=== PATIENT | female | born 1940 | race Caucasian/White ===

== ENCOUNTER 2016-11-08 16:05 | Inpatient (IN) | payer MEDICARE, BC ==
[2016-11-08] MEDS ORDERED: Sodium Chloride 0.9% 10 ML Syringe FLUSH PRN (16:36)
--- NOTE | 2016-11-08 17:16 | EDM.PDOC ---
ED HISTORY OF PRESENT ILLNESS - General Chief Complaint: Cardiovascular Problem Stated Complaint: ABNORMAL LABS Time Seen by Provider: 11/08/16 16:26 Source of Information: Reports: Patient History Limitations: Reports: No limitations - History of Present Illness INITIAL COMMENTS - FREE TEXT/NARRATIVE: The patient presents with a fever from Dr Rubio's office. She saw Dr Rubio today because she has had no energy, has been off balance and she has fallen many times in the past few days. She fell 3 times yesterday. She has moderate edema to her legs. She also has developed a generalized rash in the past few days. She has no pain. She has no cough, congestion, runny nose, sore throat, chest pain or shortness of breath. She has no nausea or vomiting and no abdominal pain. She was tachycardic at his office and he heard a heart murmur that he has never heard before. She has crohn's disease and in September she was hospitalized in [place] for a flair. She sees Dr Weiss at [facility]. At that time he put her on some solu-medrol and upped her remicade. Her temperature was [address] Rubio recommended a CT of her head and a CT of her abdomen and pelvis. Timing/Duration: Reports: Day(s): Severity: moderate Improves with: Reports: None Worsens with: Reports: None Associated Symptoms (General): Reports: fever/chills. Denies: chest pain, cough , headaches, loss of appetite, nausea/vomiting, shortness of breath - Related Data Allergies/ADRs: Allergies Allergy/AdvReac Type Severity Reaction Status Date / Time No Known Allergies Allergy Verified 11/08/16 16:19 Home Meds: Home Meds Levothyroxine Sodium 75 mcg PO ACBRK 04/14/14 [History] Metoprolol Tartrate [Lopressor] 1 tab PO BID 04/14/14 [History] Pantoprazole Sodium 1 tab PO DAILY 04/14/14 [History] Potassium Chloride 2 tab PO QAM 04/14/14 [History] Pravastatin [Pravachol] 1 tab PO DAILY 04/14/14 [History] Triamterene/Hydrochlorothiazid [Triamterene-HCTZ 37.5-25 MG] 0.5 tab PO QAM 12/23 [History] metFORMIN [Glucophage] 1 tab PO BEDTIME 04/14/14 [History] Loperamide [Imodium AD] 1 tab PO BID PRN 06/18/15 [History] Nitroglycerin [Nitrostat] 0.4 mg SL ASDIRECTED PRN 06/18/15 [History] InFLIXimab [Remicade] 100 mg IV ASDIRECTED 06/30/15 [History] Colestid. 1 gram PO DAILY 06/14/16 [History] Aspirin 81 mg PO DAILY 09/19/16 [History] Past Medical History HEENT History: Reports: Impaired vision Cardiovascular History: Reports: CAD, Hypertension Other Cardiovascular History: x 3 Gastrointestinal History: Reports: GERD, Inflammatory bowel disease, Other (see below) Other Gastrointestinal History: crohn's Genitourinary History: Reports: Urinary incontinence Musculoskeletal History: Reports: Osteoarthritis Psychiatric History: Reports: Depression Endocrine/Metabolic History: Reports: Hypothyroidism Other Endocrine/Metabolic History: borderline - Past Surgical History HEENT Surgical History: Reports: Cataract surgery, Tonsillectomy Cardiovascular Surgical History: Reports: Coronary artery stent GI Surgical History: Reports: Cholecystectomy, Colonoscopy Social & Family History - Tobacco Use Smoking Status *Q: Former Smoker Years of Tobacco use: 30 Packs/Tins Daily: 2 Month Tobacco Last Used: 1994 Second Hand Smoke Exposure: No - Caffeine Use Caffeine Use: Reports: Coffee, Energy drinks, Soda, Tea - Alcohol Use Days Per Week of Alcohol Use: 1 Number of Drinks Per Day: 1 Total Drinks Per Week: 1 - Recreational Drug Use Recreational Drug Use: No Drug Use in Last 12 Months: No - Living Situation & Occupation Living situation: Reports: , alone Occupation: retired ED ROS GENERAL - Review of Systems Review Of Systems: See Below Constitutional: Reports: fever, chills, malaise, weakness HEENT: Reports: No symptoms Respiratory: Reports: no symptoms Cardiovascular: Reports: No symptoms Endocrine: Reports: no symptoms GI/Abdominal: Reports: No symptoms : Reports: no symptoms Musculoskeletal: Reports: no symptoms Skin: Reports: no symptoms ED EXAM, GENERAL - Physical Exam Exam: See Below Exam Limited By: No limitations General Appearance: alert, no apparent distress Ears: normal external exam Nose: normal inspection Head: atraumatic, normocephalic Neck: normal inspection Respiratory/Chest: no respiratory distress, lungs clear, normal breath sounds Cardiovascular: regular rate, rhythm, no murmur, other (Moderate edema to her lower legs) GI/Abdominal: soft, non tender, no organomegaly, no mass Back Exam: normal inspection Extremities: other (Moderate to severe edema to both legs) Neurological: alert, oriented, no motor/sensory deficits Skin Exam: Warm, Dry, Rash Course - Vital Signs Last Recorded V/S: Last Vital Signs Temp 99.5 F 11/08/16 16:19 Pulse 109 H 11/08/16 16:19 Resp 14 11/08/16 16:19 BP 144/68 H 11/08/16 16:19 Pulse Ox - Orders/Labs/Meds Orders: Active Orders 24 hr Category Date Time Status Peripheral IV Care [RC] . DIRECTED Care 11/08/16 16:36 Active Sodium Chloride 0.9% [Saline Flush] Med 11/08/16 16:36 Active 10 ml FLUSH ASDIRECTED PRN Sodium Chloride 0.9% [Saline Flush] Med 11/08/16 17:55 Active 10 ml FLUSH ONETIME PRN Vancomycin [Vancocin] 1 gm Med 11/08/16 19:04 Active Sodium Chloride 0.9% [Normal Saline] 250 ml IV ONETIME Peripheral IV Insertion Adult [OM.PC] Routine Oth 11/08/16 16:36 Ordered Medication Orders Vancomycin HCl 1 gm/ Sodium (Chloride) 250 mls @ 250 mls/hr IV ONETIME ONE Stop: 11/08/16 20:03 Sodium Chloride (Saline Flush) 10 ml FLUSH ASDIRECTED PRN PRN Reason: Keep Vein Open Last Admin: 11/08/16 17:30 Dose: 10 ml Sodium Chloride (Saline Flush) 10 ml FLUSH ONETIME PRN PRN Reason: IV FLUSH Last Admin: 11/08/16 18:34 Dose: 10 ml Admin: 11/08/16 18:05 Dose: 10 ml Meds: Medications Generic Name Dose Route Start Last Admin Trade Name Freq PRN Reason Stop Dose Admin Vancomycin HCl 1 gm/ Sodium 250 mls @ 250 mls/hr 11/08/16 19:04 Chloride IV 11/08/16 20:03 ONETIME ONE Sodium Chloride 10 ml 11/08/16 16:36 11/08/16 17:30 Saline Flush FLUSH 10 ml ASDIRECTED PRN Administration Keep Vein Open Sodium Chloride 10 ml 02/28/17 17:55 11/08/16 18:34 Saline Flush FLUSH 10 ml ONETIME PRN Administration IV FLUSH Discontinued Medications Generic Name Dose Route Start Last Admin Trade Name Juan PRN Reason Stop Dose Admin Acetaminophen 975 mg 11/08/16 19:08 Tylenol PO 11/08/16 19:09 NOW ONE Diatrizoate Meglum/Diatrizoate Sod 90 ml 11/08/16 17:55 11/08/16 18:34 Gastrografin 37% PO 11/08/16 17:56 90 ml ONETIME ONE Administration Iopamidol 125 ml 11/08/16 17:55 11/08/16 18:32 Isovue-300 (61%) IVPUSH 11/08/16 17:56 125 ml ONETIME ONE Administration - Re-Assessments/Exams Free Text/Narrative Re-Assessment/Exam: 11/08/16 17:23 I ordered an IV NS at 125mL/hr, CT of her head and CT of her abdomen and pelvis. Her CBC shows a normal WBC. Her Hgb is a little low at 11. Her Platelets are normal. Her CRP was elevated at 152. Her glucose was elevated at 153. Her K was a little low at 3.2. Her albumin was low at 2.6. Her UA shows no UTI. The patient had to urinate when she came in and my nursing staff got her up and she had moderate to severe erythema to the perineum and perirectal area. This could be the source of the fever. Dr Rubio did also order some cultures. 11/08/16 19:10 Her influenza is negative. The CT of her head shows nothing acute. The CT of her abdomen and pelvis shows changes from the crohn's with no new changes. I ordered vancomycin [address] Rubio did cultures. I feel she needs to be admitted. I called Dr Johnson and he agreed to the admission. He was able to look in her record and found she has some heart failure. This could also be going on. Departure - Departure Time of Disposition: 19:20 Disposition: Admitted As Inpatient 66 Condition: fair Clinical Impression: Cellulitis of perineum, Rash, Hypoalbuminemia, Pedal edema Fever Qualifiers: Fever type: due to other condition Qualified Code(s): R50.81 - Fever presenting with conditions classified elsewhere CHF (congestive heart failure) Qualifiers: Congestive heart failure type: unspecified congestive heart failure type Congestive heart failure chronicity: unspecified congestive heart failure chronicity Qualified Code(s): I50.9 - Heart failure, unspecified Forms: ED Department Discharge - My Orders Last 24 Hours: My Active Orders 11/08/16 16:36 Peripheral IV Care [RC] . DIRECTED Sodium Chloride 0.9% [Saline Flush] 10 ml FLUSH ASDIRECTED PRN Peripheral IV Insertion Adult [OM.PC] Routine 11/08/16 17:55 Sodium Chloride 0.9% [Saline Flush] 10 ml FLUSH ONETIME PRN 11/08/16 19:04 Vancomycin [Vancocin] 1 gm Sodium Chloride 0.9% [Normal Saline] 250 ml IV ONETIME - Assessment/Plan Last 24 Hours: My Active Orders 11/08/16 16:36 Peripheral IV Care [RC] . DIRECTED Sodium Chloride 0.9% [Saline Flush] 10 ml FLUSH ASDIRECTED PRN Peripheral IV Insertion Adult [OM.PC] Routine 11/08/16 17:55 Sodium Chloride 0.9% [Saline Flush] 10 ml FLUSH ONETIME PRN 11/08/16 19:04 Vancomycin [Vancocin] 1 gm Sodium Chloride 0.9% [Normal Saline] 250 ml IV ONETIME
--- NOTE | 2016-11-08 17:19 | CT ---
Head CT Technique: Multiple axial sections through the brain were obtained. Intravenous contrast was not utilized. Comparison: Previous head CT study of 09/27/14 and previous MRI brain of 06/15/16. Findings: Ventricles along with basal cisterns and sulci over the convexities are moderately prominent. Mild diminished density is seen within portions of the periventricular and subcortical white matter. This is felt compatible with small vessel ischemic demyelination change. 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 Slight basal ganglia calcification is noted on the right side. Old lacunar infarct also noted within the left side of the cerebellum also seen on previous study. No other abnormal parenchymal densities are seen. No evidence of intracranial hemorrhage. No midline shift or mass effect is seen. Bone window settings were reviewed which shows the visualized sinuses to appear clear. Mastoid sinuses and middle ear cavities are clear. No acute calvarial abnormality is seen. Impression: 1. Senescent change as described above. Nothing acute is identified on noncontrast head CT study. Diagnostic code #2
[2016-11-08] MEDS ORDERED: Iopamidol 612 MG/ML 150 ML Bottle IVPUSH ONE (17:55)
[2016-11-08] MEDS ORDERED: Diatrizoate Meglumine/Diatrizoate Sodium 37% 120 ML Bottle PO ONE (17:55)
[2016-11-08] MEDS: Sodium Chloride 0.9% 10 ML Syringe FLUSH PRN ×2 (18:05→18:34)
--- NOTE | 2016-11-08 19:04 | CT ---
CT abdomen and pelvis Technique: Multiple axial sections were obtained from above the dome of the diaphragm inferiorly through the pubic symphysis. Intravenous and oral contrast was utilized. Delayed images were also obtained through the bladder. Comparison: Previous CT abdomen and pelvis exam of 09/19/16 is available. Findings: Visualized lung bases shows nothing acute. Liver shows no focal abnormality. Multiple calcified splenic granuloma noted within the spleen which are incidental. Adrenal glands show no nodule. Pancreas is within normal limits. Cysts are seen within the right kidney which appears stable. Left kidney is unremarkable. No hydronephrosis is seen. Aorta shows atherosclerotic change. Mild aneurysmal dilatation seen within the mid aorta which measures about 3.3 cm in greatest AP dimension which is stable. Atherosclerotic calcification is seen within the iliac vessels. Diffuse wall thickening seen within the large portion of the distal ileum. This was noted on previous exam and appears fairly stable. Small amount of fluid is seen within the pelvis which was seen on prior exam. Small fat-containing bilateral inguinal hernias are noted. No additional pelvic abnormality is appreciated. Impression: 1. Prominent bowel wall thickening within the distal ileum which appears fairly stable from prior study. Findings are compatible with change from Crohn's disease. 2. Small amount of fluid within the pelvis which remains stable from prior CT exam. 3. Slight aneurysmal dilatation of the mid aorta which remains stable. 4. Previous study shows slightly prominent lymph nodes which have decreased in size from previous exam. 5. No new abnormality is seen from prior CT study. Diagnostic code #3
[2016-11-08] MEDS ORDERED: Acetaminophen 325 MG Tab PO ONE (19:08)
--- NOTE | 2016-11-08 20:00 | PCM.HP ---
H&P History of Present Illness - General Date of Service: 11/08/16 Admit Problem/Dx: Admission Diagnosis/Problem Admission Diagnosis/Problem Cellulitis Source of Information: EMS notes reviewed, Old records, RN notes reviewed History Limitations: Reports: No limitations - History of Present Illness Initial Comments - Free Text/Narative: This is a 76 yo elderly white female with past medical hx/o Impaired Vision, CAD , HTN, GERD, Urinary Incontinence, OA, Hypothyrodism and Depression who initially presented to his PCP with c/o fever and was found to have a temp of 101. She reports weakness, malaise, fatigue, unsteady gait and has fallen many times in the past few days. Per patient she has fallen at least 3 times yesterday. She also has skin rash and peripheral edema. She denies pain, URI symptoms, no chest pain or shortness of breath. She also denies nausea, vomiting or abdominal pain. On presentation to her PCP's office, she was found tachycardic and a new onset of heart murmur. Patient carries a hx/o Crohn's Disease and follows Dr. Weiss. She was hospitalized in September in [place] for acute flare up of her IBD. At that time, she was given high dose steroids and her biologic was dose was upped. Her initial work up at the clinic shows a Head CT scan with no acute abnormal findings. Her Abdomen/Pelvis CT scan shows diffuse bowel wall thickening within the large portion of the distal ileum. Patient was referred to me fro Acute Crohn's Disease, Perineal Cellulitis cannot r/o fistula, Hypoalbuminemia, Fever, Generalized Weakness and pedal Edema. She is full code. - Related Data Allergies/Adverse Reactions: Allergies Allergy/AdvReac Type Severity Reaction Status Date / Time No Known Allergies Allergy Verified 11/08/16 16:19 Home Medications: Home Meds Levothyroxine Sodium 75 mcg PO ACBRK 04/14/14 [History] Metoprolol Tartrate [Lopressor] 1 tab PO BID 04/14/14 [History] Pantoprazole Sodium 1 tab PO DAILY 04/14/14 [History] Potassium Chloride 2 tab PO QAM 04/14/14 [History] Pravastatin [Pravachol] 1 tab PO DAILY 04/14/14 [History] Triamterene/Hydrochlorothiazid [Triamterene-HCTZ 37.5-25 MG] 0.5 tab PO QAM 12/23 [History] metFORMIN [Glucophage] 1 tab PO BEDTIME 04/14/14 [History] Loperamide [Imodium AD] 1 tab PO BID PRN 06/18/15 [History] Nitroglycerin [Nitrostat] 0.4 mg SL ASDIRECTED PRN 06/18/15 [History] InFLIXimab [Remicade] 100 mg IV ASDIRECTED 06/30/15 [History] Colestid. 1 gram PO DAILY 06/14/16 [History] Aspirin 81 mg PO DAILY 09/19/16 [History] Past Medical History HEENT History: Reports: Impaired vision Cardiovascular History: Reports: CAD, Hypertension Other Cardiovascular History: x 3 Gastrointestinal History: Reports: GERD, Inflammatory bowel disease, Other (see below) Other Gastrointestinal History: crohn's Genitourinary History: Reports: Urinary incontinence Musculoskeletal History: Reports: Osteoarthritis Psychiatric History: Reports: Depression Endocrine/Metabolic History: Reports: Hypothyroidism Other Endocrine/Metabolic History: borderline - Past Surgical History HEENT Surgical History: Reports: Cataract surgery, Tonsillectomy Cardiovascular Surgical History: Reports: Coronary artery stent GI Surgical History: Reports: Cholecystectomy, Colonoscopy Social & Family History - Tobacco Use Smoking Status *Q: Former Smoker Years of Tobacco use: 30 Packs/Tins Daily: 2 Month Tobacco Last Used: 1994 Second Hand Smoke Exposure: No - Caffeine Use Caffeine Use: Reports: Coffee, Energy drinks, Soda, Tea - Alcohol Use Days Per Week of Alcohol Use: 1 Number of Drinks Per Day: 1 Total Drinks Per Week: 1 - Recreational Drug Use Recreational Drug Use: No Drug Use in Last 12 Months: No - Living Situation & Occupation Living situation: Reports: , alone Occupation: retired H&P Review of Systems - Review of Systems: Review Of Systems: See Below General: Reports: fever, chills, malaise, weakness HEENT: Reports: no symptoms Pulmonary: Denies: shortness of breath Cardiovascular: Denies: chest pain, edema Gastrointestinal: Denies: Abdominal pain, Nausea, Vomiting Genitourinary: Reports: no symptoms Musculoskeletal: Reports: no symptoms Skin: Reports: rash Psychiatric: Denies: depression, anxiety, hallucinations Neurological: Denies: confusion Hematologic/Lymphatic: Reports: no symptoms Immunologic: Reports: no symptoms Exam - Exam Exam: See Below - Vital Signs Vital Signs: Last Vital Signs Temp 37.7 C 11/08/16 19:26 Pulse 109 H 11/08/16 16:19 Resp 14 11/08/16 16:19 BP 144/68 H 11/08/16 16:19 Pulse Ox Weight: 90.265 kg - Exam General: alert, oriented, cooperative, other (Obese). No: mild distress HEENT: Conjunctiva clear, EACs clear, EOMI, Hearing intact, Mucosa moist & pink , Nares patent, Normal nasal septum, Posterior pharynx clear, PERRLA Neck: supple, trachea midline, 2+ carotid pulse wo bruit Lungs: Clear to auscultation, Normal respiratory effort Cardiovascular: regular rate, regular rhythm Abdomen: normal bowel sounds, soft, organomegaly. No: peritoneal signs, distention, guarding, rigidity, rebound, tenderness (Female) Exam: Other (Lisa-rectal and lisa-eal erythema) Rectal (Female) Exam: Deferred Back Exam: normal inspection, decreased range of motion Extremities: normal inspection, edema. No: normal pulses, clubbing, cyanosis, calf tenderness Peripheral Pulses: 2+: dorsalis pedis (L), dorsalis pedis (R) Skin: warm, dry, intact Neuro Extensive - Mental Status: oriented x3, normal cognition, memory intact Neuro Extensive - Motor, Sensory, Reflexes: CN II-XII intact, normal gait Psychiatric: alert, normal affect, normal mood - Patient Data Result Diagrams: 11/08/16 20:35 11/08/16 20:35 Thuan Results last 24 hrs: Microbiology 11/08/16 17:00 Influenza Type A Antigen Screen - Final Nasal, Unspecified NEGATIVE INFLUENZA A VIRUS AG Influenza Type B Antigen Screen - Final NEGATIVE INFLUENZA B VIRUS AG *Q Meaningful Use (ADM) - VTE *Q VTE Criteria *Q: - Stroke *Q Stroke Criteria *Q: - AMI *Q AMI Criteria *Q: Problem List Initiated/Reviewed/Updated: Yes Orders Last 24hrs: Active Orders 24 hr Category Date Time Status Patient Status [ADT] Routine ADT 11/08/16 19:19 Active Peripheral IV Care [RC] . DIRECTED Care 11/08/16 16:36 Active Sodium Chloride 0.9% [Saline Flush] Med 11/08/16 16:36 Active 10 ml FLUSH ASDIRECTED PRN Sodium Chloride 0.9% [Saline Flush] Med 11/08/16 17:55 Active 10 ml FLUSH ONETIME PRN Vancomycin [Vancocin] 1 gm Med 11/08/16 19:04 Active Sodium Chloride 0.9% [Normal Saline] 250 ml IV ONETIME Peripheral IV Insertion Adult [OM.PC] Routine Oth 11/08/16 16:36 Ordered Medication Orders Vancomycin HCl 1 gm/ Sodium (Chloride) 250 mls @ 250 mls/hr IV ONETIME ONE Stop: 11/08/16 20:03 Last Admin: 11/08/16 19:29 Dose: 250 mls/hr Sodium Chloride (Saline Flush) 10 ml FLUSH ASDIRECTED PRN PRN Reason: Keep Vein Open Last Admin: 11/08/16 17:30 Dose: 10 ml Sodium Chloride (Saline Flush) 10 ml FLUSH ONETIME PRN PRN Reason: IV FLUSH Last Admin: 11/08/16 18:34 Dose: 10 ml Admin: 11/08/16 18:05 Dose: 10 ml Assessment/Plan Comment:: Assessment/Plan: Acute; High Risk Sepsis: Fever 101, Tachycardic 109, CRP 152, and Generalized Weakness - Lisa-rectal and Perineal Cellulitis/Crohn's Colitis - LA - Blood Culture x 2 - Supportive Care - IV ATB: Levaquin and Vancomycin (pharmacy to renaly dose) Cronh's Colitis - CT scan: Prominent bowel wall thickening within the distal ileum - IV Steroids - NPO except ice chips, sips of water and oral meds for 48hrs - IV Flagyl 500 mg Q8 - Dietary consult for Crohn's diet - O&P and Stool Culture to include C. Diff test Lisa-rectal and Perineal Cellulitis --> fits Acrodermatitis Enteropathica (pink and scaly rash around mouth or anal area) - No fistula - Usually improves once flare up improved - Benefit with zinc supplement - IV ATB as noted above - Consider GS consult if no response to treatment Peripheral Edema - She is not centrally volume overload - Peripheral edema severe - Risk factors: Hx/o HF with Reduced EF 25-30% 09/18/2014 and Hypoalbuminemia - UA r/o Proteinuria - Thyroid Panel in AM - Consider Lasix drip Mild Hypoalbuminemia - Albumin 2.1 - Dietary consult: low protein state Generalized Weakness - 2/2 above and not able to keep anything down 2/2 diarrhea - PT/OT consult Status Post Fall - 2/2 Generalized Weakness Abdomen/Pelvis CT scan other findings: Small amount of fluid within the pelvis and slightly aneurysmal dilatation of the mid aorta measuring 3.3 cm Chronic: Impaired Vision CAD HTN GERD IBD Urinary Incontinence OA/DJD Hypothyroidism Depression Urinary Incontinence Plan: Admit to Med-Surg with Tele Routine AM Labs Resume Home Meds UA, BNP and A1C Influenza screening PT/OT consult SW/DELORES for d/c planning Code status:1 Additional orders as above
[2016-11-08] MEDS ORDERED: Acetaminophen 325 MG Tab PO PRN (20:08)
[2016-11-08] MEDS ORDERED: LORazepam 2 MG/ML MDV IV PRN (20:08)
[2016-11-08] MEDS ORDERED: HYDROmorphone 1 MG/ML Syringe IVPUSH PRN (20:08)
[2016-11-08] MEDS ORDERED: Temazepam 15 MG Cap PO PRN (20:08)
[2016-11-08] MEDS ORDERED: Acetaminophen/HYDROcodone 325-5 MG Tab PO PRN (20:08)
[2016-11-08] MEDS ORDERED: Promethazine 12.5 MG in Sodium Chloride 0.9% 50 ML IV PRN (20:08)
[2016-11-08] MEDS ORDERED: Ondansetron 4 MG/2 ML SDV IV PRN (20:08)
[2016-11-08] MEDS ORDERED: Acetaminophen 650 MG Supp RECTAL PRN (20:08)
[2016-11-08] MEDS ORDERED: Cyanocobalamin (Vitamin B12) 1,000 MCG/ML SDV IM ONE (20:16)
[2016-11-08] MEDS ORDERED: 50% Dextrose in Water 50 ML Syringe IVPUSH PRN (20:18)
[2016-11-08] MEDS ORDERED: HYDROmorphone 0.5 MG/0.5 ML Syringe IVPUSH PRN (20:31)
[2016-11-08] MEDS ORDERED: Saccharomyces Boulardii (Probiotic) 250 MG Cap PO SCH (21:00)
[2016-11-08] MEDS ORDERED: Magnesium Sulfate/Water 50 ML IV ONE (21:30)
[2016-11-08] MEDS: Multivitamins,Therapeutic Tab PO SCH (21:42)
[2016-11-08] MEDS: Folic Acid 1 MG Tab PO SCH (21:42)
[2016-11-08] MEDS: Pantoprazole 40 MG Vial IV SCH (21:42)
[2016-11-08] MEDS: methylPREDNISolone Sodium Succinate 40 MG/1 ML SDV IVPUSH SCH (21:42)
[2016-11-08] MEDS: metroNIDAZOLE/Normal Saline 500 MG in Premix Bag 1 BAG IV SCH (21:42)
[2016-11-08] MEDS ORDERED: Furosemide 100 MG in Sodium Chloride 0.9% 90 ML IV SCH (22:00)
[2016-11-08] MEDS ORDERED: Nitroglycerin 0.4 MG Tab.SL SL PRN (22:07)
[2016-11-08] MEDS: Levofloxacin/Dextrose 5%-Water 500 MG in Premix Bag 1 BAG IV SCH (23:01)
[2016-11-08] MEDS: Potassium Chloride 20 MEQ Tab.ER PO SCH (23:28)
[2016-11-08] MEDS: Insulin Aspart 100 Units/ML 3 ML Pen SUBCUT SCH (23:28)
[2016-11-08] MEDS: Levothyroxine 75 MCG Tab PO SCH (23:29)
[2016-11-09] MEDS: methylPREDNISolone Sodium Succinate 40 MG/1 ML SDV IVPUSH SCH ×4 (02:09→22:00)
[2016-11-09] MEDS: Cyanocobalamin (Vitamin B12) 1,000 MCG/ML SDV IM SCH ×2 (02:09→08:10)
[2016-11-09] MEDS: Potassium Chloride 20 MEQ Tab.ER PO SCH ×5 (02:10→22:00)
[2016-11-09] MEDS: Loperamide 2 MG Cap PO PRN (02:10)
[2016-11-09] MEDS: Dextrose 5%-0.45% NaCl 1,000 ML IV SCH ×2 (02:10→11:54)
[2016-11-09] MEDS: metroNIDAZOLE/Normal Saline 500 MG in Premix Bag 1 BAG IV SCH ×3 (04:26→22:02)
[2016-11-09] MEDS: Levothyroxine 75 MCG Tab PO SCH ×2 (04:26→05:57)
[2016-11-09] MEDS ORDERED: TRIAMTERENE PO SCH (08:00)
[2016-11-09] MEDS ORDERED: HCTZ PO SCH (08:00)
[2016-11-09] MEDS ORDERED: Potassium Chloride 10 MEQ Tab.ER PO SCH (08:00)
[2016-11-09] MEDS: Insulin Aspart 100 Units/ML 3 ML Pen SUBCUT SCH ×4 (08:06→22:04)
[2016-11-09] MEDS: Aspirin 81 MG Tab.Chew PO SCH (08:07)
[2016-11-09] MEDS: Potassium Chloride 10 MEQ Tab.ER PO SCH (08:07)
[2016-11-09] MEDS: Simvastatin 10 MG Tab PO SCH (08:08)
[2016-11-09] MEDS: Pantoprazole 40 MG Vial IV SCH ×2 (08:09→22:00)
[2016-11-09] MEDS: Metoprolol Tartrate 100 MG Tab PO SCH ×2 (08:11→21:59)
[2016-11-09] MEDS: TRIAMTERENE PO SCH (08:36)
[2016-11-09] MEDS: HYDROCHLOROTHIAZIDE PO SCH (08:36)
[2016-11-09] MEDS: COLESTID PO SCH (08:36)
[2016-11-09] MEDS ORDERED: Hydrochlorothiazide/Triamterene 50-75 MG Tab PO SCH (09:00)
[2016-11-09] MEDS ORDERED: Magnesium Sulfate/Water 2 GM in Premix Bag 1 BAG IV ONE ×2 (10:30→13:00)
[2016-11-09] MEDS: Saccharomyces Boulardii (Probiotic) 250 MG Cap PO SCH ×2 (11:34→21:58)
[2016-11-09] MEDS: Magnesium Oxide 400 MG Tab PO SCH ×2 (11:40→21:58)
[2016-11-09] MEDS: Enoxaparin 40 MG/0.4 ML Syringe SUBCUT SCH (11:43)
[2016-11-09] MEDS: Fluconazole 100 MG Tab PO SCH (14:04)
[2016-11-09] MEDS: Spironolactone 25 MG Tab PO SCH (14:05)
[2016-11-09] MEDS: Nystatin Crm 30 GM Tube TOP SCH ×2 (14:06→22:00)
--- NOTE | 2016-11-09 17:00 | PCM.PN ---
- General Info Date of Service: 11/09/16 Functional Status: Reports: tolerating diet (advanced to full liquids), urinating (mixon cath) - Review of Systems General: Reports: weakness HEENT: Reports: no symptoms Pulmonary: Reports: shortness of breath Cardiovascular: Reports: no symptoms Gastrointestinal: Reports: Diarrhea (decreased) Genitourinary: Reports: no symptoms Musculoskeletal: Reports: no symptoms Skin: Reports: rash Neurological: Reports: no symptoms Psychiatric: Reports: no symptoms - Patient Data Vitals - most recent: Last Vital Signs Temp 36.6 C 11/09/16 16:08 Pulse 74 11/09/16 16:08 Resp 19 11/09/16 16:08 BP 119/87 11/09/16 16:08 Pulse Ox 96 11/09/16 16:08 Weight - most recent: 88.496 kg I&O - last 24 hours: Intake & Output 11/09/16 11/09/16 11/09/16 06:59 14:59 22:59 Intake Total 1395 210 Output Total 1900 Balance -505 210 Lab Results last 24 hrs: Laboratory Results - last 24 hr 11/08/16 11/08/16 11/08/16 Range/Units 20:35 20:35 20:35 WBC 7.44 (3.98-10.04) K/mm3 RBC 4.16 (3.98-5.22) M/mm3 Hgb 10.1 L (11.2-15.7) gm/L Hct 31.7 L (34.1-44.9) % MCV 76.2 L (79.4-94.8) fl MCH 24.3 L (25.6-32.2) pg MCHC 31.9 L (32.2-35.5) g/dl RDW Std Deviation 42.9 (36.4-46.3) fL Plt Count 252 (182-369) K/mm3 MPV 9.5 (9.4-12.3) fl Neut % (Auto) 68.6 (34.0-71.1) % Lymph % (Auto) 19.2 L (19.3-51.7) % [place] % (Auto) 10.8 (4.7-12.5) % Eos % (Auto) 0.8 (0.7-5.8) Baso % (Auto) 0.3 (0.1-1.2) % Neut # 5.11 (1.56-6.13) K/mm3 Lymph # 1.43 (1.18-3.74) K/mm3 [place] # 0.80 H (0.24-0.36) K/mm3 Eos # 0.06 (0.04-0.36) K/mm3 Baso # 0.02 (0.01-0.08) K/mm3 ESR 27 H (0-20) mm/hr Sodium 132 L (136-145) mEq/L Potassium 2.7 L (3.5-5.1) mEq/L Chloride 96 L (98-107) mEq/L Carbon Dioxide 27 (21-32) mEq/L Anion Gap 11.7 (5-15) BUN 8 (7-18) mg/dL Creatinine 0.9 (0.55-1.02) mg/dL Est Cr Clr Drug Dosing 49.78 mL/min Estimated GFR (MDRD) > 60 (>60) mL/min BUN/Creatinine Ratio 8.9 L (14-18) Glucose 137 H (83-115) mg/dL POC Glucose (83-110) mg/dL Hemoglobin A1c (4.50-6.20) % Lactic Acid (0.4-2.0) mmol/L Calcium 8.3 L (8.5-10.1) mg/dL Magnesium 1.2 L (1.8-2.4) mg/dl Total Bilirubin 0.5 (0.2-1.0) mg/dL AST 42 H (15-37) U/L ALT 21 (14-59) U/L Alkaline Phosphatase 59 (46-116) U/L C-Reactive Protein 12.5 H* (<1.0) mg/dL B-Natriuretic Peptide (0-100) pg/mL Total Protein 5.7 L (6.4-8.2) g/dl Albumin 2.3 L (3.4-5.0) g/dl Globulin 3.4 gm/dL Albumin/Globulin Ratio 0.7 L (1-2) Free T4 (0.76-1.46) ng/dL TSH 3rd Generation (0.358-3.74) uIU/mL Urine Color (Yellow) Urine Appearance (Clear) Urine pH (5.0-8.0) Ur Specific [place] (1.005-1.030) Urine Protein (Negative) Urine Glucose (UA) (Negative) Urine Ketones (Negative) Urine Occult Blood (Negative) Urine Nitrite (Negative) Urine Bilirubin (Negative) Urine Urobilinogen (0.2-1.0) Ur Leukocyte Esterase (Negative) Urine RBC (0-5) /hpf Urine WBC (0-5) /hpf Urine WBC Clumps (NOT SEEN) /hpf Ur Squamous Epith Cells (0-5) /hpf Urine Bacteria (FEW) /hpf Urine Mucus (FEW) /hpf C.difficile 027-NAP1-B1 C. difficile Tox (PCR) 11/08/16 11/08/16 11/08/16 Range/Units 20:35 20:35 20:35 WBC (3.98-10.04) K/mm3 RBC (3.98-5.22) M/mm3 Hgb (11.2-15.7) gm/L Hct (34.1-44.9) % MCV (79.4-94.8) fl MCH (25.6-32.2) pg MCHC (32.2-35.5) g/dl RDW Std Deviation (36.4-46.3) fL Plt Count (182-369) K/mm3 MPV (9.4-12.3) fl Neut % (Auto) (34.0-71.1) % Lymph % (Auto) (19.3-51.7) % [place] % (Auto) (4.7-12.5) % Eos % (Auto) (0.7-5.8) Baso % (Auto) (0.1-1.2) % Neut # (1.56-6.13) K/mm3 Lymph # (1.18-3.74) K/mm3 [place] # (0.24-0.36) K/mm3 Eos # (0.04-0.36) K/mm3 Baso # (0.01-0.08) K/mm3 ESR (0-20) mm/hr Sodium (136-145) mEq/L Potassium (3.5-5.1) mEq/L Chloride (98-107) mEq/L Carbon Dioxide (21-32) mEq/L Anion Gap (5-15) BUN (7-18) mg/dL Creatinine (0.55-1.02) mg/dL Est Cr Clr Drug Dosing mL/min Estimated GFR (MDRD) (>60) mL/min BUN/Creatinine Ratio (14-18) Glucose (83-115) mg/dL POC Glucose (83-110) mg/dL Hemoglobin A1c 5.90 (4.50-6.20) % Lactic Acid 1.6 (0.4-2.0) mmol/L Calcium (8.5-10.1) mg/dL Magnesium (1.8-2.4) mg/dl Total Bilirubin (0.2-1.0) mg/dL AST (15-37) U/L ALT (14-59) U/L Alkaline Phosphatase (46-116) U/L C-Reactive Protein (<1.0) mg/dL B-Natriuretic Peptide 58 (0-100) pg/mL Total Protein (6.4-8.2) g/dl Albumin (3.4-5.0) g/dl Globulin gm/dL Albumin/Globulin Ratio (1-2) Free T4 (0.76-1.46) ng/dL TSH 3rd Generation (0.358-3.74) uIU/mL Urine Color (Yellow) Urine Appearance (Clear) Urine pH (5.0-8.0) Ur Specific [place] (1.005-1.030) Urine Protein (Negative) Urine Glucose (UA) (Negative) Urine Ketones (Negative) Urine Occult Blood (Negative) Urine Nitrite (Negative) Urine Bilirubin (Negative) Urine Urobilinogen (0.2-1.0) Ur Leukocyte Esterase (Negative) Urine RBC (0-5) /hpf Urine WBC (0-5) /hpf Urine WBC Clumps (NOT SEEN) /hpf Ur Squamous Epith Cells (0-5) /hpf Urine Bacteria (FEW) /hpf Urine Mucus (FEW) /hpf C.difficile 027-NAP1-B1 C. difficile Tox (PCR) 11/08/16 11/08/16 11/08/16 Range/Units 23:08 23:30 23:30 WBC (3.98-10.04) K/mm3 RBC (3.98-5.22) M/mm3 Hgb (11.2-15.7) gm/L Hct (34.1-44.9) % MCV (79.4-94.8) fl MCH (25.6-32.2) pg MCHC (32.2-35.5) g/dl RDW Std Deviation (36.4-46.3) fL Plt Count (182-369) K/mm3 MPV (9.4-12.3) fl Neut % (Auto) (34.0-71.1) % Lymph % (Auto) (19.3-51.7) % [place] % (Auto) (4.7-12.5) % Eos % (Auto) (0.7-5.8) Baso % (Auto) (0.1-1.2) % Neut # (1.56-6.13) K/mm3 Lymph # (1.18-3.74) K/mm3 [place] # (0.24-0.36) K/mm3 Eos # (0.04-0.36) K/mm3 Baso # (0.01-0.08) K/mm3 ESR (0-20) mm/hr Sodium (136-145) mEq/L Potassium (3.5-5.1) mEq/L Chloride (98-107) mEq/L Carbon Dioxide (21-32) mEq/L Anion Gap (5-15) BUN (7-18) mg/dL Creatinine (0.55-1.02) mg/dL Est Cr Clr Drug Dosing mL/min Estimated GFR (MDRD) (>60) mL/min BUN/Creatinine Ratio (14-18) Glucose (83-115) mg/dL POC Glucose 130 H (83-110) mg/dL Hemoglobin A1c (4.50-6.20) % Lactic Acid (0.4-2.0) mmol/L Calcium (8.5-10.1) mg/dL Magnesium (1.8-2.4) mg/dl Total Bilirubin (0.2-1.0) mg/dL AST (15-37) U/L ALT (14-59) U/L Alkaline Phosphatase (46-116) U/L C-Reactive Protein (<1.0) mg/dL B-Natriuretic Peptide (0-100) pg/mL Total Protein (6.4-8.2) g/dl Albumin (3.4-5.0) g/dl Globulin gm/dL Albumin/Globulin Ratio (1-2) Free T4 (0.76-1.46) ng/dL TSH 3rd Generation (0.358-3.74) uIU/mL Urine Color Light yellow (Yellow) Urine Appearance Clear (Clear) Urine pH 6.5 (5.0-8.0) Ur Specific [place] 1.010 (1.005-1.030) Urine Protein Negative (Negative) Urine Glucose (UA) Negative (Negative) Urine Ketones Negative (Negative) Urine Occult Blood Trace-lysed H (Negative) Urine Nitrite Positive H (Negative) Urine Bilirubin Negative (Negative) Urine Urobilinogen 0.2 (0.2-1.0) Ur Leukocyte Esterase 2+ H (Negative) Urine RBC 5-10 H (0-5) /hpf Urine WBC 20-30 H (0-5) /hpf Urine WBC Clumps Few (NOT SEEN) /hpf Ur Squamous Epith Cells 0-5 (0-5) /hpf Urine Bacteria Few (FEW) /hpf Urine Mucus Few (FEW) /hpf C.difficile 027-NAP1-B1 Presumptive negative C. difficile Tox (PCR) Negative 11/09/16 11/09/16 11/09/16 Range/Units 06:03 06:05 06:05 WBC 3.81 L (3.98-10.04) K/mm3 RBC 4.08 (3.98-5.22) M/mm3 Hgb 10.0 L (11.2-15.7) gm/L Hct 31.5 L (34.1-44.9) % MCV 77.2 L (79.4-94.8) fl MCH 24.5 L (25.6-32.2) pg MCHC 31.7 L (32.2-35.5) g/dl RDW Std Deviation 42.9 (36.4-46.3) fL Plt Count 234 (182-369) K/mm3 MPV 9.7 (9.4-12.3) fl Neut % (Auto) 80.8 H (34.0-71.1) % Lymph % (Auto) 13.9 L (19.3-51.7) % [place] % (Auto) 5.0 (4.7-12.5) % Eos % (Auto) 0 L (0.7-5.8) Baso % (Auto) 0.0 L (0.1-1.2) % Neut # 3.08 (1.56-6.13) K/mm3 Lymph # 0.53 L (1.18-3.74) K/mm3 [place] # 0.19 L (0.24-0.36) K/mm3 Eos # 0.00 L (0.04-0.36) K/mm3 Baso # 0.00 L (0.01-0.08) K/mm3 ESR 34 H (0-20) mm/hr Sodium (136-145) mEq/L Potassium (3.5-5.1) mEq/L Chloride (98-107) mEq/L Carbon Dioxide (21-32) mEq/L Anion Gap (5-15) BUN (7-18) mg/dL Creatinine (0.55-1.02) mg/dL Est Cr Clr Drug Dosing mL/min Estimated GFR (MDRD) (>60) mL/min BUN/Creatinine Ratio (14-18) Glucose (83-115) mg/dL POC Glucose 169 H (83-110) mg/dL Hemoglobin A1c (4.50-6.20) % Lactic Acid (0.4-2.0) mmol/L Calcium (8.5-10.1) mg/dL Magnesium (1.8-2.4) mg/dl Total Bilirubin (0.2-1.0) mg/dL AST (15-37) U/L ALT (14-59) U/L Alkaline Phosphatase (46-116) U/L C-Reactive Protein (<1.0) mg/dL B-Natriuretic Peptide (0-100) pg/mL Total Protein (6.4-8.2) g/dl Albumin (3.4-5.0) g/dl Globulin gm/dL Albumin/Globulin Ratio (1-2) Free T4 (0.76-1.46) ng/dL TSH 3rd Generation (0.358-3.74) uIU/mL Urine Color (Yellow) Urine Appearance (Clear) Urine pH (5.0-8.0) Ur Specific [place] (1.005-1.030) Urine Protein (Negative) Urine Glucose (UA) (Negative) Urine Ketones (Negative) Urine Occult Blood (Negative) Urine Nitrite (Negative) Urine Bilirubin (Negative) Urine Urobilinogen (0.2-1.0) Ur Leukocyte Esterase (Negative) Urine RBC (0-5) /hpf Urine WBC (0-5) /hpf Urine WBC Clumps (NOT SEEN) /hpf Ur Squamous Epith Cells (0-5) /hpf Urine Bacteria (FEW) /hpf Urine Mucus (FEW) /hpf C.difficile 027-NAP1-B1 C. difficile Tox (PCR) 11/09/16 11/09/16 11/09/16 Range/Units 06:05 06:05 11:46 WBC (3.98-10.04) K/mm3 RBC (3.98-5.22) M/mm3 Hgb (11.2-15.7) gm/L Hct (34.1-44.9) % MCV (79.4-94.8) fl MCH (25.6-32.2) pg MCHC (32.2-35.5) g/dl RDW Std Deviation (36.4-46.3) fL Plt Count (182-369) K/mm3 MPV (9.4-12.3) fl Neut % (Auto) (34.0-71.1) % Lymph % (Auto) (19.3-51.7) % [place] % (Auto) (4.7-12.5) % Eos % (Auto) (0.7-5.8) Baso % (Auto) (0.1-1.2) % Neut # (1.56-6.13) K/mm3 Lymph # (1.18-3.74) K/mm3 [place] # (0.24-0.36) K/mm3 Eos # (0.04-0.36) K/mm3 Baso # (0.01-0.08) K/mm3 ESR (0-20) mm/hr Sodium 140 (136-145) mEq/L Potassium 2.9 L (3.5-5.1) mEq/L Chloride 101 (98-107) mEq/L Carbon Dioxide 29 (21-32) mEq/L Anion Gap 12.9 (5-15) BUN 7 (7-18) mg/dL Creatinine 0.8 (0.55-1.02) mg/dL Est Cr Clr Drug Dosing 56.00 mL/min Estimated GFR (MDRD) > 60 (>60) mL/min BUN/Creatinine Ratio 8.8 L (14-18) Glucose 192 H (83-115) mg/dL POC Glucose 146 H (83-110) mg/dL Hemoglobin A1c (4.50-6.20) % Lactic Acid (0.4-2.0) mmol/L Calcium 8.0 L (8.5-10.1) mg/dL Magnesium 1.6 L (1.8-2.4) mg/dl Total Bilirubin 0.4 (0.2-1.0) mg/dL AST 39 H (15-37) U/L ALT 22 (14-59) U/L Alkaline Phosphatase 61 (46-116) U/L C-Reactive Protein 11.5 H* (<1.0) mg/dL B-Natriuretic Peptide 173 H (0-100) pg/mL Total Protein 5.8 L (6.4-8.2) g/dl Albumin 2.1 L (3.4-5.0) g/dl Globulin 3.7 gm/dL Albumin/Globulin Ratio 0.6 L (1-2) Free T4 1.59 H (0.76-1.46) ng/dL TSH 3rd Generation 0.972 (0.358-3.74) uIU/mL Urine Color (Yellow) Urine Appearance (Clear) Urine pH (5.0-8.0) Ur Specific [place] (1.005-1.030) Urine Protein (Negative) Urine Glucose (UA) (Negative) Urine Ketones (Negative) Urine Occult Blood (Negative) Urine Nitrite (Negative) Urine Bilirubin (Negative) Urine Urobilinogen (0.2-1.0) Ur Leukocyte Esterase (Negative) Urine RBC (0-5) /hpf Urine WBC (0-5) /hpf Urine WBC Clumps (NOT SEEN) /hpf Ur Squamous Epith Cells (0-5) /hpf Urine Bacteria (FEW) /hpf Urine Mucus (FEW) /hpf C.difficile 027-NAP1-B1 C. difficile Tox (PCR) Med Orders - Current: Current Medications Acetaminophen (Tylenol) 650 mg RECTAL Q4H PRN PRN Reason: Pain (mild 1-3) Acetaminophen (Tylenol) 650 mg PO Q4H PRN PRN Reason: Pain (Mild 1-3)/fever Acetaminophen/Hydrocodone Bitart ([place] 325-5 Mg) 1 tab PO Q4H PRN PRN Reason: Pain (moderate 4-6) Aspirin (Aspirin) 81 mg PO DAILY [facility] Last Admin: 11/09/16 08:07 Dose: 81 mg Cyanocobalamin (Vitamin B12) 1,000 mcg IM DAILY [facility] Stop: 11/12/16 09:01 Last Admin: 11/09/16 08:10 Dose: 1,000 mcg Dextrose/Water (Dextrose 50% In Water) 50 ml IVPUSH ASDIRECTED PRN PRN Reason: Hypoglycemia Enoxaparin Sodium (Lovenox) 40 mg SUBCUT DAILY [facility] Last Admin: 11/09/16 11:43 Dose: 40 mg Fluconazole (Diflucan) 100 mg PO DAILY [facility] Stop: 11/13/16 09:01 Last Admin: 11/09/16 14:04 Dose: 100 mg Folic Acid (Folic Acid) 1 mg PO BEDTIME [facility] Last Admin: 11/08/16 21:42 Dose: 1 mg Furosemide (Lasix) 20 mg IVPUSH DAILY [facility] Hydromorphone HCl (Dilaudid) 0.25 mg IVPUSH Q2H PRN PRN Reason: Pain (severe 7-10) Promethazine HCl 12.5 mg/ (Sodium Chloride) 50.5 mls @ 100 mls/hr IV Q6H PRN PRN Reason: Nausea/Vomiting Metronidazole 500 mg/ Premix 100 mls @ 100 mls/hr IV Q8H [facility] Last Admin: 11/09/16 12:23 Dose: 100 mls/hr Levofloxacin/Dextrose 500 mg/ (Premix) 100 mls @ 100 mls/hr IV Q24H [facility] Last Admin: 11/08/16 23:01 Dose: 100 mls/hr Vancomycin HCl 1 gm/ Sodium (Chloride) 250 mls @ 167 mls/hr IV Q18H [facility] Last Admin: 11/09/16 15:55 Dose: 167 mls/hr Insulin Aspart (Novolog) 0 unit SUBCUT QIDACANDBED [facility] PRN Reason: Protocol Last Admin: 11/09/16 11:47 Dose: Not Given Levothyroxine Sodium (Levothyroxine) 75 mcg PO ACBRK [facility] Last Admin: 11/09/16 05:57 Dose: Not Given Loperamide HCl (Imodium) 2 mg PO BID PRN PRN Reason: Diarrhea Last Admin: 11/09/16 02:10 Dose: 2 mg Lorazepam (Ativan) 0.5 mg IV Q6H PRN PRN Reason: Anxiety Magnesium Oxide (Magnesium Oxide) 400 mg PO BID [facility] Last Admin: 11/09/16 11:40 Dose: 400 mg Methylprednisolone Sodium Succinate (Solu-Medrol) 40 mg IVPUSH Q6H [facility] Last Admin: 11/09/16 14:05 Dose: 40 mg Metoprolol Tartrate (Lopressor) 100 mg PO BID [facility] Last Admin: 11/09/16 08:11 Dose: 100 mg Multi-Ingred Cream/Lotion/Oil/Oint (Zinc Oxide) 0 gm TOP TID [facility] Last Admin: 11/09/16 14:07 Dose: 1 applic Multivitamins (Thera) 1 each PO BEDTIME [facility] Last Admin: 11/08/16 21:42 Dose: 1 each Nitroglycerin (Nitrostat) 0.4 mg SL ASDIRECTED PRN PRN Reason: Chest Pain Nystatin (Nystatin Crm) 0 gm TOP TID [facility] Last Admin: 11/09/16 14:06 Dose: 1 applic Ondansetron HCl (Zofran) 4 mg IV Q6H PRN PRN Reason: Nausea/Vomiting Pantoprazole Sodium (Protonix Iv) 40 mg IV Q12HR [facility] Last Admin: 11/09/16 08:09 Dose: 40 mg Colestid. 1 Gram 0 each PO DAILY [facility] Last Admin: 11/09/16 08:36 Dose: Not Given Hydrochlorothiazide/Triamterene 25-37.5 Mg Tab. 0 each PO DAILY [facility] Last Admin: 11/09/16 08:36 Dose: Not Given Potassium Chloride (Klor-Con M20) 40 meq PO BEDTIME [facility] Potassium Chloride (Klor-Con 10) 20 meq PO DAILY [facility] Last Admin: 11/09/16 08:07 Dose: 20 meq Saccharomyces Boulardii (Florastor) 250 mg PO BID [facility] Last Admin: 11/09/16 11:34 Dose: 250 mg Simvastatin (Zocor) 10 mg PO DAILY [facility] Last Admin: 11/09/16 08:08 Dose: 10 mg Sodium Chloride (Saline Flush) 10 ml FLUSH ASDIRECTED PRN PRN Reason: Keep Vein Open Last Admin: 11/08/16 17:30 Dose: 10 ml Sodium Chloride (Saline Flush) 10 ml FLUSH ONETIME PRN PRN Reason: IV FLUSH Last Admin: 11/08/16 18:34 Dose: 10 ml Spironolactone (Aldactone) 25 mg PO DAILY [facility] Last Admin: 11/09/16 14:05 Dose: 25 mg Temazepam (Restoril) 15 mg PO BEDTIME PRN PRN Reason: Sleep Vancomycin HCl (Pharmacy To Dose - Vancomycin) 1 dose .XX ASDIRECTED [facility] Discontinued Medications Acetaminophen (Tylenol) 975 mg PO NOW ONE Stop: 11/08/16 19:09 Last Admin: 11/08/16 19:26 Dose: 975 mg Cyanocobalamin (Vitamin B12) 1,000 mcg IM ONETIME ONE Stop: 11/08/16 20:17 Last Admin: 11/09/16 02:06 Dose: Not Given Diatrizoate Meglum/Diatrizoate Sod (Gastrografin 37%) 90 ml PO ONETIME ONE Stop: 11/08/16 17:56 Last Admin: 11/08/16 18:34 Dose: 90 ml Hydromorphone HCl (Dilaudid) 0.25 mg IVPUSH Q2H PRN PRN Reason: Pain (severe 7-10) Vancomycin HCl 1 gm/ Sodium (Chloride) 250 mls @ 250 mls/hr IV ONETIME ONE Stop: 11/08/16 20:03 Last Admin: 11/08/16 19:29 Dose: 250 mls/hr Dextrose/Sodium Chloride (Dextrose 5%-1/2 Ns) 1,000 mls @ 125 mls/hr IV ASDIRECTED [facility] Last Admin: 11/09/16 11:54 Dose: 125 mls/hr Magnesium Sulfate (Magnesium Sulfate 2 Gm In Water 50 Ml) 50 mls @ 50 mls/hr IV ONETIME ONE Stop: 11/08/16 22:29 Last Admin: 11/08/16 23:49 Dose: 50 mls/hr Vancomycin HCl 1 gm/ Sodium (Chloride) 250 mls @ 250 mls/hr IV ONETIME ONE Stop: 11/08/16 22:59 Last Admin: 11/08/16 23:45 Dose: 250 mls/hr Furosemide 100 mg/ Sodium (Chloride) 100 mls @ 3 mls/hr IV TITRATE [facility] PRN Reason: Protocol Last Admin: 11/09/16 02:09 Dose: 3 mls/hr Magnesium Sulfate 2 gm/ Premix 50 mls @ 25 mls/hr IV ONETIME ONE Stop: 11/09/16 14:59 Last Admin: 11/09/16 14:06 Dose: 25 mls/hr Infliximab (Remicade) 100 mg IV ASDIRECTED [facility] Infliximab (Remicade) 100 mg IV ONETIME ONE Stop: 11/09/16 09:01 Iopamidol (Isovue-300 (61%)) 125 ml IVPUSH ONETIME ONE Stop: 11/08/16 17:56 Last Admin: 11/08/16 18:32 Dose: 125 ml Magnesium Sulfate (Pharmacy To Dose - Magnesium Replacement) 1 dose .XX ASDIRECTED [facility] Non-Formulary Medication (Hctz/Triamterene) 0.5 tab PO QAM [facility] Potassium Chloride (Pharmacy To Dose - Potassium Replacement) 1 dose .XX ASDIRECTED [facility] Potassium Chloride (Klor-Con M20) 20 meq PO Q3H [facility] Stop: 11/09/16 03:31 Last Admin: 11/09/16 04:26 Dose: 20 meq Potassium Chloride (Klor-Con 10) meq PO QAM [facility] Potassium Chloride (Klor-Con M20) 20 meq PO Q3H [facility] Stop: 11/09/16 15:01 Last Admin: 11/09/16 14:04 Dose: 20 meq Saccharomyces Boulardii (Florastor) 500 mg PO TID [facility] Last Admin: 11/08/16 21:42 Dose: Not Given Triamterene/HCTZ (Maxzide 50-75 Mg) 1 each PO DAILY [facility] - Exam Quality Assessment: urine catheter, DVT prophylaxis General: alert, oriented, cooperative HEENT: Pupils equal, Pupils reactive, EOMI Neck: supple, trachea midline Lungs: Normal respiratory effort Cardiovascular: regular rate, regular rhythm Abdomen: bowel sounds present, soft, no tenderness, no distension, other ( perianal erythema) (Female) Exam: Deferred Back Exam: normal inspection Extremities: normal pulses, edema (bilateral LE) Skin: warm Neurological: normal speech Psy/Mental Status: alert, normal affect, normal mood - Problem List Review Problem List Initiated/Reviewed/Updated: Yes - My Orders Last 24 Hours: My Active Orders 11/09/16 14:00 Spironolactone [Aldactone] 25 mg PO DAILY 11/09/16 18:00 MAGNESIUM [CHEM] Timed POTASSIUM,K [CHEM] Timed 11/09/16 Dinner Full Liquid Diet [DIET] 11/10/16 09:00 Furosemide [Lasix] 20 mg IVPUSH DAILY - Plan Plan:: Assessment/Plan: Acute; High Risk Sepsis: Fever 101, Tachycardic 109, CRP 152, and Generalized Weakness - Chantelle-rectal and Perineal Cellulitis/Crohn's Colitis - LA - Blood Culture x 2 - Supportive Care - IV ATB: Levaquin and Vancomycin (renal dose) Cronh's Colitis - CT scan: Prominent bowel wall thickening within the distal ileum - IV Steroids - NPO except ice chips, sips of water and oral meds for 48hrs - IV Flagyl 500 mg Q8 - Dietary consult for Crohn's diet - O&P and Stool Culture to include C. Diff test Chantelle-rectal and Perineal Cellulitis --> Acrodermatitis Enteropathica (pink and scaly rash around mouth or anal area) - No fistula - Usually improves once flare up improved - Benefit with zinc supplement - IV ATB as noted above - Consider GS consult if no response to treatment Peripheral Edema - Peripheral edema severe - LVEF>55%; Hypoalbuminemia - UA r/o Proteinuria - Thyroid Panel in AM - Lasix IVP, stopped lasix gtt Mild Hypoalbuminemia - Albumin 2.1 - Dietary consult: low protein state; trial full liquids, advance as tolerated. Generalized Weakness - 2/2 above and not able to keep anything down 2/2 diarrhea - PT/OT consult Status Post Fall - 2/2 Generalized Weakness Chronic: Impaired Vision CAD HTN GERD IBD Urinary Incontinence OA/DJD Hypothyroidism Depression Urinary Incontinence Plan: Admit to Med-Surg with Tele Routine AM Labs Resume Home Meds UA, BNP and A1C Influenza screening PT/OT consult SW/CM for d/c planning Code status:1 Additional orders as above
[2016-11-09] MEDS ORDERED: Vancomycin 1 GM, Vancomycin 500 MG in Sodium Chloride 0.9% 500 ML IV SCH (20:30)
[2016-11-09] MEDS: Multivitamins,Therapeutic Tab PO SCH (21:58)
[2016-11-09] MEDS: Folic Acid 1 MG Tab PO SCH (21:59)
[2016-11-09] MEDS: Levofloxacin/Dextrose 5%-Water 500 MG in Premix Bag 1 BAG IV SCH (22:01)
[2016-11-10] MEDS: metroNIDAZOLE/Normal Saline 500 MG in Premix Bag 1 BAG IV SCH ×3 (04:26→21:50)
[2016-11-10] MEDS: methylPREDNISolone Sodium Succinate 40 MG/1 ML SDV IVPUSH SCH ×4 (04:26→21:48)
[2016-11-10] MEDS: Levothyroxine 75 MCG Tab PO SCH (06:03)
[2016-11-10] MEDS: Insulin Aspart 100 Units/ML 3 ML Pen SUBCUT SCH ×4 (06:21→21:51)
--- NOTE | 2016-11-10 08:28 | PCM.PN ---
<Kristy Ortega M - Last Filed: 11/10/16 14:29> - General Info Date of Service: 11/10/16 Admission Dx/Problem (Free Text): Admission Diagnosis/Problem Admission Diagnosis/Problem Cellulitis Patient seen this afternoon. Feeling better but still "so weak". Rash to perineum and buttock is improving, denies pain or itching to area. Loose stools persist but states "that's how I always am" and "I didn't get my Remicaid so it's going to be worse". All stool studies negative. C-diff negative. Blood cultures have been negative. Awaiting UC. Functional Status: Reports: pain controlled, tolerating diet (full liquid), ambulating, urinating (mixon cath) - Review of Systems General: Reports: no symptoms HEENT: Reports: no symptoms Pulmonary: Reports: no symptoms Cardiovascular: Reports: no symptoms Gastrointestinal: Reports: Diarrhea. Denies: Abdominal pain, Nausea, Vomiting Musculoskeletal: Reports: no symptoms Skin: Reports: rash, other Neurological: Reports: no symptoms Psychiatric: Reports: no symptoms - Patient Data Vitals - most recent: Last Vital Signs Temp 97.9 F 11/10/16 03:32 Pulse 69 11/10/16 03:32 Resp 18 11/10/16 03:32 BP 115/66 11/10/16 03:32 Pulse Ox 96 11/10/16 03:32 Weight - most recent: 90.265 kg I&O - last 24 hours: Intake & Output 11/09/16 11/10/16 11/10/16 22:59 06:59 14:59 Intake Total 2951 1000 Output Total 1460 850 Balance 1491 150 Lab Results last 24 hrs: Laboratory Results - last 24 hr 11/09/16 11/09/16 11/09/16 Range/Units 11:46 17:44 17:49 WBC (3.98-10.04) K/mm3 RBC (3.98-5.22) M/mm3 Hgb (11.2-15.7) gm/L Hct (34.1-44.9) % MCV (79.4-94.8) fl MCH (25.6-32.2) pg MCHC (32.2-35.5) g/dl RDW Std Deviation (36.4-46.3) fL Plt Count (182-369) K/mm3 MPV (9.4-12.3) fl Neut % (Auto) (34.0-71.1) % Lymph % (Auto) (19.3-51.7) % Atlantic % (Auto) (4.7-12.5) % Eos % (Auto) (0.7-5.8) Baso % (Auto) (0.1-1.2) % Neut # (1.56-6.13) K/mm3 Lymph # (1.18-3.74) K/mm3 Atlantic # (0.24-0.36) K/mm3 Eos # (0.04-0.36) K/mm3 Baso # (0.01-0.08) K/mm3 ESR (0-20) mm/hr Sodium (136-145) mEq/L Potassium 3.5 (3.5-5.1) mEq/L Chloride (98-107) mEq/L Carbon Dioxide (21-32) mEq/L Anion Gap (5-15) BUN (7-18) mg/dL Creatinine (0.55-1.02) mg/dL Est Cr Clr Drug Dosing mL/min Estimated GFR (MDRD) (>60) mL/min BUN/Creatinine Ratio (14-18) Glucose (83-115) mg/dL POC Glucose 146 H 176 H (83-110) mg/dL Calcium (8.5-10.1) mg/dL Magnesium 2.0 (1.8-2.4) mg/dl C-Reactive Protein (<1.0) mg/dL 11/09/16 11/10/16 11/10/16 Range/Units 21:58 05:53 05:53 WBC 9.18 (3.98-10.04) K/mm3 RBC 3.97 L (3.98-5.22) M/mm3 Hgb 9.8 L (11.2-15.7) gm/L Hct 31.2 L (34.1-44.9) % MCV 78.6 L (79.4-94.8) fl MCH 24.7 L (25.6-32.2) pg MCHC 31.4 L (32.2-35.5) g/dl RDW Std Deviation 44.0 (36.4-46.3) fL Plt Count 257 (182-369) K/mm3 MPV 10.0 (9.4-12.3) fl Neut % (Auto) 83.7 H (34.0-71.1) % Lymph % (Auto) 12.0 L (19.3-51.7) % Atlantic % (Auto) 3.6 L (4.7-12.5) % Eos % (Auto) 0.4 L (0.7-5.8) Baso % (Auto) 0.1 (0.1-1.2) % Neut # 7.68 H (1.56-6.13) K/mm3 Lymph # 1.10 L (1.18-3.74) K/mm3 Atlantic # 0.33 (0.24-0.36) K/mm3 Eos # 0.04 (0.04-0.36) K/mm3 Baso # 0.01 (0.01-0.08) K/mm3 ESR 22 H (0-20) mm/hr Sodium (136-145) mEq/L Potassium (3.5-5.1) mEq/L Chloride (98-107) mEq/L Carbon Dioxide (21-32) mEq/L Anion Gap (5-15) BUN (7-18) mg/dL Creatinine (0.55-1.02) mg/dL Est Cr Clr Drug Dosing mL/min Estimated GFR (MDRD) (>60) mL/min BUN/Creatinine Ratio (14-18) Glucose (83-115) mg/dL POC Glucose 119 H (83-110) mg/dL Calcium (8.5-10.1) mg/dL Magnesium (1.8-2.4) mg/dl C-Reactive Protein (<1.0) mg/dL 11/10/16 11/10/16 11/10/16 Range/Units 05:53 05:53 06:13 WBC (3.98-10.04) K/mm3 RBC (3.98-5.22) M/mm3 Hgb (11.2-15.7) gm/L Hct (34.1-44.9) % MCV (79.4-94.8) fl MCH (25.6-32.2) pg MCHC (32.2-35.5) g/dl RDW Std Deviation (36.4-46.3) fL Plt Count (182-369) K/mm3 MPV (9.4-12.3) fl Neut % (Auto) (34.0-71.1) % Lymph % (Auto) (19.3-51.7) % Atlantic % (Auto) (4.7-12.5) % Eos % (Auto) (0.7-5.8) Baso % (Auto) (0.1-1.2) % Neut # (1.56-6.13) K/mm3 Lymph # (1.18-3.74) K/mm3 Atlantic # (0.24-0.36) K/mm3 Eos # (0.04-0.36) K/mm3 Baso # (0.01-0.08) K/mm3 ESR (0-20) mm/hr Sodium 140 (136-145) mEq/L Potassium 4.2 (3.5-5.1) mEq/L Chloride 103 (98-107) mEq/L Carbon Dioxide 29 (21-32) mEq/L Anion Gap 12.2 (5-15) BUN 7 (7-18) mg/dL Creatinine 0.8 (0.55-1.02) mg/dL Est Cr Clr Drug Dosing 56.00 mL/min Estimated GFR (MDRD) > 60 (>60) mL/min BUN/Creatinine Ratio 8.8 L (14-18) Glucose 148 H (83-115) mg/dL POC Glucose 134 H (83-110) mg/dL Calcium 8.2 L (8.5-10.1) mg/dL Magnesium 1.9 (1.8-2.4) mg/dl C-Reactive Protein 5.7 H* (<1.0) mg/dL Thuan Results last 24 hrs: Microbiology 11/08/16 20:35 Aerobic Blood Culture - Preliminary Blood - Venous - Lab Draw NO GROWTH AFTER 1 DAY Anaerobic Blood Culture - Preliminary NO GROWTH AFTER 1 DAY 11/08/16 20:27 Aerobic Blood Culture - Preliminary Blood - Venous NO GROWTH AFTER 1 DAY Anaerobic Blood Culture - Preliminary NO GROWTH AFTER 1 DAY 11/08/16 23:30 - Final Stool / Feces NEGATIVE FOR SHIGA TOXIN 1 - Final NEGATIVE FOR SHIGA TOXIN 2 Med Orders - Current: Current Medications Acetaminophen (Tylenol) 650 mg RECTAL Q4H PRN PRN Reason: Pain (mild 1-3) Acetaminophen (Tylenol) 650 mg PO Q4H PRN PRN Reason: Pain (Mild 1-3)/fever Acetaminophen/Hydrocodone Bitart (Arion 325-5 Mg) 1 tab PO Q4H PRN PRN Reason: Pain (moderate 4-6) Aspirin (Aspirin) 81 mg PO DAILY [facility] Last Admin: 11/09/16 08:07 Dose: 81 mg Cyanocobalamin (Vitamin B12) 1,000 mcg IM DAILY [facility] Stop: 11/12/16 09:01 Last Admin: 11/09/16 08:10 Dose: 1,000 mcg Dextrose/Water (Dextrose 50% In Water) 50 ml IVPUSH ASDIRECTED PRN PRN Reason: Hypoglycemia Enoxaparin Sodium (Lovenox) 40 mg SUBCUT DAILY [facility] Last Admin: 11/09/16 11:43 Dose: 40 mg Famotidine (Pepcid) 20 mg PO BID [facility] Fluconazole (Diflucan) 100 mg PO DAILY [facility] Stop: 11/13/16 09:01 Last Admin: 11/09/16 14:04 Dose: 100 mg Folic Acid (Folic Acid) 1 mg PO BEDTIME [facility] Last Admin: 11/09/16 21:59 Dose: 1 mg Furosemide (Lasix) 20 mg IVPUSH DAILY [facility] Promethazine HCl 12.5 mg/ (Sodium Chloride) 50.5 mls @ 100 mls/hr IV Q6H PRN PRN Reason: Nausea/Vomiting Metronidazole 500 mg/ Premix 100 mls @ 100 mls/hr IV Q8H [facility] Last Admin: 11/10/16 04:26 Dose: 100 mls/hr Levofloxacin/Dextrose 500 mg/ (Premix) 100 mls @ 100 mls/hr IV Q24H [facility] Last Admin: 11/09/16 22:01 Dose: 100 mls/hr Vancomycin HCl 1 gm/ Sodium (Chloride) 250 mls @ 167 mls/hr IV Q18H [facility] Last Admin: 11/09/16 15:55 Dose: 167 mls/hr Insulin Aspart (Novolog) 0 unit SUBCUT QIDACANDBED [facility] PRN Reason: Protocol Last Admin: 11/10/16 06:21 Dose: Not Given Levothyroxine Sodium (Levothyroxine) 75 mcg PO ACBRK [facility] Last Admin: 11/10/16 06:03 Dose: 75 mcg Loperamide HCl (Imodium) 2 mg PO BID PRN PRN Reason: Diarrhea Last Admin: 11/09/16 02:10 Dose: 2 mg Lorazepam (Ativan) 0.5 mg IV Q6H PRN PRN Reason: Anxiety Magnesium Oxide (Magnesium Oxide) 400 mg PO BID [facility] Last Admin: 11/09/16 21:58 Dose: 400 mg Methylprednisolone Sodium Succinate (Solu-Medrol) 40 mg IVPUSH Q6H [facility] Last Admin: 11/10/16 04:26 Dose: 40 mg Metoprolol Tartrate (Lopressor) 100 mg PO BID [facility] Last Admin: 11/09/16 21:59 Dose: 100 mg Multi-Ingred Cream/Lotion/Oil/Oint (Zinc Oxide) 0 gm TOP TID [facility] Last Admin: 11/09/16 22:01 Dose: 1 applic Multivitamins (Thera) 1 each PO BEDTIME [facility] Last Admin: 11/09/16 21:58 Dose: 1 each Nitroglycerin (Nitrostat) 0.4 mg SL ASDIRECTED PRN PRN Reason: Chest Pain Nystatin (Nystatin Crm) 0 gm TOP TID [facility] Last Admin: 11/09/16 22:00 Dose: 1 applic Ondansetron HCl (Zofran) 4 mg IV Q6H PRN PRN Reason: Nausea/Vomiting Colestid. 1 Gram 0 each PO DAILY [facility] Last Admin: 11/09/16 08:36 Dose: Not Given Hydrochlorothiazide/Triamterene 25-37.5 Mg Tab. 0 each PO DAILY [facility] Last Admin: 11/09/16 08:36 Dose: Not Given Potassium Chloride (Klor-Con M20) 40 meq PO BEDTIME [facility] Last Admin: 11/09/16 22:00 Dose: 40 meq Potassium Chloride (Klor-Con 10) 20 meq PO DAILY [facility] Last Admin: 11/09/16 08:07 Dose: 20 meq Saccharomyces Boulardii (Florastor) 250 mg PO BID [facility] Last Admin: 11/09/16 21:58 Dose: 250 mg Simvastatin (Zocor) 10 mg PO DAILY [facility] Last Admin: 11/09/16 08:08 Dose: 10 mg Sodium Chloride (Saline Flush) 10 ml FLUSH ASDIRECTED PRN PRN Reason: Keep Vein Open Last Admin: 11/08/16 17:30 Dose: 10 ml Sodium Chloride (Saline Flush) 10 ml FLUSH ONETIME PRN PRN Reason: IV FLUSH Last Admin: 11/08/16 18:34 Dose: 10 ml Spironolactone (Aldactone) 25 mg PO DAILY [facility] Last Admin: 11/09/16 14:05 Dose: 25 mg Temazepam (Restoril) 15 mg PO BEDTIME PRN PRN Reason: Sleep Vancomycin HCl (Pharmacy To Dose - Vancomycin) 1 dose .XX ASDIRECTED [facility] Discontinued Medications Acetaminophen (Tylenol) 975 mg PO NOW ONE Stop: 11/08/16 19:09 Last Admin: 11/08/16 19:26 Dose: 975 mg Cyanocobalamin (Vitamin B12) 1,000 mcg IM ONETIME ONE Stop: 11/08/16 20:17 Last Admin: 11/09/16 02:06 Dose: Not Given Diatrizoate Meglum/Diatrizoate Sod (Gastrografin 37%) 90 ml PO ONETIME ONE Stop: 11/08/16 17:56 Last Admin: 11/08/16 18:34 Dose: 90 ml Hydromorphone HCl (Dilaudid) 0.25 mg IVPUSH Q2H PRN PRN Reason: Pain (severe 7-10) Hydromorphone HCl (Dilaudid) 0.25 mg IVPUSH Q2H PRN PRN Reason: Pain (severe 7-10) Vancomycin HCl 1 gm/ Sodium (Chloride) 250 mls @ 250 mls/hr IV ONETIME ONE Stop: 11/08/16 20:03 Last Admin: 11/08/16 19:29 Dose: 250 mls/hr Dextrose/Sodium Chloride (Dextrose 5%-1/2 Ns) 1,000 mls @ 125 mls/hr IV ASDIRECTED [facility] Last Admin: 11/09/16 11:54 Dose: 125 mls/hr Magnesium Sulfate (Magnesium Sulfate 2 Gm In Water 50 Ml) 50 mls @ 50 mls/hr IV ONETIME ONE Stop: 11/08/16 22:29 Last Admin: 11/08/16 23:49 Dose: 50 mls/hr Vancomycin HCl 1 gm/ Sodium (Chloride) 250 mls @ 250 mls/hr IV ONETIME ONE Stop: 11/08/16 22:59 Last Admin: 11/08/16 23:45 Dose: 250 mls/hr Furosemide 100 mg/ Sodium (Chloride) 100 mls @ 3 mls/hr IV TITRATE [facility] PRN Reason: Protocol Last Admin: 11/09/16 02:09 Dose: 3 mls/hr Magnesium Sulfate 2 gm/ Premix 50 mls @ 25 mls/hr IV ONETIME ONE Stop: 11/09/16 14:59 Last Admin: 11/09/16 14:06 Dose: 25 mls/hr Infliximab (Remicade) 100 mg IV ASDIRECTED [facility] Infliximab (Remicade) 100 mg IV ONETIME ONE Stop: 11/09/16 09:01 Iopamidol (Isovue-300 (61%)) 125 ml IVPUSH ONETIME ONE Stop: 11/08/16 17:56 Last Admin: 11/08/16 18:32 Dose: 125 ml Magnesium Sulfate (Pharmacy To Dose - Magnesium Replacement) 1 dose .XX ASDIRECTED [facility] Non-Formulary Medication (Hctz/Triamterene) 0.5 tab PO QAM [facility] Pantoprazole Sodium (Protonix Iv) 40 mg IV Q12HR [facility] Last Admin: 11/09/16 22:00 Dose: 40 mg Potassium Chloride (Pharmacy To Dose - Potassium Replacement) 1 dose .XX ASDIRECTED [facility] Potassium Chloride (Klor-Con M20) 20 meq PO Q3H [facility] Stop: 11/09/16 03:31 Last Admin: 11/09/16 04:26 Dose: 20 meq Potassium Chloride (Klor-Con 10) meq PO QAM [facility] Potassium Chloride (Klor-Con M20) 20 meq PO Q3H [facility] Stop: 11/09/16 15:01 Last Admin: 11/09/16 14:04 Dose: 20 meq Saccharomyces Boulardii (Florastor) 500 mg PO TID [facility] Last Admin: 11/08/16 21:42 Dose: Not Given Triamterene/HCTZ (Maxzide 50-75 Mg) 1 each PO DAILY [facility] - Exam Quality Assessment: DVT prophylaxis General: alert, oriented, cooperative, no acute distress HEENT: Pupils equal, Pupils reactive, EOMI, Mucous membr. moist/pink Neck: supple Lungs: Clear to auscultation, Normal respiratory effort Cardiovascular: regular rate, regular rhythm Abdomen: bowel sounds present, soft, no tenderness, no distension. No: rigidity , rebound, guarding, tenderness, distension (Female) Exam: Deferred Back Exam: normal inspection Extremities: edema (1+ edema to ankles/pedal bilat) Peripheral Pulses: 1+: dorsalis pedis (L), dorsalis pedis (R) Skin: other (perineum and through to buttock folds skin is with mild erythema today; sloughing skin to buttock borders of erythema; perineum is with satellite lesions consistent with yeast dermatitis) Neurological: no new focal deficit Psy/Mental Status: alert, normal affect, normal mood - Problem List & Annotations (1) Cellulitis of perineum SNOMED Code(s): 16055736 Code(s): L03.315 - CELLULITIS OF PERINEUM Status: Acute Priority: High (2) Diarrhea SNOMED Code(s): 79500753 Code(s): R19.7 - DIARRHEA, UNSPECIFIED Status: Acute Priority: High Qualifiers: Diarrhea type: unspecified type Qualified Code(s): R19.7 - Diarrhea, unspecified (3) Hypokalemia SNOMED Code(s): 98608941 Code(s): E87.6 - HYPOKALEMIA Status: Acute Priority: High (4) Rash SNOMED Code(s): 489981810, 667465495 Code(s): R21 - RASH AND OTHER NONSPECIFIC SKIN ERUPTION Status: Acute Priority: High (5) Pedal edema SNOMED Code(s): 792409452 Code(s): R60.0 - LOCALIZED EDEMA Status: Acute Priority: High (6) Crohn disease SNOMED Code(s): 74390513 Code(s): K50.90 - CROHN'S DISEASE, UNSPECIFIED, WITHOUT COMPLICATIONS Status: Chronic Priority: Medium Qualifiers: Gastrointestinal tract location: small intestine Digestive disease complication type: without complication Qualified Code(s): K50.00 - Crohn's disease of small intestine without complications (7) Hypoalbuminemia SNOMED Code(s): 463489788 Code(s): E88.09 - OTH DISORDERS OF PLASMA-PROTEIN METABOLISM, NEC Status: Acute Priority: High (8) Generalized weakness SNOMED Code(s): 91640068 Code(s): R53.1 - WEAKNESS Status: Acute (9) Urinary incontinence SNOMED Code(s): 828430634 Code(s): R32 - UNSPECIFIED URINARY INCONTINENCE Status: Chronic Priority : High Qualifiers: Urinary Incontinence type: continuous leakage Qualified Code(s): N39.45 - Continuous leakage (10) Fall SNOMED Code(s): 8212118, 786742279 Code(s): W19.XXXA - UNSPECIFIED FALL, INITIAL ENCOUNTER Status: Acute Priority: High Qualifiers: Encounter type: initial encounter Qualified Code(s): W19.XXXA - Unspecified fall, initial encounter (11) UTI (urinary tract infection) SNOMED Code(s): 42489086 Code(s): N39.0 - URINARY TRACT INFECTION, SITE NOT SPECIFIED Status: Acute Priority: High Qualifiers: Urinary tract infection type: acute cystitis Hematuria presence: without hematuria Qualified Code(s): N30.00 - Acute cystitis without hematuria - Problem List Review Problem List Initiated/Reviewed/Updated: Yes - My Orders Last 24 Hours: My Active Orders 11/09/16 09:00 Enoxaparin [Lovenox] 40 mg SUBCUT DAILY 11/09/16 13:00 Fluconazole [Diflucan] 100 mg PO DAILY 11/09/16 15:00 Nystatin [Nystatin Crm] 0 gm TOP TID 11/10/16 08:21 FE, TIBC, TRANSFERRIN, FE SAT [CHEM] Routine VITAMIN B12 [CHEM] Routine 11/10/16 08:22 FOLATE, RBC [REF] Routine OCCULT BLOOD DIAGNOSTIC [OP] Routine 11/10/16 09:00 Famotidine [Pepcid] 20 mg PO BID 11/14/16 07:00 CBC W/O DIFF,HEMOGRAM [HEME] MOTH@0700 11/17/16 07:00 CBC W/O DIFF,HEMOGRAM [HEME] MOTH@0700 11/21/16 07:00 CBC W/O DIFF,HEMOGRAM [HEME] MOTH@0700 11/24/16 07:00 CBC W/O DIFF,HEMOGRAM [HEME] MOTH@0700 11/28/16 07:00 CBC W/O DIFF,HEMOGRAM [HEME] MOTH@0700 - Plan Plan:: Assessment/Plan: Acute; High Risk Sepsis: Fever 101, Tachycardic 109, CRP 152, and Generalized Weakness -- fever tachycardia resolved - Chantelle-rectal and Perineal Cellulitis/Crohn's Colitis/urinary and fecal incontinence with soiled undergarments upon arrival to ED/[facility] - [place] - Blood Culture x 2- negative thus far - Supportive Care - IV ATB: Levaquin and Vancomycin (renal dose), add florastor BID; UA with culture pending, will consider cutting back abx dosing once UA cx rec'd. - IV Fluids Cronh's Colitis/diarrhea - CT scan: Prominent bowel wall thickening within the distal ileum - IV Steroids - BRAT/Ransom diet advanced this afternoon - IV Flagyl 500 mg Q8Hrs - Dietary consult for Crohn's diet - O&P and Stool Culture to include C. Diff test-- stool studies negative Chantelle-rectal and Perineal Cellulitis --> consider Acrodermatitis Enteropathica ( pink and scaly rash around mouth or anal area)----- based on exam today I feel this is yeast dermatitis; it is improving- continue current tx regimen - No fistula - Usually improves once flare up improved - Benefit with zinc supplement - IV ATB as noted above - Consider GS consult if no response to treatment -Likely component of fungal infection also: incontinent, obesity, immobile, was unable to bathe at home for ? weeks potentially due to slow decline in physical stamina/health- added fluconazole PO and nystatin cream yesterday -Also has rash to arms/legs; scaly erythematous patches- consider punch bx later today to one of these lesions. Peripheral Edema - Peripheral edema severe - LVEF>55%; Hypoalbuminemia - UA r/o Proteinuria - Thyroid Panel -- TSH WNL - Lasix IVP, stopped lasix gtt- switched to IVP 20mg daily, cont to monitor labs daily - Teds, likely dependent component as pt states she sits in chair with legs dependent most of the day Hypokalemia- 2.9 on admit - Replacement and follow am labs-- improving to resolving - Also follow mag levels Mild Hypoalbuminemia - Albumin 2.1 - Dietary consult: low protein state; trial full liquids, advance as tolerated. Generalized Weakness - 2/2 above and not able to keep anything down 2/2 diarrhea - PT/OT consult Status Post Fall - 2/2 Generalized Weakness, acute infection, dehydration, deconditioning Chronic: Impaired Vision CAD HTN GERD- GI prophylax, protonix web consultant initially, switched to pepcid BID IBD- steroids and abx as above Urinary Incontinence OA/DJD Hypothyroidism- normal TSH, cont home dose Depression Plan: Admit to Med-Surg with Tele Routine AM Labs Resume Home Meds UA, BNP and A1C Influenza screening--negative PT/OT consult SW/CM for d/c planning Code status:1 Additional orders as above Consider and recommend SNF placement for rehab stay <Suzi Buchanan - Last Filed: 11/15/16 20:10> - Patient Data Vitals - most recent: Last Vital Signs Temp 36.9 C 11/14/16 07:57 Pulse 72 11/14/16 08:01 Resp 18 11/14/16 07:57 BP 127/51 L 11/14/16 08:01 Pulse Ox 96 11/14/16 07:57 Lab Results last 24 hrs: Laboratory Results - last 24 hr 11/10/16 Range/Units 09:03 Packed Cell Volume 31.2 RBC Folic Acid 1845 H (499-1504) ng/mL Hematocrit 31.2 % Thuan Results last 24 hrs: Microbiology 11/08/16 20:35 Aerobic Blood Culture - Preliminary Blood - Venous - Lab Draw NO GROWTH AFTER 6 DAYS Anaerobic Blood Culture - Preliminary NO GROWTH AFTER 6 DAYS 11/08/16 20:27 Aerobic Blood Culture - Preliminary Blood - Venous NO GROWTH AFTER 6 DAYS Anaerobic Blood Culture - Preliminary NO GROWTH AFTER 6 DAYS Med Orders - Current: Current Medications Discontinued Medications Acetaminophen (Tylenol) 975 mg PO NOW ONE Stop: 11/08/16 19:09 Last Admin: 11/08/16 19:26 Dose: 975 mg Acetaminophen (Tylenol) 650 mg RECTAL Q4H PRN PRN Reason: Pain (mild 1-3) Acetaminophen (Tylenol) 650 mg PO Q4H PRN PRN Reason: Pain (Mild 1-3)/fever Acetaminophen/Hydrocodone Bitart (Arion 325-5 Mg) 1 tab PO Q4H PRN PRN Reason: Pain (moderate 4-6) Aspirin (Aspirin) 81 mg PO DAILY [facility] Last Admin: 11/14/16 08:01 Dose: 81 mg Cyanocobalamin (Vitamin B12) 1,000 mcg IM ONETIME ONE Stop: 11/08/16 20:17 Last Admin: 11/09/16 02:06 Dose: Not Given Cyanocobalamin (Vitamin B12) 1,000 mcg IM DAILY [facility] Stop: 11/12/16 09:01 Last Admin: 11/12/16 08:06 Dose: 1,000 mcg Dextrose/Water (Dextrose 50% In Water) 50 ml IVPUSH ASDIRECTED PRN PRN Reason: Hypoglycemia Diatrizoate Meglum/Diatrizoate Sod (Gastrografin 37%) 90 ml PO ONETIME ONE Stop: 11/08/16 17:56 Last Admin: 11/08/16 18:34 Dose: 90 ml Enoxaparin Sodium (Lovenox) 40 mg SUBCUT DAILY [facility] Last Admin: 11/14/16 08:00 Dose: 40 mg Famotidine (Pepcid) 20 mg PO BID [facility] Last Admin: 11/14/16 08:01 Dose: 20 mg Ferrous Sulfate (Ferrous Sulfate) 325 mg PO WITHBREAKFAST [facility] Last Admin: 11/14/16 07:49 Dose: Not Given Fluconazole (Diflucan) 100 mg PO DAILY [facility] Stop: 11/13/16 09:01 Last Admin: 11/13/16 10:02 Dose: 100 mg Folic Acid (Folic Acid) 1 mg PO BEDTIME [facility] Last Admin: 11/13/16 20:55 Dose: 1 mg Furosemide (Lasix) 20 mg IVPUSH DAILY [facility] Last Admin: 11/11/16 11:05 Dose: Not Given Furosemide (Lasix) 40 mg PO DAILY [facility] Last Admin: 11/14/16 08:01 Dose: 40 mg Hydromorphone HCl (Dilaudid) 0.25 mg IVPUSH Q2H PRN PRN Reason: Pain (severe 7-10) Hydromorphone HCl (Dilaudid) 0.25 mg IVPUSH Q2H PRN PRN Reason: Pain (severe 7-10) Vancomycin HCl 1 gm/ Sodium (Chloride) 250 mls @ 250 mls/hr IV ONETIME ONE Stop: 11/08/16 20:03 Last Admin: 11/08/16 19:29 Dose: 250 mls/hr Dextrose/Sodium Chloride (Dextrose 5%-1/2 Ns) 1,000 mls @ 125 mls/hr IV ASDIRECTED [facility] Last Admin: 11/09/16 11:54 Dose: 125 mls/hr Promethazine HCl 12.5 mg/ (Sodium Chloride) 50.5 mls @ 100 mls/hr IV Q6H PRN PRN Reason: Nausea/Vomiting Metronidazole 500 mg/ Premix 100 mls @ 100 mls/hr IV Q8H [facility] Last Admin: 11/13/16 04:08 Dose: 100 mls/hr Levofloxacin/Dextrose 500 mg/ (Premix) 100 mls @ 100 mls/hr IV Q24H [facility] Last Admin: 11/10/16 21:50 Dose: 100 mls/hr Magnesium Sulfate (Magnesium Sulfate 2 Gm In Water 50 Ml) 50 mls @ 50 mls/hr IV ONETIME ONE Stop: 11/08/16 22:29 Last Admin: 11/08/16 23:49 Dose: 50 mls/hr Vancomycin HCl 1 gm/ Sodium (Chloride) 250 mls @ 250 mls/hr IV ONETIME ONE Stop: 11/08/16 22:59 Last Admin: 11/08/16 23:45 Dose: 250 mls/hr Furosemide 100 mg/ Sodium (Chloride) 100 mls @ 3 mls/hr IV TITRATE [facility] PRN Reason: Protocol Last Admin: 11/09/16 02:09 Dose: 3 mls/hr Vancomycin HCl 1 gm/ Sodium (Chloride) 250 mls @ 167 mls/hr IV Q18H [facility] Last Admin: 11/11/16 04:37 Dose: 167 mls/hr Magnesium Sulfate 2 gm/ Premix 50 mls @ 25 mls/hr IV ONETIME ONE Stop: 11/09/16 14:59 Last Admin: 11/09/16 14:06 Dose: 25 mls/hr Levofloxacin/Dextrose 500 mg/ (Premix) 100 mls @ 100 mls/hr IV Q24H [facility] Last Admin: 11/13/16 20:48 Dose: 100 mls/hr Ceftriaxone Sodium 1 gm/ (Sodium Chloride) 100 mls @ 200 mls/hr IV Q24H [facility] Last Admin: 11/13/16 10:05 Dose: 200 mls/hr Infliximab (Remicade) 100 mg IV ASDIRECTED [facility] Infliximab (Remicade) 100 mg IV ONETIME ONE Stop: 11/09/16 09:01 Insulin Aspart (Novolog) 0 unit SUBCUT QIDACANDBED [facility] PRN Reason: Protocol Last Admin: 11/14/16 07:47 Dose: Not Given Iopamidol (Isovue-300 (61%)) 125 ml IVPUSH ONETIME ONE Stop: 11/08/16 17:56 Last Admin: 11/08/16 18:32 Dose: 125 ml Levothyroxine Sodium (Levothyroxine) 75 mcg PO ACBRK [facility] Last Admin: 11/14/16 05:34 Dose: 75 mcg Lidocaine/Epinephrine (Xylocaine 1% With Epinephrine 1:100,000) 20 ml INJECT ONETIME ONE Stop: 11/10/16 14:42 Last Admin: 11/10/16 15:52 Dose: Not Given Loperamide HCl (Imodium) 2 mg PO BID PRN PRN Reason: Diarrhea Last Admin: 11/11/16 11:22 Dose: 2 mg Lorazepam (Ativan) 0.5 mg IV Q6H PRN PRN Reason: Anxiety Magnesium Oxide (Magnesium Oxide) 400 mg PO BID [facility] Last Admin: 11/14/16 08:00 Dose: 400 mg Magnesium Sulfate (Pharmacy To Dose - Magnesium Replacement) 1 dose .XX ASDIRECTED [facility] Methylprednisolone Sodium Succinate (Solu-Medrol) 40 mg IVPUSH Q6H [facility] Last Admin: 11/11/16 11:05 Dose: Not Given Metoprolol Tartrate (Lopressor) 100 mg PO BID [facility] Last Admin: 11/13/16 11:13 Dose: Not Given Metoprolol Tartrate (Lopressor) 50 mg PO Q12HR [facility] Last Admin: 11/14/16 08:01 Dose: 50 mg Multi-Ingred Cream/Lotion/Oil/Oint (Zinc Oxide) 0 gm TOP TID [facility] Last Admin: 11/14/16 08:01 Dose: 1 applic Multivitamins (Thera) 1 each PO BEDTIME [facility] Last Admin: 11/13/16 20:55 Dose: 1 each Nitroglycerin (Nitrostat) 0.4 mg SL ASDIRECTED PRN PRN Reason: Chest Pain Non-Formulary Medication (Hctz/Triamterene) 0.5 tab PO QAM [facility] Nystatin (Nystatin Crm) 0 gm TOP TID [facility] Last Admin: 11/14/16 08:02 Dose: 1 applic Ondansetron HCl (Zofran) 4 mg IV Q6H PRN PRN Reason: Nausea/Vomiting Pantoprazole Sodium (Protonix Iv) 40 mg IV Q12HR [facility] [facility] Last Admin: 11/09/16 22:00 Dose: 40 mg Colestid. 1 Gram 0 each PO DAILY [facility] Last Admin: 11/14/16 08:02 Dose: Not Given Hydrochlorothiazide/Triamterene 25-37.5 Mg Tab. 0 each PO DAILY [facility] Last Admin: 11/14/16 08:02 Dose: Not Given Potassium Chloride (Pharmacy To Dose - Potassium Replacement) 1 dose .XX ASDIRECTED [facility] Potassium Chloride (Klor-Con M20) 20 meq PO Q3H [facility] Stop: 11/09/16 03:31 Last Admin: 11/09/16 04:26 Dose: 20 meq Potassium Chloride (Klor-Con M20) 40 meq PO BEDTIME [facility] Last Admin: 11/13/16 20:55 Dose: 40 meq Potassium Chloride (Klor-Con 10) meq PO QAM [facility] Potassium Chloride (Klor-Con 10) 20 meq PO DAILY [facility] Last Admin: 11/14/16 08:00 Dose: 20 meq Potassium Chloride (Klor-Con M20) 20 meq PO Q3H [facility] Stop: 11/09/16 15:01 Last Admin: 11/09/16 14:04 Dose: 20 meq Prednisone (Prednisone) 40 mg PO BID [facility] Last Admin: 11/14/16 08:00 Dose: 40 mg Saccharomyces Boulardii (Florastor) 500 mg PO TID [facility] Last Admin: 11/08/16 21:42 Dose: Not Given Saccharomyces Boulardii (Florastor) 250 mg PO BID [facility] Last Admin: 11/14/16 08:01 Dose: 250 mg Simvastatin (Zocor) 10 mg PO DAILY [facility] Last Admin: 11/14/16 08:00 Dose: 10 mg Sodium Chloride (Saline Flush) 10 ml FLUSH ASDIRECTED PRN PRN Reason: Keep Vein Open Last Admin: 11/08/16 17:30 Dose: 10 ml Sodium Chloride (Saline Flush) 10 ml FLUSH ONETIME PRN PRN Reason: IV FLUSH Last Admin: 11/08/16 18:34 Dose: 10 ml Spironolactone (Aldactone) 25 mg PO DAILY [facility] Last Admin: 11/14/16 08:01 Dose: 25 mg Temazepam (Restoril) 15 mg PO BEDTIME PRN PRN Reason: Sleep Triamterene/HCTZ (Maxzide 50-75 Mg) 1 each PO DAILY [facility] Vancomycin HCl (Pharmacy To Dose - Vancomycin) 1 dose .XX ASDIRECTED [facility] - Plan Plan:: Beginning to show improvement, will continue current course of therapy; highly recommend assisted living or SNF.
[2016-11-10] MEDS: Fluconazole 100 MG Tab PO SCH (09:30)
[2016-11-10] MEDS: Aspirin 81 MG Tab.Chew PO SCH (09:30)
[2016-11-10] MEDS: Famotidine 20 MG Tab PO SCH ×2 (09:30→21:49)
[2016-11-10] MEDS: Simvastatin 10 MG Tab PO SCH (09:30)
[2016-11-10] MEDS: Spironolactone 25 MG Tab PO SCH (09:31)
[2016-11-10] MEDS: Potassium Chloride 10 MEQ Tab.ER PO SCH (09:31)
[2016-11-10] MEDS: Magnesium Oxide 400 MG Tab PO SCH ×2 (09:31→21:49)
[2016-11-10] MEDS: Metoprolol Tartrate 100 MG Tab PO SCH ×2 (09:32→21:49)
[2016-11-10] MEDS: Furosemide 20 MG/2 ML VIAL IVPUSH SCH (09:33)
[2016-11-10] MEDS: Saccharomyces Boulardii (Probiotic) 250 MG Cap PO SCH ×2 (09:33→21:48)
[2016-11-10] MEDS: Cyanocobalamin (Vitamin B12) 1,000 MCG/ML SDV IM SCH (09:34)
[2016-11-10] MEDS: Enoxaparin 40 MG/0.4 ML Syringe SUBCUT SCH (09:36)
[2016-11-10] MEDS: Nystatin Crm 30 GM Tube TOP SCH ×3 (09:38→22:08)
[2016-11-10] MEDS: HYDROCHLOROTHIAZIDE PO SCH (10:21)
[2016-11-10] MEDS: TRIAMTERENE PO SCH (10:21)
[2016-11-10] MEDS: COLESTID PO SCH (10:21)
[2016-11-10] MEDS ORDERED: Lidocaine 1% with EPINEPHrine 1:100,000 20 ML MDV INJECT ONE (14:41)
--- NOTE | 2016-11-10 14:41 | PCM.PRNOTE ---
- Free Text/Narrative Note: Procedure: Punch biopsy rt forearm Indication: Rash Performing veterinary laboratory technician: Kristy Ortega PA-C Metal Machinist: Giuliana Connor RN- charge nurse Reviewed risk, benefits, alternatives of procedure with patient. She gives verbal and written consent for punch bx to rt forearm. Time out was taken Patient was prepped and draped in sterile fashion 3-4mm scaly red, raised lesion was cleansed with chloraprep solution, anesthetised with 1% xylocaine approximately 4cc. 4mm punch biopsy was taken, borders appear to be completely excised. One suture of 4.0 ethilon was used to close wound edges; closed without difficulty Antibiotic ointment and bandaid applied Patient tolerated well Specimen will be sent to pathology Recommend suture removal in 7-10 days
[2016-11-10] MEDS: Multivitamins,Therapeutic Tab PO SCH (21:49)
[2016-11-10] MEDS: Folic Acid 1 MG Tab PO SCH (21:49)
[2016-11-10] MEDS: Potassium Chloride 20 MEQ Tab.ER PO SCH (21:50)
[2016-11-10] MEDS: Levofloxacin/Dextrose 5%-Water 500 MG in Premix Bag 1 BAG IV SCH (21:50)
[2016-11-11] MEDS: methylPREDNISolone Sodium Succinate 40 MG/1 ML SDV IVPUSH SCH ×2 (04:37→11:05)
[2016-11-11] MEDS: metroNIDAZOLE/Normal Saline 500 MG in Premix Bag 1 BAG IV SCH ×3 (04:37→20:49)
[2016-11-11] MEDS: Levothyroxine 75 MCG Tab PO SCH (06:10)
[2016-11-11] MEDS: Insulin Aspart 100 Units/ML 3 ML Pen SUBCUT SCH ×4 (06:26→21:22)
[2016-11-11] MEDS: Furosemide 20 MG/2 ML VIAL IVPUSH SCH (11:05)
[2016-11-11] MEDS: Saccharomyces Boulardii (Probiotic) 250 MG Cap PO SCH ×2 (11:21→20:48)
[2016-11-11] MEDS: Metoprolol Tartrate 100 MG Tab PO SCH ×2 (11:21→20:49)
[2016-11-11] MEDS: Furosemide 40 MG Tab PO SCH (11:21)
[2016-11-11] MEDS: Simvastatin 10 MG Tab PO SCH (11:22)
[2016-11-11] MEDS: Potassium Chloride 10 MEQ Tab.ER PO SCH (11:22)
[2016-11-11] MEDS: Loperamide 2 MG Cap PO PRN (11:22)
[2016-11-11] MEDS: Fluconazole 100 MG Tab PO SCH (11:22)
[2016-11-11] MEDS: Famotidine 20 MG Tab PO SCH ×2 (11:22→20:49)
[2016-11-11] MEDS: Enoxaparin 40 MG/0.4 ML Syringe SUBCUT SCH (11:23)
[2016-11-11] MEDS: predniSONE 20 MG Tab PO SCH ×2 (11:23→20:49)
[2016-11-11] MEDS: Aspirin 81 MG Tab.Chew PO SCH (11:23)
[2016-11-11] MEDS: Magnesium Oxide 400 MG Tab PO SCH ×2 (11:23→20:49)
[2016-11-11] MEDS: Spironolactone 25 MG Tab PO SCH (11:23)
[2016-11-11] MEDS: COLESTID PO SCH (11:24)
[2016-11-11] MEDS: HYDROCHLOROTHIAZIDE PO SCH (11:24)
[2016-11-11] MEDS: TRIAMTERENE PO SCH (11:24)
[2016-11-11] MEDS: Nystatin Crm 30 GM Tube TOP SCH ×3 (11:24→20:51)
[2016-11-11] MEDS: Cyanocobalamin (Vitamin B12) 1,000 MCG/ML SDV IM SCH (11:24)
--- NOTE | 2016-11-11 13:05 | PCM.PN ---
<Kristy Ortega M - Last Filed: 11/11/16 12:58> - General Info Date of Service: 11/11/16 Admission Dx/Problem (Free Text): Admission Diagnosis/Problem Admission Diagnosis/Problem Cellulitis Patient seen this morning - doing "much better". Loose stools persist but states "that's how I always am" and "I didn't get my Remicaid so it's going to be worse". All stool studies negative. C-diff negative. Blood cultures have been negative thus far. She denies hematochezia, melena or ever seeing blood in her stool the past few weeks/days. Hemoccult was + yesterday. She is feeling stronger today. Ambulating 300+ feet with PT; recommending outpatient PT thus far. Functional Status: Reports: pain controlled, tolerating diet, ambulating, urinating (mixon cath dc'd at time of my exam this am). Denies: new symptoms - Review of Systems General: Reports: weakness (much improved) HEENT: Reports: no symptoms Pulmonary: Reports: no symptoms Cardiovascular: Reports: no symptoms Gastrointestinal: Reports: Diarrhea. Denies: Abdominal pain, Constipation, Nausea, Vomiting Genitourinary: Reports: no symptoms, other (mixon dc'd) Skin: Reports: rash (to perineal and buttock area- denies pain/itching or irritation to skin folds or periarea where rash is located) Neurological: Reports: no symptoms Psychiatric: Reports: no symptoms - Patient Data Vitals - most recent: Last Vital Signs Temp 97.7 F 11/11/16 08:04 Pulse 74 11/11/16 11:21 Resp 16 11/11/16 08:04 BP 98/65 11/11/16 11:21 Pulse Ox 92 L 11/11/16 08:04 Weight - most recent: 91.444 kg I&O - last 24 hours: Intake & Output 11/10/16 11/11/16 11/11/16 22:59 06:59 14:59 Intake Total 2004 1050 460 Output Total 1300 750 Balance 705 300 460 Lab Results last 24 hrs: Laboratory Results - last 24 hr 11/10/16 11/10/16 11/11/16 Range/Units 17:25 21:23 06:03 WBC 12.64 H (3.98-10.04) K/mm3 RBC 4.32 (3.98-5.22) M/mm3 Hgb 10.4 L (11.2-15.7) gm/L Hct 34.2 (34.1-44.9) % MCV 79.2 L (79.4-94.8) fl MCH 24.1 L (25.6-32.2) pg MCHC 30.4 L (32.2-35.5) g/dl RDW Std Deviation 46.1 (36.4-46.3) fL Plt Count 346 (182-369) K/mm3 MPV 10.2 (9.4-12.3) fl Neut % (Auto) 86.5 H (34.0-71.1) % Lymph % (Auto) 9.7 L (19.3-51.7) % Gibson % (Auto) 3.2 L (4.7-12.5) % Eos % (Auto) 0.2 L (0.7-5.8) Baso % (Auto) 0.1 (0.1-1.2) % Neut # 10.95 H (1.56-6.13) K/mm3 Lymph # 1.22 (1.18-3.74) K/mm3 Gibson # 0.40 H (0.24-0.36) K/mm3 Eos # 0.02 L (0.04-0.36) K/mm3 Baso # 0.01 (0.01-0.08) K/mm3 Manual Slide Review Abnormal smear ESR (0-20) mm/hr Sodium (136-145) mEq/L Potassium (3.5-5.1) mEq/L Chloride (98-107) mEq/L Carbon Dioxide (21-32) mEq/L Anion Gap (5-15) BUN (7-18) mg/dL Creatinine (0.55-1.02) mg/dL Est Cr Clr Drug Dosing mL/min Estimated GFR (MDRD) (>60) mL/min BUN/Creatinine Ratio (14-18) Glucose (83-115) mg/dL POC Glucose 136 H 195 H (83-110) mg/dL Calcium (8.5-10.1) mg/dL Magnesium (1.8-2.4) mg/dl C-Reactive Protein (<1.0) mg/dL 03/03/17 03/03/17 03/03/17 Range/Units 06:03 06:03 06:03 WBC (3.98-10.04) K/mm3 RBC (3.98-5.22) M/mm3 Hgb (11.2-15.7) gm/L Hct (34.1-44.9) % MCV (79.4-94.8) fl MCH (25.6-32.2) pg MCHC (32.2-35.5) g/dl RDW Std Deviation (36.4-46.3) fL Plt Count (182-369) K/mm3 MPV (9.4-12.3) fl Neut % (Auto) (34.0-71.1) % Lymph % (Auto) (19.3-51.7) % Gibson % (Auto) (4.7-12.5) % Eos % (Auto) (0.7-5.8) Baso % (Auto) (0.1-1.2) % Neut # (1.56-6.13) K/mm3 Lymph # (1.18-3.74) K/mm3 Gibson # (0.24-0.36) K/mm3 Eos # (0.04-0.36) K/mm3 Baso # (0.01-0.08) K/mm3 Manual Slide Review ESR 21 H (0-20) mm/hr Sodium 140 (136-145) mEq/L Potassium 4.6 (3.5-5.1) mEq/L Chloride 105 (98-107) mEq/L Carbon Dioxide 28 (21-32) mEq/L Anion Gap 11.6 (5-15) BUN 13 (7-18) mg/dL Creatinine 1.0 (0.55-1.02) mg/dL Est Cr Clr Drug Dosing 44.80 mL/min Estimated GFR (MDRD) 54 (>60) mL/min BUN/Creatinine Ratio 13.0 L (14-18) Glucose 138 H (83-115) mg/dL POC Glucose (83-110) mg/dL Calcium 8.7 (8.5-10.1) mg/dL Magnesium 1.9 (1.8-2.4) mg/dl C-Reactive Protein 2.9 H* (<1.0) mg/dL 03/03/17 03/03/17 Range/Units 06:13 11:32 WBC (3.98-10.04) K/mm3 RBC (3.98-5.22) M/mm3 Hgb (11.2-15.7) gm/L Hct (34.1-44.9) % MCV (79.4-94.8) fl MCH (25.6-32.2) pg MCHC (32.2-35.5) g/dl RDW Std Deviation (36.4-46.3) fL Plt Count (182-369) K/mm3 MPV (9.4-12.3) fl Neut % (Auto) (34.0-71.1) % Lymph % (Auto) (19.3-51.7) % Gibson % (Auto) (4.7-12.5) % Eos % (Auto) (0.7-5.8) Baso % (Auto) (0.1-1.2) % Neut # (1.56-6.13) K/mm3 Lymph # (1.18-3.74) K/mm3 Gibson # (0.24-0.36) K/mm3 Eos # (0.04-0.36) K/mm3 Baso # (0.01-0.08) K/mm3 Manual Slide Review ESR (0-20) mm/hr Sodium (136-145) mEq/L Potassium (3.5-5.1) mEq/L Chloride (98-107) mEq/L Carbon Dioxide (21-32) mEq/L Anion Gap (5-15) BUN (7-18) mg/dL Creatinine (0.55-1.02) mg/dL Est Cr Clr Drug Dosing mL/min Estimated GFR (MDRD) (>60) mL/min BUN/Creatinine Ratio (14-18) Glucose (83-115) mg/dL POC Glucose 135 H 144 H (83-110) mg/dL Calcium (8.5-10.1) mg/dL Magnesium (1.8-2.4) mg/dl C-Reactive Protein (<1.0) mg/dL Thuan Results last 24 hrs: Microbiology 11/09/16 17:06 Urine Culture - Preliminary Urine, Catheterized Streptococcus Gram Negative Rods Gram Negative Rods#2 Enterococcus 11/08/16 23:30 Stool Culture - Preliminary Stool / Feces NORMAL ENTERIC CARISA 2 DAYS - Final NEGATIVE FOR SHIGA TOXIN 1 - Final NEGATIVE FOR SHIGA TOXIN 2 11/10/16 22:17 Stool Occult Blood (THUAN) - Final Stool / Feces 11/08/16 20:35 Aerobic Blood Culture - Preliminary Blood - Venous - Lab Draw NO GROWTH AFTER 2 DAYS Anaerobic Blood Culture - Preliminary NO GROWTH AFTER 2 DAYS 11/08/16 20:27 Aerobic Blood Culture - Preliminary Blood - Venous NO GROWTH AFTER 2 DAYS Anaerobic Blood Culture - Preliminary NO GROWTH AFTER 2 DAYS 11/08/16 23:30 Cryptosporidium/Giardia - Final Stool / Feces Med Orders - Current: Current Medications Acetaminophen (Tylenol) 650 mg RECTAL Q4H PRN PRN Reason: Pain (mild 1-3) Acetaminophen (Tylenol) 650 mg PO Q4H PRN PRN Reason: Pain (Mild 1-3)/fever Acetaminophen/Hydrocodone Bitart ([place] 325-5 Mg) 1 tab PO Q4H PRN PRN Reason: Pain (moderate 4-6) Aspirin (Aspirin) 81 mg PO DAILY [facility] Last Admin: 11/11/16 11:23 Dose: 81 mg Cyanocobalamin (Vitamin B12) 1,000 mcg IM DAILY [facility] Stop: 11/12/16 09:01 Last Admin: 11/11/16 11:24 Dose: 1,000 mcg Dextrose/Water (Dextrose 50% In Water) 50 ml IVPUSH ASDIRECTED PRN PRN Reason: Hypoglycemia Enoxaparin Sodium (Lovenox) 40 mg SUBCUT DAILY [facility] Last Admin: 11/11/16 11:23 Dose: 40 mg Famotidine (Pepcid) 20 mg PO BID [facility] Last Admin: 11/11/16 11:22 Dose: 20 mg Ferrous Sulfate (Ferrous Sulfate) 325 mg PO WITHBREAKFAST [facility] Fluconazole (Diflucan) 100 mg PO DAILY [facility] Stop: 11/13/16 09:01 Last Admin: 11/11/16 11:22 Dose: 100 mg Folic Acid (Folic Acid) 1 mg PO BEDTIME [facility] Last Admin: 11/10/16 21:49 Dose: 1 mg Furosemide (Lasix) 40 mg PO DAILY [facility] Last Admin: 11/11/16 11:21 Dose: 40 mg Promethazine HCl 12.5 mg/ (Sodium Chloride) 50.5 mls @ 100 mls/hr IV Q6H PRN PRN Reason: Nausea/Vomiting Metronidazole 500 mg/ Premix 100 mls @ 100 mls/hr IV Q8H [facility] Last Admin: 11/11/16 04:37 Dose: 100 mls/hr Insulin Aspart (Novolog) 0 unit SUBCUT QIDACANDBED [facility] PRN Reason: Protocol Last Admin: 11/11/16 12:42 Dose: Not Given Levothyroxine Sodium (Levothyroxine) 75 mcg PO ACBRK [facility] Last Admin: 11/11/16 06:10 Dose: 75 mcg Loperamide HCl (Imodium) 2 mg PO BID PRN PRN Reason: Diarrhea Last Admin: 11/11/16 11:22 Dose: 2 mg Lorazepam (Ativan) 0.5 mg IV Q6H PRN PRN Reason: Anxiety Magnesium Oxide (Magnesium Oxide) 400 mg PO BID [facility] Last Admin: 11/11/16 11:23 Dose: 400 mg Metoprolol Tartrate (Lopressor) 100 mg PO BID [facility] Last Admin: 11/11/16 11:21 Dose: 100 mg Multi-Ingred Cream/Lotion/Oil/Oint (Zinc Oxide) 0 gm TOP TID [facility] Last Admin: 11/11/16 11:25 Dose: 1 applic Multivitamins (Thera) 1 each PO BEDTIME [facility] Last Admin: 11/10/16 21:49 Dose: 1 each Nitroglycerin (Nitrostat) 0.4 mg SL ASDIRECTED PRN PRN Reason: Chest Pain Nystatin (Nystatin Crm) 0 gm TOP TID [facility] Last Admin: 11/11/16 11:24 Dose: 1 applic Ondansetron HCl (Zofran) 4 mg IV Q6H PRN PRN Reason: Nausea/Vomiting Colestid. 1 Gram 0 each PO DAILY [facility] Last Admin: 11/11/16 11:24 Dose: Not Given Hydrochlorothiazide/Triamterene 25-37.5 Mg Tab. 0 each PO DAILY [facility] Last Admin: 11/11/16 11:24 Dose: Not Given Potassium Chloride (Klor-Con M20) 40 meq PO BEDTIME [facility] Last Admin: 11/10/16 21:50 Dose: 40 meq Potassium Chloride (Klor-Con 10) 20 meq PO DAILY [facility] Last Admin: 11/11/16 11:22 Dose: 20 meq Prednisone (Prednisone) 40 mg PO BID [facility] Last Admin: 11/11/16 11:23 Dose: 40 mg Saccharomyces Boulardii (Florastor) 250 mg PO BID [facility] Last Admin: 11/11/16 11:21 Dose: 250 mg Simvastatin (Zocor) 10 mg PO DAILY [facility] Last Admin: 11/11/16 11:22 Dose: 10 mg Sodium Chloride (Saline Flush) 10 ml FLUSH ASDIRECTED PRN PRN Reason: Keep Vein Open Last Admin: 11/08/16 17:30 Dose: 10 ml Sodium Chloride (Saline Flush) 10 ml FLUSH ONETIME PRN PRN Reason: IV FLUSH Last Admin: 11/08/16 18:34 Dose: 10 ml Spironolactone (Aldactone) 25 mg PO DAILY [facility] Last Admin: 11/11/16 11:23 Dose: 25 mg Temazepam (Restoril) 15 mg PO BEDTIME PRN PRN Reason: Sleep Discontinued Medications Acetaminophen (Tylenol) 975 mg PO NOW ONE Stop: 11/08/16 19:09 Last Admin: 11/08/16 19:26 Dose: 975 mg Cyanocobalamin (Vitamin B12) 1,000 mcg IM ONETIME ONE Stop: 11/08/16 20:17 Last Admin: 11/09/16 02:06 Dose: Not Given Diatrizoate Meglum/Diatrizoate Sod (Gastrografin 37%) 90 ml PO ONETIME ONE Stop: 11/08/16 17:56 Last Admin: 11/08/16 18:34 Dose: 90 ml Furosemide (Lasix) 20 mg IVPUSH DAILY [facility] Last Admin: 11/11/16 11:05 Dose: Not Given Hydromorphone HCl (Dilaudid) 0.25 mg IVPUSH Q2H PRN PRN Reason: Pain (severe 7-10) Hydromorphone HCl (Dilaudid) 0.25 mg IVPUSH Q2H PRN PRN Reason: Pain (severe 7-10) Vancomycin HCl 1 gm/ Sodium (Chloride) 250 mls @ 250 mls/hr IV ONETIME ONE Stop: 11/08/16 20:03 Last Admin: 11/08/16 19:29 Dose: 250 mls/hr Dextrose/Sodium Chloride (Dextrose 5%-1/2 Ns) 1,000 mls @ 125 mls/hr IV ASDIRECTED [facility] Last Admin: 11/09/16 11:54 Dose: 125 mls/hr Levofloxacin/Dextrose 500 mg/ (Premix) 100 mls @ 100 mls/hr IV Q24H [facility] Last Admin: 11/10/16 21:50 Dose: 100 mls/hr Magnesium Sulfate (Magnesium Sulfate 2 Gm In Water 50 Ml) 50 mls @ 50 mls/hr IV ONETIME ONE Stop: 11/08/16 22:29 Last Admin: 11/08/16 23:49 Dose: 50 mls/hr Vancomycin HCl 1 gm/ Sodium (Chloride) 250 mls @ 250 mls/hr IV ONETIME ONE Stop: 11/08/16 22:59 Last Admin: 11/08/16 23:45 Dose: 250 mls/hr Furosemide 100 mg/ Sodium (Chloride) 100 mls @ 3 mls/hr IV TITRATE [facility] PRN Reason: Protocol Last Admin: 11/09/16 02:09 Dose: 3 mls/hr Vancomycin HCl 1 gm/ Sodium (Chloride) 250 mls @ 167 mls/hr IV Q18H [facility] Last Admin: 11/11/16 04:37 Dose: 167 mls/hr Magnesium Sulfate 2 gm/ Premix 50 mls @ 25 mls/hr IV ONETIME ONE Stop: 11/09/16 14:59 Last Admin: 11/09/16 14:06 Dose: 25 mls/hr Infliximab (Remicade) 100 mg IV ASDIRECTED [facility] Infliximab (Remicade) 100 mg IV ONETIME ONE Stop: 11/09/16 09:01 Iopamidol (Isovue-300 (61%)) 125 ml IVPUSH ONETIME ONE Stop: 11/08/16 17:56 Last Admin: 11/08/16 18:32 Dose: 125 ml Lidocaine/Epinephrine (Xylocaine 1% With Epinephrine 1:100,000) 20 ml INJECT ONETIME ONE Stop: 11/10/16 14:42 Last Admin: 11/10/16 15:52 Dose: Not Given Magnesium Sulfate (Pharmacy To Dose - Magnesium Replacement) 1 dose .XX ASDIRECTED [facility] Methylprednisolone Sodium Succinate (Solu-Medrol) 40 mg IVPUSH Q6H [facility] Last Admin: 11/11/16 11:05 Dose: Not Given Non-Formulary Medication (Hctz/Triamterene) 0.5 tab PO QAM [facility] Pantoprazole Sodium (Protonix Iv) 40 mg IV Q12HR [facility] Last Admin: 11/09/16 22:00 Dose: 40 mg Potassium Chloride (Pharmacy To Dose - Potassium Replacement) 1 dose .XX ASDIRECTED [facility] Potassium Chloride (Klor-Con M20) 20 meq PO Q3H [facility] Stop: 11/09/16 03:31 Last Admin: 11/09/16 04:26 Dose: 20 meq Potassium Chloride (Klor-Con 10) meq PO QAM [facility] Potassium Chloride (Klor-Con M20) 20 meq PO Q3H [facility] Stop: 11/09/16 15:01 Last Admin: 11/09/16 14:04 Dose: 20 meq Saccharomyces Boulardii (Florastor) 500 mg PO TID [facility] Last Admin: 11/08/16 21:42 Dose: Not Given Triamterene/HCTZ (Maxzide 50-75 Mg) 1 each PO DAILY [facility] Vancomycin HCl (Pharmacy To Dose - Vancomycin) 1 dose .XX ASDIRECTED [facility] - Exam Quality Assessment: DVT prophylaxis General: alert, oriented, cooperative, no acute distress (pleasant and talkative today) HEENT: Pupils equal, Pupils reactive, EOMI, Mucous membr. moist/pink Neck: supple Lungs: Clear to auscultation, Normal respiratory effort Cardiovascular: regular rate, regular rhythm Abdomen: bowel sounds present, soft, no tenderness, no distension (Female) Exam: Deferred Extremities: edema (trace to ankles/pedal- improved slightly from yesterday) Peripheral Pulses: 1+: dorsalis pedis (L), dorsalis pedis (R) Skin: other (rash to periarea and buttock is at least 50% improved from yesterday's exam, minimal erythema this morning- more purplish in color, skin sloughing around borders or prior erythema to buttock area. No open wounds noted. ) Neurological: no new focal deficit Psy/Mental Status: alert, normal affect, normal mood - Problem List & Annotations (1) Cellulitis of perineum SNOMED Code(s): 13123464 Code(s): L03.315 - CELLULITIS OF PERINEUM Status: Acute Priority: High (2) Diarrhea SNOMED Code(s): 20183786 Code(s): R19.7 - DIARRHEA, UNSPECIFIED Status: Acute Priority: High Qualifiers: Diarrhea type: unspecified type Qualified Code(s): R19.7 - Diarrhea, unspecified (3) Hypokalemia SNOMED Code(s): 79561462 Code(s): E87.6 - HYPOKALEMIA Status: Acute Priority: High (4) Rash SNOMED Code(s): 132465919, 108945218 Code(s): R21 - RASH AND OTHER NONSPECIFIC SKIN ERUPTION Status: Acute Priority: High (5) Pedal edema SNOMED Code(s): 537199005 Code(s): R60.0 - LOCALIZED EDEMA Status: Acute Priority: High (6) Crohn disease SNOMED Code(s): 65772043 Code(s): K50.90 - CROHN'S DISEASE, UNSPECIFIED, WITHOUT COMPLICATIONS Status: Chronic Priority: Medium Qualifiers: Gastrointestinal tract location: small intestine Digestive disease complication type: without complication Qualified Code(s): K50.00 - Crohn's disease of small intestine without complications (7) Hypoalbuminemia SNOMED Code(s): 756463231 Code(s): E88.09 - OTH DISORDERS OF PLASMA-PROTEIN METABOLISM, NEC Status: Acute Priority: High (8) Generalized weakness SNOMED Code(s): 30368906 Code(s): R53.1 - WEAKNESS Status: Acute (9) Urinary incontinence SNOMED Code(s): 419557814 Code(s): R32 - UNSPECIFIED URINARY INCONTINENCE Status: Chronic Priority : High Qualifiers: Urinary Incontinence type: continuous leakage Qualified Code(s): N39.45 - Continuous leakage (10) Fall SNOMED Code(s): 6450625, 695957794 Code(s): W19.XXXA - UNSPECIFIED FALL, INITIAL ENCOUNTER Status: Acute Priority: High Qualifiers: Encounter type: initial encounter Qualified Code(s): W19.XXXA - Unspecified fall, initial encounter (11) UTI (urinary tract infection) SNOMED Code(s): 67754974 Code(s): N39.0 - URINARY TRACT INFECTION, SITE NOT SPECIFIED Status: Acute Priority: High Qualifiers: Urinary tract infection type: acute cystitis Hematuria presence: without hematuria Qualified Code(s): N30.00 - Acute cystitis without hematuria (12) Iron deficiency anemia SNOMED Code(s): 27024455 Code(s): D50.9 - IRON DEFICIENCY ANEMIA, UNSPECIFIED Status: Acute Priority: High Qualifiers: Iron deficiency anemia type: unspecified iron deficiency Qualified Code(s) : D50.9 - Iron deficiency anemia, unspecified - Problem List Review Problem List Initiated/Reviewed/Updated: Yes - My Orders Last 24 Hours: My Active Orders 11/10/16 Dinner ADA Diabetic [[place] [employer] Diet] [DIET] 11/11/16 11:00 Furosemide [Lasix] 40 mg PO DAILY 11/11/16 11:15 predniSONE 40 mg PO BID 11/12/16 07:00 Ferrous Sulfate 325 mg PO WITHBREAKFAST 11/14/16 07:00 CBC W/O DIFF,HEMOGRAM [HEME] MOTH@0700 11/17/16 07:00 CBC W/O DIFF,HEMOGRAM [HEME] MOTH@0700 11/21/16 07:00 CBC W/O DIFF,HEMOGRAM [HEME] MOTH@0700 11/24/16 07:00 CBC W/O DIFF,HEMOGRAM [HEME] MOTH@0700 11/28/16 07:00 CBC W/O DIFF,HEMOGRAM [HEME] MOTH@0700 - Plan Plan:: Assessment/Plan: Crohn's Colitis/diarrhea - CT scan: Prominent bowel wall thickening within the distal ileum - IV Steroids--decreasing dosage and switched to PO dosing today - BRAT/[place] diet --tolerating well - IV Flagyl 500 mg Q8Hrs - Dietary consult for Crohn's diet - O&P and Stool Culture to include C. Diff test-- stool studies negative -Hemoccult +; likely due to chronic and active Crohn's disease; will schedule follow up with her Vest Finisher, Dr. Weiss as outpatient--- appt scheduled for 11/24/16 in [place]. Chantelle-rectal and Perineal Rash-- I feel this is niesha infection- severe, improved by at least 50% now -Risk factors: chronic constant incontinence, obesity, immobile, was unable to bathe at home for ? weeks potentially due to slow decline in physical stamina /health -fluconazole PO and nystatin cream TID -Also has rash to arms/legs; scaly erythematous patches- Punch bx done yesterday to rt forearm; pathology pending Peripheral Edema-- much improved - LVEF>55%; Hypoalbuminemia - UA r/o Proteinuria - Thyroid Panel -- TSH WNL - Lasix 40mg PO daily, cont to monitor labs daily - Teds, likely dependent component as pt states she sits in chair with legs dependent most of the day Hypokalemia- - Replacement and follow am labs-- improving to resolving - Also follow mag levels Mild Hypoalbuminemia - Albumin 2.1 - Dietary consult: low protein state; trial full liquids, advance as tolerated. 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 LOS likely >96 hours due to ongoing complexity of course, AUTI with multiple organisms- awaiting sensitivity, healing of skin/perineal rash/cellulitis, strengthening. <Suzi Buchanan - Last Filed: 11/15/16 20:12> - Patient Data Vitals - most recent: Last Vital Signs Temp 36.9 C 11/14/16 07:57 Pulse 72 11/14/16 08:01 Resp 18 11/14/16 07:57 BP 127/51 L 11/14/16 08:01 Pulse Ox 96 11/14/16 07:57 Lab Results last 24 hrs: Laboratory Results - last 24 hr 11/10/16 Range/Units 09:03 Packed Cell Volume 31.2 RBC Folic Acid 1845 H (499-1504) ng/mL Hematocrit 31.2 % Thuan Results last 24 hrs: Microbiology 11/08/16 20:35 Aerobic Blood Culture - Preliminary Blood - Venous - Lab Draw NO GROWTH AFTER 6 DAYS Anaerobic Blood Culture - Preliminary NO GROWTH AFTER 6 DAYS 11/08/16 20:27 Aerobic Blood Culture - Preliminary Blood - Venous NO GROWTH AFTER 6 DAYS Anaerobic Blood Culture - Preliminary NO GROWTH AFTER 6 DAYS Med Orders - Current: Current Medications Discontinued Medications Acetaminophen (Tylenol) 975 mg PO NOW ONE Stop: 11/08/16 19:09 Last Admin: 11/08/16 19:26 Dose: 975 mg Acetaminophen (Tylenol) 650 mg RECTAL Q4H PRN PRN Reason: Pain (mild 1-3) Acetaminophen (Tylenol) 650 mg PO Q4H PRN PRN Reason: Pain (Mild 1-3)/fever Acetaminophen/Hydrocodone Bitart ([place] 325-5 Mg) 1 tab PO Q4H PRN PRN Reason: Pain (moderate 4-6) Aspirin (Aspirin) 81 mg PO DAILY [facility] Last Admin: 11/14/16 08:01 Dose: 81 mg Cyanocobalamin (Vitamin B12) 1,000 mcg IM ONETIME ONE Stop: 11/08/16 20:17 Last Admin: 11/09/16 02:06 Dose: Not Given Cyanocobalamin (Vitamin B12) 1,000 mcg IM DAILY [facility] Stop: 11/12/16 09:01 Last Admin: 11/12/16 08:06 Dose: 1,000 mcg Dextrose/Water (Dextrose 50% In Water) 50 ml IVPUSH ASDIRECTED PRN PRN Reason: Hypoglycemia Diatrizoate Meglum/Diatrizoate Sod (Gastrografin 37%) 90 ml PO ONETIME ONE Stop: 11/08/16 17:56 Last Admin: 11/08/16 18:34 Dose: 90 ml Enoxaparin Sodium (Lovenox) 40 mg SUBCUT DAILY [facility] Last Admin: 11/14/16 08:00 Dose: 40 mg Famotidine (Pepcid) 20 mg PO BID [facility] Last Admin: 11/14/16 08:01 Dose: 20 mg Ferrous Sulfate (Ferrous Sulfate) 325 mg PO WITHBREAKFAST [facility] Last Admin: 11/14/16 07:49 Dose: Not Given Fluconazole (Diflucan) 100 mg PO DAILY [facility] Stop: 11/13/16 09:01 Last Admin: 11/13/16 10:02 Dose: 100 mg Folic Acid (Folic Acid) 1 mg PO BEDTIME [facility] Last Admin: 11/13/16 20:55 Dose: 1 mg Furosemide (Lasix) 20 mg IVPUSH DAILY [facility] Last Admin: 11/11/16 11:05 Dose: Not Given Furosemide (Lasix) 40 mg PO DAILY [facility] Last Admin: 11/14/16 08:01 Dose: 40 mg Hydromorphone HCl (Dilaudid) 0.25 mg IVPUSH Q2H PRN PRN Reason: Pain (severe 7-10) Hydromorphone HCl (Dilaudid) 0.25 mg IVPUSH Q2H PRN PRN Reason: Pain (severe 7-10) Vancomycin HCl 1 gm/ Sodium (Chloride) 250 mls @ 250 mls/hr IV ONETIME ONE Stop: 11/08/16 20:03 Last Admin: 11/08/16 19:29 Dose: 250 mls/hr Dextrose/Sodium Chloride (Dextrose 5%-1/2 Ns) 1,000 mls @ 125 mls/hr IV ASDIRECTED [facility] Last Admin: 11/09/16 11:54 Dose: 125 mls/hr Promethazine HCl 12.5 mg/ (Sodium Chloride) 50.5 mls @ 100 mls/hr IV Q6H PRN PRN Reason: Nausea/Vomiting Metronidazole 500 mg/ Premix 100 mls @ 100 mls/hr IV Q8H [facility] Last Admin: 11/13/16 04:08 Dose: 100 mls/hr Levofloxacin/Dextrose 500 mg/ (Premix) 100 mls @ 100 mls/hr IV Q24H [facility] Last Admin: 11/10/16 21:50 Dose: 100 mls/hr Magnesium Sulfate (Magnesium Sulfate 2 Gm In Water 50 Ml) 50 mls @ 50 mls/hr IV ONETIME ONE Stop: 11/08/16 22:29 Last Admin: 11/08/16 23:49 Dose: 50 mls/hr Vancomycin HCl 1 gm/ Sodium (Chloride) 250 mls @ 250 mls/hr IV ONETIME ONE Stop: 11/08/16 22:59 Last Admin: 11/08/16 23:45 Dose: 250 mls/hr Furosemide 100 mg/ Sodium (Chloride) 100 mls @ 3 mls/hr IV TITRATE [facility] PRN Reason: Protocol Last Admin: 11/09/16 02:09 Dose: 3 mls/hr Vancomycin HCl 1 gm/ Sodium (Chloride) 250 mls @ 167 mls/hr IV Q18H [facility] Last Admin: 11/11/16 04:37 Dose: 167 mls/hr Magnesium Sulfate 2 gm/ Premix 50 mls @ 25 mls/hr IV ONETIME ONE Stop: 11/09/16 14:59 Last Admin: 11/09/16 14:06 Dose: 25 mls/hr Levofloxacin/Dextrose 500 mg/ (Premix) 100 mls @ 100 mls/hr IV Q24H [facility] Last Admin: 11/13/16 20:48 Dose: 100 mls/hr Ceftriaxone Sodium 1 gm/ (Sodium Chloride) 100 mls @ 200 mls/hr IV Q24H [facility] Last Admin: 11/13/16 10:05 Dose: 200 mls/hr Infliximab (Remicade) 100 mg IV ASDIRECTED [facility] Infliximab (Remicade) 100 mg IV ONETIME ONE Stop: 11/09/16 09:01 Insulin Aspart (Novolog) 0 unit SUBCUT QIDACANDBED [facility] PRN Reason: Protocol Last Admin: 11/14/16 07:47 Dose: Not Given Iopamidol (Isovue-300 (61%)) 125 ml IVPUSH ONETIME ONE Stop: 11/08/16 17:56 Last Admin: 11/08/16 18:32 Dose: 125 ml Levothyroxine Sodium (Levothyroxine) 75 mcg PO ACBRK [facility] Last Admin: 11/14/16 05:34 Dose: 75 mcg Lidocaine/Epinephrine (Xylocaine 1% With Epinephrine 1:100,000) 20 ml INJECT ONETIME ONE Stop: 11/10/16 14:42 Last Admin: 11/10/16 15:52 Dose: Not Given Loperamide HCl (Imodium) 2 mg PO BID PRN PRN Reason: Diarrhea Last Admin: 11/11/16 11:22 Dose: 2 mg Lorazepam (Ativan) 0.5 mg IV Q6H PRN PRN Reason: Anxiety Magnesium Oxide (Magnesium Oxide) 400 mg PO BID [facility] Last Admin: 11/14/16 08:00 Dose: 400 mg Magnesium Sulfate (Pharmacy To Dose - Magnesium Replacement) 1 dose .XX ASDIRECTED [facility] Methylprednisolone Sodium Succinate (Solu-Medrol) 40 mg IVPUSH Q6H [facility] Last Admin: 11/11/16 11:05 Dose: Not Given Metoprolol Tartrate (Lopressor) 100 mg PO BID [facility] Last Admin: 11/13/16 11:13 Dose: Not Given Metoprolol Tartrate (Lopressor) 50 mg PO Q12HR [facility] Last Admin: 11/14/16 08:01 Dose: 50 mg Multi-Ingred Cream/Lotion/Oil/Oint (Zinc Oxide) 0 gm TOP TID [facility] Last Admin: 11/14/16 08:01 Dose: 1 applic Multivitamins (Thera) 1 each PO BEDTIME [facility] Last Admin: 11/13/16 20:55 Dose: 1 each Nitroglycerin (Nitrostat) 0.4 mg SL ASDIRECTED PRN PRN Reason: Chest Pain Non-Formulary Medication (Hctz/Triamterene) 0.5 tab PO QAM [facility] Nystatin (Nystatin Crm) 0 gm TOP TID [facility] Last Admin: 11/14/16 08:02 Dose: 1 applic Ondansetron HCl (Zofran) 4 mg IV Q6H PRN PRN Reason: Nausea/Vomiting Pantoprazole Sodium (Protonix Iv) 40 mg IV Q12HR [facility] Last Admin: 11/09/16 22:00 Dose: 40 mg Colestid. 1 Gram 0 each PO DAILY [facility] Last Admin: 11/14/16 08:02 Dose: Not Given Hydrochlorothiazide/Triamterene 25-37.5 Mg Tab. 0 each PO DAILY [facility] Last Admin: 11/14/16 08:02 Dose: Not Given Potassium Chloride (Pharmacy To Dose - Potassium Replacement) 1 dose .XX ASDIRECTED [facility] Potassium Chloride (Klor-Con M20) 20 meq PO Q3H [facility] Stop: 11/09/16 03:31 Last Admin: 11/09/16 04:26 Dose: 20 meq Potassium Chloride (Klor-Con M20) 40 meq PO BEDTIME [facility] Last Admin: 11/13/16 20:55 Dose: 40 meq Potassium Chloride (Klor-Con 10) meq PO QAM [facility] Potassium Chloride (Klor-Con 10) 20 meq PO DAILY [facility] Last Admin: 11/14/16 08:00 Dose: 20 meq Potassium Chloride (Klor-Con M20) 20 meq PO Q3H [facility] Stop: 11/09/16 15:01 Last Admin: 11/09/16 14:04 Dose: 20 meq Prednisone (Prednisone) 40 mg PO BID [facility] Last Admin: 11/14/16 08:00 Dose: 40 mg Saccharomyces Boulardii (Florastor) 500 mg PO TID [facility] Last Admin: 11/08/16 21:42 Dose: Not Given Saccharomyces Boulardii (Florastor) 250 mg PO BID [facility] Last Admin: 11/14/16 08:01 Dose: 250 mg Simvastatin (Zocor) 10 mg PO DAILY [facility] Last Admin: 11/14/16 08:00 Dose: 10 mg Sodium Chloride (Saline Flush) 10 ml FLUSH ASDIRECTED PRN PRN Reason: Keep Vein Open Last Admin: 11/08/16 17:30 Dose: 10 ml Sodium Chloride (Saline Flush) 10 ml FLUSH ONETIME PRN PRN Reason: IV FLUSH Last Admin: 11/08/16 18:34 Dose: 10 ml Spironolactone (Aldactone) 25 mg PO DAILY [facility] Last Admin: 11/14/16 08:01 Dose: 25 mg Temazepam (Restoril) 15 mg PO BEDTIME PRN PRN Reason: Sleep Triamterene/HCTZ (Maxzide 50-75 Mg) 1 each PO DAILY [facility] Vancomycin HCl (Pharmacy To Dose - Vancomycin) 1 dose .XX ASDIRECTED [facility] - Plan Plan:: See above for progress, will benefit from assisted living at [facility] for brief stay.
[2016-11-11] MEDS: Folic Acid 1 MG Tab PO SCH (20:48)
[2016-11-11] MEDS: Potassium Chloride 20 MEQ Tab.ER PO SCH (20:49)
[2016-11-11] MEDS: Multivitamins,Therapeutic Tab PO SCH (20:49)
[2016-11-11] MEDS: Levofloxacin/Dextrose 5%-Water 500 MG in Premix Bag 1 BAG IV SCH (20:50)
[2016-11-12] MEDS: Levothyroxine 75 MCG Tab PO SCH (06:01)
[2016-11-12] MEDS: Ferrous Sulfate 325 MG Tab PO SCH (06:01)
[2016-11-12] MEDS: metroNIDAZOLE/Normal Saline 500 MG in Premix Bag 1 BAG IV SCH ×3 (06:01→20:34)
[2016-11-12] MEDS: Insulin Aspart 100 Units/ML 3 ML Pen SUBCUT SCH ×4 (06:51→21:18)
[2016-11-12] MEDS: Fluconazole 100 MG Tab PO SCH (08:04)
[2016-11-12] MEDS: Saccharomyces Boulardii (Probiotic) 250 MG Cap PO SCH ×2 (08:04→20:40)
[2016-11-12] MEDS: Spironolactone 25 MG Tab PO SCH (08:05)
[2016-11-12] MEDS: Furosemide 40 MG Tab PO SCH (08:05)
[2016-11-12] MEDS: Potassium Chloride 10 MEQ Tab.ER PO SCH (08:05)
[2016-11-12] MEDS: Metoprolol Tartrate 100 MG Tab PO SCH ×2 (08:05→20:42)
[2016-11-12] MEDS: predniSONE 20 MG Tab PO SCH ×2 (08:05→20:47)
[2016-11-12] MEDS: Magnesium Oxide 400 MG Tab PO SCH ×2 (08:06→20:45)
[2016-11-12] MEDS: Famotidine 20 MG Tab PO SCH ×2 (08:06→20:47)
[2016-11-12] MEDS: Aspirin 81 MG Tab.Chew PO SCH (08:06)
[2016-11-12] MEDS: Cyanocobalamin (Vitamin B12) 1,000 MCG/ML SDV IM SCH (08:06)
[2016-11-12] MEDS: Enoxaparin 40 MG/0.4 ML Syringe SUBCUT SCH (08:07)
[2016-11-12] MEDS: Nystatin Crm 30 GM Tube TOP SCH ×3 (08:08→20:46)
[2016-11-12] MEDS: TRIAMTERENE PO SCH (08:09)
[2016-11-12] MEDS: HYDROCHLOROTHIAZIDE PO SCH (08:09)
[2016-11-12] MEDS: COLESTID PO SCH (08:10)
[2016-11-12] MEDS: Simvastatin 10 MG Tab PO SCH (08:14)
--- NOTE | 2016-11-12 17:22 | PCM.PN ---
- General Info Date of Service: 11/12/16 (LOS>96 hours required for treatment and placement at [facility]) Functional Status: Reports: tolerating diet, ambulating (minimal), urinating ( uses the commode, instructed on how to wipe front to back) - Review of Systems General: Reports: weakness HEENT: Reports: no symptoms Pulmonary: Reports: no symptoms Cardiovascular: Reports: no symptoms Gastrointestinal: Reports: No symptoms Genitourinary: Reports: no symptoms Musculoskeletal: Reports: no symptoms Skin: Reports: no symptoms Neurological: Reports: no symptoms Psychiatric: Reports: no symptoms - Patient Data Vitals - most recent: Last Vital Signs Temp 36.7 C 11/12/16 15:51 Pulse 58 L 11/12/16 15:51 Resp 18 11/12/16 15:51 BP 132/58 L 11/12/16 15:51 Pulse Ox 99 11/12/16 15:51 Weight - most recent: 202.3 kg I&O - last 24 hours: Intake & Output 11/12/16 11/12/16 11/12/16 06:59 14:59 22:59 Intake Total 800 330 325 Output Total 200 625 Balance 600 330 -300 Lab Results last 24 hrs: Laboratory Results - last 24 hr 11/08/16 11/11/16 11/11/16 Range/Units 20:35 17:30 21:04 WBC (3.98-10.04) K/mm3 RBC (3.98-5.22) M/mm3 Hgb (11.2-15.7) gm/L Hct (34.1-44.9) % MCV (79.4-94.8) fl MCH (25.6-32.2) pg MCHC (32.2-35.5) g/dl RDW Std Deviation (36.4-46.3) fL Plt Count (182-369) K/mm3 MPV (9.4-12.3) fl Neut % (Auto) (34.0-71.1) % Lymph % (Auto) (19.3-51.7) % [place] % (Auto) (4.7-12.5) % Eos % (Auto) (0.7-5.8) Baso % (Auto) (0.1-1.2) % Neut # (1.56-6.13) K/mm3 Lymph # (1.18-3.74) K/mm3 [place] # (0.24-0.36) K/mm3 Eos # (0.04-0.36) K/mm3 Baso # (0.01-0.08) K/mm3 Manual Slide Review ESR (0-20) mm/hr Sodium (136-145) mEq/L Potassium (3.5-5.1) mEq/L Chloride (98-107) mEq/L Carbon Dioxide (21-32) mEq/L Anion Gap (5-15) BUN (7-18) mg/dL Creatinine (0.55-1.02) mg/dL Est Cr Clr Drug Dosing mL/min Estimated GFR (MDRD) (>60) mL/min BUN/Creatinine Ratio (14-18) Glucose (83-115) mg/dL POC Glucose 180 H 216 H (83-110) mg/dL Calcium (8.5-10.1) mg/dL Magnesium (1.8-2.4) mg/dl C-Reactive Protein (<1.0) mg/dL 25-OH Vitamin D Total 17 L (>29) ng/mL 11/12/16 11/12/16 11/12/16 Range/Units 05:40 05:40 05:40 WBC 10.81 H (3.98-10.04) K/mm3 RBC 4.24 (3.98-5.22) M/mm3 Hgb 10.1 L (11.2-15.7) gm/L Hct 33.8 L (34.1-44.9) % MCV 79.7 (79.4-94.8) fl MCH 23.8 L (25.6-32.2) pg MCHC 29.9 L (32.2-35.5) g/dl RDW Std Deviation 47.1 H (36.4-46.3) fL Plt Count 327 (182-369) K/mm3 MPV 10.1 (9.4-12.3) fl Neut % (Auto) 83.1 H (34.0-71.1) % Lymph % (Auto) 12.0 L (19.3-51.7) % [place] % (Auto) 4.4 L (4.7-12.5) % Eos % (Auto) 0 L (0.7-5.8) Baso % (Auto) 0.1 (0.1-1.2) % Neut # 8.98 H (1.56-6.13) K/mm3 Lymph # 1.30 (1.18-3.74) K/mm3 [place] # 0.48 H (0.24-0.36) K/mm3 Eos # 0.00 L (0.04-0.36) K/mm3 Baso # 0.01 (0.01-0.08) K/mm3 Manual Slide Review Abnormal smear ESR 18 (0-20) mm/hr Sodium (136-145) mEq/L Potassium (3.5-5.1) mEq/L Chloride (98-107) mEq/L Carbon Dioxide (21-32) mEq/L Anion Gap (5-15) BUN (7-18) mg/dL Creatinine (0.55-1.02) mg/dL Est Cr Clr Drug Dosing mL/min Estimated GFR (MDRD) (>60) mL/min BUN/Creatinine Ratio (14-18) Glucose (83-115) mg/dL POC Glucose (83-110) mg/dL Calcium (8.5-10.1) mg/dL Magnesium 1.9 (1.8-2.4) mg/dl C-Reactive Protein 1.6 H* (<1.0) mg/dL 25-OH Vitamin D Total (>29) ng/mL 11/12/16 11/12/16 11/12/16 Range/Units 05:40 05:50 11:28 WBC (3.98-10.04) K/mm3 RBC (3.98-5.22) M/mm3 Hgb (11.2-15.7) gm/L Hct (34.1-44.9) % MCV (79.4-94.8) fl MCH (25.6-32.2) pg MCHC (32.2-35.5) g/dl RDW Std Deviation (36.4-46.3) fL Plt Count (182-369) K/mm3 MPV (9.4-12.3) fl Neut % (Auto) (34.0-71.1) % Lymph % (Auto) (19.3-51.7) % [place] % (Auto) (4.7-12.5) % Eos % (Auto) (0.7-5.8) Baso % (Auto) (0.1-1.2) % Neut # (1.56-6.13) K/mm3 Lymph # (1.18-3.74) K/mm3 [place] # (0.24-0.36) K/mm3 Eos # (0.04-0.36) K/mm3 Baso # (0.01-0.08) K/mm3 Manual Slide Review ESR (0-20) mm/hr Sodium 139 (136-145) mEq/L Potassium 5.0 (3.5-5.1) mEq/L Chloride 103 (98-107) mEq/L Carbon Dioxide 30 (21-32) mEq/L Anion Gap 11.0 (5-15) BUN 21 H (7-18) mg/dL Creatinine 1.0 (0.55-1.02) mg/dL Est Cr Clr Drug Dosing 44.80 mL/min Estimated GFR (MDRD) 54 (>60) mL/min BUN/Creatinine Ratio 21.0 H (14-18) Glucose 142 H (83-115) mg/dL POC Glucose 130 H 177 H (83-110) mg/dL Calcium 8.9 (8.5-10.1) mg/dL Magnesium (1.8-2.4) mg/dl C-Reactive Protein (<1.0) mg/dL 25-OH Vitamin D Total (>29) ng/mL Thuan Results last 24 hrs: Microbiology 11/09/16 17:06 Urine Culture - Preliminary Urine, Catheterized Gemella Species Escherichia Coli Klebsiella Pneumoniae Enterococcus Faecalis 11/08/16 23:30 Stool Culture - Final Stool / Feces NORMAL ENTERIC CARISA. NO SALMONELLA, SHIGELLA, CAMPYLOBACTER, E.COLI O157 OR YERSINIA ISOLATED. - Final NEGATIVE FOR SHIGA TOXIN 1 - Final NEGATIVE FOR SHIGA TOXIN 2 11/08/16 20:35 Aerobic Blood Culture - Preliminary Blood - Venous - Lab Draw NO GROWTH AFTER 3 DAYS Anaerobic Blood Culture - Preliminary NO GROWTH AFTER 3 DAYS 11/08/16 20:27 Aerobic Blood Culture - Preliminary Blood - Venous NO GROWTH AFTER 3 DAYS Anaerobic Blood Culture - Preliminary NO GROWTH AFTER 3 DAYS Med Orders - Current: Current Medications Acetaminophen (Tylenol) 650 mg RECTAL Q4H PRN PRN Reason: Pain (mild 1-3) Acetaminophen (Tylenol) 650 mg PO Q4H PRN PRN Reason: Pain (Mild 1-3)/fever Acetaminophen/Hydrocodone Bitart ([place] 325-5 Mg) 1 tab PO Q4H PRN PRN Reason: Pain (moderate 4-6) Aspirin (Aspirin) 81 mg PO DAILY [facility] Last Admin: 11/12/16 08:06 Dose: 81 mg Dextrose/Water (Dextrose 50% In Water) 50 ml IVPUSH ASDIRECTED PRN PRN Reason: Hypoglycemia Enoxaparin Sodium (Lovenox) 40 mg SUBCUT DAILY [facility] Last Admin: 11/12/16 08:07 Dose: 40 mg Famotidine (Pepcid) 20 mg PO BID [facility] Last Admin: 11/12/16 08:06 Dose: 20 mg Ferrous Sulfate (Ferrous Sulfate) 325 mg PO WITHBREAKFAST [facility] Last Admin: 11/12/16 06:01 Dose: 325 mg Fluconazole (Diflucan) 100 mg PO DAILY [facility] Stop: 11/13/16 09:01 Last Admin: 11/12/16 08:04 Dose: 100 mg Folic Acid (Folic Acid) 1 mg PO BEDTIME [facility] Last Admin: 11/11/16 20:48 Dose: 1 mg Furosemide (Lasix) 40 mg PO DAILY [facility] Last Admin: 11/12/16 08:05 Dose: 40 mg Promethazine HCl 12.5 mg/ (Sodium Chloride) 50.5 mls @ 100 mls/hr IV Q6H PRN PRN Reason: Nausea/Vomiting Metronidazole 500 mg/ Premix 100 mls @ 100 mls/hr IV Q8H [facility] Last Admin: 11/12/16 12:58 Dose: 100 mls/hr Levofloxacin/Dextrose 500 mg/ (Premix) 100 mls @ 100 mls/hr IV Q24H [facility] Last Admin: 11/11/16 20:50 Dose: 100 mls/hr Insulin Aspart (Novolog) 0 unit SUBCUT QIDACANDBED [facility] PRN Reason: Protocol Last Admin: 11/12/16 12:57 Dose: 2 units Levothyroxine Sodium (Levothyroxine) 75 mcg PO ACBRK [facility] Last Admin: 11/12/16 06:01 Dose: 75 mcg Loperamide HCl (Imodium) 2 mg PO BID PRN PRN Reason: Diarrhea Last Admin: 11/11/16 11:22 Dose: 2 mg Lorazepam (Ativan) 0.5 mg IV Q6H PRN PRN Reason: Anxiety Magnesium Oxide (Magnesium Oxide) 400 mg PO BID [facility] Last Admin: 11/12/16 08:06 Dose: 400 mg Metoprolol Tartrate (Lopressor) 100 mg PO BID [facility] Last Admin: 11/12/16 08:05 Dose: 100 mg Multi-Ingred Cream/Lotion/Oil/Oint (Zinc Oxide) 0 gm TOP TID [facility] Last Admin: 11/12/16 08:08 Dose: 1 applic Multivitamins (Thera) 1 each PO BEDTIME [facility] Last Admin: 11/11/16 20:49 Dose: 1 each Nitroglycerin (Nitrostat) 0.4 mg SL ASDIRECTED PRN PRN Reason: Chest Pain Nystatin (Nystatin Crm) 0 gm TOP TID [facility] Last Admin: 11/12/16 08:08 Dose: 1 applic Ondansetron HCl (Zofran) 4 mg IV Q6H PRN PRN Reason: Nausea/Vomiting Colestid. 1 Gram 0 each PO DAILY [facility] Last Admin: 11/12/16 08:10 Dose: Not Given Hydrochlorothiazide/Triamterene 25-37.5 Mg Tab. 0 each PO DAILY [facility] Last Admin: 11/12/16 08:09 Dose: Not Given Potassium Chloride (Klor-Con M20) 40 meq PO BEDTIME [facility] Last Admin: 11/11/16 20:49 Dose: 40 meq Potassium Chloride (Klor-Con 10) 20 meq PO DAILY [facility] Last Admin: 11/12/16 08:05 Dose: 20 meq Prednisone (Prednisone) 40 mg PO BID [facility] Last Admin: 11/12/16 08:05 Dose: 40 mg Saccharomyces Boulardii (Florastor) 250 mg PO BID [facility] Last Admin: 11/12/16 08:04 Dose: 250 mg Simvastatin (Zocor) 10 mg PO DAILY [facility] Last Admin: 11/12/16 08:14 Dose: 10 mg Sodium Chloride (Saline Flush) 10 ml FLUSH ASDIRECTED PRN PRN Reason: Keep Vein Open Last Admin: 11/08/16 17:30 Dose: 10 ml Sodium Chloride (Saline Flush) 10 ml FLUSH ONETIME PRN PRN Reason: IV FLUSH Last Admin: 11/08/16 18:34 Dose: 10 ml Spironolactone (Aldactone) 25 mg PO DAILY [facility] Last Admin: 11/12/16 08:05 Dose: 25 mg Temazepam (Restoril) 15 mg PO BEDTIME PRN PRN Reason: Sleep Discontinued Medications Acetaminophen (Tylenol) 975 mg PO NOW ONE Stop: 11/08/16 19:09 Last Admin: 11/08/16 19:26 Dose: 975 mg Cyanocobalamin (Vitamin B12) 1,000 mcg IM ONETIME ONE Stop: 11/08/16 20:17 Last Admin: 11/09/16 02:06 Dose: Not Given Cyanocobalamin (Vitamin B12) 1,000 mcg IM DAILY [facility] Stop: 11/12/16 09:01 Last Admin: 11/12/16 08:06 Dose: 1,000 mcg Diatrizoate Meglum/Diatrizoate Sod (Gastrografin 37%) 90 ml PO ONETIME ONE Stop: 11/08/16 17:56 Last Admin: 11/08/16 18:34 Dose: 90 ml Furosemide (Lasix) 20 mg IVPUSH DAILY [facility] Last Admin: 11/11/16 11:05 Dose: Not Given Hydromorphone HCl (Dilaudid) 0.25 mg IVPUSH Q2H PRN PRN Reason: Pain (severe 7-10) Hydromorphone HCl (Dilaudid) 0.25 mg IVPUSH Q2H PRN PRN Reason: Pain (severe 7-10) Vancomycin HCl 1 gm/ Sodium (Chloride) 250 mls @ 250 mls/hr IV ONETIME ONE Stop: 11/08/16 20:03 Last Admin: 11/08/16 19:29 Dose: 250 mls/hr Dextrose/Sodium Chloride (Dextrose 5%-1/2 Ns) 1,000 mls @ 125 mls/hr IV ASDIRECTED [facility] Last Admin: 11/09/16 11:54 Dose: 125 mls/hr Levofloxacin/Dextrose 500 mg/ (Premix) 100 mls @ 100 mls/hr IV Q24H [facility] Last Admin: 11/10/16 21:50 Dose: 100 mls/hr Magnesium Sulfate (Magnesium Sulfate 2 Gm In Water 50 Ml) 50 mls @ 50 mls/hr IV ONETIME ONE Stop: 11/08/16 22:29 Last Admin: 11/08/16 23:49 Dose: 50 mls/hr Vancomycin HCl 1 gm/ Sodium (Chloride) 250 mls @ 250 mls/hr IV ONETIME ONE Stop: 11/08/16 22:59 Last Admin: 11/08/16 23:45 Dose: 250 mls/hr Furosemide 100 mg/ Sodium (Chloride) 100 mls @ 3 mls/hr IV TITRATE LEONARDO PRN Reason: Protocol Last Admin: 11/09/16 02:09 Dose: 3 mls/hr Vancomycin HCl 1 gm/ Sodium (Chloride) 250 mls @ 167 mls/hr IV Q18H [facility] Last Admin: 11/11/16 04:37 Dose: 167 mls/hr Magnesium Sulfate 2 gm/ Premix 50 mls @ 25 mls/hr IV ONETIME ONE Stop: 11/09/16 14:59 Last Admin: 11/09/16 14:06 Dose: 25 mls/hr Infliximab (Remicade) 100 mg IV ASDIRECTED [facility] Infliximab (Remicade) 100 mg IV ONETIME ONE Stop: 11/09/16 09:01 Iopamidol (Isovue-300 (61%)) 125 ml IVPUSH ONETIME ONE Stop: 11/08/16 17:56 Last Admin: 11/08/16 18:32 Dose: 125 ml Lidocaine/Epinephrine (Xylocaine 1% With Epinephrine 1:100,000) 20 ml INJECT ONETIME ONE Stop: 11/10/16 14:42 Last Admin: 11/10/16 15:52 Dose: Not Given Magnesium Sulfate (Pharmacy To Dose - Magnesium Replacement) 1 dose .XX ASDIRECTED [facility] Methylprednisolone Sodium Succinate (Solu-Medrol) 40 mg IVPUSH Q6H [facility] Last Admin: 11/11/16 11:05 Dose: Not Given Non-Formulary Medication (Hctz/Triamterene) 0.5 tab PO QAM [facility] Pantoprazole Sodium (Protonix Iv) 40 mg IV Q12HR [facility] Last Admin: 11/09/16 22:00 Dose: 40 mg Potassium Chloride (Pharmacy To Dose - Potassium Replacement) 1 dose .XX ASDIRECTED [facility] Potassium Chloride (Klor-Con M20) 20 meq PO Q3H [facility] Stop: 11/09/16 03:31 Last Admin: 11/09/16 04:26 Dose: 20 meq Potassium Chloride (Klor-Con 10) meq PO QAM [facility] Potassium Chloride (Klor-Con M20) 20 meq PO Q3H [facility] Stop: 11/09/16 15:01 Last Admin: 11/09/16 14:04 Dose: 20 meq Saccharomyces Boulardii (Florastor) 500 mg PO TID [facility] Last Admin: 11/08/16 21:42 Dose: Not Given Triamterene/HCTZ (Maxzide 50-75 Mg) 1 each PO DAILY [facility] Vancomycin HCl (Pharmacy To Dose - Vancomycin) 1 dose .XX ASDIRECTED [facility] - Exam Quality Assessment: DVT prophylaxis General: alert, oriented, cooperative, no acute distress HEENT: Pupils equal, Pupils reactive, EOMI Neck: trachea midline, no JVD Lungs: Normal respiratory effort Cardiovascular: regular rate, regular rhythm Abdomen: bowel sounds present, soft, no tenderness, no distension, other ( perianal/vaginal area rash improving) (Female) Exam: Deferred, Other (see comments above) Back Exam: normal inspection Extremities: normal pulses, edema Skin: warm Wound/Incisions: erythema improving (/perirectal and anal region) Neurological: normal speech Psy/Mental Status: alert, normal affect, normal mood - Problem List Review Problem List Initiated/Reviewed/Updated: Yes - Plan Plan:: Assessment/Plan: POD 3 s/p punch bx Crohn's Colitis/diarrhea - CT scan: Prominent bowel wall thickening within the distal ileum - IV Steroids--decreasing dosage and switched to PO dosing today - BRAT/[place] diet --tolerating well - IV Flagyl 500 mg Q8Hrs - Dietary consult for Crohn's diet - O&P and Stool Culture to include C. Diff test-- stool studies negative -Hemoccult +; likely due to chronic and active Crohn's disease; will schedule follow up with her Yeast Maker, Dr. Weiss as outpatient--- appt scheduled for 11/24/16 in [place]. Chantelle-rectal and Perineal Rash-- I feel this is niesha infection- severe, improved by at least 50% now -Risk factors: chronic constant incontinence, obesity, immobile, was unable to bathe at home for ? weeks potentially due to slow decline in physical stamina /health -fluconazole PO and nystatin cream TID -Also has rash to arms/legs; scaly erythematous patches- Punch bx done yesterday to rt forearm; pathology pending Peripheral Edema-- much improved - LVEF>55%; Hypoalbuminemia - UA r/o Proteinuria - Thyroid Panel -- TSH WNL - Lasix 40mg PO daily, cont to monitor labs daily - Teds, likely dependent component as pt states she sits in chair with legs dependent most of the day Hypokalemia- - Replacement and follow am labs-- improving to resolving - Also follow mag levels Mild Hypoalbuminemia - Albumin 2.1 - Dietary consult: low protein state; trial full liquids, advance as tolerated. 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 LOS likely >96 hours due to ongoing complexity of course, AUTI with multiple organisms- awaiting sensitivity, healing of skin/perineal rash/cellulitis, strengthening. PATIENT HAS AGREED TO GO TO ASSISTED LIVING; APPEARS TO BE COMMITTED TO A 2 WEEK STAY, HOWEVER THAT IS SUBJECT TO CHANGE.
[2016-11-12] MEDS: Folic Acid 1 MG Tab PO SCH (20:40)
[2016-11-12] MEDS: Potassium Chloride 20 MEQ Tab.ER PO SCH (20:40)
[2016-11-12] MEDS: Multivitamins,Therapeutic Tab PO SCH (20:48)
[2016-11-12] MEDS: Levofloxacin/Dextrose 5%-Water 500 MG in Premix Bag 1 BAG IV SCH (21:37)
[2016-11-13] MEDS: metroNIDAZOLE/Normal Saline 500 MG in Premix Bag 1 BAG IV SCH (04:08)
[2016-11-13] MEDS: Levothyroxine 75 MCG Tab PO SCH (06:33)
[2016-11-13] MEDS: Ferrous Sulfate 325 MG Tab PO SCH (06:33)
[2016-11-13] MEDS: Insulin Aspart 100 Units/ML 3 ML Pen SUBCUT SCH ×4 (08:49→21:12)
[2016-11-13] MEDS ORDERED: cefTRIAXone 1 GM in Sodium Chloride 0.9% 100 ML IV SCH (10:00)
[2016-11-13] MEDS: Saccharomyces Boulardii (Probiotic) 250 MG Cap PO SCH ×2 (10:01→20:55)
[2016-11-13] MEDS: Aspirin 81 MG Tab.Chew PO SCH (10:02)
[2016-11-13] MEDS: Fluconazole 100 MG Tab PO SCH (10:02)
[2016-11-13] MEDS: Furosemide 40 MG Tab PO SCH (10:02)
[2016-11-13] MEDS: predniSONE 20 MG Tab PO SCH ×2 (10:03→20:55)
[2016-11-13] MEDS: Simvastatin 10 MG Tab PO SCH (10:03)
[2016-11-13] MEDS: Spironolactone 25 MG Tab PO SCH (10:03)
[2016-11-13] MEDS: Potassium Chloride 10 MEQ Tab.ER PO SCH (10:03)
[2016-11-13] MEDS: Famotidine 20 MG Tab PO SCH ×2 (10:03→20:55)
[2016-11-13] MEDS: Magnesium Oxide 400 MG Tab PO SCH ×2 (10:03→20:55)
[2016-11-13] MEDS: Nystatin Crm 30 GM Tube TOP SCH ×3 (10:04→20:54)
[2016-11-13] MEDS: Enoxaparin 40 MG/0.4 ML Syringe SUBCUT SCH (10:04)
[2016-11-13] MEDS: HYDROCHLOROTHIAZIDE PO SCH (10:05)
[2016-11-13] MEDS: COLESTID PO SCH (10:05)
[2016-11-13] MEDS: TRIAMTERENE PO SCH (10:05)
[2016-11-13] MEDS: Metoprolol Tartrate 100 MG Tab PO SCH (11:13)
--- NOTE | 2016-11-13 15:17 | PCM.PN ---
- General Info Functional Status: Reports: tolerating diet, ambulating, urinating - Review of Systems General: Reports: weakness HEENT: Reports: no symptoms Pulmonary: Reports: no symptoms Cardiovascular: Reports: no symptoms Gastrointestinal: Reports: No symptoms Genitourinary: Reports: no symptoms Musculoskeletal: Reports: no symptoms Skin: Reports: no symptoms Neurological: Reports: no symptoms Psychiatric: Reports: no symptoms - Patient Data Vitals - most recent: Last Vital Signs Temp 36.4 C 11/13/16 11:52 Pulse 59 L 11/13/16 11:52 Resp 17 11/13/16 11:52 BP 145/68 H 11/13/16 11:52 Pulse Ox 100 11/13/16 11:52 Weight - most recent: 202.3 kg I&O - last 24 hours: Intake & Output 11/13/16 11/13/16 11/13/16 06:59 14:59 22:59 Intake Total 600 0 Output Total 1025 Balance -425 0 Lab Results last 24 hrs: Laboratory Results - last 24 hr 11/12/16 11/12/16 11/12/16 Range/Units 11:28 17:42 20:32 WBC (3.98-10.04) K/mm3 RBC (3.98-5.22) M/mm3 Hgb (11.2-15.7) gm/L Hct (34.1-44.9) % MCV (79.4-94.8) fl MCH (25.6-32.2) pg MCHC (32.2-35.5) g/dl RDW Std Deviation (36.4-46.3) fL Plt Count (182-369) K/mm3 MPV (9.4-12.3) fl Neut % (Auto) (34.0-71.1) % Lymph % (Auto) (19.3-51.7) % [facility] % (Auto) (4.7-12.5) % Eos % (Auto) (0.7-5.8) Baso % (Auto) (0.1-1.2) % Neut # (1.56-6.13) K/mm3 Lymph # (1.18-3.74) K/mm3 [facility] # (0.24-0.36) K/mm3 Eos # (0.04-0.36) K/mm3 Baso # (0.01-0.08) K/mm3 ESR (0-20) mm/hr POC Glucose 177 H 241 H 170 H (83-110) mg/dL Magnesium (1.8-2.4) mg/dl C-Reactive Protein (<1.0) mg/dL 11/13/16 11/13/16 11/13/16 Range/Units 05:49 05:49 05:49 WBC 8.73 (3.98-10.04) K/mm3 RBC 4.20 (3.98-5.22) M/mm3 Hgb 10.3 L (11.2-15.7) gm/L Hct 33.2 L (34.1-44.9) % MCV 79.0 L (79.4-94.8) fl MCH 24.5 L (25.6-32.2) pg MCHC 31.0 L (32.2-35.5) g/dl RDW Std Deviation 45.8 (36.4-46.3) fL Plt Count 291 (182-369) K/mm3 MPV 10.4 (9.4-12.3) fl Neut % (Auto) 81.8 H (34.0-71.1) % Lymph % (Auto) 11.8 L (19.3-51.7) % [facility] % (Auto) 5.6 (4.7-12.5) % Eos % (Auto) 0.1 L (0.7-5.8) Baso % (Auto) 0.0 L (0.1-1.2) % Neut # 7.14 H (1.56-6.13) K/mm3 Lymph # 1.03 L (1.18-3.74) K/mm3 [facility] [place] [facility] # 0.49 H (0.24-0.36) K/mm3 Eos # 0.01 L (0.04-0.36) K/mm3 Baso # 0.00 L (0.01-0.08) K/mm3 ESR 14 (0-20) mm/hr POC Glucose (83-110) mg/dL Magnesium 1.9 (1.8-2.4) mg/dl C-Reactive Protein 0.9 (<1.0) mg/dL 11/13/16 11/13/16 Range/Units 06:50 11:15 WBC (3.98-10.04) K/mm3 RBC (3.98-5.22) M/mm3 Hgb (11.2-15.7) gm/L Hct (34.1-44.9) % MCV (79.4-94.8) fl MCH (25.6-32.2) pg MCHC (32.2-35.5) g/dl RDW Std Deviation (36.4-46.3) fL Plt Count (182-369) K/mm3 MPV (9.4-12.3) fl Neut % (Auto) (34.0-71.1) % Lymph % (Auto) (19.3-51.7) % [facility] [place] [facility] % (Auto) (4.7-12.5) % Eos % (Auto) (0.7-5.8) Baso % (Auto) (0.1-1.2) % Neut # (1.56-6.13) K/mm3 Lymph # (1.18-3.74) K/mm3 [facility] [place] [facility] # (0.24-0.36) K/mm3 Eos # (0.04-0.36) K/mm3 Baso # (0.01-0.08) K/mm3 ESR (0-20) mm/hr POC Glucose 143 H 187 H (83-110) mg/dL Magnesium (1.8-2.4) mg/dl C-Reactive Protein (<1.0) mg/dL Thuan Results last 24 hrs: Microbiology 11/09/16 17:06 Urine Culture - Final Urine, Catheterized Gemella Species Escherichia Coli Klebsiella Pneumoniae Enterococcus Faecalis Proteus Penneri 11/08/16 20:35 Aerobic Blood Culture - Preliminary Blood - Venous - Lab Draw NO GROWTH AFTER 4 DAYS Anaerobic Blood Culture - Preliminary NO GROWTH AFTER 4 DAYS 11/08/16 20:27 Aerobic Blood Culture - Preliminary Blood - Venous NO GROWTH AFTER 4 DAYS Anaerobic Blood Culture - Preliminary NO GROWTH AFTER 4 DAYS 11/08/16 23:30 Stool Culture - Final Stool / Feces NORMAL ENTERIC CARISA. NO SALMONELLA, SHIGELLA, CAMPYLOBACTER, E.COLI O157 OR YERSINIA ISOLATED. - Final NEGATIVE FOR SHIGA TOXIN 1 - Final NEGATIVE FOR SHIGA TOXIN 2 Med Orders - Current: Current Medications Acetaminophen (Tylenol) 650 mg RECTAL Q4H PRN PRN Reason: Pain (mild 1-3) Acetaminophen (Tylenol) 650 mg PO Q4H PRN PRN Reason: Pain (Mild 1-3)/fever Acetaminophen/Hydrocodone Bitart ([place] 325-5 Mg) 1 tab PO Q4H PRN PRN Reason: Pain (moderate 4-6) Aspirin (Aspirin) 81 mg PO DAILY [facility] Last Admin: 11/13/16 10:02 Dose: 81 mg Dextrose/Water (Dextrose 50% In Water) 50 ml IVPUSH ASDIRECTED PRN PRN Reason: Hypoglycemia Enoxaparin Sodium (Lovenox) 40 mg SUBCUT DAILY [facility] Last Admin: 11/13/16 10:04 Dose: 40 mg Famotidine (Pepcid) 20 mg PO BID [facility] Last Admin: 11/13/16 10:03 Dose: 20 mg Ferrous Sulfate (Ferrous Sulfate) 325 mg PO WITHBREAKFAST [facility] Last Admin: 11/13/16 06:33 Dose: 325 mg Folic Acid (Folic Acid) 1 mg PO BEDTIME [facility] Last Admin: 11/12/16 20:40 Dose: 1 mg Furosemide (Lasix) 40 mg PO DAILY [facility] Last Admin: 11/13/16 10:02 Dose: 40 mg Promethazine HCl 12.5 mg/ (Sodium Chloride) 50.5 mls @ 100 mls/hr IV Q6H PRN PRN Reason: Nausea/Vomiting Levofloxacin/Dextrose 500 mg/ (Premix) 100 mls @ 100 mls/hr IV Q24H [facility] Last Admin: 11/12/16 21:37 Dose: 100 mls/hr Ceftriaxone Sodium 1 gm/ (Sodium Chloride) 100 mls @ 200 mls/hr IV Q24H [facility] Last Admin: 11/13/16 10:05 Dose: 200 mls/hr Insulin Aspart (Novolog) 0 unit SUBCUT QIDACANDBED [facility] PRN Reason: Protocol Last Admin: 11/13/16 12:31 Dose: 2 units Levothyroxine Sodium (Levothyroxine) 75 mcg PO ACBRK [facility] Last Admin: 11/13/16 06:33 Dose: 75 mcg Loperamide HCl (Imodium) 2 mg PO BID PRN PRN Reason: Diarrhea Last Admin: 11/11/16 11:22 Dose: 2 mg Lorazepam (Ativan) 0.5 mg IV Q6H PRN PRN Reason: Anxiety Magnesium Oxide (Magnesium Oxide) 400 mg PO BID [facility] Last Admin: 11/13/16 10:03 Dose: 400 mg Metoprolol Tartrate (Lopressor) 50 mg PO Q12HR [facility] Multi-Ingred Cream/Lotion/Oil/Oint (Zinc Oxide) 0 gm TOP TID [facility] Last Admin: 11/13/16 10:04 Dose: 1 applic Multivitamins (Thera) 1 each PO BEDTIME [facility] Last Admin: 11/12/16 20:48 Dose: 1 each Nitroglycerin (Nitrostat) 0.4 mg SL ASDIRECTED PRN PRN Reason: Chest Pain Nystatin (Nystatin Crm) 0 gm TOP TID [facility] Last Admin: 11/13/16 10:04 Dose: 1 applic Ondansetron HCl (Zofran) 4 mg IV Q6H PRN PRN Reason: Nausea/Vomiting Colestid. 1 Gram 0 each PO DAILY [facility] Last Admin: 11/13/16 10:05 Dose: Not Given Hydrochlorothiazide/Triamterene 25-37.5 Mg Tab. 0 each PO DAILY [facility] Last Admin: 11/13/16 10:05 Dose: Not Given Potassium Chloride (Klor-Con M20) 40 meq PO BEDTIME [facility] Last Admin: 11/12/16 20:40 Dose: 40 meq Potassium Chloride (Klor-Con 10) 20 meq PO DAILY [facility] Last Admin: 11/13/16 10:03 Dose: 20 meq Prednisone (Prednisone) 40 mg PO BID [facility] Last Admin: 11/13/16 10:03 Dose: 40 mg Saccharomyces Boulardii (Florastor) 250 mg PO BID [facility] Last Admin: 11/13/16 10:01 Dose: 250 mg Simvastatin (Zocor) 10 mg PO DAILY [facility] Last Admin: 11/13/16 10:03 Dose: 10 mg Sodium Chloride (Saline Flush) 10 ml FLUSH ASDIRECTED PRN PRN Reason: Keep Vein Open Last Admin: 11/08/16 17:30 Dose: 10 ml Sodium Chloride (Saline Flush) 10 ml FLUSH ONETIME PRN PRN Reason: IV FLUSH Last Admin: 11/08/16 18:34 Dose: 10 ml Spironolactone (Aldactone) 25 mg PO DAILY [facility] Last Admin: 11/13/16 10:03 Dose: 25 mg Temazepam (Restoril) 15 mg PO BEDTIME PRN PRN Reason: Sleep Discontinued Medications Acetaminophen (Tylenol) 975 mg PO NOW ONE Stop: 11/08/16 19:09 Last Admin: 11/08/16 19:26 Dose: 975 mg Cyanocobalamin (Vitamin B12) 1,000 mcg IM ONETIME ONE Stop: 11/08/16 20:17 Last Admin: 11/09/16 02:06 Dose: Not Given Cyanocobalamin (Vitamin B12) 1,000 mcg IM DAILY [facility] Stop: 11/12/16 09:01 Last Admin: 11/12/16 08:06 Dose: 1,000 mcg Diatrizoate Meglum/Diatrizoate Sod (Gastrografin 37%) 90 ml PO ONETIME ONE Stop: 11/08/16 17:56 Last Admin: 11/08/16 18:34 Dose: 90 ml Fluconazole (Diflucan) 100 mg PO DAILY [facility] Stop: 11/13/16 09:01 Last Admin: 11/13/16 10:02 Dose: 100 mg Furosemide (Lasix) 20 mg IVPUSH DAILY [facility] Last Admin: 11/11/16 11:05 Dose: Not Given Hydromorphone HCl (Dilaudid) 0.25 mg IVPUSH Q2H PRN PRN Reason: Pain (severe 7-10) Hydromorphone HCl (Dilaudid) 0.25 mg IVPUSH Q2H PRN PRN Reason: Pain (severe 7-10) Vancomycin HCl 1 gm/ Sodium (Chloride) 250 mls @ 250 mls/hr IV ONETIME ONE Stop: 11/08/16 20:03 Last Admin: 11/08/16 19:29 Dose: 250 mls/hr Dextrose/Sodium Chloride (Dextrose 5%-1/2 Ns) 1,000 mls @ 125 mls/hr IV ASDIRECTED [facility] Last Admin: 11/09/16 11:54 Dose: 125 mls/hr Metronidazole 500 mg/ Premix 100 mls @ 100 mls/hr IV Q8H [facility] Last Admin: 11/13/16 04:08 Dose: 100 mls/hr Levofloxacin/Dextrose 500 mg/ (Premix) 100 mls @ 100 mls/hr IV Q24H [facility] Last Admin: 11/10/16 21:50 Dose: 100 mls/hr Magnesium Sulfate (Magnesium Sulfate 2 Gm In Water 50 Ml) 50 mls @ 50 mls/hr IV ONETIME ONE Stop: 11/08/16 22:29 Last Admin: 11/08/16 23:49 Dose: 50 mls/hr Vancomycin HCl 1 gm/ Sodium (Chloride) 250 mls @ 250 mls/hr IV ONETIME ONE Stop: 11/08/16 22:59 Last Admin: 11/08/16 23:45 Dose: 250 mls/hr Furosemide 100 mg/ Sodium (Chloride) 100 mls @ 3 mls/hr IV TITRATE LEONARDO PRN Reason: Protocol Last Admin: 11/09/16 02:09 Dose: 3 mls/hr Vancomycin HCl 1 gm/ Sodium (Chloride) 250 mls @ 167 mls/hr IV Q18H [facility] Last Admin: 11/11/16 04:37 Dose: 167 mls/hr Magnesium Sulfate 2 gm/ Premix 50 mls @ 25 mls/hr IV ONETIME ONE Stop: 11/09/16 14:59 Last Admin: 11/09/16 14:06 Dose: 25 mls/hr Infliximab (Remicade) 100 mg IV ASDIRECTED [facility] Infliximab (Remicade) 100 mg IV ONETIME ONE Stop: 11/09/16 09:01 Iopamidol (Isovue-300 (61%)) 125 ml IVPUSH ONETIME ONE Stop: 11/08/16 17:56 Last Admin: 11/08/16 18:32 Dose: 125 ml Lidocaine/Epinephrine (Xylocaine 1% With Epinephrine 1:100,000) 20 ml INJECT ONETIME ONE Stop: 11/10/16 14:42 Last Admin: 11/10/16 15:52 Dose: Not Given Magnesium Sulfate (Pharmacy To Dose - Magnesium Replacement) 1 dose .XX ASDIRECTED [facility] Methylprednisolone Sodium Succinate (Solu-Medrol) 40 mg IVPUSH Q6H [facility] Last Admin: 11/11/16 11:05 Dose: Not Given Metoprolol Tartrate (Lopressor) 100 mg PO BID [facility] Last Admin: 11/13/16 11:13 Dose: Not Given Non-Formulary Medication (Hctz/Triamterene) 0.5 tab PO QAM [facility] Pantoprazole Sodium (Protonix Iv) 40 mg IV Q12HR [facility] Last Admin: 11/09/16 22:00 Dose: 40 mg Potassium Chloride (Pharmacy To Dose - Potassium Replacement) 1 dose .XX ASDIRECTED [facility] Potassium Chloride (Klor-Con M20) 20 meq PO Q3H [facility] Stop: 11/09/16 03:31 Last Admin: 11/09/16 04:26 Dose: 20 meq Potassium Chloride (Klor-Con 10) meq PO QAM [facility] Potassium Chloride (Klor-Con M20) 20 meq PO Q3H [facility] Stop: 11/09/16 15:01 Last Admin: 11/09/16 14:04 Dose: 20 meq Saccharomyces Boulardii (Florastor) 500 mg PO TID [facility] Last Admin: 11/08/16 21:42 Dose: Not Given Triamterene/HCTZ (Maxzide 50-75 Mg) 1 each PO DAILY [facility] Vancomycin HCl (Pharmacy To Dose - Vancomycin) 1 dose .XX ASDIRECTED [facility] - Exam Quality Assessment: DVT prophylaxis General: alert, oriented, cooperative, no acute distress HEENT: Pupils equal, Pupils reactive, EOMI Neck: supple, trachea midline Lungs: Normal respiratory effort Cardiovascular: regular rate, regular rhythm Abdomen: bowel sounds present, soft, no tenderness, no distension (Female) Exam: Deferred Back Exam: normal inspection Extremities: normal pulses Skin: warm Wound/Incisions: erythema improving Neurological: no new focal deficit, normal speech Psy/Mental Status: alert, normal affect, normal mood - Problem List Review Problem List Initiated/Reviewed/Updated: Yes - My Orders Last 24 Hours: My Active Orders 11/13/16 10:00 cefTRIAXone [Rocephin] 1 gm Sodium Chloride 0.9% [Normal Saline] 100 ml IV Q24H 11/13/16 21:00 Metoprolol Tartrate [Lopressor] 50 mg PO Q12HR - Plan Plan:: Assessment/Plan: POD 4 s/p punch bx Crohn's Colitis/diarrhea - CT scan: Prominent bowel wall thickening within the distal ileum - IV Steroids--decreasing dosage and switched to PO dosing today; will need slow taper. - BRAT/[place] diet --tolerating well - IV Flagyl 500 mg Q8Hrs; stop 11/13/16 - Dietary consult for Crohn's diet - O&P and Stool Culture to include C. 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 Weiss as outpatient--- appt scheduled for 11/24/16 in [place]. Chantelle-rectal and Perineal Rash-- I feel this is niesha infection- severe, improved by at least 50% now -Risk factors: chronic constant incontinence, obesity, immobile, was unable to bathe at home for ? weeks potentially due to slow decline in physical stamina /health -fluconazole PO and nystatin cream TID; continue at [place] for 1 week. -Also has rash to arms/legs; scaly erythematous patches- Punch bx done yesterday to rt forearm; pathology pending Peripheral Edema-- much improved - LVEF>55%; Hypoalbuminemia - UA r/o Proteinuria - Thyroid Panel -- TSH WNL - Lasix 40mg PO daily, cont to monitor labs daily - Teds, likely dependent component as pt states she sits in chair with legs dependent most of the day Hypokalemia- - Replacement and follow am labs-- improving to resolving - Also follow mag levels Mild Hypoalbuminemia - Albumin 2.1 - Dietary consult: low protein state; trial full liquids, advance as tolerated. DIET at [place] higher protein content, need calculation of protein needs for sedentary lifestyle Generalized Weakness - 2/2 above and not able to keep anything down 2/2 diarrhea - PT/OT consult Aggressive increase in physical activity per PT/OT and beyond, possible progression to Silver Sneakers. Status Post Fall - 2/2 Generalized Weakness, acute infection, dehydration, deconditioning - PT/OT as above AUTI: - Multi-organism; awaiting sensitivity- continue Levaquin at [place]. 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 PATIENT HAS AGREED TO GO TO ASSISTED LIVING; APPEARS TO BE COMMITTED TO A 2 WEEK STAY, HOWEVER THAT IS SUBJECT TO CHANGE.
[2016-11-13] MEDS: Levofloxacin/Dextrose 5%-Water 500 MG in Premix Bag 1 BAG IV SCH (20:48)
[2016-11-13] MEDS: Folic Acid 1 MG Tab PO SCH (20:55)
[2016-11-13] MEDS: Multivitamins,Therapeutic Tab PO SCH (20:55)
[2016-11-13] MEDS: Potassium Chloride 20 MEQ Tab.ER PO SCH (20:55)
[2016-11-13] MEDS: Metoprolol Tartrate 50 MG Tab PO SCH (21:03)
[2016-11-14] MEDS: Ferrous Sulfate 325 MG Tab PO SCH ×2 (05:34→07:49)
[2016-11-14] MEDS: Levothyroxine 75 MCG Tab PO SCH (05:34)
--- NOTE | 2016-11-14 07:10 | PCM.DCSUM1 ---
<Kristy Ortega - Last Filed: 11/14/16 07:26> Discharge Summary - Hospital Course Free Text/Narrative:: This is a 76 yo elderly white female with past medical hx/o Impaired Vision, CAD , HTN, GERD, Urinary Incontinence, OA, Hypothyrodism and Depression who initially presented to PCP with c/o fever and was found to have a temp of 101. She reports weakness, malaise, fatigue, unsteady gait and has fallen many times in the past few days. Per patient she has fallen at least 3 times yesterday. She also has skin rash and peripheral edema. She denies pain, URI symptoms, no chest pain or shortness of breath. She also denies nausea, vomiting or abdominal pain. On presentation to her PCP's office, she was found to be tachycardic and a new onset of heart murmur. Patient carries a hx/o Crohn's Disease and follows Dr. Weiss for many years. She was hospitalized in September in [place] for acute flare up of her IBD. At that time, she was given high dose steroids and her biologic, Remicaid, dose was upped. Her initial work up at the clinic shows a Head CT scan with no acute abnormal findings. Her Abdomen/Pelvis CT scan shows diffuse bowel wall thickening within the large portion of the distal ileum. Patient was referred to Hospitalist service for Acute Crohn's Disease, Perineal Cellulitis cannot r/o fistula, Hypoalbuminemia, Fever, Generalized Weakness and pedal Edema. She is full code. She was found to have diffuse perineal rash/cellulitis. Silva catheter was placed, UA was + for multi-organism UTI. She was treated with Levaquin and Rocephin. Will be discharged on Levaquin. She is chronically incontinent with essentially constant urinary leaking. Skin was treated with topical nystatin to the vaginal and anterior perineum and zinc oxide to buttock and posterior perineum. Silva catheter was discontinued, skin integrity was maintained and did not worsen again. Consult has been scheduled with Urologist in [place] on for eval. Stool studies were negative, c-diff negative. She continued on flagyl for diarrhea, Florastor, thought to be crohn's flare. Iron studies were done for anemia; iron was low, she was started on iron supplements. Hemoccult stool x 1 was positive. Discussed this with her, rather than consult general surgery she elects follow up with her GI specialist. Likely this is due to chronic diarrhea and crohn's flare for weeks. This appt is scheduled as below. She was also treated with IV steroids, solumedrol, transitioned to PO prednisone ; will be dc'd on prednisone taper. She will have follow up with Dr. Weiss, [facility] [facility] on 11/21/16 in [place]. She was found to be in mild CHF exacerbation. Echo was obtained with EF maintained at 65-70%. Diuretics were adjusted, manjit hose ordered which were helpful. Skin rash to arms and legs was present on admission and did not improve with above noted treatments. Punch biopsy to right forearm was obtained, results are pending at discharge- suspicious this is related to her autoimmune process. She worked with PT/OT on strengthening which improved. Dietitian was consulted regarding protein and crohn's diet. She is discharged to [facility] today. She will have Remicaid infusion today in outpatient setting. She is to have f/up with her PCP, Dr. Rubio in 5-7 days for recheck with labs prior to appt, CBC, BMP and magnesium levels. - Discharge Data Discharge Date: 11/14/16 (admit date 11/08/16) Discharge Disposition: DC/Tfer to [place] [id number] Condition: Good - Discharge Diagnosis/Problem(s) (1) Cellulitis of perineum SNOMED Code(s): 94196334 ICD Code: L03.315 - CELLULITIS OF PERINEUM Status: Resolved Priority: High (2) Diarrhea SNOMED Code(s): 64099503 ICD Code: R19.7 - DIARRHEA, UNSPECIFIED Status: Chronic Priority: High Qualifiers: Diarrhea type: unspecified type Qualified Code(s): R19.7 - Diarrhea, unspecified (3) Hypokalemia SNOMED Code(s): 27694688 ICD Code: E87.6 - HYPOKALEMIA Status: Resolved Priority: High (4) Rash SNOMED Code(s): 684248540, 745560425 ICD Code: R21 - RASH AND OTHER NONSPECIFIC SKIN ERUPTION Status: Resolved Priority: High (5) Pedal edema SNOMED Code(s): 491125527 ICD Code: R60.0 - LOCALIZED EDEMA Status: Chronic Priority: High (6) Crohn disease SNOMED Code(s): 66078513 ICD Code: K50.90 - CROHN'S DISEASE, UNSPECIFIED, WITHOUT COMPLICATIONS Status: Chronic Priority: Medium Qualifiers: Gastrointestinal tract location: small intestine Digestive disease complication type: without complication Qualified Code(s): K50.00 - Crohn's disease of small intestine without complications (7) Hypoalbuminemia SNOMED Code(s): 888815329 ICD Code: E88.09 - OTH DISORDERS OF PLASMA-PROTEIN METABOLISM, NEC Status: Chronic Priority: High (8) Generalized weakness SNOMED Code(s): 79890807 ICD Code: R53.1 - WEAKNESS Status: Acute Priority: High (9) Urinary incontinence SNOMED Code(s): 983696270 ICD Code: R32 - UNSPECIFIED URINARY INCONTINENCE Status: Chronic Priority : High Qualifiers: Urinary Incontinence type: continuous leakage Qualified Code(s): N39.45 - Continuous leakage (10) Fall SNOMED Code(s): 8033223, 112476858 ICD Code: W19.XXXA - UNSPECIFIED FALL, INITIAL ENCOUNTER Status: Acute Priority: High Qualifiers: Encounter type: initial encounter Qualified Code(s): W19.XXXA - Unspecified fall, initial encounter (11) UTI (urinary tract infection) SNOMED Code(s): 28023557 ICD Code: N39.0 - URINARY TRACT INFECTION, SITE NOT SPECIFIED Status: Acute Priority: High Qualifiers: Urinary tract infection type: acute cystitis Hematuria presence: without hematuria Qualified Code(s): N30.00 - Acute cystitis without hematuria (12) Iron deficiency anemia SNOMED Code(s): 82804040 ICD Code: D50.9 - IRON DEFICIENCY ANEMIA, UNSPECIFIED Status: Acute Priority: High Qualifiers: Iron deficiency anemia type: unspecified iron deficiency Qualified Code(s) : D50.9 - Iron deficiency anemia, unspecified - Patient Summary/Data Operative Procedure(s) Performed: Punch biopsy to right forearm rash- results pending at time of discharge Complications: None Consults: Consultations 11/08/16 20:12 Consult to Case Management [CONS] Routine Consult to Executive Director Of Marketing [CONS] Routine Consult to Yellow [employer] Space Salesperson [CONS] Routine OT Evaluation and Treatment [CONS] Routine PT Evaluation and Treatment [CONS] Routine 11/08/16 21:56 Consult to Dietary [Consult to Executive Director Of Marketing] [CONS] Routine 11/10/16 10:30 Consult to Physician [CONS] Routine Labs Pending at D/C: Punch biopsy results/pathology results Recommended Follow-up Testing/Procedures: Dr. Weiss- Gastroenterology Urology Consult F/up with PCP, Dr. Rubio within 5-7 days for recheck Planned Operative Procedure(s) after DC: None Hospital Course: As above - Patient Instructions Diet: Usual Diet as Tolerated, Drink 8-10+ Glasses/Day, GI Soft/Low Residue/Low Fiber Activity: As Tolerated (PT to continue as outpatient after discharge for strengthening/balance) Showering/Bathing: May Shower (daily) Notify Provider of: Fever, Increased Pain, Nausea and/or Vomiting (acute weakness, shortness of breath, chest pains, swelling to lower extremities, worsening of diarrhea) - Discharge Plan Prescriptions/Med Rec: Metoprolol Tartrate [Lopressor] 50 mg PO Q12HR #60 tablet Ferrous Sulfate 325 mg PO WITHBREAKFAST #30 tablet Folic Acid 1 mg PO BEDTIME #30 tablet Furosemide [Lasix] 40 mg PO DAILY #30 tablet Levofloxacin [Levaquin] 500 mg PO DAILY #7 tablet Magnesium Oxide 400 mg PO BID #60 tablet Nystatin [Nystatin Crm] 0 gm TOP TID #30 gm Potassium Chloride [Klor-Con 10] 20 meq PO DAILY #30 tab.er Potassium Chloride [Klor-Con M20] 40 meq PO BEDTIME #30 tab.er Prednisone [IJD: predniSONE] 10 mg PO DAILY #30 tablet Spironolactone [Aldactone] 25 mg PO DAILY #30 tablet Zinc Oxide 0 gm TOP TID #30 gm Home Medications: Home Meds Levothyroxine Sodium 75 mcg PO ACBRK 04/14/14 [History] Pantoprazole Sodium 1 tab PO DAILY 04/14/14 [History] Pravastatin [Pravachol] 1 tab PO DAILY 04/14/14 [History] metFORMIN [Glucophage] 1 tab PO BEDTIME 04/14/14 [History] Loperamide [Imodium AD] 1 tab PO BID PRN 06/18/15 [History] Nitroglycerin [Nitrostat] 0.4 mg SL ASDIRECTED PRN 10/08/15 [History] InFLIXimab [Remicade] 100 mg IV ASDIRECTED 06/30/15 [History] Colestid. 1 gram PO DAILY 06/14/16 [History] Aspirin 81 mg PO DAILY 09/19/16 [History] Acetaminophen [Tylenol] 650 mg PO Q4H PRN #0 tablet 11/14/16 [Rx] Ferrous Sulfate 325 mg PO WITHBREAKFAST #30 tablet 11/14/16 [Rx] Folic Acid 1 mg PO BEDTIME #30 tablet 11/14/16 [Rx] Furosemide [Lasix] 40 mg PO DAILY #30 tablet 11/14/16 [Rx] Levofloxacin [Levaquin] 500 mg PO DAILY #7 tablet 11/14/16 [Rx] Magnesium Oxide 400 mg PO BID #60 tablet 11/14/16 [Rx] Metoprolol Tartrate [Lopressor] 50 mg PO Q12HR #60 tablet 11/14/16 [Rx] Multivitamins,Therapeutic [Thera] 1 each PO BEDTIME tablet 11/14/16 [Rx] Nystatin [Nystatin Crm] 0 gm TOP TID #30 gm 11/14/16 [Rx] Potassium Chloride [Klor-Con 10] 20 meq PO DAILY #30 tab.er 11/14/16 [Rx] Potassium Chloride [Klor-Con M20] 40 meq PO BEDTIME #30 tab.er 11/14/16 [Rx] Prednisone [IJD: predniSONE] 10 mg PO DAILY #30 tablet 11/14/16 [Rx] Spironolactone [Aldactone] 25 mg PO DAILY #30 tablet 11/14/16 [Rx] Zinc Oxide 0 gm TOP TID #30 gm 11/14/16 [Rx] Patient Handouts: Urinary Tract Infection, Adult, [id number], Urinary Incontinence, Cellulitis, Adult, [id number], Aspirin and Your Heart, Heart Failure, [id number], Crohn Disease Forms: ED Department Discharge Referrals: Calvin Haynes MD [Ordering Only Provider] - 11/24/16 11:20 am (to [address] go in to register, come 30 minutes prior to appointment and bring insurance cards, time is meg time) Pj Caro MD [Consulting Physician] - 11/24/16 10:10 am (appointment is meg time and is at at [facility] you will see brenda.) Andrea Rubio MD [Primary Care Provider] - (Please see Dr. Rubio on at 4:15 PM 11/17/16. Go in the AM for fasting lab draws.) - Discharge Summary/Plan Comment DC Time >30 min.: Yes (40 min) - General Info Date of Service: 11/14/16 Admission Dx/Problem (Free Text: Admission Diagnosis/Problem Admission Diagnosis/Problem Cellulitis Functional Status: Reports: pain controlled, tolerating diet, ambulating, urinating (incontinent). Denies: new symptoms - Review of Systems General: Reports: no symptoms HEENT: Reports: no symptoms Pulmonary: Reports: no symptoms Cardiovascular: Reports: no symptoms Gastrointestinal: Reports: Diarrhea. Denies: Abdominal pain, Decreased appetite , Hematochezia, Melena, Nausea, Vomiting Genitourinary: Reports: incontinence. Denies: dysuria, frequency, burning, pain , urgency, hematuria, retention, flank pain Musculoskeletal: Reports: no symptoms Skin: Reports: no symptoms Neurological: Reports: no symptoms Psychiatric: Reports: no symptoms - Patient Data Vitals - Most Recent: Last Vital Signs Temp 97.3 F 11/14/16 01:28 Pulse 57 L 11/14/16 01:28 Resp 18 11/14/16 01:28 BP 122/65 11/14/16 01:28 Pulse Ox 96 11/14/16 01:28 Weight - Most Recent: 87.407 kg I&O - Last 24 hours: Intake & Output 11/13/16 11/13/16 11/14/16 14:59 22:59 06:59 Intake Total 0 1350 500 Output Total 650 750 Balance 0 700 -250 Lab Results - Last 24 hrs: Laboratory Results - last 24 hr 11/13/16 11/13/16 11/13/16 Range/Units 05:49 05:49 05:49 WBC 8.73 (3.98-10.04) K/mm3 RBC 4.20 (3.98-5.22) M/mm3 Hgb 10.3 L (11.2-15.7) gm/L Hct 33.2 L (34.1-44.9) % MCV 79.0 L (79.4-94.8) fl MCH 24.5 L (25.6-32.2) pg MCHC 31.0 L (32.2-35.5) g/dl RDW Std Deviation 45.8 (36.4-46.3) fL Plt Count 291 (182-369) K/mm3 MPV 10.4 (9.4-12.3) fl Neut % (Auto) 81.8 H (34.0-71.1) % Lymph % (Auto) 11.8 L (19.3-51.7) % [place] % (Auto) 5.6 (4.7-12.5) % Eos % (Auto) 0.1 L (0.7-5.8) Baso % (Auto) 0.0 L (0.1-1.2) % Neut # 7.14 H (1.56-6.13) K/mm3 Lymph # 1.03 L (1.18-3.74) K/mm3 [place] # 0.49 H (0.24-0.36) K/mm3 Eos # 0.01 L (0.04-0.36) K/mm3 Baso # 0.00 L (0.01-0.08) K/mm3 ESR 14 (0-20) mm/hr POC Glucose (83-110) mg/dL Magnesium 1.9 (1.8-2.4) mg/dl C-Reactive Protein 0.9 (<1.0) mg/dL 11/13/16 11/13/16 11/13/16 Range/Units 06:50 11:15 17:20 WBC (3.98-10.04) K/mm3 RBC (3.98-5.22) M/mm3 Hgb (11.2-15.7) gm/L Hct (34.1-44.9) % MCV (79.4-94.8) fl MCH (25.6-32.2) pg MCHC (32.2-35.5) g/dl RDW Std Deviation (36.4-46.3) fL Plt Count (182-369) K/mm3 MPV (9.4-12.3) fl Neut % (Auto) (34.0-71.1) % Lymph % (Auto) (19.3-51.7) % [place] % (Auto) (4.7-12.5) % Eos % (Auto) (0.7-5.8) Baso % (Auto) (0.1-1.2) % Neut # (1.56-6.13) K/mm3 Lymph # (1.18-3.74) K/mm3 [place] # (0.24-0.36) K/mm3 Eos # (0.04-0.36) K/mm3 Baso # (0.01-0.08) K/mm3 ESR (0-20) mm/hr POC Glucose 143 H 187 H 221 H (83-110) mg/dL Magnesium (1.8-2.4) mg/dl C-Reactive Protein (<1.0) mg/dL 11/13/16 11/14/16 11/14/16 Range/Units 21:12 05:33 05:33 WBC 9.54 (3.98-10.04) K/mm3 RBC 4.87 (3.98-5.22) M/mm3 Hgb 11.8 (11.2-15.7) gm/L Hct 37.7 (34.1-44.9) % MCV 77.4 L (79.4-94.8) fl MCH 24.2 L (25.6-32.2) pg MCHC 31.3 L (32.2-35.5) g/dl RDW Std Deviation 45.3 (36.4-46.3) fL Plt Count 363 (182-369) K/mm3 MPV 10.2 (9.4-12.3) fl Neut % (Auto) 80.5 H (34.0-71.1) % Lymph % (Auto) 12.2 L (19.3-51.7) % [place] % (Auto) 6.2 (4.7-12.5) % Eos % (Auto) 0.4 L (0.7-5.8) Baso % (Auto) 0.0 L (0.1-1.2) % Neut # 7.68 H (1.56-6.13) K/mm3 Lymph # 1.16 L (1.18-3.74) K/mm3 [place] # 0.59 H (0.24-0.36) K/mm3 Eos # 0.04 (0.04-0.36) K/mm3 Baso # 0.00 L (0.01-0.08) K/mm3 ESR 13 (0-20) mm/hr POC Glucose 139 H (83-110) mg/dL Magnesium (1.8-2.4) mg/dl C-Reactive Protein (<1.0) mg/dL 11/14/16 Range/Units 06:45 WBC (3.98-10.04) K/mm3 RBC (3.98-5.22) M/mm3 Hgb (11.2-15.7) gm/L Hct (34.1-44.9) % MCV (79.4-94.8) fl MCH (25.6-32.2) pg MCHC (32.2-35.5) g/dl RDW Std Deviation (36.4-46.3) fL Plt Count (182-369) K/mm3 MPV (9.4-12.3) fl Neut % (Auto) (34.0-71.1) % Lymph % (Auto) (19.3-51.7) % [place] % (Auto) (4.7-12.5) % Eos % (Auto) (0.7-5.8) Baso % (Auto) (0.1-1.2) % Neut # (1.56-6.13) K/mm3 Lymph # (1.18-3.74) K/mm3 [place] # (0.24-0.36) K/mm3 Eos # (0.04-0.36) K/mm3 Baso # (0.01-0.08) K/mm3 ESR (0-20) mm/hr POC Glucose 142 H (83-110) mg/dL Magnesium (1.8-2.4) mg/dl C-Reactive Protein (<1.0) mg/dL MIRI Results - Last 24 hrs: Microbiology 11/08/16 20:35 Aerobic Blood Culture - Preliminary Blood - Venous - Lab Draw NO GROWTH AFTER 5 DAYS Anaerobic Blood Culture - Preliminary NO GROWTH AFTER 5 DAYS 11/08/16 20:27 Aerobic Blood Culture - Preliminary Blood - Venous NO GROWTH AFTER 5 DAYS Anaerobic Blood Culture - Preliminary NO GROWTH AFTER 5 DAYS 11/09/16 17:06 Urine Culture - Final Urine, Catheterized Gemella Species Escherichia Coli Klebsiella Pneumoniae Enterococcus Faecalis Proteus Penneri Med Orders - Current: Current Medications Acetaminophen (Tylenol) 650 mg RECTAL Q4H PRN PRN Reason: Pain (mild 1-3) Acetaminophen (Tylenol) 650 mg PO Q4H PRN PRN Reason: Pain (Mild 1-3)/fever Acetaminophen/Hydrocodone Bitart ([place] 325-5 Mg) 1 tab PO Q4H PRN PRN Reason: Pain (moderate 4-6) Aspirin (Aspirin) 81 mg PO DAILY [facility] Last Admin: 11/13/16 10:02 Dose: 81 mg Dextrose/Water (Dextrose 50% In Water) 50 ml IVPUSH ASDIRECTED PRN PRN Reason: Hypoglycemia Enoxaparin Sodium (Lovenox) 40 mg SUBCUT DAILY [facility] Last Admin: 11/13/16 10:04 Dose: 40 mg Famotidine (Pepcid) 20 mg PO BID [facility] Last Admin: 11/13/16 20:55 Dose: 20 mg Ferrous Sulfate (Ferrous Sulfate) 325 mg PO WITHBREAKFAST [facility] Last Admin: 11/14/16 05:34 Dose: 325 mg Folic Acid (Folic Acid) 1 mg PO BEDTIME [facility] Last Admin: 11/13/16 20:55 Dose: 1 mg Furosemide (Lasix) 40 mg PO DAILY [facility] Last Admin: 11/13/16 10:02 Dose: 40 mg Promethazine HCl 12.5 mg/ (Sodium Chloride) 50.5 mls @ 100 mls/hr IV Q6H PRN PRN Reason: Nausea/Vomiting Levofloxacin/Dextrose 500 mg/ (Premix) 100 mls @ 100 mls/hr IV Q24H [facility] Last Admin: 11/13/16 20:48 Dose: 100 mls/hr Ceftriaxone Sodium 1 gm/ (Sodium Chloride) 100 mls @ 200 mls/hr IV Q24H [facility] Last Admin: 11/13/16 10:05 Dose: 200 mls/hr Insulin Aspart (Novolog) 0 unit SUBCUT QIDACANDBED [facility] PRN Reason: Protocol Last Admin: 11/13/16 21:12 Dose: Not Given Levothyroxine Sodium (Levothyroxine) 75 mcg PO ACBRK [facility] Last Admin: 11/14/16 05:34 Dose: 75 mcg Loperamide HCl (Imodium) 2 mg PO BID PRN PRN Reason: Diarrhea Last Admin: 11/11/16 11:22 Dose: 2 mg Lorazepam (Ativan) 0.5 mg IV Q6H PRN PRN Reason: Anxiety Magnesium Oxide (Magnesium Oxide) 400 mg PO BID [facility] Last Admin: 11/13/16 20:55 Dose: 400 mg Metoprolol Tartrate (Lopressor) 50 mg PO Q12HR [facility] Last Admin: 11/13/16 21:03 Dose: 50 mg Multi-Ingred Cream/Lotion/Oil/Oint (Zinc Oxide) 0 gm TOP TID [facility] Last Admin: 11/13/16 20:54 Dose: 1 applic Multivitamins (Thera) 1 each PO BEDTIME [facility] Last Admin: 11/13/16 20:55 Dose: 1 each Nitroglycerin (Nitrostat) 0.4 mg SL ASDIRECTED PRN PRN Reason: Chest Pain Nystatin (Nystatin Crm) 0 gm TOP TID [facility] Last Admin: 11/13/16 20:54 Dose: 1 applic Ondansetron HCl (Zofran) 4 mg IV Q6H PRN PRN Reason: Nausea/Vomiting Colestid. 1 Gram 0 each PO DAILY [facility] Last Admin: 11/13/16 10:05 Dose: Not Given Hydrochlorothiazide/Triamterene 25-37.5 Mg Tab. 0 each PO DAILY [facility] Last Admin: 11/13/16 10:05 Dose: Not Given Potassium Chloride (Klor-Con M20) 40 meq PO BEDTIME [facility] Last Admin: 11/13/16 20:55 Dose: 40 meq Potassium Chloride (Klor-Con 10) 20 meq PO DAILY [facility] Last Admin: 11/13/16 10:03 Dose: 20 meq Prednisone (Prednisone) 40 mg PO BID [facility] Last Admin: 11/13/16 20:55 Dose: 40 mg Saccharomyces Boulardii (Florastor) 250 mg PO BID [facility] Last Admin: 11/13/16 20:55 Dose: 250 mg Simvastatin (Zocor) 10 mg PO DAILY [facility] Last Admin: 11/13/16 10:03 Dose: 10 mg Sodium Chloride (Saline Flush) 10 ml FLUSH ASDIRECTED PRN PRN Reason: Keep Vein Open Last Admin: 11/08/16 17:30 Dose: 10 ml Sodium Chloride (Saline Flush) 10 ml FLUSH ONETIME PRN PRN Reason: IV FLUSH Last Admin: 11/08/16 18:34 Dose: 10 ml Spironolactone (Aldactone) 25 mg PO DAILY [facility] Last Admin: 11/13/16 10:03 Dose: 25 mg Temazepam (Restoril) 15 mg PO BEDTIME PRN PRN Reason: Sleep Discontinued Medications Acetaminophen (Tylenol) 975 mg PO NOW ONE Stop: 11/08/16 19:09 Last Admin: 11/08/16 19:26 Dose: 975 mg Cyanocobalamin (Vitamin B12) 1,000 mcg IM ONETIME ONE Stop: 11/08/16 20:17 Last Admin: 11/09/16 02:06 Dose: Not Given Cyanocobalamin (Vitamin B12) 1,000 mcg IM DAILY [facility] Stop: 11/12/16 09:01 Last Admin: 11/12/16 08:06 Dose: 1,000 mcg Diatrizoate Meglum/Diatrizoate Sod (Gastrografin 37%) 90 ml PO ONETIME ONE Stop: 11/08/16 17:56 Last Admin: 11/08/16 18:34 Dose: 90 ml Fluconazole (Diflucan) 100 mg PO DAILY [facility] Stop: 11/13/16 09:01 Last Admin: 11/13/16 10:02 Dose: 100 mg Furosemide (Lasix) 20 mg IVPUSH DAILY [facility] Last Admin: 11/11/16 11:05 Dose: Not Given Hydromorphone HCl (Dilaudid) 0.25 mg IVPUSH Q2H PRN PRN Reason: Pain (severe 7-10) Hydromorphone HCl (Dilaudid) 0.25 mg IVPUSH Q2H PRN PRN Reason: Pain (severe 7-10) Vancomycin HCl 1 gm/ Sodium (Chloride) 250 mls @ 250 mls/hr IV ONETIME ONE Stop: 11/08/16 20:03 Last Admin: 11/08/16 19:29 Dose: 250 mls/hr Dextrose/Sodium Chloride (Dextrose 5%-1/2 Ns) 1,000 mls @ 125 mls/hr IV ASDIRECTED [facility] Last Admin: 11/09/16 11:54 Dose: 125 mls/hr Metronidazole 500 mg/ Premix 100 mls @ 100 mls/hr IV Q8H [facility] Last Admin: 11/13/16 04:08 Dose: 100 mls/hr Levofloxacin/Dextrose 500 mg/ (Premix) 100 mls @ 100 mls/hr IV Q24H [facility] Last Admin: 11/10/16 21:50 Dose: 100 mls/hr Magnesium Sulfate (Magnesium Sulfate 2 Gm In Water 50 Ml) 50 mls @ 50 mls/hr IV ONETIME ONE Stop: 11/08/16 22:29 Last Admin: 11/08/16 23:49 Dose: 50 mls/hr Vancomycin HCl 1 gm/ Sodium (Chloride) 250 mls @ 250 mls/hr IV ONETIME ONE Stop: 11/08/16 22:59 Last Admin: 11/08/16 23:45 Dose: 250 mls/hr Furosemide 100 mg/ Sodium (Chloride) 100 mls @ 3 mls/hr IV TITRATE LEONARDO PRN Reason: Protocol Last Admin: 11/09/16 02:09 Dose: 3 mls/hr Vancomycin HCl 1 gm/ Sodium (Chloride) 250 mls @ 167 mls/hr IV Q18H [facility] Last Admin: 11/11/16 04:37 Dose: 167 mls/hr Magnesium Sulfate 2 gm/ Premix 50 mls @ 25 mls/hr IV ONETIME ONE Stop: 11/09/16 14:59 Last Admin: 11/09/16 14:06 Dose: 25 mls/hr Infliximab (Remicade) 100 mg IV ASDIRECTED [facility] Infliximab (Remicade) 100 mg IV ONETIME ONE Stop: 11/09/16 09:01 Iopamidol (Isovue-300 (61%)) 125 ml IVPUSH ONETIME ONE Stop: 11/08/16 17:56 Last Admin: 11/08/16 18:32 Dose: 125 ml Lidocaine/Epinephrine (Xylocaine 1% With Epinephrine 1:100,000) 20 ml INJECT ONETIME ONE Stop: 11/10/16 14:42 Last Admin: 11/10/16 15:52 Dose: Not Given Magnesium Sulfate (Pharmacy To Dose - Magnesium Replacement) 1 dose .XX ASDIRECTED [facility] Methylprednisolone Sodium Succinate (Solu-Medrol) 40 mg IVPUSH Q6H [facility] Last Admin: 11/11/16 11:05 Dose: Not Given Metoprolol Tartrate (Lopressor) 100 mg PO BID [facility] Last Admin: 11/13/16 11:13 Dose: Not Given Non-Formulary Medication (Hctz/Triamterene) 0.5 tab PO QAM [facility] Pantoprazole Sodium (Protonix Iv) 40 mg IV Q12HR [facility] Last Admin: 11/09/16 22:00 Dose: 40 mg Potassium Chloride (Pharmacy To Dose - Potassium Replacement) 1 dose .XX ASDIRECTED [facility] Potassium Chloride (Klor-Con M20) 20 meq PO Q3H [facility] Stop: 11/09/16 03:31 Last Admin: 11/09/16 04:26 Dose: 20 meq Potassium Chloride (Klor-Con 10) meq PO QAM [facility] Potassium Chloride (Klor-Con M20) 20 meq PO Q3H [facility] Stop: 11/09/16 15:01 Last Admin: 11/09/16 14:04 Dose: 20 meq Saccharomyces Boulardii (Florastor) 500 mg PO TID [facility] Last Admin: 11/08/16 21:42 Dose: Not Given Triamterene/HCTZ (Maxzide 50-75 Mg) 1 each PO DAILY [facility] Vancomycin HCl (Pharmacy To Dose - Vancomycin) 1 dose .XX ASDIRECTED [facility] - Exam Quality Assessment: Reports: DVT prophylaxis General: Reports: alert, oriented, cooperative, no acute distress HEENT: Reports: Pupils equal, Pupils reactive, EOMI, Mucous membr. moist/pink Neck: Reports: supple Lungs: Reports: Clear to auscultation, Normal respiratory effort Cardiovascular: Reports: regular rate, regular rhythm Abdomen: Reports: bowel sounds present, soft, no tenderness, no distension (Female) Exam: Deferred Rectal (Female) Exam: Deferred Back Exam: Reports: normal inspection Extremities: Reports: edema (trace to ankles) Skin: Reports: warm, dry, intact Neurological: Reports: no new focal deficit Psy/Mental Status: Reports: alert, normal affect, normal mood *Q Meaningful Use (DIS) - VTE *Q VTE Criteria *Q: - Stroke *Q Stroke Criteria *Q: - AMI *Q AMI Criteria *Q: <Suzi Buchanan - Last Filed: 11/15/16 20:13> Discharge Summary - Hospital Course Free Text/Narrative:: See above for plan of care and summary of hospital course. - Patient Summary/Data Consults: Consultations 11/08/16 20:12 Consult to Case Management [CONS] Routine Consult to Executive Director Of Marketing [CONS] Routine Consult to Yellow Pages Space Salesperson [CONS] Routine OT Evaluation and Treatment [CONS] Routine PT Evaluation and Treatment [CONS] Routine 11/08/16 21:56 Consult to Dietary [Consult to Executive Director Of Marketing] [CONS] Routine 11/10/16 10:30 Consult to Physician [CONS] Routine - Patient Data Vitals - Most Recent: Last Vital Signs Temp 36.9 C 11/14/16 07:57 Pulse 72 11/14/16 08:01 Resp 18 11/14/16 07:57 BP 127/51 L 11/14/16 08:01 Pulse Ox 96 11/14/16 07:57 Lab Results - Last 24 hrs: Laboratory Results - last 24 hr 11/10/16 Range/Units 09:03 Packed Cell Volume 31.2 RBC Folic Acid 1845 H (499-1504) ng/mL Hematocrit 31.2 % MIRI Results - Last 24 hrs: Microbiology 11/08/16 20:35 Aerobic Blood Culture - Preliminary Blood - Venous - Lab Draw NO GROWTH AFTER 6 DAYS Anaerobic Blood Culture - Preliminary NO GROWTH AFTER 6 DAYS 11/08/16 20:27 Aerobic Blood Culture - Preliminary Blood - Venous NO GROWTH AFTER 6 DAYS Anaerobic Blood Culture - Preliminary NO GROWTH AFTER 6 DAYS Med Orders - Current: Current Medications Discontinued Medications Acetaminophen (Tylenol) 975 mg PO NOW ONE Stop: 11/08/16 19:09 Last Admin: 11/08/16 19:26 Dose: 975 mg Acetaminophen (Tylenol) 650 mg RECTAL Q4H PRN PRN Reason: Pain (mild 1-3) Acetaminophen (Tylenol) 650 mg PO Q4H PRN PRN Reason: Pain (Mild 1-3)/fever Acetaminophen/Hydrocodone Bitart ([place] 325-5 Mg) 1 tab PO Q4H PRN PRN Reason: Pain (moderate 4-6) Aspirin (Aspirin) 81 mg PO DAILY [facility] Last Admin: 11/14/16 08:01 Dose: 81 mg Cyanocobalamin (Vitamin B12) 1,000 mcg IM ONETIME ONE Stop: 11/08/16 20:17 Last Admin: 11/09/16 02:06 Dose: Not Given Cyanocobalamin (Vitamin B12) 1,000 mcg IM DAILY [facility] Stop: 11/12/16 09:01 Last Admin: 11/12/16 08:06 Dose: 1,000 mcg Dextrose/Water (Dextrose 50% In Water) 50 ml IVPUSH ASDIRECTED PRN PRN Reason: Hypoglycemia Diatrizoate Meglum/Diatrizoate Sod (Gastrografin 37%) 90 ml PO ONETIME ONE Stop: 11/08/16 17:56 Last Admin: 11/08/16 18:34 Dose: 90 ml Enoxaparin Sodium (Lovenox) 40 mg SUBCUT DAILY [facility] Last Admin: 11/14/16 08:00 Dose: 40 mg Famotidine (Pepcid) 20 mg PO BID [facility] Last Admin: 11/14/16 08:01 Dose: 20 mg Ferrous Sulfate (Ferrous Sulfate) 325 mg PO WITHBREAKFAST [facility] Last Admin: 11/14/16 07:49 Dose: Not Given Fluconazole (Diflucan) 100 mg PO DAILY [facility] Stop: 11/13/16 09:01 Last Admin: 11/13/16 10:02 Dose: 100 mg Folic Acid (Folic Acid) 1 mg PO BEDTIME [facility] Last Admin: 11/13/16 20:55 Dose: 1 mg Furosemide (Lasix) 20 mg IVPUSH DAILY [facility] Last Admin: 11/11/16 11:05 Dose: Not Given Furosemide (Lasix) 40 mg PO DAILY [facility] Last Admin: 11/14/16 08:01 Dose: 40 mg Hydromorphone HCl (Dilaudid) 0.25 mg IVPUSH Q2H PRN PRN Reason: Pain (severe 7-10) Hydromorphone HCl (Dilaudid) 0.25 mg IVPUSH Q2H PRN PRN Reason: Pain (severe 7-10) Vancomycin HCl 1 gm/ Sodium (Chloride) 250 mls @ 250 mls/hr IV ONETIME ONE Stop: 11/08/16 20:03 Last Admin: 11/08/16 19:29 Dose: 250 mls/hr Dextrose/Sodium Chloride (Dextrose 5%-1/2 Ns) 1,000 mls @ 125 mls/hr IV ASDIRECTED [facility] Last Admin: 11/09/16 11:54 Dose: 125 mls/hr Promethazine HCl 12.5 mg/ (Sodium Chloride) 50.5 mls @ 100 mls/hr IV Q6H PRN PRN Reason: Nausea/Vomiting Metronidazole 500 mg/ Premix 100 mls @ 100 mls/hr IV Q8H [facility] Last Admin: 11/13/16 04:08 Dose: 100 mls/hr Levofloxacin/Dextrose 500 mg/ (Premix) 100 mls @ 100 mls/hr IV Q24H [facility] Last Admin: 11/10/16 21:50 Dose: 100 mls/hr Magnesium Sulfate (Magnesium Sulfate 2 Gm In Water 50 Ml) 50 mls @ 50 mls/hr IV ONETIME ONE Stop: 11/08/16 22:29 Last Admin: 11/08/16 23:49 Dose: 50 mls/hr Vancomycin HCl 1 gm/ Sodium (Chloride) 250 mls @ 250 mls/hr IV ONETIME ONE Stop: 11/08/16 22:59 Last Admin: 11/08/16 23:45 Dose: 250 mls/hr Furosemide 100 mg/ Sodium (Chloride) 100 mls @ 3 mls/hr IV TITRATE LEONARDO PRN Reason: Protocol Last Admin: 11/09/16 02:09 Dose: 3 mls/hr Vancomycin HCl 1 gm/ Sodium (Chloride) 250 mls @ 167 mls/hr IV Q18H [facility] Last Admin: 11/11/16 04:37 Dose: 167 mls/hr Magnesium Sulfate 2 gm/ Premix 50 mls @ 25 mls/hr IV ONETIME ONE Stop: 11/09/16 14:59 Last Admin: 11/09/16 14:06 Dose: 25 mls/hr Levofloxacin/Dextrose 500 mg/ (Premix) 100 mls @ 100 mls/hr IV Q24H [facility] Last Admin: 11/13/16 20:48 Dose: 100 mls/hr Ceftriaxone Sodium 1 gm/ (Sodium Chloride) 100 mls @ 200 mls/hr IV Q24H [facility] Last Admin: 11/13/16 10:05 Dose: 200 mls/hr Infliximab (Remicade) 100 mg IV ASDIRECTED [facility] Infliximab (Remicade) 100 mg IV ONETIME ONE Stop: 11/09/16 09:01 Insulin Aspart (Novolog) 0 unit SUBCUT QIDACANDBED [facility] PRN Reason: Protocol Last Admin: 11/14/16 07:47 Dose: Not Given Iopamidol (Isovue-300 (61%)) 125 ml IVPUSH ONETIME ONE Stop: 11/08/16 17:56 Last Admin: 11/08/16 18:32 Dose: 125 ml Levothyroxine Sodium (Levothyroxine) 75 mcg PO ACBRK [facility] Last Admin: 11/14/16 05:34 Dose: 75 mcg Lidocaine/Epinephrine (Xylocaine 1% With Epinephrine 1:100,000) 20 ml INJECT ONETIME ONE Stop: 11/10/16 14:42 Last Admin: 11/10/16 15:52 Dose: Not Given Loperamide HCl (Imodium) 2 mg PO BID PRN PRN Reason: Diarrhea Last Admin: 11/11/16 11:22 Dose: 2 mg Lorazepam (Ativan) 0.5 mg IV Q6H PRN PRN Reason: Anxiety Magnesium Oxide (Magnesium Oxide) 400 mg PO BID [facility] Last Admin: 11/14/16 08:00 Dose: 400 mg Magnesium Sulfate (Pharmacy To Dose - Magnesium Replacement) 1 dose .XX ASDIRECTED [facility] Methylprednisolone Sodium Succinate (Solu-Medrol) 40 mg IVPUSH Q6H [facility] Last Admin: 11/11/16 11:05 Dose: Not Given Metoprolol Tartrate (Lopressor) 100 mg PO BID [facility] Last Admin: 11/13/16 11:13 Dose: Not Given Metoprolol Tartrate (Lopressor) 50 mg PO Q12HR [facility] Last Admin: 11/14/16 08:01 Dose: 50 mg Multi-Ingred Cream/Lotion/Oil/Oint (Zinc Oxide) 0 gm TOP TID [facility] Last Admin: 11/14/16 08:01 Dose: 1 applic Multivitamins (Thera) 1 each PO BEDTIME [facility] Last Admin: 11/13/16 20:55 Dose: 1 each Nitroglycerin (Nitrostat) 0.4 mg SL ASDIRECTED PRN PRN Reason: Chest Pain Non-Formulary Medication (Hctz/Triamterene) 0.5 tab PO QAM [facility] Nystatin (Nystatin Crm) 0 gm TOP TID [facility] Last Admin: 11/14/16 08:02 Dose: 1 applic Ondansetron HCl (Zofran) 4 mg IV Q6H PRN PRN Reason: Nausea/Vomiting Pantoprazole Sodium (Protonix Iv) 40 mg IV Q12HR [facility] Last Admin: 11/09/16 22:00 Dose: 40 mg Colestid. 1 Gram 0 each PO DAILY [facility] Last Admin: 11/14/16 08:02 Dose: Not Given Hydrochlorothiazide/Triamterene 25-37.5 Mg Tab. 0 each PO DAILY [facility] Last Admin: 11/14/16 08:02 Dose: Not Given Potassium Chloride (Pharmacy To Dose - Potassium Replacement) 1 dose .XX ASDIRECTED [facility] Potassium Chloride (Klor-Con M20) 20 meq PO Q3H [facility] Stop: 11/09/16 03:31 Last Admin: 11/09/16 04:26 Dose: 20 meq Potassium Chloride (Klor-Con M20) 40 meq PO BEDTIME [facility] Last Admin: 11/13/16 20:55 Dose: 40 meq Potassium Chloride (Klor-Con 10) meq PO QAM [facility] Potassium Chloride (Klor-Con 10) 20 meq PO DAILY [facility] Last Admin: 11/14/16 08:00 Dose: 20 meq Potassium Chloride (Klor-Con M20) 20 meq PO Q3H [facility] Stop: 11/09/16 15:01 Last Admin: 11/09/16 14:04 Dose: 20 meq Prednisone (Prednisone) 40 mg PO BID [facility] Last Admin: 11/14/16 08:00 Dose: 40 mg Saccharomyces Boulardii (Florastor) 500 mg PO TID [facility] Last Admin: 11/08/16 21:42 Dose: Not Given Saccharomyces Boulardii (Florastor) 250 mg PO BID [facility] Last Admin: 11/14/16 08:01 Dose: 250 mg Simvastatin (Zocor) 10 mg PO DAILY [facility] Last Admin: 11/14/16 08:00 Dose: 10 mg Sodium Chloride (Saline Flush) 10 ml FLUSH ASDIRECTED PRN PRN Reason: Keep Vein Open Last Admin: 11/08/16 17:30 Dose: 10 ml Sodium Chloride (Saline Flush) 10 ml FLUSH ONETIME PRN PRN Reason: IV FLUSH Last Admin: 11/08/16 18:34 Dose: 10 ml Spironolactone (Aldactone) 25 mg PO DAILY [facility] Last Admin: 11/14/16 08:01 Dose: 25 mg Temazepam (Restoril) 15 mg PO BEDTIME PRN PRN Reason: Sleep Triamterene/HCTZ (Maxzide 50-75 Mg) 1 each PO DAILY [facility] Vancomycin HCl (Pharmacy To Dose - Vancomycin) 1 dose .XX ASDIRECTED [facility] *Q Meaningful Use (DIS) - VTE *Q VTE Criteria *Q: - Stroke *Q Stroke Criteria *Q: - AMI *Q AMI Criteria *Q:
[2016-11-14] MEDS: Insulin Aspart 100 Units/ML 3 ML Pen SUBCUT SCH (07:47)
[2016-11-14] MEDS: Magnesium Oxide 400 MG Tab PO SCH (08:00)
[2016-11-14] MEDS: Enoxaparin 40 MG/0.4 ML Syringe SUBCUT SCH (08:00)
[2016-11-14] MEDS: predniSONE 20 MG Tab PO SCH (08:00)
[2016-11-14] MEDS: Simvastatin 10 MG Tab PO SCH (08:00)
[2016-11-14] MEDS: Potassium Chloride 10 MEQ Tab.ER PO SCH (08:00)
[2016-11-14] MEDS: Saccharomyces Boulardii (Probiotic) 250 MG Cap PO SCH (08:01)
[2016-11-14] MEDS: Spironolactone 25 MG Tab PO SCH (08:01)
[2016-11-14] MEDS: Famotidine 20 MG Tab PO SCH (08:01)
[2016-11-14] MEDS: Furosemide 40 MG Tab PO SCH (08:01)
[2016-11-14] MEDS: Aspirin 81 MG Tab.Chew PO SCH (08:01)
[2016-11-14] MEDS: Metoprolol Tartrate 50 MG Tab PO SCH (08:01)
[2016-11-14] MEDS: Nystatin Crm 30 GM Tube TOP SCH (08:02)
[2016-11-14] MEDS: HYDROCHLOROTHIAZIDE PO SCH (08:02)
[2016-11-14] MEDS: TRIAMTERENE PO SCH (08:02)
[2016-11-14] MEDS: COLESTID PO SCH (08:02)
[2016-11-14 08:03] VITALS: BP 127/51
== END 2016-11-14 09:18 | disposition other institution (70) | DRG 603 ==
LOC: JD.ED 16:05 → JD.MS 19:19
PROVIDERS: ADMIT Internal Medicine; ATTEND Internal Medicine
PROC: 0HBDXZX Excision of Right Lower Arm Skin, External Approach, Diagnostic (ICD-10-PCS; principal; 2016-11-11)
DX: R50.81 Fever presenting with conditions classified elsewhere (principal); L03.315 Cellulitis of perineum; K50.90 Crohn's disease, unspecified, without complications; N30.00 Acute cystitis without hematuria; R60.9 Edema, unspecified; R19.7 Diarrhea, unspecified; E88.09 Other disorders of plasma-protein metabolism, not elsewhere classified; R21 Rash and other nonspecific skin eruption; R53.1 Weakness; W19.XXXA Unspecified fall, initial encounter; E87.6 Hypokalemia; I25.10 Atherosclerotic heart disease of native coronary artery without angina pectoris; I11.0 Hypertensive heart disease with heart failure; I50.9 Heart failure, unspecified; Z87.891 Personal history of nicotine dependence; Z95.5 Presence of coronary angioplasty implant and graft; K21.9 Gastro-esophageal reflux disease without esophagitis; E03.9 Hypothyroidism, unspecified; M19.90 Unspecified osteoarthritis, unspecified site; F32.9 Major depressive disorder, single episode, unspecified; R32 Unspecified urinary incontinence; Z79.82 Long term (current) use of aspirin; Z79.899 Other long term (current) drug therapy; D50.9 Iron deficiency anemia, unspecified
CPT/HCPCS: 70450; 74177; 87804 ×2; 99285; J7050 ×3; Q9963; Q9967; 36415; 80048; 80053; 81001; 82272; 82306; 82607; 82747; 82962; 83036; 83540; 83605; 83735; 83880; 84132; 84439; 84443; 84466; 85025; 85652; 86140; 87040; 87046; 87086; 87088; 87184; 87186; 87328; 87329; 87427; 87493; 88305; 88305-26; 93306; 96365; 97112-GP; 97116-GP; 97161-GP; 97165-GO; 99222; 99239; A9270-GY; C9113; J0696; J1650; J1815-GY; J1940; J1956; J2920; J3370; J3420; J3475; J7030; J7042

== ENCOUNTER 2016-11-27 13:29 | Inpatient (IN) | payer MEDICARE, BC ==
--- NOTE | 2016-11-27 14:30 | EDM.PDOC ---
ED HPI GI/ABDOMINAL - General Chief Complaint: Gastrointestinal Problem Stated Complaint: CONSTIPATED,ABDOMINAL PAIN Time Seen by Provider: 11/27/16 14:09 Source of Information: Reports: Patient, half-way records History Limitations: Reports: No limitations - History of Present Illness INITIAL COMMENTS - FREE TEXT/NARRATIVE: Patient presents from [facility] for evaluation and treatment of constipation. Patient reports that she has not had a bowel movement in one week. She reports abdominal bloating, distention, constipation and lower abdominal pain. She reports a decreased appetite. She denies any nausea. She reports that she vomited one time today. Patient denies any dizziness or lightheadedness. Patient reports that she's tried prune juice and MiraLax without any symptom relief. Patient has a past medical history of Crohn's disease. She denies any current bloody stools. Location: generalized - Related Data Allergies/ADRs: Allergies Allergy/AdvReac Type Severity Reaction Status Date / Time No Known Allergies Allergy Verified 11/08/16 16:19 Home Meds: Home Meds Levothyroxine Sodium 75 mcg PO ACBRK 04/14/14 [History] Pantoprazole Sodium 1 tab PO DAILY 04/14/14 [History] Pravastatin [Pravachol] 1 tab PO DAILY 04/14/14 [History] metFORMIN [Glucophage] 1 tab PO BEDTIME 04/14/14 [History] Loperamide [Imodium AD] 1 tab PO BID PRN 06/18/15 [History] Nitroglycerin [Nitrostat] 0.4 mg SL ASDIRECTED PRN 06/18/15 [History] InFLIXimab [Remicade] 100 mg IV ASDIRECTED 06/30/15 [History] Colestid. 1 gram PO DAILY 06/14/16 [History] Aspirin 81 mg PO DAILY 09/19/16 [History] Acetaminophen [Tylenol] 650 mg PO Q4H PRN #0 tablet 11/14/16 [Rx] Ferrous Sulfate 325 mg PO WITHBREAKFAST #30 tablet 11/14/16 [Rx] Folic Acid 1 mg PO BEDTIME #30 tablet 11/14/16 [Rx] Furosemide [Lasix] 40 mg PO DAILY #30 tablet 11/14/16 [Rx] Levofloxacin [Levaquin] 500 mg PO DAILY #7 tablet 11/14/16 [Rx] Magnesium Oxide 400 mg PO BID #60 tablet 11/14/16 [Rx] Metoprolol Tartrate [Lopressor] 50 mg PO Q12HR #60 tablet 11/14/16 [Rx] Multivitamins,Therapeutic [Thera] 1 each PO BEDTIME tablet 11/14/16 [Rx] Nystatin [Nystatin Crm] 0 gm TOP TID #30 gm 11/14/16 [Rx] Potassium Chloride [Klor-Con 10] 20 meq PO DAILY #30 tab.er 11/14/16 [Rx] Potassium Chloride [Klor-Con M20] 40 meq PO BEDTIME #30 tab.er 11/14/16 [Rx] Prednisone [IJD: predniSONE] 10 mg PO DAILY #30 tablet 11/14/16 [Rx] Spironolactone [Aldactone] 25 mg PO DAILY #30 tablet 11/14/16 [Rx] Zinc Oxide 0 gm TOP TID #30 gm 11/14/16 [Rx] Past Medical History HEENT History: Reports: Impaired vision Cardiovascular History: Reports: CAD, Hypertension, Stents Other Cardiovascular History: x 3 Gastrointestinal History: Reports: GERD, Inflammatory bowel disease, Other (see below) Other Gastrointestinal History: crohn's Genitourinary History: Reports: Urinary incontinence Musculoskeletal History: Reports: Osteoarthritis Psychiatric History: Reports: Depression Endocrine/Metabolic History: Reports: Diabetes, type II, Hypothyroidism Other Endocrine/Metabolic History: borderline Dermatologic History: Reports: Other (see below) Other Dermatologic History: currently has cellulitis an rash - Infectious Disease History Infectious Disease History: Reports: Chicken pox, Measles, Mumps, Shingles - Past Surgical History HEENT Surgical History: Reports: Cataract surgery, Tonsillectomy Cardiovascular Surgical History: Reports: Coronary artery stent GI Surgical History: Reports: Cholecystectomy, Colonoscopy Endocrine Surgical History: Reports: None Musculoskeletal Surgical History: Reports: None Social & Family History - Family History Cardiac: Reports: Heart failure, Hypertension OBGYN: Reports: Endocrine/Metabolic: Reports: Diabetes, type II Oncologic: Reports: Other (see below) Other Oncologic Family History: Does not remember what kind of cancer - Tobacco Use Smoking Status *Q: Former Smoker Years of Tobacco use: 30 Packs/Tins Daily: 2 Used Tobacco, but Quit: Yes Month Tobacco Last Used: 1994 Second Hand Smoke Exposure: No - Caffeine Use Caffeine Use: Reports: Coffee, Energy drinks, Soda, Tea - Alcohol Use Days Per Week of Alcohol Use: 1 Number of Drinks Per Day: 1 Total Drinks Per Week: 1 - Recreational Drug Use Recreational Drug Use: No Drug Use in Last 12 Months: No - Living Situation & Occupation Living situation: Reports: , alone Occupation: retired ED ROS GENERAL - Review of Systems Review Of Systems: See Below Constitutional: Reports: decreased appetite. Denies: fever Cardiovascular: Reports: Other (denies dizziness or lighheadedness) GI/Abdominal: Reports: Abdominal pain, Constipation, Nausea, Vomiting, Other ( abdominal bloating). Denies: Flatus, Hematochezia, Melena ED EXAM, GI/ABD - Physical Exam Exam: See Below Exam Limited By: No limitations General Appearance: alert, WD/WN, no apparent distress Throat/Mouth: Normal inspection, Normal voice, No airway compromise Neck: normal inspection Respiratory/Chest: no respiratory distress, lungs clear, normal breath sounds Cardiovascular: normal peripheral pulses, regular rate, rhythm, systolic murmur GI/Abdominal: non tender, hypoactive bowel sounds, distention Neurological: alert, oriented, normal cognition Psychiatric: normal affect, normal mood Skin Exam: Warm, Dry, Normal color Course - Vital Signs Last Recorded V/S: Last Vital Signs Temp 36.8 C 11/29/16 15:36 Pulse 65 11/29/16 15:36 Resp 20 11/29/16 15:36 BP 134/62 11/29/16 15:36 Pulse Ox 99 11/29/16 15:36 - Orders/Labs/Meds Orders: Medication Orders Acetaminophen (Tylenol) 650 mg PO Q4H PRN PRN Reason: Pain (Mild 1-3)/fever Acetaminophen/Hydrocodone Bitart ([place] 325-5 Mg) 1 tab PO Q4H PRN PRN Reason: Pain (moderate 4-6) Albuterol/Ipratropium (Duoneb 3.0-0.5 Mg/3 Ml) 3 ml NEB Q4H PRN PRN Reason: Shortness Of Breath/wheezing Bisacodyl (Dulcolax) 5 mg PO DAILY PRN PRN Reason: Constipation Bumetanide (Bumex) 0.5 mg IVPUSH DAILY [facility] Last Admin: 11/29/16 09:12 Dose: 0.5 mg Admin: 11/28/16 12:26 Dose: 0.5 mg Cyanocobalamin (Vitamin B12) 1,000 mcg SUBCUT DAILY [facility] Stop: 12/03/16 09:00 Last Admin: 11/29/16 09:17 Dose: 1,000 mcg Admin: 11/28/16 10:49 Dose: 1,000 mcg Dextrose/Water (Dextrose 50% In Water) 50 ml IVPUSH ASDIRECTED PRN PRN Reason: Hypoglycemia Enoxaparin Sodium (Lovenox) 40 mg SUBCUT DAILY [facility] Last Admin: 11/29/16 09:21 Dose: 40 mg Admin: 11/28/16 10:50 Dose: 40 mg Hydralazine HCl (Apresoline) 20 mg IVPUSH Q4H PRN PRN Reason: Hypertension Last Admin: 11/28/16 05:53 Dose: 20 mg Hydrocortisone Sodium Succinate (Solu-Cortef) 100 mg IVPUSH Q6H [facility] Last Admin: 11/29/16 17:44 Dose: 100 mg Admin: 11/29/16 10:55 Dose: 100 mg Admin: 11/29/16 06:13 Dose: 100 mg Admin: 11/28/16 23:15 Dose: 100 mg Admin: 11/28/16 16:15 Dose: 100 mg Admin: 11/28/16 10:54 Dose: 100 mg Admin: 11/28/16 05:42 Dose: 100 mg Admin: 11/27/16 23:39 Dose: 100 mg Hydromorphone HCl (Dilaudid) 0.25 mg IVPUSH Q2H PRN PRN Reason: Pain (severe 7-10) Dextrose/Sodium Chloride (Dextrose 5%-1/2 Ns) 1,000 mls @ 125 mls/hr IV ASDIRECTED [facility] Last Admin: 11/29/16 15:16 Dose: 125 mls/hr Infusion: 11/29/16 14:54 Dose: 125 mls/hr Admin: 11/29/16 06:54 Dose: 125 mls/hr Infusion: 11/29/16 06:54 Dose: 125 mls/hr Admin: 11/28/16 23:11 Dose: 125 mls/hr Infusion: 11/28/16 22:57 Dose: 125 mls/hr Admin: 11/28/16 14:57 Dose: 125 mls/hr Infusion: 11/28/16 14:57 Dose: 125 mls/hr Admin: 11/28/16 06:59 Dose: 125 mls/hr Infusion: 11/28/16 06:59 Dose: 125 mls/hr Admin: 11/27/16 23:44 Dose: 125 mls/hr Metronidazole 500 mg/ Premix 100 mls @ 100 mls/hr IV Q6H [facility] Last Admin: 11/29/16 18:35 Dose: 100 mls/hr Infusion: 11/29/16 11:56 Dose: 100 mls/hr Admin: 11/29/16 10:56 Dose: 100 mls/hr Infusion: 11/29/16 07:12 Dose: 100 mls/hr Admin: 11/29/16 06:12 Dose: 100 mls/hr Infusion: 11/29/16 00:13 Dose: 100 mls/hr Admin: 11/28/16 23:13 Dose: 100 mls/hr Infusion: 11/28/16 17:15 Dose: 100 mls/hr Admin: 11/28/16 16:15 Dose: 100 mls/hr Infusion: 11/28/16 11:47 Dose: 100 mls/hr Admin: 11/28/16 10:47 Dose: 100 mls/hr Infusion: 11/28/16 06:42 Dose: 100 mls/hr Admin: 11/28/16 05:42 Dose: 100 mls/hr Infusion: 11/28/16 00:51 Dose: 100 mls/hr Admin: 11/27/16 23:51 Dose: 100 mls/hr Erythromycin Lactobionate 250 (mg/ Sodium Chloride) 100 mls @ 100 mls/hr IV Q6H [facility] Last Admin: 11/29/16 18:45 Dose: 100 mls/hr Infusion: 11/29/16 15:08 Dose: 100 mls/hr Admin: 11/29/16 14:08 Dose: 100 mls/hr Infusion: 11/29/16 07:12 Dose: 100 mls/hr Admin: 11/29/16 06:12 Dose: 100 mls/hr Infusion: 11/29/16 03:24 Dose: 100 mls/hr Admin: 11/29/16 02:24 Dose: 100 mls/hr Infusion: 11/28/16 22:01 Dose: 100 mls/hr Admin: 11/28/16 21:01 Dose: 100 mls/hr Insulin Aspart (Novolog) 0 unit SUBCUT BID@0700,2100 [facility] PRN Reason: Protocol Last Admin: 11/29/16 06:24 Dose: 2 unit Admin: 11/28/16 21:12 Dose: 2 unit Admin: 11/28/16 10:50 Dose: 1 unit Lorazepam (Ativan) 1 mg IV Q6H PRN PRN Reason: Nausea/Vomiting Magnesium Sulfate (Pharmacy To Dose - Magnesium Replacement) 1 dose .XX ASDIRECTED [facility] Metoclopramide HCl (Reglan) 10 mg IVPUSH Q6H [facility] Last Admin: 11/29/16 17:44 Dose: 10 mg Admin: 11/29/16 10:53 Dose: 10 mg Admin: 11/29/16 06:12 Dose: 10 mg Admin: 11/28/16 23:15 Dose: 10 mg Admin: 11/28/16 16:31 Dose: 10 mg Admin: 11/28/16 10:56 Dose: 10 mg Admin: 11/28/16 05:42 Dose: 10 mg Admin: 11/28/16 01:19 Dose: 10 mg Metoprolol Tartrate (Lopressor) 5 mg IVPUSH Q4H PRN PRN Reason: Tachycardia Multi-Ingred Cream/Lotion/Oil/Oint (Zinc Oxide) 15 gm TOP TID [facility] Last Admin: 11/29/16 15:52 Dose: Not Given Admin: 11/29/16 09:23 Dose: Admin: 11/28/16 21:02 Dose: Not Given Admin: 11/28/16 16:14 Dose: Not Given Admin: 11/28/16 12:38 Dose: Not Given Nitroglycerin (Nitrostat) 0.4 mg SL ASDIRECTED PRN PRN Reason: Chest Pain Nystatin (Nystatin Crm) 15 gm TOP TID [facility] Last Admin: 11/29/16 15:52 Dose: Not Given Admin: 11/29/16 09:21 Dose: Not Given Admin: 11/28/16 21:02 Dose: Not Given Admin: 11/28/16 16:14 Dose: Not Given Admin: 11/28/16 12:38 Dose: Not Given Pantoprazole Sodium (Protonix Iv) 40 mg IV DAILY [facility] Last Admin: 11/29/16 09:22 Dose: 40 mg Admin: 11/28/16 10:49 Dose: 40 mg Phenol/Menthol (Chloraseptic) 15 ml MUCMEM Q2H PRN PRN Reason: Sore Throat Last Admin: 11/28/16 21:00 Dose: 2 spray Admin: 11/28/16 18:42 Dose: 2 spray Admin: 11/28/16 14:56 Dose: 2 spray Polyethylene Glycol (Miralax) 17 gm PO DAILY PRN PRN Reason: Constipation Potassium Chloride (Pharmacy To Dose - Potassium Replacement) 1 dose .XX ASDIRECTED [facility] Senna/Docusate Sodium (Senna Plus) 1 tab PO BID PRN PRN Reason: Constipation Temazepam (Restoril) 30 mg PO BEDTIME PRN PRN Reason: Sleep Labs: Laboratory Tests 11/27/16 11/27/16 Range/Units 14:37 14:37 WBC 8.70 (3.98-10.04) K/mm3 RBC 5.46 H (3.98-5.22) M/mm3 Hgb 13.3 (11.2-15.7) gm/L Hct 41.4 (34.1-44.9) % MCV 75.8 L (79.4-94.8) fl MCH 24.4 L (25.6-32.2) pg MCHC 32.1 L (32.2-35.5) g/dl RDW Std Deviation 48.1 H (36.4-46.3) fL Plt Count 142 L (182-369) K/mm3 MPV 9.9 (9.4-12.3) fl Neut % (Auto) 80.2 H (34.0-71.1) % Lymph % (Auto) 13.8 L (19.3-51.7) % [place] % (Auto) 5.2 (4.7-12.5) % Eos % (Auto) 0.5 L (0.7-5.8) Baso % (Auto) 0.1 (0.1-1.2) % Neut # 6.98 H (1.56-6.13) K/mm3 Lymph # 1.20 (1.18-3.74) K/mm3 [place] # 0.45 H (0.24-0.36) K/mm3 Eos # 0.04 (0.04-0.36) K/mm3 Baso # 0.01 (0.01-0.08) K/mm3 Sodium 134 L (136-145) mEq/L Potassium 3.7 (3.5-5.1) mEq/L Chloride 94 L (98-107) mEq/L Carbon Dioxide 33 H (21-32) mEq/L Anion Gap 10.7 (5-15) BUN 20 H (7-18) mg/dL Creatinine 0.8 (0.55-1.02) mg/dL Est Cr Clr Drug Dosing 56.00 mL/min Estimated GFR (MDRD) > 60 (>60) mL/min BUN/Creatinine Ratio 25.0 H (14-18) Glucose 82 L (83-115) mg/dL Calcium 8.8 (8.5-10.1) mg/dL Total Bilirubin 0.9 (0.2-1.0) mg/dL AST 25 (15-37) U/L ALT 25 (14-59) U/L Alkaline Phosphatase 55 (46-116) U/L C-Reactive Protein 0.3 (<1.0) mg/dL Total Protein 6.1 L (6.4-8.2) g/dl Albumin 3.2 L (3.4-5.0) g/dl Globulin 2.9 gm/dL Albumin/Globulin Ratio 1.1 (1-2) Meds: Medications Generic Name Dose Route Start Last Admin Trade Name Freq PRN Reason Stop Dose Admin Acetaminophen 650 mg 11/27/16 22:06 Tylenol PO Q4H PRN Pain (Mild 1-3)/fever Acetaminophen/Hydrocodone Bitart 1 tab 11/27/16 22:06 [place] 325-5 Mg PO Q4H PRN Pain (moderate 4-6) Albuterol/Ipratropium 3 ml 11/27/16 22:06 Duoneb 3.0-0.5 Mg/3 Ml NEB Q4H PRN Shortness Of Breath/wheezing Bisacodyl 5 mg 11/27/16 22:06 Dulcolax PO DAILY PRN Constipation Bumetanide 0.5 mg 11/28/16 09:00 11/29/16 09:12 Bumex IVPUSH 0.5 mg DAILY [facility] Administration Cyanocobalamin 1,000 mcg 11/28/16 09:00 11/29/16 09:17 Vitamin B12 SUBCUT 12/03/16 09:00 1,000 mcg DAILY [facility] Administration Dextrose/Water 50 ml 11/27/16 23:50 Dextrose 50% In Water IVPUSH ASDIRECTED PRN Hypoglycemia Enoxaparin Sodium 40 mg 11/28/16 09:00 11/29/16 09:21 Lovenox SUBCUT 40 mg DAILY [facility] Administration Hydralazine HCl 20 mg 11/27/16 22:28 11/28/16 05:53 Apresoline IVPUSH 20 mg Q4H PRN Administration Hypertension Hydrocortisone Sodium Succinate 100 mg 11/27/16 23:00 11/29/16 17:44 Solu-Cortef IVPUSH 100 mg Q6H [facility] Administration Hydromorphone HCl 0.25 mg 11/28/16 15:54 Dilaudid IVPUSH Q2H PRN Pain (severe 7-10) Dextrose/Sodium Chloride 1,000 mls @ 125 mls/hr 11/27/16 22:15 11/29/16 15:16 Dextrose 5%-1/2 Ns IV 125 mls/hr ASDIRECTED [facility] Administration Metronidazole 500 mg/ Premix 100 mls @ 100 mls/hr 11/27/16 23:00 11/29/16 18: 35 IV 100 mls/hr Q6H [facility] Administration Erythromycin Lactobionate 250 100 mls @ 100 mls/hr 11/28/16 19:00 11/29/16 18 :45 mg/ Sodium Chloride IV 100 mls/hr Q6H [facility] Administration Insulin Aspart 0 unit 11/28/16 08:00 11/29/16 06:24 Novolog SUBCUT 2 unit BID@0700,2100 [facility] Administration Protocol Lorazepam 1 mg 11/27/16 22:06 Ativan IV Q6H PRN Nausea/Vomiting Magnesium Sulfate 1 dose 11/27/16 22:30 Pharmacy To Dose - Magnesium Replacement .XX ASDIRECTED [facility] Metoclopramide HCl 10 mg 11/27/16 23:30 11/29/16 17:44 Reglan IVPUSH 10 mg Q6H [facility] Administration Metoprolol Tartrate 5 mg 11/27/16 22:28 Lopressor IVPUSH Q4H PRN Tachycardia Multi-Ingred Cream/Lotion/Oil/Oint 15 gm 11/28/16 09:00 11/29/16 15:52 Zinc Oxide TOP Not Given TID [facility] Nitroglycerin 0.4 mg 11/27/16 22:13 Nitrostat SL ASDIRECTED PRN Chest Pain Nystatin 15 gm 11/28/16 09:00 11/29/16 15:52 Nystatin Crm TOP Not Given TID [facility] Pantoprazole Sodium 40 mg 11/28/16 09:00 11/29/16 09:22 Protonix Iv IV 40 mg DAILY [facility] Administration Phenol/Menthol 15 ml 11/28/16 10:23 11/28/16 21:00 Chloraseptic MUCMEM 2 spray Q2H PRN Administration Sore Throat Polyethylene Glycol 17 gm 11/27/16 22:06 Miralax PO DAILY PRN Constipation Potassium Chloride 1 dose 11/27/16 22:30 Pharmacy To Dose - Potassium Replacement .XX ASDIRECTED [facility] Senna/Docusate Sodium 1 tab 11/27/16 22:06 Senna Plus PO BID PRN Constipation Temazepam 30 mg 11/28/16 15:54 Restoril PO BEDTIME PRN Sleep Discontinued Medications Generic Name Dose Route Start Last Admin Trade Name Freq PRN Reason Stop Dose Admin Cyanocobalamin 1,000 mcg 11/27/16 23:00 11/27/16 23:41 Vitamin B12 SUBCUT 11/27/16 23:01 1,000 mcg ONETIME ONE Administration Diatrizoate Meglum/Diatrizoate Sod 90 ml 11/27/16 16:14 11/27/16 17:14 Gastrografin 37% PO 11/27/16 16:15 90 ml ONETIME ONE Administration Enoxaparin Sodium 30 mg 11/28/16 09:00 Lovenox SUBCUT DAILY [facility] Folic Acid 2 mg 11/28/16 22:15 11/28/16 21:17 Folic Acid SUBCUT 11/28/16 22:16 2 mg DAILY ONE Administration Hydromorphone HCl 0.5 mg 11/27/16 20:47 11/27/16 21:23 Dilaudid IVPUSH 11/27/16 20:48 0.5 mg ONETIME ONE Administration Hydromorphone HCl 0.25 mg 11/27/16 22:06 Dilaudid IVPUSH Q2H PRN Pain (severe 7-10) Sodium Chloride 500 mls @ 500 mls/hr 11/27/16 15:20 11/27/16 15:58 Normal Saline IV 11/27/16 16:19 500 mls/hr ONETIME ONE Administration Sodium Chloride 1,000 mls @ 100 mls/hr 11/27/16 20:45 11/27/16 21:30 Normal Saline IV 100 mls/hr ASDIRECTED [facility] Administration Magnesium Sulfate 2 gm/ Premix 50 mls @ 25 mls/hr 11/27/16 22:18 11/28/16 00: 09 IV 11/28/16 00:17 25 mls/hr ONETIME ONE Administration Thiamine HCl 200 mg/ Sodium 102 mls @ 50 mls/hr 11/27/16 22:30 11/28/16 01:19 Chloride IV 11/28/16 00:32 50 mls/hr ONETIME ONE Administration Potassium Chloride 10 meq/ 100 mls @ 100 mls/hr 11/27/16 22:30 11/28/16 01:21 Premix IV 11/28/16 00:29 100 mls/hr Q1H [facility] Administration Multivitamins/Minerals 10 ml/ 510 mls @ 127 mls/hr 11/28/16 11:00 11/28/16 11 :14 Sodium Chloride IV 11/28/16 15:00 127 mls/hr ONETIME ONE Administration Potassium Chloride 10 meq/ 100 mls @ 100 mls/hr 11/29/16 09:00 11/29/16 18:06 Premix IV 11/29/16 16:59 Not Given Q1H [facility] Potassium Chloride Confirm 11/29/16 12:37 11/29/16 12:46 Kcl 10 Meq In Water 100 Ml Administered 11/29/16 12:38 Not Given Dose 100 mls @ as directed .ROUTE .STK-MED ONE Potassium Chloride 10 meq/ 100 mls @ 100 mls/hr 11/29/16 18:00 11/29/16 18:07 Premix IV 11/29/16 21:59 Not Given Q1H [facility] Insulin Aspart 0 unit 11/27/16 23:45 Novolog SUBCUT ASDIRECTED [facility] Protocol Iopamidol 100 ml 11/27/16 16:14 11/27/16 17:14 Isovue-300 (61%) IVPUSH 11/27/16 16:15 100 ml ONETIME ONE Administration Multivitamins/Minerals 10 ml 11/28/16 10:00 11/28/16 19:56 M.V.I. Adult IV Not Given DAILY@1000 [facility] Ondansetron HCl 4 mg 11/27/16 15:22 11/27/16 16:01 Zofran IVPUSH 11/27/16 15:23 4 mg ONETIME ONE Administration Pantoprazole Sodium 40 mg 11/27/16 22:15 11/27/16 23:20 Protonix Iv IVPUSH 11/27/16 22:16 40 mg ONETIME ONE Administration Potassium Chloride 60 meq 11/29/16 18:02 11/29/16 18:36 Klor-Con M20 PO 11/29/16 18:03 60 meq ONETIME ONE Administration Sodium Chloride 10 ml 11/27/16 16:14 11/27/16 17:14 Saline Flush FLUSH 11/27/16 16:15 10 ml ONETIME ONE Administration Temazepam 30 mg 11/27/16 22:06 Restoril PO BEDTIME PRN Sleep - Radiology Interpretation Free Text/Narrative:: Flat and upright of the abdomen show multiple air fluid lines CT of the abdomen and pelvis impression per Dr. Aquino: 1. Dilated small bowel compatible with small bowel obstruction caused by an area of narrowing involving the terminal ileum. Mild bowel wall thickening seen within the terminal ileum but bowel wall thickening has improved from previous CT exam. Dilated small bowel has worsened from prior exam. 2. Increased probably fluid within the pelvis presumably reactive. 3. 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 Other incidental findings. - Re-Assessments/Exams Free Text/Narrative Re-Assessment/Exam: 11/27/16 17:09 Labs returned. WBC is normal at 8.70, hgb is 13.3 and plts are 142 Sodium is 134, potassium is 3.7 and chloride is 94. Anion gap is 10.7 Xray shows multiple air fluid lines. Awaiting Ct of the abdomen and pelvis to further evaluate obstruction. 11/27/16 19:[address] Carrera, surgery bar machine operator production .Did not feel surgical intervention was necessary at this time. Recommended medical management of the bowel obstruction. 11/27/16 21:[address] Johnson, hospitalist bar machine operator production, agrees to admission. Will admit med/surg with tele. Asked that Dr. Carrera consult. Case discussed with Dr. Carrera. will see the patient in the morning. Recommended NG tube, pain medication, steroids and IV fluids for management. Departure - Departure Time of Disposition: 20:50 Disposition: Admitted As Inpatient 66 Condition: serious Clinical Impression: Small bowel obstruction
[2016-11-27] MEDS ORDERED: Sodium Chloride 0.9% 500 ML IV ONE (15:20)
[2016-11-27] MEDS ORDERED: Ondansetron 4 MG/2 ML SDV IVPUSH ONE (15:22)
[2016-11-27] MEDS ORDERED: Diatrizoate Meglumine/Diatrizoate Sodium 37% 120 ML Bottle PO ONE (16:14)
[2016-11-27] MEDS ORDERED: Iopamidol 612 MG/ML 100 ML Bottle IVPUSH ONE (16:14)
[2016-11-27] MEDS ORDERED: Sodium Chloride 0.9% 10 ML Syringe FLUSH ONE (16:14)
--- NOTE | 2016-11-27 18:04 | CT ---
CT abdomen and pelvis Technique: Multiple axial sections were obtained from above the dome of the diaphragm inferiorly through the pubic symphysis. Intravenous and oral contrast was utilized. Comparison: Previous abdominal x-ray performed earlier on the same day as well as CT abdomen and pelvis study performed in 11/08/16. Findings: Visualized lung bases shows nothing acute. Liver shows no focal parenchymal abnormality. Spleen shows calcified granulomas but otherwise appears unremarkable. Small hiatal hernia is seen with gastroesophageal reflux of contrast. Adrenal glands show no nodule. Pancreas is within normal limits. Kidneys show symmetric contrast enhancement. 2 cysts are noted within the right kidney which appears stable. Aorta shows some ectasia with mild aneurysmal dilatation of the mid aorta with AP dimension of 3.2 cm. This remain stable from previous exam. Atherosclerotic change continues into the iliac vessels. Dilated small bowel loops are identified down to the terminal ileum. Obstruction occurs at area of previous bowel wall thickening. The amount of bowel wall thickening has improved from previous exam but luminal narrowing has progressed. Fluid is seen within the pelvis which is more prominent than on previous exam which appears non-complicated and presumably is reactive. Fat-containing inguinal hernias are noted. No inflammatory change is seen. Delayed images shows contrast within the distal ureters and bladder. Impression: 1. Dilated small bowel compatible with small bowel obstruction caused by an area of narrowing involving the terminal ileum. Mild bowel wall thickening seen within the terminal ileum but bowel wall thickening has improved from previous CT exam. Dilated small bowel has worsened from prior exam. 2. Increased probably fluid within the pelvis presumably reactive. 3. Mild aneurysmal dilatation of the mid aorta at 3.2 cm. 4. Other incidental findings as noted above. Diagnostic code #3
[2016-11-27] MEDS ORDERED: Sodium Chloride 0.9% 1,000 ML IV SCH (20:45)
[2016-11-27] MEDS ORDERED: HYDROmorphone 0.5 MG/0.5 ML Syringe IVPUSH ONE (20:47)
--- NOTE | 2016-11-27 21:39 | PCM.HP ---
H&P History of Present Illness - General Date of Service: 11/27/16 Admit Problem/Dx: Admission Diagnosis/Problem Admission Diagnosis/Problem Small bowel obstruction Source of Information: Patient, Old records, Provider, RN notes reviewed History Limitations: Reports: No limitations - History of Present Illness Initial Comments - Free Text/Narative: This is a 76 yo elderly white female with past medical hx/o CAD S/p Stent x3, HTN, GERD, Urinary Incontinence, OA/DJD, Peripheral Edema, DM2, and Hypothyroidism who comes with c/o no bowel movement for over 1 week now. Patient carries a hx/o Crohn's Disease on Remicade. She follows Dr. Calero for it. Her last visit with him (but ended up seeing a mid-level) was this past and was told everything okay. Patient reports bloating, distention, nausea w/ emesis and lower abdominal pain. She denies flatus. Patient OTC remedies but w/o much relief. No unusual drinks or diet. No recent travel outside the country. Patient is known to me from previous admission related to acute flare up of her IBD. Her initial work up in ED shows a fairly unremarkable CBC. Her chemistry is significant for Na 134, Cl 97, CO2 33, BUN 20, BS 82, Albumin 3.2 and Total Protein 6.1. Her AXR shows air fluid levels suggestive of SBO. She is full code. Abdomen Pain Score (Numeric/FACES): 8 - Related Data Allergies/Adverse Reactions: Allergies Allergy/AdvReac Type Severity Reaction Status Date / Time No Known Allergies Allergy Verified 11/08/16 16:19 Home Medications: Home Meds Levothyroxine Sodium 75 mcg PO ACBRK 04/14/14 [History] Pantoprazole Sodium 1 tab PO DAILY 04/14/14 [History] Pravastatin [Pravachol] 1 tab PO DAILY 04/14/14 [History] metFORMIN [Glucophage] 1 tab PO BEDTIME 04/14/14 [History] Loperamide [Imodium AD] 1 tab PO BID PRN 06/18/15 [History] Nitroglycerin [Nitrostat] 0.4 mg SL ASDIRECTED PRN 06/18/15 [History] InFLIXimab [Remicade] 100 mg IV ASDIRECTED 06/30/15 [History] Colestid. 1 gram PO DAILY 06/14/16 [History] Aspirin 81 mg PO DAILY 09/19/16 [History] Acetaminophen [Tylenol] 650 mg PO Q4H PRN #0 tablet 11/14/16 [Rx] Ferrous Sulfate 325 mg PO WITHBREAKFAST #30 tablet 11/14/16 [Rx] Folic Acid 1 mg PO BEDTIME #30 tablet 11/14/16 [Rx] Furosemide [Lasix] 40 mg PO DAILY #30 tablet 11/14/16 [Rx] Levofloxacin [Levaquin] 500 mg PO DAILY #7 tablet 11/14/16 [Rx] Magnesium Oxide 400 mg PO BID #60 tablet 11/14/16 [Rx] Metoprolol Tartrate [Lopressor] 50 mg PO Q12HR #60 tablet 11/14/16 [Rx] Multivitamins,Therapeutic [Thera] 1 each PO BEDTIME tablet 11/14/16 [Rx] Nystatin [Nystatin Crm] 0 gm TOP TID #30 gm 11/14/16 [Rx] Potassium Chloride [Klor-Con 10] 20 meq PO DAILY #30 tab.er 11/14/16 [Rx] Potassium Chloride [Klor-Con M20] 40 meq PO BEDTIME #30 tab.er 11/14/16 [Rx] Prednisone [IJD: predniSONE] 10 mg PO DAILY #30 tablet 11/14/16 [Rx] Spironolactone [Aldactone] 25 mg PO DAILY #30 tablet 11/14/16 [Rx] Zinc Oxide 0 gm TOP TID #30 gm 11/14/16 [Rx] Past Medical History HEENT History: Reports: Impaired vision Cardiovascular History: Reports: CAD, Hypertension, Stents Other Cardiovascular History: x 3 Gastrointestinal History: Reports: GERD, Inflammatory bowel disease, Other (see below) Other Gastrointestinal History: crohn's Genitourinary History: Reports: Urinary incontinence Musculoskeletal History: Reports: Osteoarthritis Psychiatric History: Reports: Depression Endocrine/Metabolic History: Reports: Diabetes, type II, Hypothyroidism Other Endocrine/Metabolic History: borderline Dermatologic History: Reports: Other (see below) Other Dermatologic History: currently has cellulitis an rash - Infectious Disease History Infectious Disease History: Reports: Chicken pox, Measles, Mumps, Shingles - Past Surgical History HEENT Surgical History: Reports: Cataract surgery, Tonsillectomy Cardiovascular Surgical History: Reports: Coronary artery stent GI Surgical History: Reports: Cholecystectomy, Colonoscopy Endocrine Surgical History: Reports: None Musculoskeletal Surgical History: Reports: None Social & Family History - Family History Cardiac: Reports: Heart failure, Hypertension OBGYN: Reports: Endocrine/Metabolic: Reports: Diabetes, type II Oncologic: Reports: Other (see below) Other Oncologic Family History: Does not remember what kind of cancer - Tobacco Use Smoking Status *Q: Former Smoker Years of Tobacco use: 30 Packs/Tins Daily: 2 Used Tobacco, but Quit: Yes Month Tobacco Last Used: 1994 Second Hand Smoke Exposure: No - Caffeine Use Caffeine Use: Reports: Coffee, Energy drinks, Soda, Tea - Alcohol Use Days Per Week of Alcohol Use: 1 Number of Drinks Per Day: 1 Total Drinks Per Week: 1 - Recreational Drug Use Recreational Drug Use: No Drug Use in Last 12 Months: No - Living Situation & Occupation Living situation: Reports: , alone Occupation: retired H&P Review of Systems - Review of Systems: Review Of Systems: See Below General: Denies: fever, chills, malaise, weakness HEENT: Reports: no symptoms Pulmonary: Denies: Shortness of Breath Cardiovascular: Denies: chest pain, palpitations Gastrointestinal: Denies: Abdominal pain, Nausea, Vomiting Genitourinary: Reports: no symptoms Skin: Denies: cyanosis, mottled, pallor, bruising, pruritis, rash, erythema, wound, urticaria Psychiatric: Denies: depression, anxiety, hallucinations, suicidal ideation Neurological: Reports: Difficulty Walking, Gait Disturbance, Other (uses cane with ambulation). Denies: Confusion, Seizure Hematologic/Lymphatic: Reports: no symptoms Immunologic: Reports: no symptoms Exam - Exam Exam: See Below - Vital Signs Vital Signs: Last Vital Signs Temp 36.6 C 11/27/16 14:05 Pulse 83 11/27/16 14:05 Resp 20 11/27/16 14:05 BP 155/88 H 11/27/16 14:05 Pulse Ox 96 11/27/16 14:05 Weight: 83.915 kg - Exam General: alert, oriented, cooperative, mild distress HEENT: Conjunctiva clear, EACs clear, EOMI, Hearing intact, Nares patent, Normal nasal septum, PERRLA Neck: supple, trachea midline, 2+ carotid pulse wo bruit Lungs: Clear to auscultation, Normal respiratory effort Cardiovascular: regular rate, regular rhythm Abdomen: soft, tenderness (left lower quradrant), hypoactive bowel sounds. No: guarding, rigidity (Female) Exam: Deferred Rectal (Female) Exam: Normal Exam. No: Black stool, Hemorrhoids, Mass, Perirectal abscess, Rectal fissure Back Exam: normal inspection, decreased range of motion Extremities: normal inspection, normal pulses. No: clubbing, cyanosis, calf tenderness, edema Peripheral Pulses: 2+: dorsalis pedis (L), dorsalis pedis (R) Skin: warm, dry, intact. No: rash, ecchymosis Neuro Extensive - Mental Status: oriented x3, normal cognition, memory intact Neuro Extensive - Motor, Sensory, Reflexes: CN II-XII intact, normal gait Psychiatric: alert, normal affect, normal mood - Patient Data Result Diagrams: 11/27/16 14:37 11/27/16 14:37 *Q Meaningful Use (ADM) - VTE *Q VTE Criteria *Q: - Stroke *Q Stroke Criteria *Q: - AMI *Q AMI Criteria *Q: Problem List Initiated/Reviewed/Updated: Yes Orders Last 24hrs: Medication Orders Sodium Chloride (Normal Saline) 1,000 mls @ 100 mls/hr IV ASDIRECTED LEONARDO Last Admin: 11/27/16 21:30 Dose: 100 mls/hr Assessment/Plan Comment:: Assessment/Plan: Acute: Small Bowel Obstruction - Symptomatic: 1 week ago but got worse in the past 4 days - Last BM 1 week ago, Monday - She is not passing gas - Saw her GI specialist in [place] this past - was told everything ok - Dr. Carrera consulted by ED provider - On routine Remicade Infusion - NPO except ice chips and sips of water - Therapeutic NGT - Bowel rest - Follow up with Dr. Calero after d/c Crohn's Colitis - Flagyl 500 mg IV Q6 first dose now - Hydrocortisone 100 mg IVP Q6, first dose now - C. diff, O and PV and Stool Culture - Vit B12, MVI and Folic Acid Daily - NPO and Bowel rest for now Chronic: Impaired Vision CAD S/p Stent x 3 HTN GERD Urinary Incontinence OA/DJD Hypothyroidism Depression Hx/o Per-rectal and Chantelle-ashley Cellulitis Peripheral Edema Plan: Admit to Med-Surg Routine AM Labs D5W1/2NS for IVF Maintenance Hold Home Meds PT/OT consult SW/CM for d/c planning Code status:1 Additional orders as above
[2016-11-27] MEDS ORDERED: Temazepam 15 MG Cap PO PRN (22:06)
[2016-11-27] MEDS ORDERED: Bisacodyl 5 MG Tab PO PRN (22:06)
[2016-11-27] MEDS ORDERED: Acetaminophen 325 MG Tab PO PRN (22:06)
[2016-11-27] MEDS ORDERED: HYDROmorphone 1 MG/ML Syringe IVPUSH PRN (22:06)
[2016-11-27] MEDS ORDERED: Albuterol/Ipratropium 3.0-0.5 MG/3 ML Neb Soln NEB PRN (22:06)
[2016-11-27] MEDS ORDERED: Polyethylene Glycol 3350 Powder 17 GM Packet PO PRN (22:06)
[2016-11-27] MEDS ORDERED: Acetaminophen/HYDROcodone 325-5 MG Tab PO PRN (22:06)
[2016-11-27] MEDS ORDERED: LORazepam 2 MG/ML MDV IV PRN (22:06)
[2016-11-27] MEDS ORDERED: Nitroglycerin 0.4 MG Tab.SL SL PRN (22:13)
[2016-11-27] MEDS ORDERED: Pantoprazole 40 MG Vial IVPUSH ONE (22:15)
[2016-11-27] MEDS ORDERED: Magnesium Sulfate/Water 2 GM in Premix Bag 1 BAG IV ONE (22:18)
[2016-11-27] MEDS ORDERED: Metoprolol Tartrate 5 MG/5 ML SDV IVPUSH PRN (22:28)
[2016-11-27] MEDS ORDERED: Thiamine 200 MG in Sodium Chloride 0.9% 100 ML IV ONE (22:30)
[2016-11-27] MEDS ORDERED: Cyanocobalamin (Vitamin B12) 1,000 MCG/ML SDV SUBCUT ONE (23:00)
[2016-11-27] MEDS: Hydrocortisone Sodium Succinate 100 MG/2 ML SDV IVPUSH SCH (23:39)
[2016-11-27] MEDS: Dextrose 5%-0.45% NaCl 1,000 ML IV SCH (23:44)
[2016-11-27] MEDS ORDERED: Insulin Aspart 100 Units/ML 3 ML Pen SUBCUT SCH (23:45)
[2016-11-27] MEDS ORDERED: 50% Dextrose in Water 50 ML Syringe IVPUSH PRN (23:50)
[2016-11-27] MEDS: metroNIDAZOLE/Normal Saline 500 MG in Premix Bag 1 BAG IV SCH (23:51)
[2016-11-28] MEDS: Potassium Chloride 10 MEQ in Premix Bag 1 BAG IV SCH ×2 (00:09→01:21)
[2016-11-28] MEDS: Metoclopramide 10 MG/2 ML SDV IVPUSH SCH ×5 (01:19→23:15)
[2016-11-28] MEDS: metroNIDAZOLE/Normal Saline 500 MG in Premix Bag 1 BAG IV SCH ×4 (05:42→23:13)
[2016-11-28] MEDS: Hydrocortisone Sodium Succinate 100 MG/2 ML SDV IVPUSH SCH ×4 (05:42→23:15)
[2016-11-28] MEDS: hydrALAZINE 20 MG/ML SDV IVPUSH PRN (05:53)
[2016-11-28] MEDS: Dextrose 5%-0.45% NaCl 1,000 ML IV SCH ×3 (06:59→23:11)
--- NOTE | 2016-11-28 07:28 | PCM.CONS ---
H&P History of Present Illness - General Date of Service: 11/28/16 Admit Problem/Dx: Admission Diagnosis/Problem Admission Diagnosis/Problem Small bowel obstruction Source of Information: Patient - History of Present Illness Initial Comments - Free Text/Narative: 76-year-old, female, with a history of Crohn's terminal ileitis has been hospitalized 3 times for small bowel obstruction. The last admission, was about 2 weeks ago, when she was discharged after responding to optimal medical management. After discharge she was seen in her program dir's office, who told her that she was doing okay. She did well until about a week ago, when she began to experience progressive abdominal distention with colicky abdominal pain associated with anorexia, nausea, and several rounds of emesis. She's not had a full bowel movement since. She presented to the to the emergency room last night, for evaluation and care. This morning she has no abdominal pain, and after the nasogastric tube was placed she has no nausea. She has not had a bowel movement since admission. I was asked to see her in surgical consultation. Abdomen Pain Score (Numeric/FACES): 8 - Related Data Allergies/Adverse Reactions: Allergies Allergy/AdvReac Type Severity Reaction Status Date / Time No Known Allergies Allergy Verified 11/08/16 16:19 Home Medications: Home Meds Levothyroxine Sodium 75 mcg PO ACBRK 04/14/14 [History] Pantoprazole Sodium 1 tab PO DAILY 04/14/14 [History] Pravastatin [Pravachol] 1 tab PO DAILY 04/14/14 [History] metFORMIN [Glucophage] 1 tab PO BEDTIME 04/14/14 [History] Loperamide [Imodium AD] 1 tab PO BID PRN 06/18/15 [History] Nitroglycerin [Nitrostat] 0.4 mg SL ASDIRECTED PRN 06/18/15 [History] InFLIXimab [Remicade] 100 mg IV ASDIRECTED 06/30/15 [History] Colestid. 1 gram PO DAILY 06/14/16 [History] Aspirin 81 mg PO DAILY 09/19/16 [History] Acetaminophen [Tylenol] 650 mg PO Q4H PRN #0 tablet 11/14/16 [Rx] Ferrous Sulfate 325 mg PO WITHBREAKFAST #30 tablet 11/14/16 [Rx] Folic Acid 1 mg PO BEDTIME #30 tablet 11/14/16 [Rx] Furosemide [Lasix] 40 mg PO DAILY #30 tablet 11/14/16 [Rx] Levofloxacin [Levaquin] 500 mg PO DAILY #7 tablet 11/14/16 [Rx] Magnesium Oxide 400 mg PO BID #60 tablet 11/14/16 [Rx] Metoprolol Tartrate [Lopressor] 50 mg PO Q12HR #60 tablet 11/14/16 [Rx] Multivitamins,Therapeutic [Thera] 1 each PO BEDTIME tablet 11/14/16 [Rx] Nystatin [Nystatin Crm] 0 gm TOP TID #30 gm 11/14/16 [Rx] Potassium Chloride [Klor-Con 10] 20 meq PO DAILY #30 tab.er 11/14/16 [Rx] Potassium Chloride [Klor-Con M20] 40 meq PO BEDTIME #30 tab.er 11/14/16 [Rx] Prednisone [IJD: predniSONE] 10 mg PO DAILY #30 tablet 11/14/16 [Rx] Spironolactone [Aldactone] 25 mg PO DAILY #30 tablet 11/14/16 [Rx] Zinc Oxide 0 gm TOP TID #30 gm 11/14/16 [Rx] Past Medical History HEENT History: Reports: Impaired vision Other HEENT History: wears glasses Cardiovascular History: Reports: CAD, Hypertension, Stents Other Cardiovascular History: x 3 Gastrointestinal History: Reports: GERD, Inflammatory bowel disease, Other (see below) Other Gastrointestinal History: crohn's Genitourinary History: Reports: Urinary incontinence Musculoskeletal History: Reports: Osteoarthritis Psychiatric History: Reports: Depression Endocrine/Metabolic History: Reports: Diabetes, type II, Hypothyroidism Other Endocrine/Metabolic History: borderline Dermatologic History: Reports: Other (see below) Other Dermatologic History: currently has cellulitis an rash - Infectious Disease History Infectious Disease History: Reports: Chicken pox, Measles, Mumps, Shingles - Past Surgical History HEENT Surgical History: Reports: Cataract surgery, Tonsillectomy Cardiovascular Surgical History: Reports: Coronary artery stent GI Surgical History: Reports: Cholecystectomy, Colonoscopy Endocrine Surgical History: Reports: None Musculoskeletal Surgical History: Reports: None Social & Family History - Family History Family Medical History: Noncontributory Cardiac: Reports: Heart failure, Hypertension OBGYN: Reports: Endocrine/Metabolic: Reports: Diabetes, type II Oncologic: Reports: Other (see below) Other Oncologic Family History: Does not remember what kind of cancer - Tobacco Use Smoking Status *Q: Former Smoker Years of Tobacco use: 30 Packs/Tins Daily: 2 Used Tobacco, but Quit: Yes Month Tobacco Last Used: 1994 Second Hand Smoke Exposure: No - Caffeine Use Caffeine Use: Reports: Coffee, Energy drinks, Soda, Tea Other Caffeine Use: a cup every day - Alcohol Use Days Per Week of Alcohol Use: 1 Number of Drinks Per Day: 1 Total Drinks Per Week: 1 - Recreational Drug Use Recreational Drug Use: No Drug Use in Last 12 Months: No - Living Situation & Occupation Living situation: Reports: , alone Occupation: retired H&P Review of Systems - Review of Systems: Review Of Systems: ROS reveals no pertinent complaints other than HPI. Exam - Exam Exam: See Below - Vital Signs Vital Signs: Last Vital Signs Temp 36.1 C 11/28/16 05:35 Pulse 75 11/28/16 05:35 Resp 16 11/28/16 05:35 BP 153/73 H 11/28/16 05:35 Pulse Ox 90 L 11/28/16 05:35 Weight: 82.69 kg - Exam Quality Assessment: supplemental oxygen General: alert, oriented, cooperative HEENT: Hearing intact Neck: supple, trachea midline Lungs: Normal respiratory effort Cardiovascular: regular rate, regular rhythm, normal S1, normal S2 Abdomen: normal bowel sounds, soft, distention (Female) Exam: Deferred Rectal (Female) Exam: Deferred Extremities: normal inspection Skin: warm, dry Psychiatric: alert, normal affect - Patient Data Lab Results last 24 hrs: Laboratory Results - last 24 hr 11/28/16 Range/Units 06:40 POC Glucose 178 H (83-110) mg/dL Result Diagrams: 11/27/16 14:37 11/27/16 14:37 Consult PN Assessment/Plan Procedures: Procedures AGENT NOS ASSAY W/OPTIC (11/08/16) ASSAY OF CK (CPK) (06/14/16) ASSAY OF FOLIC ACID RBC (11/08/16) ASSAY OF FREE THYROXINE (11/08/16) ASSAY OF IRON (11/08/16) ASSAY OF LACTIC ACID (11/08/16) ASSAY OF LIPASE (09/19/16) ASSAY OF MAGNESIUM (11/08/16) ASSAY OF NATRIURETIC PEPTIDE (11/08/16) ASSAY OF SERUM POTASSIUM (11/08/16) ASSAY OF TRANSFERRIN (11/08/16) ASSAY OF TROPONIN QUANT (06/14/16) ASSAY THYROID STIM HORMONE (11/08/16) BLOOD CULTURE FOR BACTERIA (11/08/16) C DIFF AMPLIFIED PROBE (11/08/16) C-REACTIVE PROTEIN (11/08/16) CARDIOVASCULAR STRESS TEST (06/29/16) CHEST X-RAY 1 VIEW FRONTAL (06/14/16) COMPLETE CBC W/AUTO DIFF WBC (11/08/16) COMPREHEN METABOLIC PANEL (11/08/16) CREATINE MB FRACTION (06/14/16) CRYPTOSPORIDIUM AG IA (11/08/16) CT ABD & PELV W/CONTRAST (11/08/16) CT ANGIOGRAPHY CHEST (06/14/16) CT HEAD/BRAIN W/O DYE (11/08/16) CT NECK SPINE W/O DYE (09/27/14) CULTURE AEROBIC IDENTIFY (05/15/14) ELECTROCARDIOGRAM TRACING (06/14/16) EMERGENCY DEPT VISIT (11/08/16) EMERGENCY DEPT VISIT (08/19/16) EMERGENCY DEPT VISIT (06/14/16) EMERGENCY DEPT VISIT (01/03/16) EMERGENCY DEPT VISIT (09/27/14) EXTRACRANIAL BILAT STUDY (06/14/16) FIBRIN DEGRADATION QUANT (06/14/16) GAIT TRAINING THERAPY (11/08/16) GIARDIA AG IA (11/08/16) GLUCOSE BLOOD TEST (11/08/16) GLYCOSYLATED HEMOGLOBIN TEST (11/08/16) HT MUSCLE IMAGE SPECT MULT (06/29/16) HYDRATE IV INFUSION ADD-ON (09/19/16) HYDRATION IV INFUSION INIT (06/14/16) IMMUNIZATION ADMIN (12/19/15) INFLUENZA ASSAY W/OPTIC (11/08/16) INTMD RPR S/TR/EXT 7.6-12.5 (12/19/15) LIPID PANEL (09/08/16) METABOLIC PANEL TOTAL CA (11/08/16) MICROBE SUSCEPTIBLE DISK (11/08/16) MICROBE SUSCEPTIBLE MIRI (11/08/16) MRI BRAIN STEM W/O DYE (06/14/16) NEUROMUSCULAR REEDUCATION (11/08/16) OCCULT BLD FECES 1-3 TESTS (11/08/16) OT EVAL LOW COMPLEX 30 MIN (11/08/16) OT EVALUATION (06/14/16) PT EVAL LOW COMPLEX 20 MIN (11/08/16) PT EVALUATION (06/14/16) RBC SED RATE AUTOMATED (11/08/16) REPAIR BLADDER DEFECT (04/15/14) REPAIR OF VAGINA (04/15/14) ROUTINE VENIPUNCTURE (11/08/16) RPR S/N/AX/GEN/TRNK 2.5CM/< (12/19/15) STOOL CULTR AEROBIC BACT EA (11/08/16) TDAP VACCINE 7 YRS/> IM (12/19/15) THER/PROPH/DIAG INJ IV PUSH (08/19/16) THER/PROPH/DIAG IV INF ADDON (11/14/16) THER/PROPH/DIAG IV INF INIT (11/14/16) THERAPEUTIC ACTIVITIES (06/14/16) TISSUE EXAM BY PATHOLOGIST (11/08/16) TTE W/DOPPLER COMPLETE (11/08/16) TX/PRO/DX INJ NEW DRUG ADDON (07/14/16) URINALYSIS AUTO W/O SCOPE (04/22/14) URINALYSIS AUTO W/SCOPE (11/08/16) URINE BACTERIA CULTURE (11/08/16) URINE CULTURE/COLONY COUNT (11/08/16) VANOMYCIN DNA AMP PROBE (04/25/16) VITAMIN B-12 (11/08/16) VITAMIN D 25 HYDROXY (11/08/16) X-RAY EXAM OF ABDOMEN (08/19/16) X-RAY EXAM OF HAND (01/03/16) X-RAY EXAM OF SHOULDER (09/27/14) (1) Crohn's disease of small intestine with intestinal obstruction SNOMED Code(s): 13378856 Code(s): K50.012 - CROHN'S DISEASE OF SMALL INTESTINE W INTESTINAL OBSTRUCTION Priority: Medium Current Visit: Yes Problem List Initiated/Reviewed/Updated: Yes My Orders last 24 hours: Imp: Complicated Crohn's disease of the terminal ileum presenting with recurrent mid to high grade low small bowel obstructions. Fortunately, she has responded to aggressive medical management in the past. This morning she is without abdominal pain, has a normal temperature, and presented with a normal white blood cell count. She has a nonfocal abdominal examination. Her plain films, and CT scans do show dilated loops of small bowel secondary to stricturing of the terminal ileum. My hope is that she responds to hospitalist medical management in consultation with her program dir. This may take several days of management. Surgery for Crohn's disease is a last resort option. This could involve a stricturoplasty, or resection in this high risk medical patient. Rec: Medical management to include nasogastric tube suctioning with IV hydration , fluid and electrolyte balancing, as well as a immune-suppressants as dictated by her program dir. I will follow.
--- NOTE | 2016-11-28 07:59 | CR ---
Abdomen: Supine and upright views of the abdomen were obtained. Comparison: Previous CT abdomen and pelvis exam of 11/08/16. Mildly dilated loops of air-filled small bowel are seen with differential air-fluid levels. Findings suspicious for distal small bowel obstruction. Calcifications within the pelvis are compatible with phleboliths. Bony structures are unremarkable for the patient's age. Impression: 1. Dilated small bowel loops with air-fluid levels suspicious for distal small bowel obstruction. Diagnostic code #3
[2016-11-28] MEDS ORDERED: Enoxaparin 30 MG/0.3 ML Syringe SUBCUT SCH (09:00)
--- NOTE | 2016-11-28 09:27 | PCM.PN ---
- General Info Date of Service: 11/28/16 Admission Dx/Problem (Free Text): Admission Diagnosis/Problem Admission Diagnosis/Problem Small bowel obstruction Subjective Update: Follow Up Functional Status: Reports: pain controlled, ambulating, urinating. Denies: new symptoms - Review of Systems General: Denies: Fever, Chills HEENT: Reports: no symptoms Pulmonary: Denies: shortness of breath Cardiovascular: Denies: Chest Pain Gastrointestinal: Denies: Abdominal pain, Nausea, Vomiting Genitourinary: Reports: no symptoms Musculoskeletal: Reports: no symptoms Skin: Denies: pruritis, rash Neurological: Denies: Confusion, Difficulty Walking, Weakness, Gait Disturbance Psychiatric: Denies: depression, anxiety, hallucinations Systems Review Comment:: No overnight or acute issues. She wants NGT out. Her NGT output still considerably high. She slept well. She is not passing gas. She has no new complaints. - Patient Data Vitals - most recent: Last Vital Signs Temp 36.8 C 11/28/16 08:09 Pulse 107 H 11/28/16 08:09 Resp 19 11/28/16 08:09 BP 172/74 H 11/28/16 08:09 Pulse Ox 93 L 11/28/16 08:09 Weight - most recent: 82.69 kg I&O - last 24 hours: Intake & Output 11/27/16 11/28/16 11/28/16 22:59 06:59 14:59 Intake Total 1308 Balance 1308 Lab Results last 24 hrs: Laboratory Results - last 24 hr 11/28/16 11/28/16 11/28/16 Range/Units 06:17 06:17 06:17 WBC 5.09 (3.98-10.04) K/mm3 RBC 5.25 H (3.98-5.22) M/mm3 Hgb 12.9 (11.2-15.7) gm/L Hct 39.8 (34.1-44.9) % MCV 75.8 L (79.4-94.8) fl MCH 24.6 L (25.6-32.2) pg MCHC 32.4 (32.2-35.5) g/dl RDW Std Deviation 48.3 H (36.4-46.3) fL Plt Count 127 L (182-369) K/mm3 MPV 11.0 (9.4-12.3) fl Neut % (Auto) 73.1 H (34.0-71.1) % Lymph % (Auto) 21.2 (19.3-51.7) % [place] % (Auto) 4.9 (4.7-12.5) % Eos % (Auto) 0.4 L (0.7-5.8) Baso % (Auto) 0.2 (0.1-1.2) % Neut # 3.72 (1.56-6.13) K/mm3 Lymph # 1.08 L (1.18-3.74) K/mm3 Assumption # 0.25 (0.24-0.36) K/mm3 Eos # 0.02 L (0.04-0.36) K/mm3 Baso # 0.01 (0.01-0.08) K/mm3 Manual Slide Review Abnormal smear ESR 10 (0-20) mm/hr Sodium 132 L (136-145) mEq/L Potassium 3.5 (3.5-5.1) mEq/L Chloride 95 L (98-107) mEq/L Carbon Dioxide 30 (21-32) mEq/L Anion Gap 10.5 (5-15) BUN 16 (7-18) mg/dL Creatinine 0.7 (0.55-1.02) mg/dL Est Cr Clr Drug Dosing 64.01 mL/min Estimated GFR (MDRD) > 60 (>60) mL/min BUN/Creatinine Ratio 22.9 H (14-18) Glucose 162 H (83-115) mg/dL POC Glucose (83-110) mg/dL Calcium 8.1 L (8.5-10.1) mg/dL Magnesium 2.2 (1.8-2.4) mg/dl C-Reactive Protein 0.6 (<1.0) mg/dL 11/28/16 Range/Units 06:40 WBC (3.98-10.04) K/mm3 RBC (3.98-5.22) M/mm3 Hgb (11.2-15.7) gm/L Hct (34.1-44.9) % MCV (79.4-94.8) fl MCH (25.6-32.2) pg MCHC (32.2-35.5) g/dl RDW Std Deviation (36.4-46.3) fL Plt Count (182-369) K/mm3 MPV (9.4-12.3) fl Neut % (Auto) (34.0-71.1) % Lymph % (Auto) (19.3-51.7) % [place] % (Auto) (4.7-12.5) % Eos % (Auto) (0.7-5.8) Baso % (Auto) (0.1-1.2) % Neut # (1.56-6.13) K/mm3 Lymph # (1.18-3.74) K/mm3 [place] # (0.24-0.36) K/mm3 Eos # (0.04-0.36) K/mm3 Baso # (0.01-0.08) K/mm3 Manual Slide Review ESR (0-20) mm/hr Sodium (136-145) mEq/L Potassium (3.5-5.1) mEq/L Chloride (98-107) mEq/L Carbon Dioxide (21-32) mEq/L Anion Gap (5-15) BUN (7-18) mg/dL Creatinine (0.55-1.02) mg/dL Est Cr Clr Drug Dosing mL/min Estimated GFR (MDRD) (>60) mL/min BUN/Creatinine Ratio (14-18) Glucose (83-115) mg/dL POC Glucose 178 H (83-110) mg/dL Calcium (8.5-10.1) mg/dL Magnesium (1.8-2.4) mg/dl C-Reactive Protein (<1.0) mg/dL Med Orders - Current: Current Medications Acetaminophen (Tylenol) 650 mg PO Q4H PRN PRN Reason: Pain (Mild 1-3)/fever Acetaminophen/Hydrocodone Bitart ([place] 325-5 Mg) 1 tab PO Q4H PRN PRN Reason: Pain (moderate 4-6) Albuterol/Ipratropium (Duoneb 3.0-0.5 Mg/3 Ml) 3 ml NEB Q4H PRN PRN Reason: Shortness Of Breath/wheezing Bisacodyl (Dulcolax) 5 mg PO DAILY PRN PRN Reason: Constipation Bumetanide (Bumex) 0.5 mg IVPUSH DAILY [facility] Cyanocobalamin (Vitamin B12) 1,000 mcg SUBCUT DAILY [facility] Stop: 12/03/16 09:00 Dextrose/Water (Dextrose 50% In Water) 50 ml IVPUSH ASDIRECTED PRN PRN Reason: Hypoglycemia Enoxaparin Sodium (Lovenox) 40 mg SUBCUT DAILY [facility] Folic Acid (Folic Acid) 2 mg SUBCUT DAILY ONE Stop: 11/28/16 22:16 Hydralazine HCl (Apresoline) 20 mg IVPUSH Q4H PRN PRN Reason: Hypertension Last Admin: 11/28/16 05:53 Dose: 20 mg Hydrocortisone Sodium Succinate (Solu-Cortef) 100 mg IVPUSH Q6H [facility] Last Admin: 11/28/16 05:42 Dose: 100 mg Hydromorphone HCl (Dilaudid) 0.25 mg IVPUSH Q2H PRN PRN Reason: Pain (severe 7-10) Dextrose/Sodium Chloride (Dextrose 5%-1/2 Ns) 1,000 mls @ 125 mls/hr IV ASDIRECTED [facility] Last Admin: 11/28/16 06:59 Dose: 125 mls/hr Metronidazole 500 mg/ Premix 100 mls @ 100 mls/hr IV Q6H [facility] Last Admin: 11/28/16 05:42 Dose: 100 mls/hr Insulin Aspart (Novolog) 0 unit SUBCUT BID@0700,2100 [facility] PRN Reason: Protocol Lorazepam (Ativan) 1 mg IV Q6H PRN PRN Reason: Nausea/Vomiting Magnesium Sulfate (Pharmacy To Dose - Magnesium Replacement) 1 dose .XX ASDIRECTED [facility] Metoclopramide HCl (Reglan) 10 mg IVPUSH Q6H [facility] Last Admin: 11/28/16 05:42 Dose: 10 mg Metoprolol Tartrate (Lopressor) 5 mg IVPUSH Q4H PRN PRN Reason: Tachycardia Multi-Ingred Cream/Lotion/Oil/Oint (Zinc Oxide) 15 gm TOP TID [facility] Multivitamins/Minerals (M.V.I. Adult) 10 ml IV DAILY@1000 [facility] Nitroglycerin (Nitrostat) 0.4 mg SL ASDIRECTED PRN PRN Reason: Chest Pain Nystatin (Nystatin Crm) 15 gm TOP TID [facility] Pantoprazole Sodium (Protonix Iv) 40 mg IV DAILY [facility] Polyethylene Glycol (Miralax) 17 gm PO DAILY PRN PRN Reason: Constipation Potassium Chloride (Pharmacy To Dose - Potassium Replacement) 1 dose .XX ASDIRECTED [facility] Senna/Docusate Sodium (Senna Plus) 1 tab PO BID PRN PRN Reason: Constipation Temazepam (Restoril) 30 mg PO BEDTIME PRN PRN Reason: Sleep Discontinued Medications Cyanocobalamin (Vitamin B12) 1,000 mcg SUBCUT ONETIME ONE Stop: 11/27/16 23:01 Last Admin: 11/27/16 23:41 Dose: 1,000 mcg Diatrizoate Meglum/Diatrizoate Sod (Gastrografin 37%) 90 ml PO ONETIME ONE Stop: 11/27/16 16:15 Last Admin: 11/27/16 17:14 Dose: 90 ml Enoxaparin Sodium (Lovenox) 30 mg SUBCUT DAILY [facility] Hydromorphone HCl (Dilaudid) 0.5 mg IVPUSH ONETIME ONE Stop: 11/27/16 20:48 Last Admin: 11/27/16 21:23 Dose: 0.5 mg Sodium Chloride (Normal Saline) 500 mls @ 500 mls/hr IV ONETIME ONE Stop: 11/27/16 16:19 Last Admin: 11/27/16 15:58 Dose: 500 mls/hr Sodium Chloride (Normal Saline) 1,000 mls @ 100 mls/hr IV ASDIRECTED [facility] Last Admin: 11/27/16 21:30 Dose: 100 mls/hr Magnesium Sulfate 2 gm/ Premix 50 mls @ 25 mls/hr IV ONETIME ONE Stop: 11/28/16 00:17 Last Admin: 11/28/16 00:09 Dose: 25 mls/hr Thiamine HCl 200 mg/ Sodium (Chloride) 102 mls @ 50 mls/hr IV ONETIME ONE Stop: 11/28/16 00:32 Last Admin: 11/28/16 01:19 Dose: 50 mls/hr Potassium Chloride 10 meq/ (Premix) 100 mls @ 100 mls/hr IV Q1H [facility] Stop: 11/28/16 00:29 Last Admin: 11/28/16 01:21 Dose: 100 mls/hr Insulin Aspart (Novolog) 0 unit SUBCUT ASDIRECTED [facility] PRN Reason: Protocol Iopamidol (Isovue-300 (61%)) 100 ml IVPUSH ONETIME ONE Stop: 11/27/16 16:15 Last Admin: 11/27/16 17:14 Dose: 100 ml Ondansetron HCl (Zofran) 4 mg IVPUSH ONETIME ONE Stop: 11/27/16 15:23 Last Admin: 11/27/16 16:01 Dose: 4 mg Pantoprazole Sodium (Protonix Iv) 40 mg IVPUSH ONETIME ONE Stop: 11/27/16 22:16 Last Admin: 11/27/16 23:20 Dose: 40 mg Sodium Chloride (Saline Flush) 10 ml FLUSH ONETIME ONE Stop: 11/27/16 16:15 Last Admin: 11/27/16 17:14 Dose: 10 ml - Exam General: alert, oriented, cooperative, no acute distress HEENT: Pupils equal, Pupils reactive, EOMI, Mucous membr. moist/pink, Other ( NGT in) Neck: supple, trachea midline Lungs: Clear to auscultation, Normal respiratory effort Cardiovascular: Regular Rate, Regular Rhythm Abdomen: soft, tenderness, abnormal bowel sounds (high pitch bowel sound). No: no distension, rigidity, rebound, guarding (Female) Exam: Deferred Back Exam: normal inspection, decreased range of motion Extremities: no edema, normal pulses, no tenderness/swelling, no clubbing, no cyanosis, no calf tenderness Peripheral Pulses: 2+: dorsalis pedis (L), dorsalis pedis (R) Skin: warm, dry, intact Neurological: no new focal deficit Psy/Mental Status: alert, normal affect - Problem List Review Problem List Initiated/Reviewed/Updated: Yes - My Orders Last 24 Hours: My Active Orders 11/27/16 22:06 Height and Weight [RC] 04 Oxygen Therapy [RC] PRN Up With Assistance [RC] ASDIRECTED Up ad Jessica [RC] ASDIRECTED VTE/DVT Education [RC] PER UNIT ROUTINE Vital Signs [RC] Q4H Acetaminophen [Tylenol] 650 mg PO Q4H PRN Acetaminophen/HYDROcodone [[place] 325-5 MG] 1 tab PO Q4H PRN Albuterol/Ipratropium [DuoNeb 3.0-0.5 MG/3 ML] 3 ml NEB Q4H PRN Bisacodyl [Dulcolax] 5 mg PO DAILY PRN Docusate Sodium/Sennosides [Senna Plus] 1 tab PO BID PRN HYDROmorphone [Dilaudid] 0.25 mg IVPUSH Q2H PRN LORazepam [Ativan] 1 mg IV Q6H PRN Polyethylene Glycol 3350 [MiraLAX] 17 gm PO DAILY PRN Temazepam [Restoril] 30 mg PO BEDTIME PRN Resuscitation Status Routine 11/27/16 22:07 Intake and Output [RC] 04,16 11/27/16 22:10 RT Aerosol Therapy [RC] ASDIRECTED 11/27/16 22:12 Consult to Case Management [CONS] Routine Consult to [employer] Clerk [CONS] Routine Consult to Spiritual Care [CONS] Routine OT Evaluation and Treatment [CONS] Routine PT Evaluation and Treatment [CONS] Routine 11/27/16 22:13 Nitroglycerin [Nitrostat] 0.4 mg SL ASDIRECTED PRN 11/27/16 22:15 Dextrose 5%-0.45% NaCl [Dextrose 5%-1/2 NS] 1,000 ml IV ASDIRECTED 11/27/16 22:25 CULTURE STOOL + SHIGATOX [RM] Routine OVA & PARASITES BY IMMUNOASSAY [MREF] Stat 11/27/16 22:26 C DIFFICILE BY PCR W/NAP1 [MOLEC] Stat 11/27/16 22:28 Metoprolol Tartrate [Lopressor] 5 mg IVPUSH Q4H PRN hydrALAZINE [Apresoline] 20 mg IVPUSH Q4H PRN 11/27/16 22:30 Magnesium Rep Pharmacy to Dose [Pharmacy to Dose - Magnesium Replacement] 1 dose .XX ASDIRECTED Potassium Rep Pharmacy to Dose [Pharmacy to Dose - Potassium Replacement] 1 dose .XX ASDIRECTED 11/27/16 23:00 Hydrocortisone Sod Succinate [Solu-CORTEF] 100 mg IVPUSH Q6H metroNIDAZOLE/Normal Saline [Flagyl 500 MG in NS 100 ML] 500 mg Premix Bag 1 bag IV Q6H 11/27/16 23:30 Metoclopramide [Reglan] 10 mg IVPUSH Q6H 11/27/16 23:50 Blood Glucose Check, Bedside [RC] 07,21 Dextrose 50% in Water 50 ml IVPUSH ASDIRECTED PRN 11/27/16 Dinner Nothing per Oral Now Diet [DIET] 11/28/16 07:00 Abdomen 1V Upright [CR] Routine 11/28/16 08:00 Insulin Aspart [NovoLOG] 0 unit SUBCUT BID@0700,2100 11/28/16 08:45 CULTURE MRSA SURVEY [RM] Routine 11/28/16 09:00 Bumetanide [Bumex] 0.5 mg IVPUSH DAILY Cyanocobalamin (Vitamin B12) [Vitamin B12] 1,000 mcg SUBCUT DAILY Enoxaparin [Lovenox] 40 mg SUBCUT DAILY Nystatin [Nystatin Crm] 15 gm TOP TID Pantoprazole [Protonix IV] 40 mg IV DAILY Zinc Oxide 15 gm TOP TID 11/28/16 10:00 MVI, Adult with Vitamin K [M.V.I. Adult] 10 ml IV DAILY@1000 11/28/16 22:15 Folic Acid 2 mg SUBCUT DAILY ONE 11/29/16 05:11 BASIC METABOLIC PANEL,BMP [CHEM] AM C-REACTIVE PROTEIN [CHEM] AM CBC WITH AUTO DIFF [HEME] AM MAGNESIUM [CHEM] AM SEDIMENTATION RATE AUTO [HEME] AM 11/30/16 05:11 BASIC METABOLIC PANEL,BMP [CHEM] AM C-REACTIVE PROTEIN [CHEM] AM CBC WITH AUTO DIFF [HEME] AM MAGNESIUM [CHEM] AM SEDIMENTATION RATE AUTO [HEME] AM 12/01/16 05:11 BASIC METABOLIC PANEL,BMP [CHEM] AM C-REACTIVE PROTEIN [CHEM] AM CBC WITH AUTO DIFF [HEME] AM MAGNESIUM [CHEM] AM SEDIMENTATION RATE AUTO [HEME] AM - Plan Plan:: Assessment/Plan: Acute: Small Bowel Obstruction - Symptomatic: 1 week ago but got worse in the past 4 days - Last BM 1 week ago, Monday - She is not passing gas - Saw her GI specialist in [place] this past - was told everything ok - On routine Remicade Infusion - Seen by Dr. Carrera: recommend medical management - NPO except ice chips and sips of water - Therapeutic NGT - Bowel rest - Follow up with Dr. Calero after d/c Crohn's Colitis - Flagyl 500 mg IV Q6 first dose now - Hydrocortisone 100 mg IVP Q6, first dose now - C. diff, O and PV and Stool Culture - Vit B12, MVI and Folic Acid Daily - NPO and Bowel rest for now Chronic: Impaired Vision CAD S/p Stent x 3 HTN GERD Urinary Incontinence OA/DJD Hypothyroidism Depression Hx/o Per-rectal and Chantelle-ashley Cellulitis Peripheral Edema Plan: Continue current treatment Routine AM Labs Reglan 10 mg Q6 IVP for prokinetic Will add Erythromycin for additional prokinetic Continue PT/OT SW/CM for d/c planning Encourage to ambulated TID-QID Code status:1 Additional orders as above
[2016-11-28] MEDS ORDERED: MVI, Adult with Vitamin K 10 ML SDV IV SCH (10:00)
--- NOTE | 2016-11-28 10:29 | CR ---
Abdomen: Upright view of the abdomen was obtained. Comparison: Previous abdominal x-ray of 11/27/16. Dilated small bowel loops are seen with air-fluid levels. Findings are fairly stable from previous exam. Contrast seen within the bladder from previous CT exam. Degenerative change and scoliosis noted within the spine. Nasogastric tube is seen with tip lying in the stomach. Impression: 1. Findings compatible with continuing distal small bowel obstruction. No significant change from previous exam. 2. Tip of nasogastric tube lies within the stomach. Diagnostic code #3
[2016-11-28] MEDS: Pantoprazole 40 MG Vial IV SCH (10:49)
[2016-11-28] MEDS: Cyanocobalamin (Vitamin B12) 1,000 MCG/ML SDV SUBCUT SCH (10:49)
[2016-11-28] MEDS: Enoxaparin 40 MG/0.4 ML Syringe SUBCUT SCH (10:50)
[2016-11-28] MEDS: Insulin Aspart 100 Units/ML 3 ML Pen SUBCUT SCH ×2 (10:50→21:12)
[2016-11-28] MEDS ORDERED: MVI, Adult with Vitamin K 10 ML in Sodium Chloride 0.9% 500 ML IV ONE ×2 (11:00)
[2016-11-28] MEDS: Bumetanide 1 MG/4 ML MDV IVPUSH SCH (12:26)
[2016-11-28] MEDS: Nystatin Crm 30 GM Tube TOP SCH ×3 (12:38→21:02)
[2016-11-28] MEDS: Phenol 1.4% Oral Spray 20 ML Bottle MUCMEM PRN ×3 (14:56→21:00)
[2016-11-28] MEDS ORDERED: Temazepam 30 MG Cap PO PRN (15:54)
[2016-11-28] MEDS ORDERED: HYDROmorphone 0.5 MG/0.5 ML Syringe IVPUSH PRN (15:54)
[2016-11-28] MEDS ORDERED: Folic Acid 50 MG/10 ML MDV SUBCUT ONE (22:15)
[2016-11-29] MEDS: metroNIDAZOLE/Normal Saline 500 MG in Premix Bag 1 BAG IV SCH ×4 (06:12→22:02)
[2016-11-29] MEDS: Metoclopramide 10 MG/2 ML SDV IVPUSH SCH ×4 (06:12→23:26)
[2016-11-29] MEDS: Hydrocortisone Sodium Succinate 100 MG/2 ML SDV IVPUSH SCH ×5 (06:13→22:10)
[2016-11-29] MEDS: Insulin Aspart 100 Units/ML 3 ML Pen SUBCUT SCH ×2 (06:24→20:20)
[2016-11-29] MEDS: Dextrose 5%-0.45% NaCl 1,000 ML IV SCH ×2 (06:54→15:16)
--- NOTE | 2016-11-29 06:57 | PCM.CONSN ---
- General Info Date of Service: 11/29/16 Functional Status: Reports: pain controlled, ambulating, urinating - Review of Systems Gastrointestinal: Reports: No symptoms, Diarrhea (thick liquid, brown stool passed), Flatus - Patient Data Vitals - most recent: Last Vital Signs Temp 36.4 C 11/29/16 04:08 Pulse 62 11/29/16 04:08 Resp 12 11/29/16 04:08 BP 123/54 L 11/29/16 04:08 Pulse Ox 90 L 11/29/16 04:08 Weight - most recent: 83.552 kg I&O - last 24 hours: Intake & Output 11/28/16 11/28/16 11/29/16 14:59 22:59 06:59 Intake Total 1600 2044 Balance 1600 2044 Lab Results last 24 hrs: Laboratory Results - last 24 hr 11/28/16 11/28/16 11/28/16 Range/Units 06:17 06:17 06:17 WBC 5.09 (3.98-10.04) K/mm3 RBC 5.25 H (3.98-5.22) M/mm3 Hgb 12.9 (11.2-15.7) gm/L Hct 39.8 (34.1-44.9) % MCV 75.8 L (79.4-94.8) fl MCH 24.6 L (25.6-32.2) pg MCHC 32.4 (32.2-35.5) g/dl RDW Std Deviation 48.3 H (36.4-46.3) fL Plt Count 127 L (182-369) K/mm3 MPV 11.0 (9.4-12.3) fl Neut % (Auto) 73.1 H (34.0-71.1) % Lymph % (Auto) 21.2 (19.3-51.7) % [place] % (Auto) 4.9 (4.7-12.5) % Eos % (Auto) 0.4 L (0.7-5.8) Baso % (Auto) 0.2 (0.1-1.2) % Neut # 3.72 (1.56-6.13) K/mm3 Lymph # 1.08 L (1.18-3.74) K/mm3 [place] # 0.25 (0.24-0.36) K/mm3 Eos # 0.02 L (0.04-0.36) K/mm3 Baso # 0.01 (0.01-0.08) K/mm3 Manual Slide Review Abnormal smear ESR 10 (0-20) mm/hr Sodium 132 L (136-145) mEq/L Potassium 3.5 (3.5-5.1) mEq/L Chloride 95 L (98-107) mEq/L Carbon Dioxide 30 (21-32) mEq/L Anion Gap 10.5 (5-15) BUN 16 (7-18) mg/dL Creatinine 0.7 (0.55-1.02) mg/dL Est Cr Clr Drug Dosing 64.01 mL/min Estimated GFR (MDRD) > 60 (>60) mL/min BUN/Creatinine Ratio 22.9 H (14-18) Glucose 162 H (83-115) mg/dL POC Glucose (83-110) mg/dL Calcium 8.1 L (8.5-10.1) mg/dL Magnesium 2.2 (1.8-2.4) mg/dl C-Reactive Protein 0.6 (<1.0) mg/dL 11/28/16 11/29/16 Range/Units 21:11 06:18 WBC (3.98-10.04) K/mm3 RBC (3.98-5.22) M/mm3 Hgb (11.2-15.7) gm/L Hct (34.1-44.9) % MCV (79.4-94.8) fl MCH (25.6-32.2) pg MCHC (32.2-35.5) g/dl RDW Std Deviation (36.4-46.3) fL Plt Count (182-369) K/mm3 MPV (9.4-12.3) fl Neut % (Auto) (34.0-71.1) % Lymph % (Auto) (19.3-51.7) % [place] % (Auto) (4.7-12.5) % Eos % (Auto) (0.7-5.8) Baso % (Auto) (0.1-1.2) % Neut # (1.56-6.13) K/mm3 Lymph # (1.18-3.74) K/mm3 [place] # (0.24-0.36) K/mm3 Eos # (0.04-0.36) K/mm3 Baso # (0.01-0.08) K/mm3 Manual Slide Review ESR (0-20) mm/hr Sodium (136-145) mEq/L Potassium (3.5-5.1) mEq/L Chloride (98-107) mEq/L Carbon Dioxide (21-32) mEq/L Anion Gap (5-15) BUN (7-18) mg/dL Creatinine (0.55-1.02) mg/dL Est Cr Clr Drug Dosing mL/min Estimated GFR (MDRD) (>60) mL/min BUN/Creatinine Ratio (14-18) Glucose (83-115) mg/dL POC Glucose 213 H 203 H (83-110) mg/dL Calcium (8.5-10.1) mg/dL Magnesium (1.8-2.4) mg/dl C-Reactive Protein (<1.0) mg/dL Med Orders - Current: Current Medications Acetaminophen (Tylenol) 650 mg PO Q4H PRN PRN Reason: Pain (Mild 1-3)/fever Acetaminophen/Hydrocodone Bitart ([place] 325-5 Mg) 1 tab PO Q4H PRN PRN Reason: Pain (moderate 4-6) Albuterol/Ipratropium (Duoneb 3.0-0.5 Mg/3 Ml) 3 ml NEB Q4H PRN PRN Reason: Shortness Of Breath/wheezing Bisacodyl (Dulcolax) 5 mg PO DAILY PRN PRN Reason: Constipation Bumetanide (Bumex) 0.5 mg IVPUSH DAILY [facility] Last Admin: 11/28/16 12:26 Dose: 0.5 mg Cyanocobalamin (Vitamin B12) 1,000 mcg SUBCUT DAILY [facility] Stop: 12/03/16 09:00 Last Admin: 11/28/16 10:49 Dose: 1,000 mcg Dextrose/Water (Dextrose 50% In Water) 50 ml IVPUSH ASDIRECTED PRN PRN Reason: Hypoglycemia Enoxaparin Sodium (Lovenox) 40 mg SUBCUT DAILY [facility] Last Admin: 11/28/16 10:50 Dose: 40 mg Hydralazine HCl (Apresoline) 20 mg IVPUSH Q4H PRN PRN Reason: Hypertension Last Admin: 11/28/16 05:53 Dose: 20 mg Hydrocortisone Sodium Succinate (Solu-Cortef) 100 mg IVPUSH Q6H [facility] Last Admin: 11/29/16 06:13 Dose: 100 mg Hydromorphone HCl (Dilaudid) 0.25 mg IVPUSH Q2H PRN PRN Reason: Pain (severe 7-10) Dextrose/Sodium Chloride (Dextrose 5%-1/2 Ns) 1,000 mls @ 125 mls/hr IV ASDIRECTED [facility] Last Admin: 11/29/16 06:54 Dose: 125 mls/hr Metronidazole 500 mg/ Premix 100 mls @ 100 mls/hr IV Q6H [facility] Last Admin: 11/29/16 06:12 Dose: 100 mls/hr Erythromycin Lactobionate 250 (mg/ Sodium Chloride) 100 mls @ 100 mls/hr IV Q6H [facility] Last Admin: 11/29/16 06:12 Dose: 100 mls/hr Insulin Aspart (Novolog) 0 unit SUBCUT BID@0700,2100 [facility] PRN Reason: Protocol Last Admin: 11/29/16 06:24 Dose: 2 unit Lorazepam (Ativan) 1 mg IV Q6H PRN PRN Reason: Nausea/Vomiting Magnesium Sulfate (Pharmacy To Dose - Magnesium Replacement) 1 dose .XX ASDIRECTED [facility] Metoclopramide HCl (Reglan) 10 mg IVPUSH Q6H [facility] Last Admin: 11/29/16 06:12 Dose: 10 mg Metoprolol Tartrate (Lopressor) 5 mg IVPUSH Q4H PRN PRN Reason: Tachycardia Multi-Ingred Cream/Lotion/Oil/Oint (Zinc Oxide) 15 gm TOP TID [facility] Last Admin: 11/28/16 21:02 Dose: Not Given Nitroglycerin (Nitrostat) 0.4 mg SL ASDIRECTED PRN PRN Reason: Chest Pain Nystatin (Nystatin Crm) 15 gm TOP TID [facility] Last Admin: 11/28/16 21:02 Dose: Not Given Pantoprazole Sodium (Protonix Iv) 40 mg IV DAILY [facility] Last Admin: 11/28/16 10:49 Dose: 40 mg Phenol/Menthol (Chloraseptic) 15 ml MUCMEM Q2H PRN PRN Reason: Sore Throat Last Admin: 11/28/16 21:00 Dose: 2 spray Polyethylene Glycol (Miralax) 17 gm PO DAILY PRN PRN Reason: Constipation Potassium Chloride (Pharmacy To Dose - Potassium Replacement) 1 dose .XX ASDIRECTED [facility] Senna/Docusate Sodium (Senna Plus) 1 tab PO BID PRN PRN Reason: Constipation Temazepam (Restoril) 30 mg PO BEDTIME PRN PRN Reason: Sleep Discontinued Medications Cyanocobalamin (Vitamin B12) 1,000 mcg SUBCUT ONETIME ONE Stop: 11/27/16 23:01 Last Admin: 11/27/16 23:41 Dose: 1,000 mcg Diatrizoate Meglum/Diatrizoate Sod (Gastrografin 37%) 90 ml PO ONETIME ONE Stop: 11/27/16 16:15 Last Admin: 11/27/16 17:14 Dose: 90 ml Enoxaparin Sodium (Lovenox) 30 mg SUBCUT DAILY [facility] Folic Acid (Folic Acid) 2 mg SUBCUT DAILY ONE Stop: 11/28/16 22:16 Last Admin: 11/28/16 21:17 Dose: 2 mg Hydromorphone HCl (Dilaudid) 0.5 mg IVPUSH ONETIME ONE Stop: 11/27/16 20:48 Last Admin: 11/27/16 21:23 Dose: 0.5 mg Hydromorphone HCl (Dilaudid) 0.25 mg IVPUSH Q2H PRN PRN Reason: Pain (severe 7-10) Sodium Chloride (Normal Saline) 500 mls @ 500 mls/hr IV ONETIME ONE Stop: 11/27/16 16:19 Last Admin: 11/27/16 15:58 Dose: 500 mls/hr Sodium Chloride (Normal Saline) 1,000 mls @ 100 mls/hr IV ASDIRECTED [facility] Last Admin: 11/27/16 21:30 Dose: 100 mls/hr Magnesium Sulfate 2 gm/ Premix 50 mls @ 25 mls/hr IV ONETIME ONE Stop: 11/28/16 00:17 Last Admin: 11/28/16 00:09 Dose: 25 mls/hr Thiamine HCl 200 mg/ Sodium (Chloride) 102 mls @ 50 mls/hr IV ONETIME ONE Stop: 11/28/16 00:32 Last Admin: 11/28/16 01:19 Dose: 50 mls/hr Potassium Chloride 10 meq/ (Premix) 100 mls @ 100 mls/hr IV Q1H [facility] Stop: 11/28/16 00:29 Last Admin: 11/28/16 01:21 Dose: 100 mls/hr Multivitamins/Minerals 10 ml/ (Sodium Chloride) 510 mls @ 127 mls/hr IV ONETIME ONE Stop: 11/28/16 15:00 Last Admin: 11/28/16 11:14 Dose: 127 mls/hr Insulin Aspart (Novolog) 0 unit SUBCUT ASDIRECTED [facility] PRN Reason: Protocol Iopamidol (Isovue-300 (61%)) 100 ml IVPUSH ONETIME ONE Stop: 11/27/16 16:15 Last Admin: 11/27/16 17:14 Dose: 100 ml Multivitamins/Minerals (M.V.I. Adult) 10 ml IV DAILY@1000 [facility] Last Admin: 11/28/16 19:56 Dose: Not Given Ondansetron HCl (Zofran) 4 mg IVPUSH ONETIME ONE Stop: 11/27/16 15:23 Last Admin: 11/27/16 16:01 Dose: 4 mg Pantoprazole Sodium (Protonix Iv) 40 mg IVPUSH ONETIME ONE Stop: 11/27/16 22:16 Last Admin: 11/27/16 23:20 Dose: 40 mg Sodium Chloride (Saline Flush) 10 ml FLUSH ONETIME ONE Stop: 11/27/16 16:15 Last Admin: 11/27/16 17:14 Dose: 10 ml Temazepam (Restoril) 30 mg PO BEDTIME PRN PRN Reason: Sleep - Exam Abdomen: bowel sounds present, soft, no tenderness, no distension Consult PN Assessment/Plan Procedures: Procedures AGENT NOS ASSAY W/OPTIC (11/08/16) ASSAY OF CK (CPK) (06/14/16) ASSAY OF FOLIC ACID RBC (11/08/16) ASSAY OF FREE THYROXINE (11/08/16) ASSAY OF IRON (11/08/16) ASSAY OF LACTIC ACID (11/08/16) ASSAY OF LIPASE (09/19/16) ASSAY OF MAGNESIUM (11/08/16) ASSAY OF NATRIURETIC PEPTIDE (11/08/16) ASSAY OF SERUM POTASSIUM (11/08/16) ASSAY OF TRANSFERRIN (11/08/16) ASSAY OF TROPONIN QUANT (06/14/16) ASSAY THYROID STIM HORMONE (11/08/16) BLOOD CULTURE FOR BACTERIA (11/08/16) C DIFF AMPLIFIED PROBE (11/08/16) C-REACTIVE PROTEIN (11/08/16) CARDIOVASCULAR STRESS TEST (06/29/16) CHEST X-RAY 1 VIEW FRONTAL (06/14/16) COMPLETE CBC W/AUTO DIFF WBC (11/08/16) COMPREHEN METABOLIC PANEL (11/08/16) CREATINE MB FRACTION (06/14/16) CRYPTOSPORIDIUM AG IA (11/08/16) CT ABD & PELV W/CONTRAST (11/08/16) CT ANGIOGRAPHY CHEST (06/14/16) CT HEAD/BRAIN W/O DYE (11/08/16) CT NECK SPINE W/O DYE (09/27/14) CULTURE AEROBIC IDENTIFY (05/15/14) ELECTROCARDIOGRAM TRACING (06/14/16) EMERGENCY DEPT VISIT (11/08/16) EMERGENCY DEPT VISIT (08/19/16) EMERGENCY DEPT VISIT (06/14/16) EMERGENCY DEPT VISIT (01/03/16) EMERGENCY DEPT VISIT (09/27/14) EXTRACRANIAL BILAT STUDY (06/14/16) FIBRIN DEGRADATION QUANT (06/14/16) GAIT TRAINING THERAPY (11/08/16) GIARDIA AG IA (11/08/16) GLUCOSE BLOOD TEST (11/08/16) GLYCOSYLATED HEMOGLOBIN TEST (11/08/16) HT MUSCLE IMAGE SPECT MULT (06/29/16) HYDRATE IV INFUSION ADD-ON (09/19/16) HYDRATION IV INFUSION INIT (06/14/16) IMMUNIZATION ADMIN (12/19/15) INFLUENZA ASSAY W/OPTIC (11/08/16) INTMD RPR S/TR/EXT 7.6-12.5 (12/19/15) LIPID PANEL (09/08/16) METABOLIC PANEL TOTAL CA (11/08/16) MICROBE SUSCEPTIBLE DISK (11/08/16) MICROBE SUSCEPTIBLE MIIR (11/08/16) MRI BRAIN STEM W/O DYE (06/14/16) NEUROMUSCULAR REEDUCATION (11/08/16) OCCULT BLD FECES 1-3 TESTS (11/08/16) OT EVAL LOW COMPLEX 30 MIN (11/08/16) OT EVALUATION (06/14/16) PT EVAL LOW COMPLEX 20 MIN (11/08/16) PT EVALUATION (06/14/16) RBC SED RATE AUTOMATED (11/08/16) REPAIR BLADDER DEFECT (04/15/14) REPAIR OF VAGINA (04/15/14) ROUTINE VENIPUNCTURE (11/08/16) RPR S/N/AX/GEN/TRNK 2.5CM/< (12/19/15) STOOL CULTR AEROBIC BACT EA (11/08/16) TDAP VACCINE 7 YRS/> IM (12/19/15) THER/PROPH/DIAG INJ IV PUSH (08/19/16) THER/PROPH/DIAG IV INF ADDON (11/14/16) THER/PROPH/DIAG IV INF INIT (11/14/16) THERAPEUTIC ACTIVITIES (06/14/16) TISSUE EXAM BY PATHOLOGIST (11/08/16) TTE W/DOPPLER COMPLETE (11/08/16) TX/PRO/DX INJ NEW DRUG ADDON (07/14/16) URINALYSIS AUTO W/O SCOPE (04/22/14) URINALYSIS AUTO W/SCOPE (11/08/16) URINE BACTERIA CULTURE (11/08/16) URINE CULTURE/COLONY COUNT (11/08/16) VANOMYCIN DNA AMP PROBE (04/25/16) VITAMIN B-12 (11/08/16) VITAMIN D 25 HYDROXY (11/08/16) X-RAY EXAM OF ABDOMEN (08/19/16) X-RAY EXAM OF HAND (01/03/16) X-RAY EXAM OF SHOULDER (09/27/14) (1) Crohn's disease of small intestine with intestinal obstruction SNOMED Code(s): 87845296 Code(s): K50.012 - CROHN'S DISEASE OF SMALL INTESTINE W INTESTINAL OBSTRUCTION Priority: Medium Current Visit: Yes Problem List Initiated/Reviewed/Updated: Yes My Orders last 24 hours: Imp: Return of bowel function. Plan: Pull nasogastric tube, and start clear liquids.
--- NOTE | 2016-11-29 08:36 | PCM.PN ---
- General Info Date of Service: 11/29/16 Admission Dx/Problem (Free Text): Admission Diagnosis/Problem Admission Diagnosis/Problem Small bowel obstruction Subjective Update: Follow Up Functional Status: Reports: pain controlled, ambulating, urinating. Denies: tolerating diet, new symptoms - Review of Systems General: Denies: Fever, Weakness, Fatigue, Malaise, Chills HEENT: Reports: no symptoms Pulmonary: Denies: shortness of breath Cardiovascular: Denies: Chest Pain Gastrointestinal: Reports: Abdominal pain. Denies: Nausea, Vomiting Genitourinary: Reports: no symptoms Musculoskeletal: Reports: no symptoms Skin: Reports: no symptoms Neurological: Denies: Dizziness, Difficulty Walking, Gait Disturbance Psychiatric: Denies: depression, anxiety, hallucinations Systems Review Comment:: No overnight or acute issues. NGT has low output. She had 2 loose watery bowel movement. Her NGT is now out. - Patient Data Vitals - most recent: Last Vital Signs Temp 36.9 C 11/29/16 07:38 Pulse 64 11/29/16 07:38 Resp 18 11/29/16 07:38 BP 133/59 L 11/29/16 07:38 Pulse Ox 97 11/29/16 07:38 Weight - most recent: 83.552 kg I&O - last 24 hours: Intake & Output 11/28/16 11/29/16 11/29/16 22:59 06:59 14:59 Intake Total 1600 2044 Balance 1600 2044 Lab Results last 24 hrs: Laboratory Results - last 24 hr 11/28/16 11/29/16 11/29/16 Range/Units 21:11 06:18 06:45 WBC (3.98-10.04) K/mm3 RBC (3.98-5.22) M/mm3 Hgb (11.2-15.7) gm/L Hct (34.1-44.9) % MCV (79.4-94.8) fl MCH (25.6-32.2) pg MCHC (32.2-35.5) g/dl RDW Std Deviation (36.4-46.3) fL Plt Count (182-369) K/mm3 MPV (9.4-12.3) fl Neut % (Auto) (34.0-71.1) % Lymph % (Auto) (19.3-51.7) % [place] % (Auto) (4.7-12.5) % Eos % (Auto) (0.7-5.8) Baso % (Auto) (0.1-1.2) % Neut # (1.56-6.13) K/mm3 Lymph # (1.18-3.74) K/mm3 [place] # (0.24-0.36) K/mm3 Eos # (0.04-0.36) K/mm3 Baso # (0.01-0.08) K/mm3 Manual Slide Review ESR (0-20) mm/hr Sodium (136-145) mEq/L Potassium (3.5-5.1) mEq/L Chloride (98-107) mEq/L Carbon Dioxide (21-32) mEq/L Anion Gap (5-15) BUN (7-18) mg/dL Creatinine (0.55-1.02) mg/dL Est Cr Clr Drug Dosing mL/min Estimated GFR (MDRD) (>60) mL/min BUN/Creatinine Ratio (14-18) Glucose (83-115) mg/dL POC Glucose 213 H 203 H (83-110) mg/dL Calcium (8.5-10.1) mg/dL Magnesium (1.8-2.4) mg/dl C-Reactive Protein (<1.0) mg/dL C.difficile [id number] Presumptive negative C. difficile Tox (PCR) Negative 11/29/16 11/29/16 11/29/16 Range/Units 06:50 06:50 06:50 WBC 5.28 (3.98-10.04) K/mm3 RBC 4.56 (3.98-5.22) M/mm3 Hgb 11.3 (11.2-15.7) gm/L Hct 35.0 (34.1-44.9) % MCV 76.8 L (79.4-94.8) fl MCH 24.8 L (25.6-32.2) pg MCHC 32.3 (32.2-35.5) g/dl RDW Std Deviation 48.3 H (36.4-46.3) fL Plt Count 138 L (182-369) K/mm3 MPV 11.4 (9.4-12.3) fl Neut % (Auto) 78.5 H (34.0-71.1) % Lymph % (Auto) 16.5 L (19.3-51.7) % [place] % (Auto) 4.4 L (4.7-12.5) % Eos % (Auto) 0.2 L (0.7-5.8) Baso % (Auto) 0.2 (0.1-1.2) % Neut # 4.15 (1.56-6.13) K/mm3 Lymph # 0.87 L (1.18-3.74) K/mm3 [place] # 0.23 L (0.24-0.36) K/mm3 Eos # 0.01 L (0.04-0.36) K/mm3 Baso # 0.01 (0.01-0.08) K/mm3 Manual Slide Review Abnormal smear ESR 9 (0-20) mm/hr Sodium 136 (136-145) mEq/L Potassium 2.5 L (3.5-5.1) mEq/L Chloride 100 (98-107) mEq/L Carbon Dioxide 31 (21-32) mEq/L Anion Gap 7.5 (5-15) BUN 7 (7-18) mg/dL Creatinine 0.8 (0.55-1.02) mg/dL Est Cr Clr Drug Dosing 56.00 mL/min Estimated GFR (MDRD) > 60 (>60) mL/min BUN/Creatinine Ratio 8.8 L (14-18) Glucose 178 H (83-115) mg/dL POC Glucose (83-110) mg/dL Calcium 7.9 L (8.5-10.1) mg/dL Magnesium 1.9 (1.8-2.4) mg/dl C-Reactive Protein < 0.2 (<1.0) mg/dL C.difficile [id number] C. difficile Tox (PCR) Med Orders - Current: Current Medications Acetaminophen (Tylenol) 650 mg PO Q4H PRN PRN Reason: Pain (Mild 1-3)/fever Acetaminophen/Hydrocodone Bitart ([place] 325-5 Mg) 1 tab PO Q4H PRN PRN Reason: Pain (moderate 4-6) Albuterol/Ipratropium (Duoneb 3.0-0.5 Mg/3 Ml) 3 ml NEB Q4H PRN PRN Reason: Shortness Of Breath/wheezing Bisacodyl (Dulcolax) 5 mg PO DAILY PRN PRN Reason: Constipation Bumetanide (Bumex) 0.5 mg IVPUSH DAILY [facility] Last Admin: 11/28/16 12:26 Dose: 0.5 mg Cyanocobalamin (Vitamin B12) 1,000 mcg SUBCUT DAILY [facility] Stop: 12/03/16 09:00 Last Admin: 11/28/16 10:49 Dose: 1,000 mcg Dextrose/Water (Dextrose 50% In Water) 50 ml IVPUSH ASDIRECTED PRN PRN Reason: Hypoglycemia Enoxaparin Sodium (Lovenox) 40 mg SUBCUT DAILY [facility] Last Admin: 11/28/16 10:50 Dose: 40 mg Hydralazine HCl (Apresoline) 20 mg IVPUSH Q4H PRN PRN Reason: Hypertension Last Admin: 11/28/16 05:53 Dose: 20 mg Hydrocortisone Sodium Succinate (Solu-Cortef) 100 mg IVPUSH Q6H [facility] Last Admin: 11/29/16 06:13 Dose: 100 mg Hydromorphone HCl (Dilaudid) 0.25 mg IVPUSH Q2H PRN PRN Reason: Pain (severe 7-10) Dextrose/Sodium Chloride (Dextrose 5%-1/2 Ns) 1,000 mls @ 125 mls/hr IV ASDIRECTED [facility] Last Admin: 11/29/16 06:54 Dose: 125 mls/hr Metronidazole 500 mg/ Premix 100 mls @ 100 mls/hr IV Q6H [facility] Last Admin: 11/29/16 06:12 Dose: 100 mls/hr Erythromycin Lactobionate 250 (mg/ Sodium Chloride) 100 mls @ 100 mls/hr IV Q6H [facility] Last Admin: 11/29/16 06:12 Dose: 100 mls/hr Potassium Chloride 10 meq/ (Premix) 100 mls @ 100 mls/hr IV Q1H [facility] Stop: 11/29/16 16:59 Insulin Aspart (Novolog) 0 unit SUBCUT BID@0700,2100 [facility] PRN Reason: Protocol Last Admin: 11/29/16 06:24 Dose: 2 unit Lorazepam (Ativan) 1 mg IV Q6H PRN PRN Reason: Nausea/Vomiting Magnesium Sulfate (Pharmacy To Dose - Magnesium Replacement) 1 dose .XX ASDIRECTED [facility] Metoclopramide HCl (Reglan) 10 mg IVPUSH Q6H [facility] Last Admin: 11/29/16 06:12 Dose: 10 mg Metoprolol Tartrate (Lopressor) 5 mg IVPUSH Q4H PRN PRN Reason: Tachycardia Multi-Ingred Cream/Lotion/Oil/Oint (Zinc Oxide) 15 gm TOP TID [facility] Last Admin: 11/28/16 21:02 Dose: Not Given Nitroglycerin (Nitrostat) 0.4 mg SL ASDIRECTED PRN PRN Reason: Chest Pain Nystatin (Nystatin Crm) 15 gm TOP TID [facility] Last Admin: 11/28/16 21:02 Dose: Not Given Pantoprazole Sodium (Protonix Iv) 40 mg IV DAILY [facility] Last Admin: 11/28/16 10:49 Dose: 40 mg Phenol/Menthol (Chloraseptic) 15 ml MUCMEM Q2H PRN PRN Reason: Sore Throat Last Admin: 11/28/16 21:00 Dose: 2 spray Polyethylene Glycol (Miralax) 17 gm PO DAILY PRN PRN Reason: Constipation Potassium Chloride (Pharmacy To Dose - Potassium Replacement) 1 dose .XX ASDIRECTED [facility] Senna/Docusate Sodium (Senna Plus) 1 tab PO BID PRN PRN Reason: Constipation Temazepam (Restoril) 30 mg PO BEDTIME PRN PRN Reason: Sleep Discontinued Medications Cyanocobalamin (Vitamin B12) 1,000 mcg SUBCUT ONETIME ONE Stop: 11/27/16 23:01 Last Admin: 11/27/16 23:41 Dose: 1,000 mcg Diatrizoate Meglum/Diatrizoate Sod (Gastrografin 37%) 90 ml PO ONETIME ONE Stop: 11/27/16 16:15 Last Admin: 11/27/16 17:14 Dose: 90 ml Enoxaparin Sodium (Lovenox) 30 mg SUBCUT DAILY [facility] Folic Acid (Folic Acid) 2 mg SUBCUT DAILY ONE Stop: 11/28/16 22:16 Last Admin: 11/28/16 21:17 Dose: 2 mg Hydromorphone HCl (Dilaudid) 0.5 mg IVPUSH ONETIME ONE Stop: 11/27/16 20:48 Last Admin: 11/27/16 21:23 Dose: 0.5 mg Hydromorphone HCl (Dilaudid) 0.25 mg IVPUSH Q2H PRN PRN Reason: Pain (severe 7-10) Sodium Chloride (Normal Saline) 500 mls @ 500 mls/hr IV ONETIME ONE Stop: 11/27/16 16:19 Last Admin: 11/27/16 15:58 Dose: 500 mls/hr Sodium Chloride (Normal Saline) 1,000 mls @ 100 mls/hr IV ASDIRECTED [facility] Last Admin: 11/27/16 21:30 Dose: 100 mls/hr Magnesium Sulfate 2 gm/ Premix 50 mls @ 25 mls/hr IV ONETIME ONE Stop: 11/28/16 00:17 Last Admin: 11/28/16 00:09 Dose: 25 mls/hr Thiamine HCl 200 mg/ Sodium (Chloride) 102 mls @ 50 mls/hr IV ONETIME ONE Stop: 11/28/16 00:32 Last Admin: 11/28/16 01:19 Dose: 50 mls/hr Potassium Chloride 10 meq/ (Premix) 100 mls @ 100 mls/hr IV Q1H [facility] Stop: 11/28/16 00:29 Last Admin: 11/28/16 01:21 Dose: 100 mls/hr Multivitamins/Minerals 10 ml/ (Sodium Chloride) 510 mls @ 127 mls/hr IV ONETIME ONE Stop: 11/28/16 15:00 Last Admin: 11/28/16 11:14 Dose: 127 mls/hr Insulin Aspart (Novolog) 0 unit SUBCUT ASDIRECTED [facility] PRN Reason: Protocol Iopamidol (Isovue-300 (61%)) 100 ml IVPUSH ONETIME ONE Stop: 11/27/16 16:15 Last Admin: 11/27/16 17:14 Dose: 100 ml Multivitamins/Minerals (M.V.I. Adult) 10 ml IV DAILY@1000 [facility]ON[facility]O Last Admin: 11/28/16 19:56 Dose: Not Given Ondansetron HCl (Zofran) 4 mg IVPUSH ONETIME ONE Stop: 11/27/16 15:23 Last Admin: 11/27/16 16:01 Dose: 4 mg Pantoprazole Sodium (Protonix Iv) 40 mg IVPUSH ONETIME ONE Stop: 11/27/16 22:16 Last Admin: 11/27/16 23:20 Dose: 40 mg Sodium Chloride (Saline Flush) 10 ml FLUSH ONETIME ONE Stop: 11/27/16 16:15 Last Admin: 11/27/16 17:14 Dose: 10 ml Temazepam (Restoril) 30 mg PO BEDTIME PRN PRN Reason: Sleep - Exam General: alert, oriented, cooperative, no acute distress HEENT: Pupils equal, Pupils reactive, EOMI, Mucous membr. moist/pink Neck: supple, trachea midline, no JVD, no thyromegaly Lungs: Clear to auscultation, Normal respiratory effort Cardiovascular: Regular Rate, Regular Rhythm Abdomen: bowel sounds present, soft, tenderness (Female) Exam: Deferred Back Exam: normal inspection, decreased range of motion Extremities: no edema, normal pulses, no tenderness/swelling, no clubbing, no cyanosis, no calf tenderness Peripheral Pulses: 2+: dorsalis pedis (L), dorsalis pedis (R) Skin: warm, dry, intact Neurological: no new focal deficit Psy/Mental Status: alert, normal affect, normal mood - Problem List Review Problem List Initiated/Reviewed/Updated: Yes - My Orders Last 24 Hours: My Active Orders 11/28/16 08:00 Insulin Aspart [NovoLOG] 0 unit SUBCUT BID@0700,2100 11/28/16 08:45 CULTURE MRSA SURVEY [RM] Routine 11/28/16 09:00 Bumetanide [Bumex] 0.5 mg IVPUSH DAILY Cyanocobalamin (Vitamin B12) [Vitamin B12] 1,000 mcg SUBCUT DAILY Enoxaparin [Lovenox] 40 mg SUBCUT DAILY Nystatin [Nystatin Crm] 15 gm TOP TID Pantoprazole [Protonix IV] 40 mg IV DAILY Zinc Oxide 15 gm TOP TID 11/28/16 10:23 Phenol [Chloraseptic] 15 ml MUCMEM Q2H PRN 11/28/16 15:54 HYDROmorphone [Dilaudid] 0.25 mg IVPUSH Q2H PRN Temazepam [Restoril] 30 mg PO BEDTIME PRN 11/28/16 19:00 Erythromycin Lactobionate 250 mg Sodium Chloride 0.9% [Normal Saline] 100 ml IV Q6H 11/29/16 07:44 CULTURE STOOL + SHIGATOX [RM] Routine OVA & PARASITES BY IMMUNOASSAY [MREF] Stat 11/29/16 09:00 Potassium Chloride [KCl 10 MEQ in Water 100 ML] 10 meq Premix Bag 1 bag IV Q1H 11/29/16 16:30 POTASSIUM,K [CHEM] Timed 11/30/16 05:11 BASIC METABOLIC PANEL,BMP [CHEM] AM C-REACTIVE PROTEIN [CHEM] AM CBC WITH AUTO DIFF [HEME] AM MAGNESIUM [CHEM] AM SEDIMENTATION RATE AUTO [HEME] AM 12/01/16 05:11 BASIC METABOLIC PANEL,BMP [CHEM] AM C-REACTIVE PROTEIN [CHEM] AM CBC WITH AUTO DIFF [HEME] AM MAGNESIUM [CHEM] AM SEDIMENTATION RATE AUTO [HEME] AM - Plan Plan:: Assessment/Plan: Acute: Small Bowel Obstruction, improving - Symptomatic: 1 week ago but got worse in the past 4 days - Last BM 1 week ago, Monday - She is not passing gas - Saw her GI specialist in [place] this past - was told everything ok - On routine Remicade Infusion - Seen by Dr. Carrera: recommend medical management - Started clear liquids this am by Dr. Carrera - Therapeutic NGT - Follow up with Dr. Calero after d/c Crohn's Colitis - Flagyl 500 mg IV Q6 first dose now - Hydrocortisone 100 mg IVP Q6, first dose now - C. diff, O and PV and Stool Culture - Vit B12, MVI and Folic Acid Daily Chronic: Impaired Vision CAD S/p Stent x 3 HTN GERD Urinary Incontinence OA/DJD Hypothyroidism Depression Hx/o Per-rectal and Chantelle-ashley Cellulitis Peripheral Edema Plan: She is clinically stable Continue current treatment Routine AM Labs Continue PT/OT SW/CM for d/c planning Encourage to ambulated TID-QID Code status:1 Additional orders as above
[2016-11-29] MEDS: Bumetanide 1 MG/4 ML MDV IVPUSH SCH (09:12)
[2016-11-29] MEDS: Potassium Chloride 10 MEQ in Premix Bag 1 BAG IV SCH ×6 (09:14→18:06)
[2016-11-29] MEDS: Cyanocobalamin (Vitamin B12) 1,000 MCG/ML SDV SUBCUT SCH (09:17)
[2016-11-29] MEDS: Enoxaparin 40 MG/0.4 ML Syringe SUBCUT SCH (09:21)
[2016-11-29] MEDS: Nystatin Crm 30 GM Tube TOP SCH ×3 (09:21→20:21)
[2016-11-29] MEDS: Pantoprazole 40 MG Vial IV SCH (09:22)
[2016-11-29] MEDS ORDERED: Potassium Chloride 100 ML ONE (12:37)
[2016-11-29] MEDS ORDERED: Potassium Chloride 10 MEQ in Premix Bag 1 BAG IV SCH (18:00)
[2016-11-29] MEDS ORDERED: Potassium Chloride 20 MEQ Tab.ER PO ONE (18:02)
--- NOTE | 2016-11-29 23:52 | PCM.SN ---
- Free Text/Narrative Note: Patient fell on her way to the bathroom. Head/Spine CT scan both showed not acute abnormal findings.
[2016-11-30] MEDS: Dextrose 5%-0.45% NaCl 1,000 ML IV SCH ×2 (00:46→10:08)
[2016-11-30] MEDS: Hydrocortisone Sodium Succinate 100 MG/2 ML SDV IVPUSH SCH ×4 (04:49→22:28)
[2016-11-30] MEDS: metroNIDAZOLE/Normal Saline 500 MG in Premix Bag 1 BAG IV SCH ×4 (04:49→22:29)
[2016-11-30] MEDS: Metoclopramide 10 MG/2 ML SDV IVPUSH SCH ×4 (04:50→22:33)
--- NOTE | 2016-11-30 06:54 | PCM.CONSN ---
- General Info Date of Service: 11/30/16 Functional Status: Reports: pain controlled, tolerating diet, ambulating, urinating - Patient Data Vitals - most recent: Last Vital Signs Temp 36.5 C 11/30/16 03:53 Pulse 62 11/30/16 03:53 Resp 14 11/30/16 03:54 BP 154/65 H 11/30/16 03:53 Pulse Ox 99 11/30/16 03:53 Weight - most recent: 85.593 kg I&O - last 24 hours: Intake & Output 11/29/16 11/29/16 11/30/16 14:59 22:59 06:59 Intake Total 360 3070 750 Output Total 600 700 Balance 360 2470 50 Lab Results last 24 hrs: Laboratory Results - last 24 hr 11/29/16 11/29/16 11/29/16 Range/Units 06:45 06:50 06:50 WBC 5.28 (3.98-10.04) K/mm3 RBC 4.56 (3.98-5.22) M/mm3 Hgb 11.3 (11.2-15.7) gm/L Hct 35.0 (34.1-44.9) % MCV 76.8 L (79.4-94.8) fl MCH 24.8 L (25.6-32.2) pg MCHC 32.3 (32.2-35.5) g/dl RDW Std Deviation 48.3 H (36.4-46.3) fL Plt Count 138 L (182-369) K/mm3 MPV 11.4 (9.4-12.3) fl Neut % (Auto) 78.5 H (34.0-71.1) % Lymph % (Auto) 16.5 L (19.3-51.7) % [place] % (Auto) 4.4 L (4.7-12.5) % Eos % (Auto) 0.2 L (0.7-5.8) Baso % (Auto) 0.2 (0.1-1.2) % Neut # 4.15 (1.56-6.13) K/mm3 Lymph # 0.87 L (1.18-3.74) K/mm3 [place] # 0.23 L (0.24-0.36) K/mm3 Eos # 0.01 L (0.04-0.36) K/mm3 Baso # 0.01 (0.01-0.08) K/mm3 Manual Slide Review Abnormal smear ESR 9 (0-20) mm/hr Sodium (136-145) mEq/L Potassium (3.5-5.1) mEq/L Chloride (98-107) mEq/L Carbon Dioxide (21-32) mEq/L Anion Gap (5-15) BUN (7-18) mg/dL Creatinine (0.55-1.02) mg/dL Est Cr Clr Drug Dosing mL/min Estimated GFR (MDRD) (>60) mL/min BUN/Creatinine Ratio (14-18) Glucose (83-115) mg/dL POC Glucose (83-110) mg/dL Calcium (8.5-10.1) mg/dL Magnesium (1.8-2.4) mg/dl C-Reactive Protein (<1.0) mg/dL C.difficile [id number] Presumptive negative C. difficile Tox (PCR) Negative 11/29/16 11/29/16 11/29/16 Range/Units 06:50 16:28 20:17 WBC (3.98-10.04) K/mm3 RBC (3.98-5.22) M/mm3 Hgb (11.2-15.7) gm/L Hct (34.1-44.9) % MCV (79.4-94.8) fl MCH (25.6-32.2) pg MCHC (32.2-35.5) g/dl RDW Std Deviation (36.4-46.3) fL Plt Count (182-369) K/mm3 MPV (9.4-12.3) fl Neut % (Auto) (34.0-71.1) % Lymph % (Auto) (19.3-51.7) % [place] % (Auto) (4.7-12.5) % Eos % (Auto) (0.7-5.8) Baso % (Auto) (0.1-1.2) % Neut # (1.56-6.13) K/mm3 Lymph # (1.18-3.74) K/mm3 [place] # (0.24-0.36) K/mm3 Eos # (0.04-0.36) K/mm3 Baso # (0.01-0.08) K/mm3 Manual Slide Review ESR (0-20) mm/hr Sodium 136 (136-145) mEq/L Potassium 2.5 L 2.7 L (3.5-5.1) mEq/L Chloride 100 (98-107) mEq/L Carbon Dioxide 31 (21-32) mEq/L Anion Gap 7.5 (5-15) BUN 7 (7-18) mg/dL Creatinine 0.8 (0.55-1.02) mg/dL Est Cr Clr Drug Dosing 56.00 mL/min Estimated GFR (MDRD) > 60 (>60) mL/min BUN/Creatinine Ratio 8.8 L (14-18) Glucose 178 H (83-115) mg/dL POC Glucose 178 H (83-110) mg/dL Calcium 7.9 L (8.5-10.1) mg/dL Magnesium 1.9 (1.8-2.4) mg/dl C-Reactive Protein < 0.2 (<1.0) mg/dL C.difficile [id number] C. difficile Tox (PCR) Thuan Results last 24 hrs: Microbiology 11/28/16 08:45 MRSA Surveillance Culture - Final Nasal/Axilla/Groin NO MRSA ISOLATED Med Orders - Current: Current Medications Acetaminophen (Tylenol) 650 mg PO Q4H PRN PRN Reason: Pain (Mild 1-3)/fever Acetaminophen/Hydrocodone Bitart ([place] 325-5 Mg) 1 tab PO Q4H PRN PRN Reason: Pain (moderate 4-6) Albuterol/Ipratropium (Duoneb 3.0-0.5 Mg/3 Ml) 3 ml NEB Q4H PRN PRN Reason: Shortness Of Breath/wheezing Bisacodyl (Dulcolax) 5 mg PO DAILY PRN PRN Reason: Constipation Bumetanide (Bumex) 0.5 mg IVPUSH DAILY [facility] Last Admin: 11/29/16 09:12 Dose: 0.5 mg Cyanocobalamin (Vitamin B12) 1,000 mcg SUBCUT DAILY [facility] Stop: 12/03/16 09:00 Last Admin: 11/29/16 09:17 Dose: 1,000 mcg Dextrose/Water (Dextrose 50% In Water) 50 ml IVPUSH ASDIRECTED PRN PRN Reason: Hypoglycemia Enoxaparin Sodium (Lovenox) 40 mg SUBCUT DAILY [facility] Last Admin: 11/29/16 09:21 Dose: 40 mg Hydralazine HCl (Apresoline) 20 mg IVPUSH Q4H PRN PRN Reason: Hypertension Last Admin: 11/28/16 05:53 Dose: 20 mg Hydrocortisone Sodium Succinate (Solu-Cortef) 100 mg IVPUSH Q6H [facility] Last Admin: 11/30/16 04:49 Dose: 100 mg Hydromorphone HCl (Dilaudid) 0.25 mg IVPUSH Q2H PRN PRN Reason: Pain (severe 7-10) Dextrose/Sodium Chloride (Dextrose 5%-1/2 Ns) 1,000 mls @ 125 mls/hr IV ASDIRECTED [facility] Last Admin: 11/30/16 00:46 Dose: 125 mls/hr Metronidazole 500 mg/ Premix 100 mls @ 100 mls/hr IV Q6H [facility] Last Admin: 11/30/16 04:49 Dose: 100 mls/hr Erythromycin Lactobionate 250 (mg/ Sodium Chloride) 100 mls @ 100 mls/hr IV Q6H [facility] Last Admin: 11/30/16 06:18 Dose: Not Given Insulin Aspart (Novolog) 0 unit SUBCUT BID@0700,2100 [facility] PRN Reason: Protocol Last Admin: 11/29/16 20:20 Dose: 1 unit Lorazepam (Ativan) 1 mg IV Q6H PRN PRN Reason: Nausea/Vomiting Magnesium Sulfate (Pharmacy To Dose - Magnesium Replacement) 1 dose .XX ASDIRECTED [facility] Metoclopramide HCl (Reglan) 10 mg IVPUSH Q6H [facility] Last Admin: 11/30/16 04:50 Dose: 10 mg Metoprolol Tartrate (Lopressor) 5 mg IVPUSH Q4H PRN PRN Reason: Tachycardia Multi-Ingred Cream/Lotion/Oil/Oint (Zinc Oxide) 15 gm TOP TID [facility] Last Admin: 11/29/16 20:21 Dose: Not Given Nitroglycerin (Nitrostat) 0.4 mg SL ASDIRECTED PRN PRN Reason: Chest Pain Nystatin (Nystatin Crm) 15 gm TOP TID [facility] Last Admin: 11/29/16 20:21 Dose: Not Given Pantoprazole Sodium (Protonix Iv) 40 mg IV DAILY [facility] Last Admin: 11/29/16 09:22 Dose: 40 mg Phenol/Menthol (Chloraseptic) 15 ml MUCMEM Q2H PRN PRN Reason: Sore Throat Last Admin: 11/28/16 21:00 Dose: 2 spray Polyethylene Glycol (Miralax) 17 gm PO DAILY PRN PRN Reason: Constipation Potassium Chloride (Pharmacy To Dose - Potassium Replacement) 1 dose .XX ASDIRECTED [facility] Senna/Docusate Sodium (Senna Plus) 1 tab PO BID PRN PRN Reason: Constipation Temazepam (Restoril) 30 mg PO BEDTIME PRN PRN Reason: Sleep Last Admin: 11/29/16 21:55 Dose: 30 mg Discontinued Medications Cyanocobalamin (Vitamin B12) 1,000 mcg SUBCUT ONETIME ONE Stop: 11/27/16 23:01 Last Admin: 11/27/16 23:41 Dose: 1,000 mcg Diatrizoate Meglum/Diatrizoate Sod (Gastrografin 37%) 90 ml PO ONETIME ONE Stop: 11/27/16 16:15 Last Admin: 11/27/16 17:14 Dose: 90 ml Enoxaparin Sodium (Lovenox) 30 mg SUBCUT DAILY [facility] Folic Acid (Folic Acid) 2 mg SUBCUT DAILY ONE Stop: 11/28/16 22:16 Last Admin: 11/28/16 21:17 Dose: 2 mg Hydromorphone HCl (Dilaudid) 0.5 mg IVPUSH ONETIME ONE Stop: 11/27/16 20:48 Last Admin: 11/27/16 21:23 Dose: 0.5 mg Hydromorphone HCl (Dilaudid) 0.25 mg IVPUSH Q2H PRN PRN Reason: Pain (severe 7-10) Sodium Chloride (Normal Saline) 500 mls @ 500 mls/hr IV ONETIME ONE Stop: 11/27/16 16:19 Last Admin: 11/27/16 15:58 Dose: 500 mls/hr Sodium Chloride (Normal Saline) 1,000 mls @ 100 mls/hr IV ASDIRECTED [facility] Last Admin: 11/27/16 21:30 Dose: 100 mls/hr Magnesium Sulfate 2 gm/ Premix 50 mls @ 25 mls/hr IV ONETIME ONE Stop: 11/28/16 00:17 Last Admin: 11/28/16 00:09 Dose: 25 mls/hr Thiamine HCl 200 mg/ Sodium (Chloride) 102 mls @ 50 mls/hr IV ONETIME ONE Stop: 11/28/16 00:32 Last Admin: 11/28/16 01:19 Dose: 50 mls/hr Potassium Chloride 10 meq/ (Premix) 100 mls @ 100 mls/hr IV Q1H [facility] Stop: 11/28/16 00:29 Last Admin: 11/28/16 01:21 Dose: 100 mls/hr Multivitamins/Minerals 10 ml/ (Sodium Chloride) 510 mls @ 127 mls/hr IV ONETIME ONE Stop: 11/28/16 15:00 Last Admin: 11/28/16 11:14 Dose: 127 mls/hr Potassium Chloride 10 meq/ (Premix) 100 mls @ 100 mls/hr IV Q1H [facility] Stop: 11/29/16 16:59 Last Admin: 11/29/16 18:06 Dose: Not Given Potassium Chloride (Kcl 10 Meq In Water 100 Ml) Confirm Administered Dose 100 mls @ as directed .ROUTE .STK-MED ONE Stop: 11/29/16 12:38 Last Admin: 11/29/16 12:46 Dose: Not Given Potassium Chloride 10 meq/ (Premix) 100 mls @ 100 mls/hr IV Q1H [facility] Stop: 11/29/16 21:59 Last Admin: 11/29/16 18:07 Dose: Not Given Insulin Aspart (Novolog) 0 unit SUBCUT ASDIRECTED [facility] PRN Reason: Protocol Iopamidol (Isovue-300 (61%)) 100 ml IVPUSH ONETIME ONE Stop: 11/27/16 16:15 Last Admin: 11/27/16 17:14 Dose: 100 ml Multivitamins/Minerals (M.V.I. Adult) 10 ml IV DAILY@1000 [facility] Last Admin: 11/28/16 19:56 Dose: Not Given Ondansetron HCl (Zofran) 4 mg IVPUSH ONETIME ONE Stop: 11/27/16 15:23 Last Admin: 11/27/16 16:01 Dose: 4 mg Pantoprazole Sodium (Protonix Iv) 40 mg IVPUSH ONETIME ONE Stop: 11/27/16 22:16 Last Admin: 11/27/16 23:20 Dose: 40 mg Potassium Chloride (Klor-Con M20) 60 meq PO ONETIME ONE Stop: 11/29/16 18:03 Last Admin: 11/29/16 18:36 Dose: 60 meq Sodium Chloride (Saline Flush) 10 ml FLUSH ONETIME ONE Stop: 11/27/16 16:15 Last Admin: 11/27/16 17:14 Dose: 10 ml Temazepam (Restoril) 30 mg PO BEDTIME PRN PRN Reason: Sleep - Exam Abdomen: bowel sounds present, soft, no tenderness, no distension Consult PN Assessment/Plan Procedures: Procedures AGENT NOS ASSAY W/OPTIC (11/08/16) ASSAY OF CK (CPK) (06/14/16) ASSAY OF FOLIC ACID RBC (11/08/16) ASSAY OF FREE THYROXINE (11/08/16) ASSAY OF IRON (11/08/16) ASSAY OF LACTIC ACID (11/08/16) ASSAY OF LIPASE (09/19/16) ASSAY OF MAGNESIUM (11/08/16) ASSAY OF NATRIURETIC PEPTIDE (11/08/16) ASSAY OF SERUM POTASSIUM (11/08/16) ASSAY OF TRANSFERRIN (11/08/16) ASSAY OF TROPONIN QUANT (06/14/16) ASSAY THYROID STIM HORMONE (11/08/16) BLOOD CULTURE FOR BACTERIA (11/08/16) C DIFF AMPLIFIED PROBE (11/08/16) C-REACTIVE PROTEIN (11/08/16) CARDIOVASCULAR STRESS TEST (06/29/16) CHEST X-RAY 1 VIEW FRONTAL (06/14/16) COMPLETE CBC W/AUTO DIFF WBC (11/08/16) COMPREHEN METABOLIC PANEL (11/08/16) CREATINE MB FRACTION (06/14/16) CRYPTOSPORIDIUM AG IA (11/08/16) CT ABD & PELV W/CONTRAST (11/08/16) CT ANGIOGRAPHY CHEST (06/14/16) CT HEAD/BRAIN W/O DYE (11/08/16) CT NECK SPINE W/O DYE (09/27/14) CULTURE AEROBIC IDENTIFY (05/15/14) ELECTROCARDIOGRAM TRACING (06/14/16) EMERGENCY DEPT VISIT (11/08/16) EMERGENCY DEPT VISIT (08/19/16) EMERGENCY DEPT VISIT (06/14/16) EMERGENCY DEPT VISIT (01/03/16) EMERGENCY DEPT VISIT (09/27/14) EXTRACRANIAL BILAT STUDY (06/14/16) FIBRIN DEGRADATION QUANT (06/14/16) GAIT TRAINING THERAPY (11/08/16) GIARDIA AG IA (11/08/16) GLUCOSE BLOOD TEST (11/08/16) GLYCOSYLATED HEMOGLOBIN TEST (11/08/16) HT MUSCLE IMAGE SPECT MULT (06/29/16) HYDRATE IV INFUSION ADD-ON (09/19/16) HYDRATION IV INFUSION INIT (06/14/16) IMMUNIZATION ADMIN (12/19/15) INFLUENZA ASSAY W/OPTIC (11/08/16) INTMD RPR S/TR/EXT 7.6-12.5 (12/19/15) LIPID PANEL (09/08/16) METABOLIC PANEL TOTAL CA (11/08/16) MICROBE SUSCEPTIBLE DISK (11/08/16) MICROBE SUSCEPTIBLE THUAN (11/08/16) MRI BRAIN STEM W/O DYE (06/14/16) NEUROMUSCULAR REEDUCATION (11/08/16) OCCULT BLD FECES 1-3 TESTS (11/08/16) OT EVAL LOW COMPLEX 30 MIN (11/08/16) OT EVALUATION (06/14/16) PT EVAL LOW COMPLEX 20 MIN (11/08/16) PT EVALUATION (06/14/16) RBC SED RATE AUTOMATED (11/08/16) REPAIR BLADDER DEFECT (04/15/14) REPAIR OF VAGINA (04/15/14) ROUTINE VENIPUNCTURE (11/08/16) RPR S/N/AX/GEN/TRNK 2.5CM/< (12/19/15) STOOL CULTR AEROBIC BACT EA (11/08/16) TDAP VACCINE 7 YRS/> IM (12/19/15) THER/PROPH/DIAG INJ IV PUSH (08/19/16) THER/PROPH/DIAG IV INF ADDON (11/14/16) THER/PROPH/DIAG IV INF INIT (11/14/16) THERAPEUTIC ACTIVITIES (06/14/16) TISSUE EXAM BY PATHOLOGIST (11/08/16) TTE W/DOPPLER COMPLETE (11/08/16) TX/PRO/DX INJ NEW DRUG ADDON (07/14/16) URINALYSIS AUTO W/O SCOPE (04/22/14) URINALYSIS AUTO W/SCOPE (11/08/16) URINE BACTERIA CULTURE (11/08/16) URINE CULTURE/COLONY COUNT (11/08/16) VANOMYCIN DNA AMP PROBE (04/25/16) VITAMIN B-12 (11/08/16) VITAMIN D 25 HYDROXY (11/08/16) X-RAY EXAM OF ABDOMEN (08/19/16) X-RAY EXAM OF HAND (01/03/16) X-RAY EXAM OF SHOULDER (09/27/14) (1) Crohn's disease of small intestine with intestinal obstruction SNOMED Code(s): 73956363 Code(s): K50.012 - CROHN'S DISEASE OF SMALL INTESTINE W INTESTINAL OBSTRUCTION Priority: Medium Current Visit: Yes Problem List Initiated/Reviewed/Updated: Yes My Orders last 24 hours: My Active Orders 11/29/16 06:57 Communication Order [RC] ROUTINE 11/29/16 Breakfast Clear Liquid Diet [DIET] imp: improved plan: regular diet
--- NOTE | 2016-11-30 07:00 | CT ---
CT cervical spine Technique: Multiple axial sections through the cervical spine were obtained from above C1 inferiorly to the bottom of T2. Reconstructed sagittal and coronal images were reviewed. Comparison: Previous CT cervical spine exam of 09/27/14. Findings: Disc calcification is seen within multiple discs. Anterior osteophytes are seen throughout the cervical spine most prominent off of C5. Mild degenerative change noted within the dens and anterior arch of C1. Posterior skull base is intact. Vertebral bodies and posterior arches are intact with no fracture being seen. Degenerative apophyseal change is scattered throughout the cervical spine. Degenerative change noted throughout the uncovertebral joints. No abnormal subluxation is seen. Mild neural foraminal stenosis noted on the left side at C4-C5 and C5-C6. Impression: 1. Degenerative change as noted above. Nothing acute is identified on CT study of the cervical spine. Diagnostic code #2 Agree with preliminary report issued by [employer] (preliminary [employer] report dictated on 11/30/16, 12:38 AM Central Time)
--- NOTE | 2016-11-30 07:00 | CT ---
Head CT Technique: Multiple axial sections through the brain were obtained. Intravenous contrast was not utilized. Comparison: Previous head CT study of 11/08/16. Findings: Ventricles along with basal cisterns and sulci over the convexities are moderately prominent. Minimal diminished density noted within portions of the periventricular and subcortical white matter compatible with small vessel ischemic demyelination change. 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 No other abnormal parenchymal densities are seen. No evidence of intracranial hemorrhage. No midline shift or mass effect is seen. Atherosclerotic change noted within the vertebral vessels. Minimal mucosal thickening seen within the ethmoid and frontal sinus. Visualized mastoid sinuses and middle ear cavities are clear. No acute calvarial abnormality is seen. Impression: 1. Senescent change as noted above. 2. Slight mucosal thickening within the ethmoid and frontal sinuses which is felt to be incidental. 3. No acute intracranial abnormality is appreciated. Diagnostic code #2 Agree with preliminary report issued by [employer] (preliminary [facility] report dictated on 11/30/16, 12:34 AM Central Time)
[2016-11-30] MEDS: Insulin Aspart 100 Units/ML 3 ML Pen SUBCUT SCH ×2 (07:02→21:29)
[2016-11-30] MEDS: Pantoprazole 40 MG Vial IV SCH (10:11)
[2016-11-30] MEDS: Nystatin Crm 30 GM Tube TOP SCH ×3 (10:11→21:26)
[2016-11-30] MEDS: Cyanocobalamin (Vitamin B12) 1,000 MCG/ML SDV SUBCUT SCH (10:12)
[2016-11-30] MEDS: Enoxaparin 40 MG/0.4 ML Syringe SUBCUT SCH (10:15)
[2016-11-30] MEDS: Bumetanide 1 MG/4 ML MDV IVPUSH SCH (10:15)
[2016-11-30] MEDS ORDERED: Magnesium Sulfate/Water 2 GM in Premix Bag 1 BAG IV ONE (11:00)
[2016-11-30] MEDS: Potassium Chloride 10% 20 MEQ/15 ML Soln 15 ML UD Cup PO SCH ×2 (11:16→18:39)
--- NOTE | 2016-11-30 17:02 | PCM.PN ---
- General Info Date of Service: 11/30/16 Functional Status: Reports: pain controlled, tolerating diet, ambulating, urinating - Review of Systems General: Reports: No Symptoms HEENT: Reports: no symptoms Pulmonary: Reports: no symptoms Cardiovascular: Reports: No Symptoms Gastrointestinal: Reports: Abdominal pain (decreased) Genitourinary: Reports: no symptoms Musculoskeletal: Reports: no symptoms Skin: Reports: no symptoms Neurological: Reports: No Symptoms Psychiatric: Reports: no symptoms - Patient Data Vitals - most recent: Last Vital Signs Temp 36.4 C 11/30/16 15:53 Pulse 59 L 11/30/16 15:53 Resp 16 11/30/16 15:53 BP 127/55 L 11/30/16 15:53 Pulse Ox 100 11/30/16 15:53 Weight - most recent: 85.593 kg I&O - last 24 hours: Intake & Output 11/30/16 11/30/16 11/30/16 06:59 14:59 22:59 Intake Total 2156 450 2877 Output Total 700 150 Balance 3543 318 6594 Lab Results last 24 hrs: Laboratory Results - last 24 hr 11/29/16 11/30/16 11/30/16 Range/Units 20:17 07:01 07:59 WBC 5.76 (3.98-10.04) K/mm3 RBC 4.59 (3.98-5.22) M/mm3 Hgb 11.3 (11.2-15.7) gm/L Hct 35.6 (34.1-44.9) % MCV 77.6 L (79.4-94.8) fl MCH 24.6 L (25.6-32.2) pg MCHC 31.7 L (32.2-35.5) g/dl RDW Std Deviation 49.0 H (36.4-46.3) fL Plt Count 122 L (182-369) K/mm3 MPV 10.8 (9.4-12.3) fl Neut % (Auto) 83.7 H (34.0-71.1) % Lymph % (Auto) 12.5 L (19.3-51.7) % [place] % (Auto) 3.6 L (4.7-12.5) % Eos % (Auto) 0 L (0.7-5.8) Baso % (Auto) 0.0 L (0.1-1.2) % Neut # 4.82 (1.56-6.13) K/mm3 Lymph # 0.72 L (1.18-3.74) K/mm3 [place] # 0.21 L (0.24-0.36) K/mm3 Eos # 0.00 L (0.04-0.36) K/mm3 Baso # 0.00 L (0.01-0.08) K/mm3 ESR (0-20) mm/hr Sodium (136-145) mEq/L Potassium (3.5-5.1) mEq/L Chloride (98-107) mEq/L Carbon Dioxide (21-32) mEq/L Anion Gap (5-15) BUN (7-18) mg/dL Creatinine (0.55-1.02) mg/dL Est Cr Clr Drug Dosing mL/min Estimated GFR (MDRD) (>60) mL/min BUN/Creatinine Ratio (14-18) Glucose (83-115) mg/dL POC Glucose 178 H 190 H (83-110) mg/dL Calcium (8.5-10.1) mg/dL Magnesium (1.8-2.4) mg/dl C-Reactive Protein (<1.0) mg/dL 11/30/16 11/30/16 Range/Units 07:59 07:59 WBC (3.98-10.04) K/mm3 RBC (3.98-5.22) M/mm3 Hgb (11.2-15.7) gm/L Hct (34.1-44.9) % MCV (79.4-94.8) fl MCH (25.6-32.2) pg MCHC (32.2-35.5) g/dl RDW Std Deviation (36.4-46.3) fL Plt Count (182-369) K/mm3 MPV (9.4-12.3) fl Neut % (Auto) (34.0-71.1) % Lymph % (Auto) (19.3-51.7) % [place] % (Auto) (4.7-12.5) % Eos % (Auto) (0.7-5.8) Baso % (Auto) (0.1-1.2) % Neut # (1.56-6.13) K/mm3 Lymph # (1.18-3.74) K/mm3 [place] # (0.24-0.36) K/mm3 Eos # (0.04-0.36) K/mm3 Baso # (0.01-0.08) K/mm3 ESR 10 (0-20) mm/hr Sodium 141 (136-145) mEq/L Potassium 2.5 L (3.5-5.1) mEq/L Chloride 106 (98-107) mEq/L Carbon Dioxide 28 (21-32) mEq/L Anion Gap 9.5 (5-15) BUN 4 L (7-18) mg/dL Creatinine 0.7 (0.55-1.02) mg/dL Est Cr Clr Drug Dosing 64.01 mL/min Estimated GFR (MDRD) > 60 (>60) mL/min BUN/Creatinine Ratio 5.7 L (14-18) Glucose 170 H (83-115) mg/dL POC Glucose (83-110) mg/dL Calcium 8.1 L (8.5-10.1) mg/dL Magnesium 1.6 L (1.8-2.4) mg/dl C-Reactive Protein < 0.2 (<1.0) mg/dL [place] Results last 24 hrs: Microbiology 11/28/16 08:45 MRSA Surveillance Culture - Final Nasal/Axilla/Groin NO MRSA ISOLATED Med Orders - Current: Current Medications Acetaminophen (Tylenol) 650 mg PO Q4H PRN PRN Reason: Pain (Mild 1-3)/fever Acetaminophen/Hydrocodone Bitart ([place] 325-5 Mg) 1 tab PO Q4H PRN PRN Reason: Pain (moderate 4-6) Albuterol/Ipratropium (Duoneb 3.0-0.5 Mg/3 Ml) 3 ml NEB Q4H PRN PRN Reason: Shortness Of Breath/wheezing Bisacodyl (Dulcolax) 5 mg PO DAILY PRN PRN Reason: Constipation Bumetanide (Bumex) 0.5 mg IVPUSH DAILY [facility] Last Admin: 11/30/16 10:15 Dose: 0.5 mg Cyanocobalamin (Vitamin B12) 1,000 mcg SUBCUT DAILY [facility] Stop: 12/03/16 09:00 Last Admin: 11/30/16 10:12 Dose: 1,000 mcg Dextrose/Water (Dextrose 50% In Water) 50 ml IVPUSH ASDIRECTED PRN PRN Reason: Hypoglycemia Enoxaparin Sodium (Lovenox) 40 mg SUBCUT DAILY [facility] Last Admin: 11/30/16 10:15 Dose: 40 mg Hydralazine HCl (Apresoline) 20 mg IVPUSH Q4H PRN PRN Reason: Hypertension Last Admin: 11/28/16 05:53 Dose: 20 mg Hydrocortisone Sodium Succinate (Solu-Cortef) 100 mg IVPUSH Q6H [facility] Last Admin: 11/30/16 16:36 Dose: 100 mg Hydromorphone HCl (Dilaudid) 0.25 mg IVPUSH Q2H PRN PRN Reason: Pain (severe 7-10) Metronidazole 500 mg/ Premix 100 mls @ 100 mls/hr IV Q6H [facility] Last Admin: 11/30/16 16:35 Dose: 100 mls/hr Erythromycin Lactobionate 250 (mg/ Sodium Chloride) 100 mls @ 100 mls/hr IV Q6H [facility] Last Admin: 11/30/16 15:14 Dose: 100 mls/hr Insulin Aspart (Novolog) 0 unit SUBCUT BID@0700,2100 [facility] PRN Reason: Protocol Last Admin: 11/30/16 07:02 Dose: 1 unit Lorazepam (Ativan) 1 mg IV Q6H PRN PRN Reason: Nausea/Vomiting Metoclopramide HCl (Reglan) 10 mg IVPUSH Q6H [facility] Last Admin: 11/30/16 16:38 Dose: 10 mg Metoprolol Tartrate (Lopressor) 5 mg IVPUSH Q4H PRN PRN Reason: Tachycardia Multi-Ingred Cream/Lotion/Oil/Oint (Zinc Oxide) 15 gm TOP TID [facility] Last Admin: 11/30/16 14:06 Dose: Not Given Nitroglycerin (Nitrostat) 0.4 mg SL ASDIRECTED PRN PRN Reason: Chest Pain Nystatin (Nystatin Crm) 15 gm TOP TID [facility] Last Admin: 11/30/16 14:06 Dose: Not Given Pantoprazole Sodium (Protonix) 40 mg PO DAILY [facility] Phenol/Menthol (Chloraseptic) 15 ml MUCMEM Q2H PRN PRN Reason: Sore Throat Last Admin: 11/28/16 21:00 Dose: 2 spray Polyethylene Glycol (Miralax) 17 gm PO DAILY PRN PRN Reason: Constipation Potassium Chloride (Potassium Chloride Solution) 60 meq PO Q8H [facility] Stop: 11/30/16 19:01 Last Admin: 11/30/16 11:16 Dose: 60 meq Senna/Docusate Sodium (Senna Plus) 1 tab PO BID PRN PRN Reason: Constipation Temazepam (Restoril) 30 mg PO BEDTIME PRN PRN Reason: Sleep Last Admin: 11/29/16 21:55 Dose: 30 mg Discontinued Medications Cyanocobalamin (Vitamin B12) 1,000 mcg SUBCUT ONETIME ONE Stop: 11/27/16 23:01 Last Admin: 11/27/16 23:41 Dose: 1,000 mcg Diatrizoate Meglum/Diatrizoate Sod (Gastrografin 37%) 90 ml PO ONETIME ONE Stop: 11/27/16 16:15 Last Admin: 11/27/16 17:14 Dose: 90 ml Enoxaparin Sodium (Lovenox) 30 mg SUBCUT DAILY [facility] Folic Acid (Folic Acid) 2 mg SUBCUT DAILY ONE Stop: 11/28/16 22:16 Last Admin: 11/28/16 21:17 Dose: 2 mg Hydromorphone HCl (Dilaudid) 0.5 mg IVPUSH ONETIME ONE Stop: 11/27/16 20:48 Last Admin: 11/27/16 21:23 Dose: 0.5 mg Hydromorphone HCl (Dilaudid) 0.25 mg IVPUSH Q2H PRN PRN Reason: Pain (severe 7-10) Sodium Chloride (Normal Saline) 500 mls @ 500 mls/hr IV ONETIME ONE Stop: 11/27/16 16:19 Last Admin: 11/27/16 15:58 Dose: 500 mls/hr Sodium Chloride (Normal Saline) 1,000 mls @ 100 mls/hr IV ASDIRECTED [facility] Last Admin: 11/27/16 21:30 Dose: 100 mls/hr Dextrose/Sodium Chloride (Dextrose 5%-1/2 Ns) 1,000 mls @ 125 mls/hr IV ASDIRECTED [facility] Last Admin: 11/30/16 10:08 Dose: 125 mls/hr Magnesium Sulfate 2 gm/ Premix 50 mls @ 25 mls/hr IV ONETIME ONE Stop: 11/28/16 00:17 Last Admin: 11/28/16 00:09 Dose: 25 mls/hr Thiamine HCl 200 mg/ Sodium (Chloride) 102 mls @ 50 mls/hr IV ONETIME ONE Stop: 11/28/16 00:32 Last Admin: 11/28/16 01:19 Dose: 50 mls/hr Potassium Chloride 10 meq/ (Premix) 100 mls @ 100 mls/hr IV Q1H [facility] Stop: 11/28/16 00:29 Last Admin: 11/28/16 01:21 Dose: 100 mls/hr Multivitamins/Minerals 10 ml/ (Sodium Chloride) 510 mls @ 127 mls/hr IV ONETIME ONE Stop: 11/28/16 15:00 Last Admin: 11/28/16 11:14 Dose: 127 mls/hr Potassium Chloride 10 meq/ (Premix) 100 mls @ 100 mls/hr IV Q1H [facility] Stop: 11/29/16 16:59 Last Admin: 11/29/16 18:06 Dose: Not Given Potassium Chloride (Kcl 10 Meq In Water 100 Ml) Confirm Administered Dose 100 mls @ as directed .ROUTE .STK-MED ONE Stop: 11/29/16 12:38 Last Admin: 11/29/16 12:46 Dose: Not Given Potassium Chloride 10 meq/ (Premix) 100 mls @ 100 mls/hr IV Q1H [facility] Stop: 11/29/16 21:59 Last Admin: 11/29/16 18:07 Dose: Not Given Magnesium Sulfate 2 gm/ Premix 50 mls @ 25 mls/hr IV ONETIME ONE Stop: 11/30/16 12:59 Last Admin: 11/30/16 12:28 Dose: 25 mls/hr Insulin Aspart (Novolog) 0 unit SUBCUT ASDIRECTED [facility] PRN Reason: Protocol Iopamidol (Isovue-300 (61%)) 100 ml IVPUSH ONETIME ONE Stop: 11/27/16 16:15 Last Admin: 11/27/16 17:14 Dose: 100 ml Magnesium Sulfate (Pharmacy To Dose - Magnesium Replacement) 1 dose .XX ASDIRECTED [facility] Multivitamins/Minerals (M.V.I. Adult) 10 ml IV DAILY@1000 [facility] Last Admin: 11/28/16 19:56 Dose: Not Given Ondansetron HCl (Zofran) 4 mg IVPUSH ONETIME ONE Stop: 11/27/16 15:23 Last Admin: 11/27/16 16:01 Dose: 4 mg Pantoprazole Sodium (Protonix Iv) 40 mg IVPUSH ONETIME ONE Stop: 11/27/16 22:16 Last Admin: 11/27/16 23:20 Dose: 40 mg Pantoprazole Sodium (Protonix Iv) 40 mg IV DAILY [facility] Last Admin: 11/30/16 10:11 Dose: 40 mg Potassium Chloride (Pharmacy To Dose - Potassium Replacement) 1 dose .XX ASDIRECTED [facility] Potassium Chloride (Klor-Con M20) 60 meq PO ONETIME ONE Stop: 11/29/16 18:03 Last Admin: 11/29/16 18:36 Dose: 60 meq Sodium Chloride (Saline Flush) 10 ml FLUSH ONETIME ONE Stop: 11/27/16 16:15 Last Admin: 11/27/16 17:14 Dose: 10 ml Temazepam (Restoril) 30 mg PO BEDTIME PRN PRN Reason: Sleep - Exam Quality Assessment: DVT prophylaxis General: alert, oriented, cooperative, no acute distress HEENT: Pupils equal, Pupils reactive Neck: trachea midline, no JVD Lungs: Clear to auscultation, Normal respiratory effort Cardiovascular: Regular Rate Abdomen: bowel sounds present, soft, no tenderness, no distension (Female) Exam: Deferred Back Exam: normal inspection Extremities: normal pulses Skin: warm Neurological: no new focal deficit, normal gait, normal speech Psy/Mental Status: alert, normal affect, normal mood - Problem List Review Problem List Initiated/Reviewed/Updated: Yes - My Orders Last 24 Hours: My Active Orders 11/30/16 15:30 Consult to [employer] [CONS] Routine - Plan Plan:: Assessment/Plan: Acute: Small Bowel Obstruction, improving - Symptomatic: 1 week ago but got worse in the past 4 days - Last BM 1 week ago, Monday - Saw her GI specialist in [place] this past - was told everything ok - On routine Remicade Infusion - Seen by Dr. Carrera: recommend medical management - Started clear liquids this am by Dr. Carrera;p diet advanced as tolerated. - Therapeutic NGT, discontinued. - Follow up with Dr. Kathwalla after d/c Crohn's Colitis - Flagyl 500 mg IV Q6, day 4 - Hydrocortisone 100 mg IVP Q6, first dose now - C. diff, O and PV and Stool Culture - Vit B12, MVI and Folic Acid Daily Chronic: Impaired Vision CAD S/p Stent x 3 HTN GERD Urinary Incontinence OA/DJD Hypothyroidism Depression Hx/o Per-rectal and Chantelle-ashley Cellulitis Peripheral Edema Plan: She is clinically stable Continue current treatment Routine AM Labs Continue PT/OT SW/CM for d/c planning Encourage to ambulated TID-QID Code status:1 Additional orders as above LOS>96 hours with slow response to therapy
[2016-12-01] MEDS: Hydrocortisone Sodium Succinate 100 MG/2 ML SDV IVPUSH SCH ×2 (05:35→10:17)
[2016-12-01] MEDS: metroNIDAZOLE/Normal Saline 500 MG in Premix Bag 1 BAG IV SCH ×2 (05:35→10:12)
[2016-12-01] MEDS: Metoclopramide 10 MG/2 ML SDV IVPUSH SCH ×4 (05:35→22:49)
[2016-12-01] MEDS: Insulin Aspart 100 Units/ML 3 ML Pen SUBCUT SCH ×2 (06:43→20:50)
--- NOTE | 2016-12-01 07:37 | PCM.CONSN ---
- General Info Date of Service: 12/01/16 Functional Status: Reports: pain controlled, tolerating diet, ambulating, urinating - Review of Systems Gastrointestinal: Reports: Diarrhea - Patient Data Vitals - most recent: Last Vital Signs Temp 36.3 C 12/01/16 04:01 Pulse 66 12/01/16 04:01 Resp 20 12/01/16 04:01 BP 139/88 12/01/16 04:01 Pulse Ox 96 12/01/16 04:01 Weight - most recent: 86.273 kg I&O - last 24 hours: Intake & Output 11/30/16 12/01/16 12/01/16 22:59 06:59 14:59 Intake Total 3317 800 Output Total 150 500 Balance 3167 300 Lab Results last 24 hrs: Laboratory Results - last 24 hr 11/30/16 11/30/16 11/30/16 Range/Units 07:01 07:59 07:59 WBC 5.76 (3.98-10.04) K/mm3 RBC 4.59 (3.98-5.22) M/mm3 Hgb 11.3 (11.2-15.7) gm/L Hct 35.6 (34.1-44.9) % MCV 77.6 L (79.4-94.8) fl MCH 24.6 L (25.6-32.2) pg MCHC 31.7 L (32.2-35.5) g/dl RDW Std Deviation 49.0 H (36.4-46.3) fL Plt Count 122 L (182-369) K/mm3 MPV 10.8 (9.4-12.3) fl Neut % (Auto) 83.7 H (34.0-71.1) % Lymph % (Auto) 12.5 L (19.3-51.7) % [place] % (Auto) 3.6 L (4.7-12.5) % Eos % (Auto) 0 L (0.7-5.8) Baso % (Auto) 0.0 L (0.1-1.2) % Neut # 4.82 (1.56-6.13) K/mm3 Lymph # 0.72 L (1.18-3.74) K/mm3 [place] # 0.21 L (0.24-0.36) K/mm3 Eos # 0.00 L (0.04-0.36) K/mm3 Baso # 0.00 L (0.01-0.08) K/mm3 ESR 10 (0-20) mm/hr Sodium (136-145) mEq/L Potassium (3.5-5.1) mEq/L Chloride (98-107) mEq/L Carbon Dioxide (21-32) mEq/L Anion Gap (5-15) BUN (7-18) mg/dL Creatinine (0.55-1.02) mg/dL Est Cr Clr Drug Dosing mL/min Estimated GFR (MDRD) (>60) mL/min BUN/Creatinine Ratio (14-18) Glucose (83-115) mg/dL POC Glucose 190 H (83-110) mg/dL Calcium (8.5-10.1) mg/dL Magnesium (1.8-2.4) mg/dl C-Reactive Protein (<1.0) mg/dL 11/30/16 11/30/16 12/01/16 Range/Units 07:59 21:29 06:33 WBC (3.98-10.04) K/mm3 RBC (3.98-5.22) M/mm3 Hgb (11.2-15.7) gm/L Hct (34.1-44.9) % MCV (79.4-94.8) fl MCH (25.6-32.2) pg MCHC (32.2-35.5) g/dl RDW Std Deviation (36.4-46.3) fL Plt Count (182-369) K/mm3 MPV (9.4-12.3) fl Neut % (Auto) (34.0-71.1) % Lymph % (Auto) (19.3-51.7) % [place] % (Auto) (4.7-12.5) % Eos % (Auto) (0.7-5.8) Baso % (Auto) (0.1-1.2) % Neut # (1.56-6.13) K/mm3 Lymph # (1.18-3.74) K/mm3 [place] # (0.24-0.36) K/mm3 Eos # (0.04-0.36) K/mm3 Baso # (0.01-0.08) K/mm3 ESR (0-20) mm/hr Sodium 141 (136-145) mEq/L Potassium 2.5 L (3.5-5.1) mEq/L Chloride 106 (98-107) mEq/L Carbon Dioxide 28 (21-32) mEq/L Anion Gap 9.5 (5-15) BUN 4 L (7-18) mg/dL Creatinine 0.7 (0.55-1.02) mg/dL Est Cr Clr Drug Dosing 64.01 mL/min Estimated GFR (MDRD) > 60 (>60) mL/min BUN/Creatinine Ratio 5.7 L (14-18) Glucose 170 H (83-115) mg/dL POC Glucose 167 H 136 H (83-110) mg/dL Calcium 8.1 L (8.5-10.1) mg/dL Magnesium 1.6 L (1.8-2.4) mg/dl C-Reactive Protein < 0.2 (<1.0) mg/dL Med Orders - Current: Current Medications Acetaminophen (Tylenol) 650 mg PO Q4H PRN PRN Reason: Pain (Mild 1-3)/fever Acetaminophen/Hydrocodone Bitart ([place] 325-5 Mg) 1 tab PO Q4H PRN PRN Reason: Pain (moderate 4-6) Albuterol/Ipratropium (Duoneb 3.0-0.5 Mg/3 Ml) 3 ml NEB Q4H PRN PRN Reason: Shortness Of Breath/wheezing Bisacodyl (Dulcolax) 5 mg PO DAILY PRN PRN Reason: Constipation Bumetanide (Bumex) 0.5 mg IVPUSH DAILY [facility] Last Admin: 11/30/16 10:15 Dose: 0.5 mg Cyanocobalamin (Vitamin B12) 1,000 mcg SUBCUT DAILY [facility] Stop: 12/03/16 09:00 Last Admin: 11/30/16 10:12 Dose: 1,000 mcg Dextrose/Water (Dextrose 50% In Water) 50 ml IVPUSH ASDIRECTED PRN PRN Reason: Hypoglycemia Enoxaparin Sodium (Lovenox) 40 mg SUBCUT DAILY [facility] Last Admin: 11/30/16 10:15 Dose: 40 mg Hydralazine HCl (Apresoline) 20 mg IVPUSH Q4H PRN PRN Reason: Hypertension Last Admin: 11/28/16 05:53 Dose: 20 mg Hydrocortisone Sodium Succinate (Solu-Cortef) 100 mg IVPUSH Q6H [facility] Last Admin: 12/01/16 05:35 Dose: 100 mg Hydromorphone HCl (Dilaudid) 0.25 mg IVPUSH Q2H PRN PRN Reason: Pain (severe 7-10) Metronidazole 500 mg/ Premix 100 mls @ 100 mls/hr IV Q6H [facility] Last Admin: 12/01/16 05:35 Dose: 100 mls/hr Erythromycin Lactobionate 250 (mg/ Sodium Chloride) 100 mls @ 100 mls/hr IV Q6H [facility] Last Admin: 12/01/16 06:42 Dose: 100 mls/hr Insulin Aspart (Novolog) 0 unit SUBCUT BID@0700,2100 [facility] PRN Reason: Protocol Last Admin: 12/01/16 06:43 Dose: Not Given Lorazepam (Ativan) 1 mg IV Q6H PRN PRN Reason: Nausea/Vomiting Metoclopramide HCl (Reglan) 10 mg IVPUSH Q6H [facility] Last Admin: 12/01/16 05:35 Dose: 10 mg Metoprolol Tartrate (Lopressor) 5 mg IVPUSH Q4H PRN PRN Reason: Tachycardia Multi-Ingred Cream/Lotion/Oil/Oint (Zinc Oxide) 15 gm TOP TID [facility] Last Admin: 11/30/16 21:29 Dose: Not Given Nitroglycerin (Nitrostat) 0.4 mg SL ASDIRECTED PRN PRN Reason: Chest Pain Nystatin (Nystatin Crm) 15 gm TOP TID [facility] Last Admin: 11/30/16 21:26 Dose: Not Given Pantoprazole Sodium (Protonix) 40 mg PO DAILY [facility] Phenol/Menthol (Chloraseptic) 15 ml MUCMEM Q2H PRN PRN Reason: Sore Throat Last Admin: 11/28/16 21:00 Dose: 2 spray Polyethylene Glycol (Miralax) 17 gm PO DAILY PRN PRN Reason: Constipation Senna/Docusate Sodium (Senna Plus) 1 tab PO BID PRN PRN Reason: Constipation Temazepam (Restoril) 30 mg PO BEDTIME PRN PRN Reason: Sleep Last Admin: 11/29/16 21:55 Dose: 30 mg Discontinued Medications Cyanocobalamin (Vitamin B12) 1,000 mcg SUBCUT ONETIME ONE Stop: 11/27/16 23:01 Last Admin: 11/27/16 23:41 Dose: 1,000 mcg Diatrizoate Meglum/Diatrizoate Sod (Gastrografin 37%) 90 ml PO ONETIME ONE Stop: 11/27/16 16:15 Last Admin: 11/27/16 17:14 Dose: 90 ml Enoxaparin Sodium (Lovenox) 30 mg SUBCUT DAILY [facility] Folic Acid (Folic Acid) 2 mg SUBCUT DAILY ONE Stop: 11/28/16 22:16 Last Admin: 11/28/16 21:17 Dose: 2 mg Hydromorphone HCl (Dilaudid) 0.5 mg IVPUSH ONETIME ONE Stop: 11/27/16 20:48 Last Admin: 11/27/16 21:23 Dose: 0.5 mg Hydromorphone HCl (Dilaudid) 0.25 mg IVPUSH Q2H PRN PRN Reason: Pain (severe 7-10) Sodium Chloride (Normal Saline) 500 mls @ 500 mls/hr IV ONETIME ONE Stop: 11/27/16 16:19 Last Admin: 11/27/16 15:58 Dose: 500 mls/hr Sodium Chloride (Normal Saline) 1,000 mls @ 100 mls/hr IV ASDIRECTED [facility] Last Admin: 11/27/16 21:30 Dose: 100 mls/hr Dextrose/Sodium Chloride (Dextrose 5%-1/2 Ns) 1,000 mls @ [facility] Admin: 11/30/16 10:08 Dose: 125 mls/hr Magnesium Sulfate 2 gm/ Premix 50 mls @ 25 mls/hr IV ONETIME ONE Stop: 11/28/16 00:17 Last Admin: 11/28/16 00:09 Dose: 25 mls/hr Thiamine HCl 200 mg/ Sodium (Chloride) 102 mls @ 50 mls/hr IV ONETIME ONE Stop: 11/28/16 00:32 Last Admin: 11/28/16 01:19 Dose: 50 mls/hr Potassium Chloride 10 meq/ (Premix) 100 mls @ 100 mls/hr IV Q1H [facility] Stop: 11/28/16 00:29 Last Admin: 11/28/16 01:21 Dose: 100 mls/hr Multivitamins/Minerals 10 ml/ (Sodium Chloride) 510 mls @ 127 mls/hr IV ONETIME ONE Stop: 11/28/16 15:00 Last Admin: 11/28/16 11:14 Dose: 127 mls/hr Potassium Chloride 10 meq/ (Premix) 100 mls @ 100 mls/hr IV Q1H [facility] Stop: 11/29/16 16:59 Last Admin: 11/29/16 18:06 Dose: Not Given Potassium Chloride (Kcl 10 Meq In Water 100 Ml) Confirm Administered Dose 100 mls @ as directed .ROUTE .STK-MED ONE Stop: 11/29/16 12:38 Last Admin: 11/29/16 12:46 Dose: Not Given Potassium Chloride 10 meq/ (Premix) 100 mls @ 100 mls/hr IV Q1H [facility] Stop: 11/29/16 21:59 Last Admin: 11/29/16 18:07 Dose: Not Given Magnesium Sulfate 2 gm/ Premix 50 mls @ 25 mls/hr IV ONETIME ONE Stop: 11/30/16 12:59 Last Admin: 11/30/16 12:28 Dose: 25 mls/hr Insulin Aspart (Novolog) 0 unit SUBCUT ASDIRECTED [facility] PRN Reason: Protocol Iopamidol (Isovue-300 (61%)) 100 ml IVPUSH ONETIME ONE Stop: 11/27/16 16:15 Last Admin: 11/27/16 17:14 Dose: 100 ml Magnesium Sulfate (Pharmacy To Dose - Magnesium Replacement) 1 dose .XX ASDIRECTED [facility] Multivitamins/Minerals (M.V.I. Adult) 10 ml IV DAILY@1000 [facility] Last Admin: 11/28/16 19:56 Dose: Not Given Ondansetron HCl (Zofran) 4 mg IVPUSH ONETIME ONE Stop: 11/27/16 15:23 Last Admin: 11/27/16 16:01 Dose: 4 mg Pantoprazole Sodium (Protonix Iv) 40 mg IVPUSH ONETIME ONE Stop: 11/27/16 22:16 Last Admin: 11/27/16 23:20 Dose: 40 mg Pantoprazole Sodium (Protonix Iv) 40 mg IV DAILY [facility] Last Admin: 11/30/16 10:11 Dose: 40 mg Potassium Chloride (Pharmacy To Dose - Potassium Replacement) 1 dose .XX ASDIRECTED [facility] Potassium Chloride (Klor-Con M20) 60 meq PO ONETIME ONE Stop: 11/29/16 18:03 Last Admin: 11/29/16 18:36 Dose: 60 meq Potassium Chloride (Potassium Chloride Solution) 60 meq PO Q8H [facility] Stop: 11/30/16 19:01 Last Admin: 11/30/16 18:39 Dose: 60 meq Sodium Chloride (Saline Flush) 10 ml FLUSH ONETIME ONE Stop: 11/27/16 16:15 Last Admin: 11/27/16 17:14 Dose: 10 ml Temazepam (Restoril) 30 mg PO BEDTIME PRN PRN Reason: Sleep - Exam General: alert, cooperative, no acute distress Abdomen: soft, no tenderness, no distension Consult PN Assessment/Plan Procedures: Procedures AGENT NOS ASSAY W/OPTIC (11/08/16) ASSAY OF CK (CPK) (06/14/16) ASSAY OF FOLIC ACID RBC (11/08/16) ASSAY OF FREE THYROXINE (11/08/16) ASSAY OF IRON (11/08/16) ASSAY OF LACTIC ACID (11/08/16) ASSAY OF LIPASE (09/19/16) ASSAY OF MAGNESIUM (11/08/16) ASSAY OF NATRIURETIC PEPTIDE (11/08/16) ASSAY OF SERUM POTASSIUM (11/08/16) ASSAY OF TRANSFERRIN (11/08/16) ASSAY OF TROPONIN QUANT (06/14/16) ASSAY THYROID STIM HORMONE (11/08/16) BLOOD CULTURE FOR BACTERIA (11/08/16) C DIFF AMPLIFIED PROBE (11/08/16) C-REACTIVE PROTEIN (11/08/16) CARDIOVASCULAR STRESS TEST (06/29/16) CHEST X-RAY 1 VIEW FRONTAL (06/14/16) COMPLETE CBC W/AUTO DIFF WBC (11/08/16) COMPREHEN METABOLIC PANEL (11/08/16) CREATINE MB FRACTION (06/14/16) CRYPTOSPORIDIUM AG IA (11/08/16) CT ABD & PELV W/CONTRAST (11/08/16) CT ANGIOGRAPHY CHEST (06/14/16) CT HEAD/BRAIN W/O DYE (11/08/16) CT NECK SPINE W/O DYE (09/27/14) CULTURE AEROBIC IDENTIFY (05/15/14) ELECTROCARDIOGRAM TRACING (06/14/16) EMERGENCY DEPT VISIT (11/08/16) EMERGENCY DEPT VISIT (08/19/16) EMERGENCY DEPT VISIT (06/14/16) EMERGENCY DEPT VISIT (01/03/16) EMERGENCY DEPT VISIT (09/27/14) EXTRACRANIAL BILAT STUDY (06/14/16) FIBRIN DEGRADATION QUANT (06/14/16) GAIT TRAINING THERAPY (11/08/16) GIARDIA AG IA (11/08/16) GLUCOSE BLOOD TEST (11/08/16) GLYCOSYLATED HEMOGLOBIN TEST (11/08/16) HT MUSCLE IMAGE SPECT MULT (06/29/16) HYDRATE IV INFUSION ADD-ON (09/19/16) HYDRATION IV INFUSION INIT (06/14/16) IMMUNIZATION ADMIN (12/19/15) INFLUENZA ASSAY W/OPTIC (11/08/16) INTMD RPR S/TR/EXT 7.6-12.5 (12/19/15) LIPID PANEL (09/08/16) METABOLIC PANEL TOTAL CA (11/08/16) MICROBE SUSCEPTIBLE DISK (11/08/16) MICROBE SUSCEPTIBLE MIRI (11/08/16) MRI BRAIN STEM W/O DYE (06/14/16) NEUROMUSCULAR REEDUCATION (11/08/16) OCCULT BLD FECES 1-3 TESTS (11/08/16) OT EVAL LOW COMPLEX 30 MIN (11/08/16) OT EVALUATION (06/14/16) PT EVAL LOW COMPLEX 20 MIN (11/08/16) PT EVALUATION (06/14/16) RBC SED RATE AUTOMATED (11/08/16) REPAIR BLADDER DEFECT (04/15/14) REPAIR OF VAGINA (04/15/14) ROUTINE VENIPUNCTURE (11/08/16) RPR S/N/AX/GEN/TRNK 2.5CM/< (12/19/15) STOOL CULTR AEROBIC BACT EA (11/08/16) TDAP VACCINE 7 YRS/> IM (12/19/15) THER/PROPH/DIAG INJ IV PUSH (08/19/16) THER/PROPH/DIAG IV INF ADDON (11/14/16) THER/PROPH/DIAG IV INF INIT (11/14/16) THERAPEUTIC ACTIVITIES (06/14/16) TISSUE EXAM BY PATHOLOGIST (11/08/16) TTE W/DOPPLER COMPLETE (11/08/16) TX/PRO/DX INJ NEW DRUG ADDON (07/14/16) URINALYSIS AUTO W/O SCOPE (04/22/14) URINALYSIS AUTO W/SCOPE (11/08/16) URINE BACTERIA CULTURE (11/08/16) URINE CULTURE/COLONY COUNT (11/08/16) VANOMYCIN DNA AMP PROBE (04/25/16) VITAMIN B-12 (11/08/16) VITAMIN D 25 HYDROXY (11/08/16) X-RAY EXAM OF ABDOMEN (08/19/16) X-RAY EXAM OF HAND (01/03/16) X-RAY EXAM OF SHOULDER (09/27/14) (1) Crohn's disease of small intestine with intestinal obstruction SNOMED Code(s): 41125093 Code(s): K50.012 - CROHN'S DISEASE OF SMALL INTESTINE W INTESTINAL OBSTRUCTION Priority: Medium Current Visit: Yes Problem List Initiated/Reviewed/Updated: Yes My Orders last 24 hours: My Active Orders 11/30/16 Breakfast Regular Diet [DIET] imp/plan: Some loose stools still, but tolerating a regular diet well. Agree with plans for discharge. Her loose stools can be managed as an outpatient. 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
[2016-12-01] MEDS: Cyanocobalamin (Vitamin B12) 1,000 MCG/ML SDV SUBCUT SCH (10:20)
[2016-12-01] MEDS: Pantoprazole 40 MG Tab.CR PO SCH (10:20)
[2016-12-01] MEDS: Enoxaparin 40 MG/0.4 ML Syringe SUBCUT SCH (10:20)
[2016-12-01] MEDS: Nystatin Crm 30 GM Tube TOP SCH ×3 (10:20→20:54)
[2016-12-01] MEDS ORDERED: Magnesium Sulfate/Water 2 GM in Premix Bag 1 BAG IV ONE (10:39)
[2016-12-01] MEDS: Potassium Chloride 20 MEQ Tab.ER PO SCH ×2 (10:52→18:31)
[2016-12-01] MEDS: Bumetanide 1 MG/4 ML MDV IVPUSH SCH (12:18)
[2016-12-01] MEDS ORDERED: Magnesium Sulfate/Water 50 ML ONE (16:38)
--- NOTE | 2016-12-01 17:25 | PCM.PN ---
- General Info Date of Service: 12/01/16 Functional Status: Reports: tolerating diet, ambulating, urinating - Review of Systems General: Reports: No Symptoms HEENT: Reports: no symptoms Pulmonary: Reports: no symptoms Cardiovascular: Reports: No Symptoms Gastrointestinal: Reports: No symptoms Genitourinary: Reports: no symptoms Musculoskeletal: Reports: no symptoms Skin: Reports: no symptoms Neurological: Reports: No Symptoms Psychiatric: Reports: no symptoms - Patient Data Vitals - most recent: Last Vital Signs Temp 37.1 C 12/01/16 15:54 Pulse 61 12/01/16 15:54 Resp 18 12/01/16 15:54 BP 146/61 H 12/01/16 15:54 Pulse Ox 100 12/01/16 15:54 Weight - most recent: 86.273 kg I&O - last 24 hours: Intake & Output 12/01/16 12/01/16 12/01/16 06:59 14:59 22:59 Intake Total 825 938 8829 Output Total 500 375 Balance 300 450 730 Lab Results last 24 hrs: Laboratory Results - last 24 hr 11/30/16 12/01/16 12/01/16 Range/Units 21:29 06:33 06:36 WBC 6.73 (3.98-10.04) K/mm3 RBC 4.36 (3.98-5.22) M/mm3 Hgb 10.7 L (11.2-15.7) gm/L Hct 33.6 L (34.1-44.9) % MCV 77.1 L (79.4-94.8) fl MCH 24.5 L (25.6-32.2) pg MCHC 31.8 L (32.2-35.5) g/dl RDW Std Deviation 48.7 H (36.4-46.3) fL Plt Count 159 L (182-369) K/mm3 MPV 11.1 (9.4-12.3) fl Neut % (Auto) 82.6 H (34.0-71.1) % Lymph % (Auto) 12.8 L (19.3-51.7) % [facility] % (Auto) 4.3 L (4.7-12.5) % Eos % (Auto) 0 L (0.7-5.8) Baso % (Auto) 0.0 L (0.1-1.2) % Neut # (Auto) 5.56 (1.56-6.13) K/mm3 Lymph # (Auto) 0.86 L (1.18-3.74) K/mm3 [facility] # (Auto) 0.29 (0.24-0.36) K/mm3 Eos # (Auto) 0.00 L (0.04-0.36) K/mm3 Baso # (Auto) 0.00 L (0.01-0.08) K/mm3 Manual Slide Review Abnormal smear ESR (0-20) mm/hr Sodium (136-145) mEq/L Potassium (3.5-5.1) mEq/L Chloride (98-107) mEq/L Carbon Dioxide (21-32) mEq/L Anion Gap (5-15) BUN (7-18) mg/dL Creatinine (0.55-1.02) mg/dL Est Cr Clr Drug Dosing mL/min Estimated GFR (MDRD) (>60) mL/min BUN/Creatinine Ratio (14-18) Glucose (83-115) mg/dL POC Glucose 167 H 136 H (83-110) mg/dL Calcium (8.5-10.1) mg/dL Magnesium (1.8-2.4) mg/dl C-Reactive Protein (<1.0) mg/dL 12/01/16 12/01/16 Range/Units 06:39 06:39 WBC (3.98-10.04) K/mm3 RBC (3.98-5.22) M/mm3 Hgb (11.2-15.7) gm/L Hct (34.1-44.9) % MCV (79.4-94.8) fl MCH (25.6-32.2) pg MCHC (32.2-35.5) g/dl RDW Std Deviation (36.4-46.3) fL Plt Count (182-369) K/mm3 MPV (9.4-12.3) fl Neut % (Auto) (34.0-71.1) % Lymph % (Auto) (19.3-51.7) % [facility] % (Auto) (4.7-12.5) % Eos % (Auto) (0.7-5.8) Baso % (Auto) (0.1-1.2) % Neut # (Auto) (1.56-6.13) K/mm3 Lymph # (Auto) (1.18-3.74) K/mm3 [facility] # (Auto) (0.24-0.36) K/mm3 Eos # (Auto) (0.04-0.36) K/mm3 Baso # (Auto) (0.01-0.08) K/mm3 Manual Slide Review ESR 8 (0-20) mm/hr Sodium 141 (136-145) mEq/L Potassium 2.3 L* (3.5-5.1) mEq/L Chloride 103 (98-107) mEq/L Carbon Dioxide 29 (21-32) mEq/L Anion Gap 11.3 (5-15) BUN 7 (7-18) mg/dL Creatinine 0.7 (0.55-1.02) mg/dL Est Cr Clr Drug Dosing 64.01 mL/min Estimated GFR (MDRD) > 60 (>60) mL/min BUN/Creatinine Ratio 10.0 L (14-18) Glucose 141 H (83-115) mg/dL POC Glucose (83-110) mg/dL Calcium 7.9 L (8.5-10.1) mg/dL Magnesium 1.7 L (1.8-2.4) mg/dl C-Reactive Protein < 0.2 (<1.0) mg/dL Thuan Results last 24 hrs: Microbiology 11/29/16 06:45 Cryptosporidium/Giardia - Final Stool / Feces 11/29/16 06:45 Stool Culture - Preliminary Stool / Feces - Final - Final Med Orders - Current: Current Medications Acetaminophen (Tylenol) 650 mg PO Q4H PRN PRN Reason: Pain (Mild 1-3)/fever Acetaminophen/Hydrocodone Bitart ([place] 325-5 Mg) 1 tab PO Q4H PRN PRN Reason: Pain (moderate 4-6) Albuterol/Ipratropium (Duoneb 3.0-0.5 Mg/3 Ml) 3 ml NEB Q4H PRN PRN Reason: Shortness Of Breath/wheezing Bisacodyl (Dulcolax) 5 mg PO DAILY PRN PRN Reason: Constipation Cyanocobalamin (Vitamin B12) 1,000 mcg SUBCUT DAILY LEONARDO Stop: 12/03/16 09:00 Last Admin: 12/01/16 10:20 Dose: 1,000 mcg Dextrose/Water (Dextrose 50% In Water) 50 ml IVPUSH ASDIRECTED PRN PRN Reason: Hypoglycemia Enoxaparin Sodium (Lovenox) 40 mg SUBCUT DAILY [facility] Last Admin: 12/01/16 10:20 Dose: 40 mg Hydralazine HCl (Apresoline) 20 mg IVPUSH Q4H PRN PRN Reason: Hypertension Last Admin: 11/28/16 05:53 Dose: 20 mg Hydromorphone HCl (Dilaudid) 0.25 mg IVPUSH Q2H PRN PRN Reason: Pain (severe 7-10) Erythromycin Lactobionate 250 (mg/ Sodium Chloride) 100 mls @ 100 mls/hr IV Q6H [facility] Stop: 12/02/16 19:00 Last Admin: 12/01/16 13:26 Dose: 100 mls/hr Insulin Aspart (Novolog) 0 unit SUBCUT BID@0700,2100 [facility] PRN Reason: Protocol Last Admin: 12/01/16 06:43 Dose: Not Given Lorazepam (Ativan) 1 mg IV Q6H PRN PRN Reason: Nausea/Vomiting Metoclopramide HCl (Reglan) 10 mg IVPUSH Q6H [facility] Last Admin: 12/01/16 13:26 Dose: 10 mg Metoprolol Tartrate (Lopressor) 5 mg IVPUSH Q4H PRN PRN Reason: Tachycardia Metronidazole (Flagyl) 500 mg PO Q6H [facility] Multi-Ingred Cream/Lotion/Oil/Oint (Zinc Oxide) 15 gm TOP TID [facility] Last Admin: 12/01/16 14:08 Dose: Not Given Nitroglycerin (Nitrostat) 0.4 mg SL ASDIRECTED PRN PRN Reason: Chest Pain Nystatin (Nystatin Crm) 15 gm TOP TID [facility] Last Admin: 12/01/16 14:08 Dose: Not Given Pantoprazole Sodium (Protonix) 40 mg PO DAILY [facility] Last Admin: 12/01/16 10:20 Dose: 40 mg Phenol/Menthol (Chloraseptic) 15 ml MUCMEM Q2H PRN PRN Reason: Sore Throat Last Admin: 11/28/16 21:00 Dose: 2 spray Polyethylene Glycol (Miralax) 17 gm PO DAILY PRN PRN Reason: Constipation Potassium Chloride (Klor-Con M20) 60 meq PO Q8H [facility] Stop: 12/02/16 02:46 Last Admin: 12/01/16 10:52 Dose: 60 meq Prednisone (Prednisone) 40 mg PO DAILY [facility] Stop: 12/04/16 09:01 Prednisone (Prednisone) 30 mg PO DAILY [facility] Stop: 12/07/16 09:01 Prednisone (Prednisone) 20 mg PO DAILY [facility] Stop: 12/10/16 09:01 Prednisone (Prednisone) 10 mg PO DAILY [facility] Stop: 12/13/16 09:01 Senna/Docusate Sodium (Senna Plus) 1 tab PO BID PRN PRN Reason: Constipation Temazepam (Restoril) 30 mg PO BEDTIME PRN PRN Reason: Sleep Last Admin: 11/29/16 21:55 Dose: 30 mg Discontinued Medications Bumetanide (Bumex) 0.5 mg IVPUSH DAILY [facility] Last Admin: 12/01/16 12:18 Dose: Not Given Cyanocobalamin (Vitamin B12) 1,000 mcg SUBCUT ONETIME ONE Stop: 11/27/16 23:01 Last Admin: 11/27/16 23:41 Dose: 1,000 mcg Diatrizoate Meglum/Diatrizoate Sod (Gastrografin 37%) 90 ml PO ONETIME ONE Stop: 11/27/16 16:15 Last Admin: 11/27/16 17:14 Dose: 90 ml Enoxaparin Sodium (Lovenox) 30 mg SUBCUT DAILY [facility] Folic Acid (Folic Acid) 2 mg SUBCUT DAILY ONE Stop: 11/28/16 22:16 Last Admin: 11/28/16 21:17 Dose: 2 mg Hydrocortisone Sodium Succinate (Solu-Cortef) 100 mg IVPUSH Q6H [facility] Last Admin: 12/01/16 10:17 Dose: 100 mg Hydromorphone HCl (Dilaudid) 0.5 mg IVPUSH ONETIME ONE Stop: 11/27/16 20:48 Last Admin: 11/27/16 21:23 Dose: 0.5 mg Hydromorphone HCl (Dilaudid) 0.25 mg IVPUSH Q2H PRN PRN Reason: Pain (severe 7-10) Sodium Chloride (Normal Saline) 500 mls @ 500 mls/hr IV ONETIME ONE Stop: 11/27/16 16:19 Last Admin: 11/27/16 15:58 Dose: 500 mls/hr Sodium Chloride (Normal Saline) 1,000 mls @ 100 mls/hr IV ASDIRECTED [facility] Last Admin: 11/27/16 21:30 Dose: 100 mls/hr Dextrose/Sodium Chloride (Dextrose 5%-1/2 Ns) 1,000 mls @ 125 mls/hr IV ASDIRECTED [facility] Last Admin: 11/30/16 10:08 Dose: 125 mls/hr Magnesium Sulfate 2 gm/ Premix 50 mls @ 25 mls/hr IV ONETIME ONE Stop: 11/28/16 00:17 Last Admin: 11/28/16 00:09 Dose: 25 mls/hr Thiamine HCl 200 mg/ Sodium (Chloride) 102 mls @ 50 mls/hr IV ONETIME ONE Stop: 11/28/16 00:32 Last Admin: 11/28/16 01:19 Dose: 50 mls/hr Metronidazole 500 mg/ Premix 100 mls @ 100 mls/hr IV Q6H [facility] Last Admin: 12/01/16 10:12 Dose: 100 mls/hr Potassium Chloride 10 meq/ (Premix) 100 mls @ 100 mls/hr IV Q1H [facility] Stop: 11/28/16 00:29 Last Admin: 11/28/16 01:21 Dose: 100 mls/hr Multivitamins/Minerals 10 ml/ (Sodium Chloride) 510 mls @ 127 mls/hr IV ONETIME ONE Stop: 11/28/16 15:00 Last Admin: 11/28/16 11:14 Dose: 127 mls/hr Potassium Chloride 10 meq/ (Premix) 100 mls @ 100 mls/hr IV Q1H [facility] Stop: 11/29/16 16:59 Last Admin: 11/29/16 18:06 Dose: Not Given Potassium Chloride (Kcl 10 Meq In Water 100 Ml) Confirm Administered Dose 100 mls @ as directed .ROUTE .STK-MED ONE Stop: 11/29/16 12:38 Last Admin: 11/29/16 12:46 Dose: Not Given Potassium Chloride 10 meq/ (Premix) 100 mls @ 100 mls/hr IV Q1H [facility] Stop: 11/29/16 21:59 Last Admin: 11/29/16 18:07 Dose: Not Given Magnesium Sulfate 2 gm/ Premix 50 mls @ 25 mls/hr IV ONETIME ONE Stop: 11/30/16 12:59 Last Admin: 11/30/16 12:28 Dose: 25 mls/hr Magnesium Sulfate 2 gm/ Premix 50 mls @ 25 mls/hr IV ONETIME ONE Stop: 12/01/16 12:38 Last Admin: 12/01/16 16:40 Dose: 25 mls/hr Magnesium Sulfate (Magnesium Sulfate 2 Gm In Water 50 Ml) Confirm Administered Dose 50 mls @ as directed .ROUTE .STK-MED ONE Stop: 12/01/16 16:39 Last Admin: 12/01/16 16:44 Dose: Not Given Insulin Aspart (Novolog) 0 unit SUBCUT ASDIRECTED [facility] PRN Reason: Protocol Iopamidol (Isovue-300 (61%)) 100 ml IVPUSH ONETIME ONE Stop: 11/27/16 16:15 Last Admin: 11/27/16 17:14 Dose: 100 ml Magnesium Sulfate (Pharmacy To Dose - Magnesium Replacement) 1 dose .XX ASDIRECTED [facility] Multivitamins/Minerals (M.V.I. Adult) 10 ml IV DAILY@1000 [facility] Last Admin: 11/28/16 19:56 Dose: Not Given Ondansetron HCl (Zofran) 4 mg IVPUSH ONETIME ONE Stop: 11/27/16 15:23 Last Admin: 11/27/16 16:01 Dose: 4 mg Pantoprazole Sodium (Protonix Iv) 40 mg IVPUSH ONETIME ONE Stop: 11/27/16 22:16 Last Admin: 11/27/16 23:20 Dose: 40 mg Pantoprazole Sodium (Protonix Iv) 40 mg IV DAILY [facility] Last Admin: 11/30/16 10:11 Dose: 40 mg Potassium Chloride (Pharmacy To Dose - Potassium Replacement) 1 dose .XX ASDIRECTED [facility] Potassium Chloride (Klor-Con M20) 60 meq PO ONETIME ONE Stop: 11/29/16 18:03 Last Admin: 11/29/16 18:36 Dose: 60 meq Potassium Chloride (Potassium Chloride Solution) 60 meq PO Q8H [facility] Stop: 11/30/16 19:01 Last Admin: 11/30/16 18:39 Dose: 60 meq Sodium Chloride (Saline Flush) 10 ml FLUSH ONETIME ONE Stop: 11/27/16 16:15 Last Admin: 11/27/16 17:14 Dose: 10 ml Temazepam (Restoril) 30 mg PO BEDTIME PRN PRN Reason: Sleep - Exam Quality Assessment: DVT prophylaxis General: alert, oriented, cooperative, no acute distress HEENT: Pupils equal, Pupils reactive, EOMI Neck: supple, trachea midline, no JVD Lungs: Normal respiratory effort Cardiovascular: Regular Rate, Regular Rhythm Abdomen: bowel sounds present, soft, no tenderness, no distension (Female) Exam: Deferred Back Exam: normal inspection Extremities: normal pulses Skin: warm Neurological: no new focal deficit, normal speech Psy/Mental Status: alert, normal affect, normal mood - Problem List Review Problem List Initiated/Reviewed/Updated: Yes - My Orders Last 24 Hours: My Active Orders 12/01/16 10:45 Potassium Chloride [Klor-Con M20] 60 meq PO Q8H 12/01/16 17:00 metroNIDAZOLE [Flagyl] 500 mg PO Q6H 12/02/16 09:00 predniSONE 40 mg PO DAILY 12/05/16 09:00 predniSONE 30 mg PO DAILY 12/08/16 09:00 predniSONE 20 mg PO DAILY 12/11/16 09:00 predniSONE 10 mg PO DAILY - Plan Plan:: Assessment/Plan: Acute: Small Bowel Obstruction, improving - Symptomatic: 1 week ago but got worse in the past 4 days - Last BM 1 week ago, Monday - Saw her GI specialist in [place] this past - was told everything ok - On routine Remicade Infusion - Seen by Dr. Carrera: recommend medical management - Follow up with Dr. Calero after d/c Crohn's Colitis - Flagyl 500 mg IV Q6, day 4; changed to oral dose today. - Hydrocortisone 100 mg IVP Q6; changed to prednisone 40 mg with taper Chronic: Impaired Vision CAD S/p Stent x 3 HTN GERD Urinary Incontinence OA/DJD Hypothyroidism Depression Hx/o Per-rectal and Chantelle-ashley Cellulitis Peripheral Edema Plan: Continue current treatment Routine AM Labs Continue PT/OT SW/CM for d/c planning Encourage to ambulated TID-QID Code status:1 Additional orders as above LOS>96 hours with slow response to therapy
[2016-12-01] MEDS: metroNIDAZOLE 500 MG Tab PO SCH ×2 (18:32→22:49)
[2016-12-02] MEDS: Potassium Chloride 20 MEQ Tab.ER PO SCH ×3 (02:00→18:22)
[2016-12-02] MEDS: Metoclopramide 10 MG/2 ML SDV IVPUSH SCH ×4 (06:06→22:37)
[2016-12-02] MEDS: metroNIDAZOLE 500 MG Tab PO SCH ×4 (06:06→22:37)
[2016-12-02] MEDS: hydrALAZINE 20 MG/ML SDV IVPUSH PRN (06:08)
[2016-12-02] MEDS: Insulin Aspart 100 Units/ML 3 ML Pen SUBCUT SCH ×2 (06:25→20:31)
[2016-12-02] MEDS: Enoxaparin 40 MG/0.4 ML Syringe SUBCUT SCH (09:11)
[2016-12-02] MEDS: predniSONE 20 MG Tab PO SCH (09:11)
[2016-12-02] MEDS: Nystatin Crm 30 GM Tube TOP SCH ×3 (09:12→20:33)
[2016-12-02] MEDS: Pantoprazole 40 MG Tab.CR PO SCH (09:12)
[2016-12-02] MEDS: Cyanocobalamin (Vitamin B12) 1,000 MCG Tab PO SCH (09:22)
[2016-12-02] MEDS: Cyanocobalamin (Vitamin B12) 1,000 MCG/ML SDV SUBCUT SCH (12:29)
--- NOTE | 2016-12-02 18:57 | PCM.PN ---
- General Info Date of Service: 12/02/16 Functional Status: Reports: pain controlled, tolerating diet, ambulating - Review of Systems General: Reports: No Symptoms HEENT: Reports: no symptoms Pulmonary: Reports: no symptoms Cardiovascular: Reports: No Symptoms Gastrointestinal: Reports: No symptoms Genitourinary: Reports: no symptoms Musculoskeletal: Reports: no symptoms Skin: Reports: no symptoms Neurological: Reports: No Symptoms Psychiatric: Reports: no symptoms - Patient Data Vitals - most recent: Last Vital Signs Temp 36.8 C 12/02/16 15:52 Pulse 82 12/02/16 15:52 Resp 20 12/02/16 15:52 BP 129/83 12/02/16 16:17 Pulse Ox 98 12/02/16 15:52 Weight - most recent: 86.364 kg I&O - last 24 hours: Intake & Output 12/02/16 12/02/16 12/02/16 06:59 14:59 22:59 Intake Total 9456 052 2944 Output Total 500 700 Balance 1000 210 860 Lab Results last 24 hrs: Laboratory Results - last 24 hr 12/01/16 12/02/16 12/02/16 Range/Units 20:25 06:11 07:54 WBC 10.02 (3.98-10.04) K/mm3 RBC 5.06 (3.98-5.22) M/mm3 Hgb 12.4 (11.2-15.7) gm/L Hct 38.3 (34.1-44.9) % MCV 75.7 L (79.4-94.8) fl MCH 24.5 L (25.6-32.2) pg MCHC 32.4 (32.2-35.5) g/dl RDW Std Deviation 49.0 H (36.4-46.3) fL Plt Count 180 L (182-369) K/mm3 MPV 9.8 (9.4-12.3) fl Neut % (Auto) 67.4 (34.0-71.1) % Lymph % (Auto) 27.2 (19.3-51.7) % [place] % (Auto) 4.3 L (4.7-12.5) % Eos % (Auto) 0.7 (0.7-5.8) Baso % (Auto) 0.1 (0.1-1.2) % Neut # (Auto) 6.75 H (1.56-6.13) K/mm3 Lymph # (Auto) 2.73 (1.18-3.74) K/mm3 [place] # (Auto) 0.43 H (0.24-0.36) K/mm3 Eos # (Auto) 0.07 (0.04-0.36) K/mm3 Baso # (Auto) 0.01 (0.01-0.08) K/mm3 Sodium (136-145) mEq/L Potassium (3.5-5.1) mEq/L Chloride (98-107) mEq/L Carbon Dioxide (21-32) mEq/L Anion Gap (5-15) BUN (7-18) mg/dL Creatinine (0.55-1.02) mg/dL Est Cr Clr Drug Dosing mL/min Estimated GFR (MDRD) (>60) mL/min BUN/Creatinine Ratio (14-18) Glucose (83-115) mg/dL POC Glucose 163 H 86 (83-110) mg/dL Calcium (8.5-10.1) mg/dL Magnesium (1.8-2.4) mg/dl 12/02/16 12/02/16 Range/Units 07:54 17:56 WBC (3.98-10.04) K/mm3 RBC (3.98-5.22) M/mm3 Hgb (11.2-15.7) gm/L Hct (34.1-44.9) % MCV (79.4-94.8) fl MCH (25.6-32.2) pg MCHC (32.2-35.5) g/dl RDW Std Deviation (36.4-46.3) fL Plt Count (182-369) K/mm3 MPV (9.4-12.3) fl Neut % (Auto) (34.0-71.1) % Lymph % (Auto) (19.3-51.7) % [place] % (Auto) (4.7-12.5) % Eos % (Auto) (0.7-5.8) Baso % (Auto) (0.1-1.2) % Neut # (Auto) (1.56-6.13) K/mm3 Lymph # (Auto) (1.18-3.74) K/mm3 [place] # (Auto) (0.24-0.36) K/mm3 Eos # (Auto) (0.04-0.36) K/mm3 Baso # (Auto) (0.01-0.08) K/mm3 Sodium 140 (136-145) mEq/L Potassium 2.6 L 3.3 L (3.5-5.1) mEq/L Chloride 102 (98-107) mEq/L Carbon Dioxide 31 (21-32) mEq/L Anion Gap 9.6 (5-15) BUN 8 (7-18) mg/dL Creatinine 0.8 (0.55-1.02) mg/dL Est Cr Clr Drug Dosing 56.00 mL/min Estimated GFR (MDRD) > 60 (>60) mL/min BUN/Creatinine Ratio 10.0 L (14-18) Glucose 95 (83-115) mg/dL POC Glucose (83-110) mg/dL Calcium 8.3 L (8.5-10.1) mg/dL Magnesium 1.7 L (1.8-2.4) mg/dl Thuan Results last 24 hrs: Microbiology 11/29/16 06:45 Stool Culture - Final Stool / Feces - Final - Final Med Orders - Current: Current Medications Acetaminophen (Tylenol) 650 mg PO Q4H PRN PRN Reason: Pain (Mild 1-3)/fever Acetaminophen/Hydrocodone Bitart ([place] 325-5 Mg) 1 tab PO Q4H PRN PRN Reason: Pain (moderate 4-6) Last Admin: 12/02/16 16:23 Dose: 1 tab Albuterol/Ipratropium (Duoneb 3.0-0.5 Mg/3 Ml) 3 ml NEB Q4H PRN PRN Reason: Shortness Of Breath/wheezing Bisacodyl (Dulcolax) 5 mg PO DAILY PRN PRN Reason: Constipation Cyanocobalamin (Vitamin B12) 1,000 mcg PO DAILY [facility] Last Admin: 12/02/16 09:22 Dose: 1,000 mcg Dextrose/Water (Dextrose 50% In Water) 50 ml IVPUSH ASDIRECTED PRN PRN Reason: Hypoglycemia Enoxaparin Sodium (Lovenox) 40 mg SUBCUT DAILY [facility] Last Admin: 12/02/16 09:11 Dose: 40 mg Hydralazine HCl (Apresoline) 20 mg IVPUSH Q4H PRN PRN Reason: Hypertension Last Admin: 12/02/16 06:08 Dose: 20 mg Hydromorphone HCl (Dilaudid) 0.25 mg IVPUSH Q2H PRN PRN Reason: Pain (severe 7-10) Erythromycin Lactobionate 250 (mg/ Sodium Chloride) 100 mls @ 100 mls/hr IV Q6H [facility] Stop: 12/02/16 19:00 Last Admin: 12/02/16 18:22 Dose: 100 mls/hr Insulin Aspart (Novolog) 0 unit SUBCUT BID@0700,2100 LEONARDO PRN Reason: Protocol Last Admin: 12/02/16 06:25 Dose: Not Given Lorazepam (Ativan) 1 mg IV Q6H PRN PRN Reason: Nausea/Vomiting Metoclopramide HCl (Reglan) 10 mg IVPUSH Q6H [facility] Last Admin: 12/02/16 16:30 Dose: 10 mg Metoprolol Tartrate (Lopressor) 5 mg IVPUSH Q4H PRN PRN Reason: Tachycardia Metronidazole (Flagyl) 500 mg PO Q6H [facility] Last Admin: 12/02/16 16:25 Dose: 500 mg Multi-Ingred Cream/Lotion/Oil/Oint (Zinc Oxide) 15 gm TOP TID [facility] Last Admin: 12/02/16 15:40 Dose: Not Given Nitroglycerin (Nitrostat) 0.4 mg SL ASDIRECTED PRN PRN Reason: Chest Pain Nystatin (Nystatin Crm) 15 gm TOP TID [facility] Last Admin: 12/02/16 15:40 Dose: Not Given Pantoprazole Sodium (Protonix) 40 mg PO DAILY [facility] Last Admin: 12/02/16 09:12 Dose: 40 mg Phenol/Menthol (Chloraseptic) 15 ml MUCMEM Q2H PRN PRN Reason: Sore Throat Last Admin: 11/28/16 21:00 Dose: 2 spray Polyethylene Glycol (Miralax) 17 gm PO DAILY PRN PRN Reason: Constipation Potassium Chloride (Klor-Con M20) 60 meq PO Q6H [facility] Stop: 12/03/16 07:01 Last Admin: 12/02/16 18:22 Dose: 60 meq Prednisone (Prednisone) 40 mg PO DAILY [facility] Stop: 12/04/16 09:01 Last Admin: 12/02/16 09:11 Dose: 40 mg Prednisone (Prednisone) 30 mg PO DAILY [facility] Stop: 12/07/16 09:01 Prednisone (Prednisone) 20 mg PO DAILY [facility] Stop: 12/10/16 09:01 Prednisone (Prednisone) 10 mg PO DAILY [facility] Stop: 12/13/16 09:01 Senna/Docusate Sodium (Senna Plus) 1 tab PO BID PRN PRN Reason: Constipation Temazepam (Restoril) 30 mg PO BEDTIME PRN PRN Reason: Sleep Last Admin: 11/29/16 21:55 Dose: 30 mg Discontinued Medications Bumetanide (Bumex) 0.5 mg IVPUSH DAILY [facility] Last Admin: 12/01/16 12:18 Dose: Not Given Cyanocobalamin (Vitamin B12) 1,000 mcg SUBCUT ONETIME ONE Stop: 11/27/16 23:01 Last Admin: 11/27/16 23:41 Dose: 1,000 mcg Cyanocobalamin (Vitamin B12) 1,000 mcg SUBCUT DAILY [facility] Stop: 12/03/16 09:00 Last Admin: 12/02/16 12:29 Dose: Not Given Diatrizoate Meglum/Diatrizoate Sod (Gastrografin 37%) 90 ml PO ONETIME ONE Stop: 11/27/16 16:15 Last Admin: 11/27/16 17:14 Dose: 90 ml Enoxaparin Sodium (Lovenox) 30 mg SUBCUT DAILY [facility] Folic Acid (Folic Acid) 2 mg SUBCUT DAILY ONE Stop: 11/28/16 22:16 Last Admin: 11/28/16 21:17 Dose: 2 mg Hydrocortisone Sodium Succinate (Solu-Cortef) 100 mg IVPUSH Q6H [facility] Last Admin: 12/01/16 10:17 Dose: 100 mg Hydromorphone HCl (Dilaudid) 0.5 mg IVPUSH ONETIME ONE Stop: 11/27/16 20:48 Last Admin: 11/27/16 21:23 Dose: 0.5 mg Hydromorphone HCl (Dilaudid) 0.25 mg IVPUSH Q2H PRN PRN Reason: Pain (severe 7-10) Sodium Chloride (Normal Saline) 500 mls @ 500 mls/hr IV ONETIME ONE Stop: 11/27/16 16:19 Last Admin: 11/27/16 15:58 Dose: 500 mls/hr Sodium Chloride (Normal Saline) 1,000 mls @ 100 mls/hr IV ASDIRECTED [facility] Last Admin: 11/27/16 21:30 Dose: 100 mls/hr Dextrose/Sodium Chloride (Dextrose 5%-1/2 Ns) 1,000 mls @ 125 mls/hr IV ASDIRECTED [facility] Last Admin: 11/30/16 10:08 Dose: 125 mls/hr Magnesium Sulfate 2 gm/ Premix 50 mls @ 25 mls/hr IV ONETIME ONE Stop: 11/28/16 00:17 Last Admin: 11/28/16 00:09 Dose: 25 mls/hr Thiamine HCl 200 mg/ Sodium (Chloride) 102 mls @ 50 mls/hr IV ONETIME ONE Stop: 11/28/16 00:32 Last Admin: 11/28/16 01:19 Dose: 50 mls/hr Metronidazole 500 mg/ Premix 100 mls @ 100 mls/hr IV Q6H [facility] Last Admin: 12/01/16 10:12 Dose: 100 mls/hr Potassium Chloride 10 meq/ (Premix) 100 mls @ 100 mls/hr IV Q1H [facility] Stop: 11/28/16 00:29 Last Admin: 11/28/16 01:21 Dose: 100 mls/hr Multivitamins/Minerals 10 ml/ (Sodium Chloride) 510 mls @ 127 mls/hr IV ONETIME ONE Stop: 11/28/16 15:00 Last Admin: 11/28/16 11:14 Dose: 127 mls/hr Potassium Chloride 10 meq/ (Premix) 100 mls @ 100 mls/hr IV Q1H [facility] Stop: 11/29/16 16:59 Last Admin: 11/29/16 18:06 Dose: Not Given Potassium Chloride (Kcl 10 Meq In Water 100 Ml) Confirm Administered Dose 100 mls @ as directed .ROUTE .STK-MED ONE Stop: 11/29/16 12:38 Last Admin: 11/29/16 12:46 Dose: Not Given Potassium Chloride 10 meq/ (Premix) 100 mls @ 100 mls/hr IV Q1H [facility] Stop: 11/29/16 21:59 Last Admin: 11/29/16 18:07 Dose: Not Given Magnesium Sulfate 2 gm/ Premix 50 mls @ 25 mls/hr IV ONETIME ONE Stop: 11/30/16 12:59 Last Admin: 11/30/16 12:28 Dose: 25 mls/hr Magnesium Sulfate 2 gm/ Premix 50 mls @ 25 mls/hr IV ONETIME ONE Stop: 12/01/16 12:38 Last Admin: 12/01/16 16:40 Dose: 25 mls/hr Magnesium Sulfate (Magnesium Sulfate 2 Gm In Water 50 Ml) Confirm Administered Dose 50 mls @ as directed .ROUTE .STK-MED ONE Stop: 12/01/16 16:39 Last Admin: 12/01/16 16:44 Dose: Not Given Insulin Aspart (Novolog) 0 unit SUBCUT ASDIRECTED [facility] PRN Reason: Protocol Iopamidol (Isovue-300 (61%)) 100 ml IVPUSH ONETIME ONE Stop: 11/27/16 16:15 Last Admin: 11/27/16 17:14 Dose: 100 ml Magnesium Sulfate (Pharmacy To Dose - Magnesium Replacement) 1 dose .XX ASDIRECTED [facility] Multivitamins/Minerals (M.V.I. Adult) 10 ml IV DAILY@1000 LEONARDO Last Admin: 11/28/16 19:56 Dose: Not Given Ondansetron HCl (Zofran) 4 mg IVPUSH ONETIME ONE Stop: 11/27/16 15:23 Last Admin: 11/27/16 16:01 Dose: 4 mg Pantoprazole Sodium (Protonix Iv) 40 mg IVPUSH ONETIME ONE Stop: 11/27/16 22:16 Last Admin: 11/27/16 23:20 Dose: 40 mg Pantoprazole Sodium (Protonix Iv) 40 mg IV DAILY [facility] Last Admin: 11/30/16 10:11 Dose: 40 mg Potassium Chloride (Pharmacy To Dose - Potassium Replacement) 1 dose .XX ASDIRECTED [facility] Potassium Chloride (Klor-Con M20) 60 meq PO ONETIME ONE Stop: 11/29/16 18:03 Last Admin: 11/29/16 18:36 Dose: 60 meq Potassium Chloride (Potassium Chloride Solution) 60 meq PO Q8H [facility] Stop: 11/30/16 19:01 Last Admin: 11/30/16 18:39 Dose: 60 meq Potassium Chloride (Klor-Con M20) 60 meq PO Q8H [facility] Stop: 12/02/16 02:46 Last Admin: 12/02/16 02:00 Dose: 60 meq Sodium Chloride (Saline Flush) 10 ml FLUSH ONETIME ONE Stop: 11/27/16 16:15 Last Admin: 11/27/16 17:14 Dose: 10 ml Temazepam (Restoril) 30 mg PO BEDTIME PRN PRN Reason: Sleep - Exam Quality Assessment: DVT prophylaxis General: alert, oriented, cooperative, no acute distress HEENT: Pupils equal, Pupils reactive, EOMI Neck: supple, trachea midline Lungs: Normal respiratory effort Cardiovascular: Regular Rate, Regular Rhythm Abdomen: bowel sounds present, soft, no tenderness (Female) Exam: Deferred Back Exam: normal inspection Extremities: no edema Skin: warm Neurological: no new focal deficit, normal speech Psy/Mental Status: alert, normal affect, normal mood - Problem List Review Problem List Initiated/Reviewed/Updated: Yes - My Orders Last 24 Hours: My Active Orders 12/02/16 09:00 predniSONE 40 mg PO DAILY 12/02/16 13:00 Potassium Chloride [Klor-Con M20] 60 meq PO Q6H 12/05/16 09:00 predniSONE 30 mg PO DAILY 12/08/16 09:00 predniSONE 20 mg PO DAILY 12/11/16 09:00 predniSONE 10 mg PO DAILY - Plan Plan:: Assessment/Plan: Acute: Small Bowel Obstruction, tolerating diet. - Follow up with Dr. Calero after d/c Crohn's Colitis - Flagyl 500 mg IV Q6, day 4; changed to oral dose today. - DC Erythromycin - Prednisone 40 mg with taper Persistent hypokalemia Chronic: Impaired Vision CAD S/p Stent x 3 HTN GERD Urinary Incontinence OA/DJD Hypothyroidism Depression Hx/o Per-rectal and Chantelle-ashley Cellulitis Peripheral Edema Plan: Aggressive electrolyte replacement Continue current treatment Routine AM Labs Continue PT/OT SW/CM for d/c planning Encourage to ambulated TID-QID Code status:1 Additional orders as above LOS>96 hours with slow response to therapy
[2016-12-02] MEDS ORDERED: HYDROmorphone 0.5 MG/0.5 ML Syringe IVPUSH PRN (19:03)
[2016-12-02] MEDS ORDERED: LORazepam 2 MG/ML MDV IV PRN (19:03)
[2016-12-02] MEDS ORDERED: Acetaminophen 325 MG Tab PO PRN (19:03)
[2016-12-02] MEDS ORDERED: Temazepam 30 MG Cap PO PRN (19:03)
[2016-12-02] MEDS ORDERED: traMADol 50 MG Tab PO PRN (19:08)
[2016-12-02] MEDS: Saccharomyces Boulardii (Probiotic) 250 MG Cap PO SCH (20:30)
[2016-12-02] MEDS: Metoprolol Tartrate 25 MG Tab PO SCH (20:30)
[2016-12-03] MEDS: Potassium Chloride 20 MEQ Tab.ER PO SCH ×2 (01:10→07:36)
[2016-12-03] MEDS ORDERED: Temazepam 15 MG Cap PO PRN (01:49)
[2016-12-03] MEDS: metroNIDAZOLE 500 MG Tab PO SCH ×2 (04:29→10:37)
[2016-12-03] MEDS: Metoclopramide 10 MG/2 ML SDV IVPUSH SCH ×2 (04:30→10:37)
[2016-12-03] MEDS: Insulin Aspart 100 Units/ML 3 ML Pen SUBCUT SCH (07:36)
[2016-12-03] MEDS ORDERED: COLESTIPOL PO SCH (09:00)
[2016-12-03] MEDS: Saccharomyces Boulardii (Probiotic) 250 MG Cap PO SCH (09:14)
[2016-12-03] MEDS: Enoxaparin 40 MG/0.4 ML Syringe SUBCUT SCH (09:15)
[2016-12-03] MEDS: Cyanocobalamin (Vitamin B12) 1,000 MCG Tab PO SCH (09:15)
[2016-12-03] MEDS: predniSONE 20 MG Tab PO SCH (09:16)
[2016-12-03] MEDS: Metoprolol Tartrate 25 MG Tab PO SCH (09:17)
[2016-12-03] MEDS: Pantoprazole 40 MG Tab.CR PO SCH (09:17)
[2016-12-03] MEDS: Nystatin Crm 30 GM Tube TOP SCH (09:18)
[2016-12-03 09:21] VITALS: BP 150/89
[2016-12-03] MEDS ORDERED: Magnesium Sulfate/Water 2 GM in Premix Bag 1 BAG IV ONE (10:23)
--- NOTE | 2016-12-03 13:31 | PCM.DCSUM1 ---
Addendum entered and electronically signed by Kristy Ortega PA-C 13:52: Discharge Summary - Discharge Data Discharge Disposition: Home, Self-Care 01 Condition: Good - Patient Summary/Data Operative Procedure(s) Performed: Punch biopsy to right forearm rash- results pending at time of discharge Consults: Consultations 11/27/16 22:12 Consult to Case Management [CONS] Routine Consult to Recyclable Materials Sorter [CONS] Routine Consult to Spiritual Care [CONS] Routine OT Evaluation and Treatment [CONS] Routine PT Evaluation and Treatment [CONS] Routine 11/30/16 15:30 Consult to Gi Technician [CONS] Routine - Patient Instructions Diet: Usual Diet as Tolerated Activity: As Tolerated Driving: Do Not Drive Showering/Bathing: May Shower Notify Provider of: Increased Pain, Nausea and/or Vomiting - Discharge Plan Prescriptions/Med Rec: metroNIDAZOLE [Flagyl] 500 mg PO Q6H #20 tablet predniSONE 10 mg PO DAILY #30 tablet Home Medications: Home Meds Levothyroxine Sodium 75 mcg PO ACBRK 04/14/14 [History] Pantoprazole Sodium 40 mg PO DAILY 04/14/14 [History] metFORMIN [Glucophage] 500 mg PO BEDTIME 04/14/14 [History] Loperamide [Imodium AD] 1 tab PO BID PRN 06/18/15 [History] Nitroglycerin [Nitrostat] 0.4 mg SL ASDIRECTED PRN 06/18/15 [History] InFLIXimab [Remicade] 100 mg IV ASDIRECTED 06/30/15 [History] Aspirin 81 mg PO DAILY 09/19/16 [History] Acetaminophen [Tylenol] 650 mg PO Q4H PRN #0 tablet 11/14/16 [Rx] Ferrous Sulfate 325 mg PO WITHBREAKFAST #30 tablet 11/14/16 [Rx] Folic Acid 1 mg PO BEDTIME #30 tablet 11/14/16 [Rx] Furosemide [Lasix] 40 mg PO DAILY #30 tablet 11/14/16 [Rx] Magnesium Oxide 400 mg PO BID #60 tablet 11/14/16 [Rx] Metoprolol Tartrate [Lopressor] 50 mg PO Q12HR #60 tablet 11/14/16 [Rx] Multivitamins,Therapeutic [Thera] 1 each PO BEDTIME tablet 11/14/16 [Rx] Nystatin [Nystatin Crm] 0 gm TOP TID #30 gm 11/14/16 [Rx] Potassium Chloride [Klor-Con 10] 20 meq PO DAILY #30 tab.er 11/14/16 [Rx] Spironolactone [Aldactone] 25 mg PO DAILY #30 tablet 11/14/16 [Rx] Colestipol [Colestipol HCl] 1 g PO DAILY 11/30/16 [History] L.acidoph,Paracasei, B.lactis [Probiotic] 1 tab PO BID 11/30/16 [History] Rosuvastatin [Crestor] 10 mg PO SUTH 11/30/16 [History] Zinc Oxide 1 applic TOP BID 11/30/16 [History] traMADol [Ultram] 50 mg PO Q6H PRN 11/30/16 [History] metroNIDAZOLE [Flagyl] 500 mg PO Q6H #20 tablet 12/03/16 [Rx] predniSONE 10 mg PO DAILY #30 tablet 12/03/16 [Rx] Patient Handouts: Fall Prevention in the Home, [id number], Small Bowel Obstruction, [id number], Food Choices for Gastroesophageal Reflux Disease, Adult, Gastroesophageal Reflux Disease, Adult, Coronary Artery Disease, Female, Crohn Disease Forms: ED Department Discharge Referrals: Andrea Rubio MD [Primary Care Provider] - (Please schedule post hospital stay follow-up visit with PCP, Dr. Rubio in 2 week. ) - Patient Data Vitals - Most Recent: Last Vital Signs Temp 98.1 F 12/03/16 07:59 Pulse 72 12/03/16 09:17 Resp 16 12/03/16 07:59 BP 150/89 H 12/03/16 09:17 Pulse Ox 100 12/03/16 07:59 Weight - Most Recent: 190 lb 3.2 oz Lab Results - Last 24 hrs: Laboratory Results - last 24 hr 12/03/16 Range/Units 06:20 POC Glucose 95 (83-110) mg/dL Med Orders - Current: Current Medications Discontinued Medications Acetaminophen (Tylenol) 650 mg PO Q4H PRN PRN Reason: Pain (Mild 1-3)/fever Acetaminophen (Tylenol) 650 mg PO Q6H PRN PRN Reason: Pain (Mild 1-3)/fever Hydrocodone Bitart/Acetaminophen ([place] 325-5 Mg) 1 tab PO Q4H PRN PRN Reason: Pain (moderate 4-6) Last Admin: 12/02/16 16:23 Dose: 1 tab Albuterol/Ipratropium (Duoneb 3.0-0.5 Mg/3 Ml) 3 ml NEB Q4H PRN PRN Reason: Shortness Of Breath/wheezing Bisacodyl (Dulcolax) 5 mg PO DAILY PRN PRN Reason: Constipation Bumetanide (Bumex) 0.5 mg IVPUSH DAILY [facility] Last Admin: 12/01/16 12:18 Dose: Not Given Cyanocobalamin (Vitamin B12) 1,000 mcg SUBCUT ONETIME ONE Stop: 11/27/16 23:01 Last Admin: 11/27/16 23:41 Dose: 1,000 mcg Cyanocobalamin (Vitamin B12) 1,000 mcg SUBCUT DAILY [facility] Stop: 12/03/16 09:00 Last Admin: 12/02/16 12:29 Dose: Not Given Cyanocobalamin (Vitamin B12) 1,000 mcg PO DAILY [facility] Last Admin: 12/03/16 09:15 Dose: 1,000 mcg Dextrose/Water (Dextrose 50% In Water) 50 ml IVPUSH ASDIRECTED PRN PRN Reason: Hypoglycemia Diatrizoate Meglum/Diatrizoate Sod (Gastrografin 37%) 90 ml PO ONETIME ONE Stop: 11/27/16 16:15 Last Admin: 11/27/16 17:14 Dose: 90 ml Enoxaparin Sodium (Lovenox) 30 mg SUBCUT DAILY [facility] Enoxaparin Sodium (Lovenox) 40 mg SUBCUT DAILY [facility] Last Admin: 12/03/16 09:15 Dose: 40 mg Folic Acid (Folic Acid) 2 mg SUBCUT DAILY ONE Stop: 11/28/16 22:16 Last Admin: 11/28/16 21:17 Dose: 2 mg Hydralazine HCl (Apresoline) 20 mg IVPUSH Q4H PRN PRN Reason: Hypertension Last Admin: 12/02/16 06:08 Dose: 20 mg Hydrocortisone Sodium Succinate (Solu-Cortef) 100 mg IVPUSH Q6H [facility] Last Admin: 12/01/16 10:17 Dose: 100 mg Hydromorphone HCl (Dilaudid) 0.5 mg IVPUSH ONETIME ONE Stop: 11/27/16 20:48 Last Admin: 11/27/16 21:23 Dose: 0.5 mg Hydromorphone HCl (Dilaudid) 0.25 mg IVPUSH Q2H PRN PRN Reason: Pain (severe 7-10) Hydromorphone HCl (Dilaudid) 0.25 mg IVPUSH Q2H PRN PRN Reason: Pain (severe 7-10) Hydromorphone HCl (Dilaudid) 0.25 mg IVPUSH Q4H PRN PRN Reason: Pain (severe 7-10) Sodium Chloride (Normal Saline) 500 mls @ 500 mls/hr IV ONETIME ONE Stop: 11/27/16 16:19 Last Admin: 11/27/16 15:58 Dose: 500 mls/hr Sodium Chloride (Normal Saline) 1,000 mls @ [facility] Admin: 11/27/16 21:30 Dose: 100 mls/hr Dextrose/Sodium Chloride (Dextrose 5%-1/2 Ns) 1,000 mls @ 125 [facility]ls[facility] Last Admin: 11/30/16 10:08 Dose: 125 mls/hr Magnesium Sulfate 2 gm/ Premix 50 mls @ 25 mls/hr IV ONETIME ONE Stop: 11/28/16 00:17 Last Admin: 11/28/16 00:09 Dose: 25 mls/hr Thiamine HCl 200 mg/ Sodium (Chloride) 102 mls @ 50 mls/hr IV ONETIME ONE Stop: 11/28/16 00:32 Last Admin: 11/28/16 01:19 Dose: 50 mls/hr Metronidazole 500 mg/ Premix 100 mls @ 100 mls/hr IV Q6H [facility] Last Admin: 12/01/16 10:12 Dose: 100 mls/hr Potassium Chloride 10 meq/ (Premix) 100 mls @ 100 mls/hr IV Q1H [facility] Stop: 11/28/16 00:29 Last Admin: 11/28/16 01:21 Dose: 100 mls/hr Multivitamins/Minerals 10 ml/ (Sodium Chloride) 510 mls @ 127 mls/hr IV ONETIME ONE Stop: 11/28/16 15:00 Last Admin: 11/28/16 11:14 Dose: 127 mls/hr Erythromycin Lactobionate 250 (mg/ Sodium Chloride) 100 mls @ 100 mls/hr IV Q6H [facility] Stop: 12/02/16 19:00 Last Admin: 12/02/16 18:22 Dose: 100 mls/hr Potassium Chloride 10 meq/ (Premix) 100 mls @ 100 mls/hr IV Q1H [facility] Stop: 11/29/16 16:59 Last Admin: 11/29/16 18:06 Dose: Not Given Potassium Chloride (Kcl 10 Meq In Water 100 Ml) Confirm Administered Dose 100 mls @ as directed .ROUTE .STK-MED ONE Stop: 11/29/16 12:38 Last Admin: 11/29/16 12:46 Dose: Not Given Potassium Chloride 10 meq/ (Premix) 100 mls @ 100 mls/hr IV Q1H [facility] Stop: 11/29/16 21:59 Last Admin: 11/29/16 18:07 Dose: Not Given Magnesium Sulfate 2 gm/ Premix 50 mls @ 25 mls/hr IV ONETIME ONE Stop: 11/30/16 12:59 Last Admin: 11/30/16 12:28 Dose: 25 mls/hr Magnesium Sulfate 2 gm/ Premix 50 mls @ 25 mls/hr IV ONETIME ONE Stop: 12/01/16 12:38 Last Admin: 12/01/16 16:40 Dose: 25 mls/hr Magnesium Sulfate (Magnesium Sulfate 2 Gm In Water 50 Ml) Confirm Administered Dose 50 mls @ as directed .ROUTE .STK-MED ONE Stop: 12/01/16 16:39 Last Admin: 12/01/16 16:44 Dose: Not Given Magnesium Sulfate 2 gm/ Premix 50 mls @ 25 mls/hr IV ONETIME ONE Stop: 12/03/16 12:22 Last Admin: 12/03/16 10:37 Dose: 25 mls/hr Insulin Aspart (Novolog) 0 unit SUBCUT ASDIRECTED [facility] PRN Reason: Protocol Insulin Aspart (Novolog) 0 unit SUBCUT BID@0700,2100 [facility] PRN Reason: Protocol Last Admin: 12/03/16 07:36 Dose: Not Given Iopamidol (Isovue-300 (61%)) 100 ml IVPUSH ONETIME ONE Stop: 11/27/16 16:15 Last Admin: 11/27/16 17:14 Dose: 100 ml Lorazepam (Ativan) 1 mg IV Q6H PRN PRN Reason: Nausea/Vomiting Lorazepam (Ativan) 1 mg IV Q8H PRN PRN Reason: Nausea/Vomiting Magnesium Sulfate (Pharmacy To Dose - Magnesium Replacement) 1 dose .XX ASDIRECTED [facility] Metoclopramide HCl (Reglan) 10 mg IVPUSH Q6H [facility] Last Admin: 12/03/16 10:37 Dose: 10 mg Metoprolol Tartrate (Lopressor) 5 mg IVPUSH Q4H PRN PRN Reason: Tachycardia Metoprolol Tartrate (Lopressor) 25 mg PO Q12HR [facility] Last Admin: 12/03/16 09:17 Dose: 25 mg Metronidazole (Flagyl) 500 mg PO Q6H [facility] Last Admin: 12/03/16 10:37 Dose: 500 mg Multi-Ingred Cream/Lotion/Oil/Oint (Zinc Oxide) 15 gm TOP TID [facility] Last Admin: 12/03/16 09:18 Dose: Not Given Multi-Ingred Cream/Lotion/Oil/Oint (Zinc Oxide) 0 gm TOP BID [facility] Last Admin: 12/03/16 09:18 Dose: Not Given Multivitamins/Minerals (M.V.I. Adult) 10 ml IV DAILY@1000 [facility] Last Admin: 11/28/16 19:56 Dose: Not Given Nitroglycerin (Nitrostat) 0.4 mg SL ASDIRECTED PRN PRN Reason: Chest Pain Nystatin (Nystatin Crm) 15 gm TOP TID [facility] Last Admin: 12/03/16 09:18 Dose: Not Given Ondansetron HCl (Zofran) 4 mg IVPUSH ONETIME ONE Stop: 11/27/16 15:23 Last Admin: 11/27/16 16:01 Dose: 4 mg Pantoprazole Sodium (Protonix Iv) 40 mg IVPUSH ONETIME ONE Stop: 11/27/16 22:16 Last Admin: 11/27/16 23:20 Dose: 40 mg Pantoprazole Sodium (Protonix Iv) 40 mg IV DAILY [facility] Last Admin: 11/30/16 10:11 Dose: 40 mg Pantoprazole Sodium (Protonix) 40 mg PO DAILY [facility] Last Admin: 12/03/16 09:17 Dose: 40 mg Colestipol 0 each PO DAILY [facility] Last Admin: 12/03/16 09:30 Dose: Not Given Phenol/Menthol (Chloraseptic) 15 ml MUCMEM Q2H PRN PRN Reason: Sore Throat Last Admin: 11/28/16 21:00 Dose: 2 spray Polyethylene Glycol (Miralax) 17 gm PO DAILY PRN PRN Reason: Constipation Potassium Chloride (Pharmacy To Dose - Potassium Replacement) 1 dose .XX ASDIRECTED [facility] Potassium Chloride (Klor-Con M20) 60 meq PO ONETIME ONE Stop: 11/29/16 18:03 Last Admin: 11/29/16 18:36 Dose: 60 meq Potassium Chloride (Potassium Chloride Solution) 60 meq PO Q8H [facility] Stop: 11/30/16 19:01 Last Admin: 11/30/16 18:39 Dose: 60 meq Potassium Chloride (Klor-Con M20) 60 meq PO Q8H [facility] Stop: 12/02/16 02:46 Last Admin: 12/02/16 02:00 Dose: 60 meq Potassium Chloride (Klor-Con M20) 60 meq PO Q6H [facility] Stop: 12/03/16 07:01 Last Admin: 12/03/16 07:36 Dose: 60 meq Prednisone (Prednisone) 40 mg PO DAILY [facility] Stop: 12/04/16 09:01 Last Admin: 12/03/16 09:16 Dose: 40 mg Prednisone (Prednisone) 30 mg PO DAILY [facility] Stop: 12/07/16 09:01 Prednisone (Prednisone) 20 mg PO DAILY [facility] Stop: 12/10/16 09:01 Prednisone (Prednisone) 10 mg PO DAILY [facility] Stop: 12/13/16 09:01 Rosuvastatin Calcium (Crestor) 10 mg PO SuTh@2100 [facility] Saccharomyces Boulardii (Florastor) 500 mg PO BID [facility] Last Admin: 12/03/16 09:14 Dose: 500 mg Senna/Docusate Sodium (Senna Plus) 1 tab PO BID PRN PRN Reason: Constipation Sodium Chloride (Saline Flush) 10 ml FLUSH ONETIME ONE Stop: 11/27/16 16:15 Last Admin: 11/27/16 17:14 Dose: 10 ml Temazepam (Restoril) 30 mg PO BEDTIME PRN PRN Reason: Sleep Temazepam (Restoril) 30 mg PO BEDTIME PRN PRN Reason: Sleep Last Admin: 11/29/16 21:55 Dose: 30 mg Temazepam (Restoril) 15 mg PO BEDTIME PRN PRN Reason: Sleep Temazepam (Restoril) 15 mg PO BEDTIME PRN PRN Reason: Sleep Last Admin: 12/03/16 01:54 Dose: 15 mg Tramadol HCl (Ultram) 50 mg PO Q6H PRN PRN Reason: Pain Addendum entered and electronically signed by Suzi Buchanan MD 12/05/16 13: 00: Discharge Summary - Hospital Course Free Text/Narrative:: Agree with additional notes as entered; see previous discharge summary as well as addendum. - Discharge Data Discharge Date: 12/03/16 Discharge Disposition: Home, Self-Care 01 Condition: Good - Patient Summary/Data Operative Procedure(s) Performed: Punch biopsy to right forearm rash- results pending at time of discharge Consults: Consultations 11/27/16 22:12 Consult to Case Management [CONS] Routine Consult to Recyclable Materials Sorter [CONS] Routine Consult to Spiritual Care [CONS] Routine OT Evaluation and Treatment [CONS] Routine PT Evaluation and Treatment [CONS] Routine 11/30/16 15:30 Consult to Gi Technician [CONS] Routine - Patient Instructions Diet: Usual Diet as Tolerated Activity: As Tolerated Driving: Do Not Drive Showering/Bathing: May Shower Notify Provider of: Increased Pain, Nausea and/or Vomiting - Discharge Plan Prescriptions/Med Rec: metroNIDAZOLE [Flagyl] 500 mg PO Q6H #20 tablet predniSONE 10 mg PO DAILY #30 tablet Home Medications: Home Meds Levothyroxine Sodium 75 mcg PO ACBRK 04/14/14 [History] Pantoprazole Sodium 40 mg PO DAILY 04/14/14 [History] metFORMIN [Glucophage] 500 mg PO BEDTIME 04/14/14 [History] Loperamide [Imodium AD] 1 tab PO BID PRN 06/18/15 [History] Nitroglycerin [Nitrostat] 0.4 mg SL ASDIRECTED PRN 06/18/15 [History] InFLIXimab [Remicade] 100 mg IV ASDIRECTED 06/30/15 [History] Aspirin 81 mg PO DAILY 09/19/16 [History] Acetaminophen [Tylenol] 650 mg PO Q4H PRN #0 tablet 11/14/16 [Rx] Ferrous Sulfate 325 mg PO WITHBREAKFAST #30 tablet 11/14/16 [Rx] Folic Acid 1 mg PO BEDTIME #30 tablet 11/14/16 [Rx] Furosemide [Lasix] 40 mg PO DAILY #30 tablet 11/14/16 [Rx] Magnesium Oxide 400 mg PO BID #60 tablet 11/14/16 [Rx] Metoprolol Tartrate [Lopressor] 50 mg PO Q12HR #60 tablet 11/14/16 [Rx] Multivitamins,Therapeutic [Thera] 1 each PO BEDTIME tablet 11/14/16 [Rx] Nystatin [Nystatin Crm] 0 gm TOP TID #30 gm 11/14/16 [Rx] Potassium Chloride [Klor-Con 10] 20 meq PO DAILY #30 tab.er 11/14/16 [Rx] Spironolactone [Aldactone] 25 mg PO DAILY #30 tablet 11/14/16 [Rx] Colestipol [Colestipol HCl] 1 g PO DAILY 11/30/16 [History] L.acidoph,Paracasei, B.lactis [Probiotic] 1 tab PO BID 11/30/16 [History] Rosuvastatin [Crestor] 10 mg PO SUTH 11/30/16 [History] Zinc Oxide 1 applic TOP BID 11/30/16 [History] traMADol [Ultram] 50 mg PO Q6H PRN 11/30/16 [History] metroNIDAZOLE [Flagyl] 500 mg PO Q6H #20 tablet 12/03/16 [Rx] predniSONE 10 mg PO DAILY #30 tablet 12/03/16 [Rx] Patient Handouts: Fall Prevention in the Home, [id number], Small Bowel Obstruction, [id number], Food Choices for Gastroesophageal Reflux Disease, Adult, Gastroesophageal Reflux Disease, Adult, Coronary Artery Disease, Female, Crohn Disease Forms: ED Department Discharge Referrals: Andrea Rubio MD [Primary Care Provider] - (Please schedule post hospital stay follow-up visit with PCP, Dr. Rubio in 2 week. ) - General Info Date of Service: 11/27/16 - Patient Data Vitals - Most Recent: Last Vital Signs Temp 36.7 C 12/03/16 07:59 Pulse 72 12/03/16 09:17 Resp 16 12/03/16 07:59 BP 150/89 H 12/03/16 09:17 Pulse Ox 100 12/03/16 07:59 Weight - Most Recent: 86.273 kg Lab Results - Last 24 hrs: Laboratory Results - last 24 hr 12/03/16 Range/Units 06:20 POC Glucose 95 (83-110) mg/dL Med Orders - Current: Current Medications Discontinued Medications Acetaminophen (Tylenol) 650 mg PO Q4H PRN PRN Reason: Pain (Mild 1-3)/fever Acetaminophen (Tylenol) 650 mg PO Q6H PRN PRN Reason: Pain (Mild 1-3)/fever Hydrocodone Bitart/Acetaminophen ([place] 325-5 Mg) 1 tab PO Q4H PRN PRN Reason: Pain (moderate 4-6) Last Admin: 12/02/16 16:23 Dose: 1 tab Albuterol/Ipratropium (Duoneb 3.0-0.5 Mg/3 Ml) 3 ml NEB Q4H PRN PRN Reason: Shortness Of Breath/wheezing Bisacodyl (Dulcolax) 5 mg PO DAILY PRN PRN Reason: Constipation Bumetanide (Bumex) 0.5 mg IVPUSH DAILY [facility] Last Admin: 12/01/16 12:18 Dose: Not Given Cyanocobalamin (Vitamin B12) 1,000 mcg SUBCUT ONETIME ONE Stop: 11/27/16 23:01 Last Admin: 11/27/16 23:41 Dose: 1,000 mcg Cyanocobalamin (Vitamin B12) 1,000 mcg SUBCUT DAILY [facility] Stop: 12/03/16 09:00 Last Admin: 12/02/16 12:29 Dose: Not Given Cyanocobalamin (Vitamin B12) 1,000 mcg PO DAILY [facility] Last Admin: 12/03/16 09:15 Dose: 1,000 mcg Dextrose/Water (Dextrose 50% In Water) 50 ml IVPUSH ASDIRECTED PRN PRN Reason: Hypoglycemia Diatrizoate Meglum/Diatrizoate Sod (Gastrografin 37%) 90 ml PO ONETIME ONE Stop: 11/27/16 16:15 Last Admin: 11/27/16 17:14 Dose: 90 ml Enoxaparin Sodium (Lovenox) 30 mg SUBCUT DAILY [facility] Enoxaparin Sodium (Lovenox) 40 mg SUBCUT DAILY [facility] Last Admin: 12/03/16 09:15 Dose: 40 mg Folic Acid (Folic Acid) 2 mg SUBCUT DAILY ONE Stop: 11/28/16 22:16 Last Admin: 11/28/16 21:17 Dose: 2 mg Hydralazine HCl (Apresoline) 20 mg IVPUSH Q4H PRN PRN Reason: Hypertension Last Admin: 12/02/16 06:08 Dose: 20 mg Hydrocortisone Sodium Succinate (Solu-Cortef) 100 mg IVPUSH Q6H [facility] Last Admin: 12/01/16 10:17 Dose: 100 mg Hydromorphone HCl (Dilaudid) 0.5 mg IVPUSH ONETIME ONE Stop: 11/27/16 20:48 Last Admin: 11/27/16 21:23 Dose: 0.5 mg Hydromorphone HCl (Dilaudid) 0.25 mg IVPUSH Q2H PRN PRN Reason: Pain (severe 7-10) Hydromorphone HCl (Dilaudid) 0.25 mg IVPUSH Q2H PRN PRN Reason: Pain (severe 7-10) Hydromorphone HCl (Dilaudid) 0.25 mg IVPUSH Q4H PRN PRN Reason: Pain (severe 7-10) Sodium Chloride (Normal Saline) 500 mls @ 500 mls/hr IV ONETIME ONE Stop: 11/27/16 16:19 Last Admin: 11/27/16 15:58 Dose: 500 mls/hr Sodium Chloride (Normal Saline) 1,000 mls @ [facility] Last Admin: 11/27/16 21:30 Dose: 100 mls/hr Dextrose/Sodium Chloride (Dextrose 5%-1/2 Ns) 1,000 mls @ 125 mls/hr IV [facility] Last Admin: 11/30/16 10:08 Dose: 125 mls/hr Magnesium Sulfate 2 gm/ Premix 50 mls @ 25 mls/hr IV ONETIME ONE Stop: 11/28/16 00:17 Last Admin: 11/28/16 00:09 Dose: 25 mls/hr Thiamine HCl 200 mg/ Sodium (Chloride) 102 mls @ 50 mls/hr IV ONETIME ONE Stop: 11/28/16 00:32 Last Admin: 11/28/16 01:19 Dose: 50 mls/hr Metronidazole 500 mg/ Premix 100 mls @ 100 mls/hr IV Q6H [facility] Last Admin: 12/01/16 10:12 Dose: 100 mls/hr Potassium Chloride 10 meq/ (Premix) 100 mls @ 100 mls/hr IV Q1H [facility] Stop: 11/28/16 00:29 Last Admin: 11/28/16 01:21 Dose: 100 mls/hr Multivitamins/Minerals 10 ml/ (Sodium Chloride) 510 mls @ 127 mls/hr IV ONETIME ONE Stop: 11/28/16 15:00 Last Admin: 11/28/16 11:14 Dose: 127 mls/hr Erythromycin Lactobionate 250 (mg/ Sodium Chloride) 100 mls @ 100 mls/hr IV Q6H [facility] Stop: 12/02/16 19:00 Last Admin: 12/02/16 18:22 Dose: 100 mls/hr Potassium Chloride 10 meq/ (Premix) 100 mls @ 100 mls/hr IV Q1H [facility] Stop: 11/29/16 16:59 Last Admin: 11/29/16 18:06 Dose: Not Given Potassium Chloride (Kcl 10 Meq In Water 100 Ml) Confirm Administered Dose 100 mls @ as directed .ROUTE .STK-MED ONE Stop: 11/29/16 12:38 Last Admin: 11/29/16 12:46 Dose: Not Given Potassium Chloride 10 meq/ (Premix) 100 mls @ 100 mls/hr IV Q1H [facility] Stop: 11/29/16 21:59 Last Admin: 11/29/16 18:07 Dose: Not Given Magnesium Sulfate 2 gm/ Premix 50 mls @ 25 mls/hr IV ONETIME ONE Stop: 11/30/16 12:59 Last Admin: 11/30/16 12:28 Dose: 25 mls/hr Magnesium Sulfate 2 gm/ Premix 50 mls @ 25 mls/hr IV ONETIME ONE Stop: 12/01/16 12:38 Last Admin: 12/01/16 16:40 Dose: 25 mls/hr Magnesium Sulfate (Magnesium Sulfate 2 Gm In Water 50 Ml) Confirm Administered Dose 50 mls @ as directed .ROUTE .STK-MED ONE Stop: 12/01/16 16:39 Last Admin: 12/01/16 16:44 Dose: Not Given Magnesium Sulfate 2 gm/ Premix 50 mls @ 25 mls/hr IV ONETIME ONE Stop: 12/03/16 12:22 Last Admin: 12/03/16 10:37 Dose: 25 mls/hr Insulin Aspart (Novolog) 0 unit SUBCUT ASDIRECTED [facility] PRN Reason: Protocol Insulin Aspart (Novolog) 0 unit SUBCUT BID@0700,2100 [facility] PRN Reason: Protocol Last Admin: 12/03/16 07:36 Dose: Not Given Iopamidol (Isovue-300 (61%)) 100 ml IVPUSH ONETIME ONE Stop: 11/27/16 16:15 Last Admin: 11/27/16 17:14 Dose: 100 ml Lorazepam (Ativan) 1 mg IV Q6H PRN PRN Reason: Nausea/Vomiting Lorazepam (Ativan) 1 mg IV Q8H PRN PRN Reason: Nausea/Vomiting Magnesium Sulfate (Pharmacy To Dose - Magnesium Replacement) 1 dose .XX ASDIRECTED [facility] Metoclopramide HCl (Reglan) 10 mg IVPUSH Q6H [facility] Last Admin: 12/03/16 10:37 Dose: 10 mg Metoprolol Tartrate (Lopressor) 5 mg IVPUSH Q4H PRN PRN Reason: Tachycardia Metoprolol Tartrate (Lopressor) 25 mg PO Q12HR [facility] Last Admin: 12/03/16 09:17 Dose: 25 mg Metronidazole (Flagyl) 500 mg PO Q6H [facility] Last Admin: 12/03/16 10:37 Dose: 500 mg Multi-Ingred Cream/Lotion/Oil/Oint (Zinc Oxide) 15 gm TOP TID [facility] Last Admin: 12/03/16 09:18 Dose: Not Given Multi-Ingred Cream/Lotion/Oil/Oint (Zinc Oxide) 0 gm TOP BID [facility] Last Admin: 12/03/16 09:18 Dose: Not Given Multivitamins/Minerals (M.V.I. Adult) 10 ml IV DAILY@1000 [facility] Last Admin: 11/28/16 19:56 Dose: Not Given Nitroglycerin (Nitrostat) 0.4 mg SL ASDIRECTED PRN PRN Reason: Chest Pain Nystatin (Nystatin Crm) 15 gm TOP TID [facility] Last Admin: 12/03/16 09:18 Dose: Not Given Ondansetron HCl (Zofran) 4 mg IVPUSH ONETIME ONE Stop: 11/27/16 15:23 Last Admin: 11/27/16 16:01 Dose: 4 mg Pantoprazole Sodium (Protonix Iv) 40 mg IVPUSH ONETIME ONE Stop: 11/27/16 22:16 Last Admin: 11/27/16 23:20 Dose: 40 mg Pantoprazole Sodium (Protonix Iv) 40 mg IV DAILY [facility] Last Admin: 11/30/16 10:11 Dose: 40 mg Pantoprazole Sodium (Protonix) 40 mg PO DAILY [facility] Last Admin: 12/03/16 09:17 Dose: 40 mg Colestipol 0 each PO DAILY [facility] Last Admin: 12/03/16 09:30 Dose: Not Given Phenol/Menthol (Chloraseptic) 15 ml MUCMEM Q2H PRN PRN Reason: Sore Throat Last Admin: 11/28/16 21:00 Dose: 2 spray Polyethylene Glycol (Miralax) 17 gm PO DAILY PRN PRN Reason: Constipation Potassium Chloride (Pharmacy To Dose - Potassium Replacement) 1 dose .XX ASDIRECTED [facility] Potassium Chloride (Klor-Con M20) 60 meq PO ONETIME ONE Stop: 11/29/16 18:03 Last Admin: 11/29/16 18:36 Dose: 60 meq Potassium Chloride (Potassium Chloride Solution) 60 meq PO Q8H [facility] Stop: 11/30/16 19:01 Last Admin: 11/30/16 18:39 Dose: 60 meq Potassium Chloride (Klor-Con M20) 60 meq PO Q8H [facility] Stop: 12/02/16 02:46 Last Admin: 12/02/16 02:00 Dose: 60 meq Potassium Chloride (Klor-Con M20) 60 meq PO Q6H [facility] Stop: 12/03/16 07:01 Last Admin: 12/03/16 07:36 Dose: 60 meq Prednisone (Prednisone) 40 mg PO DAILY [facility] Stop: 12/04/16 09:01 Last Admin: 12/03/16 09:16 Dose: 40 mg Prednisone (Prednisone) 30 mg PO DAILY [facility] [facility] Stop: 12/07/16 09:01 Prednisone (Prednisone) 20 mg PO DAILY [facility] Stop: 12/10/16 09:01 Prednisone (Prednisone) 10 mg PO DAILY [facility] Stop: 12/13/16 09:01 Rosuvastatin Calcium (Crestor) 10 mg PO SuTh@2100 [facility] Saccharomyces Boulardii (Florastor) 500 mg PO BID [facility] Last Admin: 12/03/16 09:14 Dose: 500 mg Senna/Docusate Sodium (Senna Plus) 1 tab PO BID PRN PRN Reason: Constipation Sodium Chloride (Saline Flush) 10 ml FLUSH ONETIME ONE Stop: 11/27/16 16:15 Last Admin: 11/27/16 17:14 Dose: 10 ml Temazepam (Restoril) 30 mg PO BEDTIME PRN PRN Reason: Sleep Temazepam (Restoril) 30 mg PO BEDTIME PRN PRN Reason: Sleep Last Admin: 11/29/16 21:55 Dose: 30 mg Temazepam (Restoril) 15 mg PO BEDTIME PRN PRN Reason: Sleep Temazepam (Restoril) 15 mg PO BEDTIME PRN PRN Reason: Sleep Last Admin: 12/03/16 01:54 Dose: 15 mg Tramadol HCl (Ultram) 50 mg PO Q6H PRN PRN Reason: Pain Addendum entered and electronically signed by Kristy Ortega PA-C 09:27: Discharge Summary - Hospital Course Free Text/Narrative:: Face to face interview was done with Dr. Buchanan and myself regarding patient need for Home health care, physical therapy. She will benefit from these services due to her diagnoses of crohn's disease- uncontrolled with incontinence of bowel and bladder; medication monitoring and education, vital signs assessment, continued physical therapy assessment and evaluation for balance and strengthening. She will follow up for further Home Health advisement with here PCP, Dr. Rubio at her hospital follow up visit scheduled for 5-7 days. - Discharge Data Discharge Disposition: Home, Self-Care 01 Condition: Good - Patient Summary/Data Operative Procedure(s) Performed: Punch biopsy to right forearm rash- results pending at time of discharge Consults: Consultations 11/27/16 22:12 Consult to Case Management [CONS] Routine Consult to Recyclable Materials Sorter [CONS] Routine Consult to Spiritual Care [CONS] Routine OT Evaluation and Treatment [CONS] Routine PT Evaluation and Treatment [CONS] Routine 11/30/16 15:30 Consult to Gi Technician [CONS] Routine - Patient Instructions Diet: Usual Diet as Tolerated Activity: As Tolerated Driving: Do Not Drive Showering/Bathing: May Shower Notify Provider of: Increased Pain, Nausea and/or Vomiting - Discharge Plan Prescriptions/Med Rec: metroNIDAZOLE [Flagyl] 500 mg PO Q6H #20 tablet predniSONE 10 mg PO DAILY #30 tablet Home Medications: Home Meds Levothyroxine Sodium 75 mcg PO ACBRK 04/14/14 [History] Pantoprazole Sodium 40 mg PO DAILY 04/14/14 [History] metFORMIN [Glucophage] 500 mg PO BEDTIME 04/14/14 [History] Loperamide [Imodium AD] 1 tab PO BID PRN 06/18/15 [History] Nitroglycerin [Nitrostat] 0.4 mg SL ASDIRECTED PRN 06/18/15 [History] InFLIXimab [Remicade] 100 mg IV ASDIRECTED 06/30/15 [History] Aspirin 81 mg PO DAILY 09/19/16 [History] Acetaminophen [Tylenol] 650 mg PO Q4H PRN #0 tablet 11/14/16 [Rx] Ferrous Sulfate 325 mg PO WITHBREAKFAST #30 tablet 11/14/16 [Rx] Folic Acid 1 mg PO BEDTIME #30 tablet 11/14/16 [Rx] Furosemide [Lasix] 40 mg PO DAILY #30 tablet 11/14/16 [Rx] Magnesium Oxide 400 mg PO BID #60 tablet 11/14/16 [Rx] Metoprolol Tartrate [Lopressor] 50 mg PO Q12HR #60 tablet 11/14/16 [Rx] Multivitamins,Therapeutic [Thera] 1 each PO BEDTIME tablet 11/14/16 [Rx] Nystatin [Nystatin Crm] 0 gm TOP TID #30 gm 11/14/16 [Rx] Potassium Chloride [Klor-Con 10] 20 meq PO DAILY #30 tab.er 11/14/16 [Rx] Spironolactone [Aldactone] 25 mg PO DAILY #30 tablet 11/14/16 [Rx] Colestipol [Colestipol HCl] 1 g PO DAILY 11/30/16 [History] L.acidoph,Paracasei, B.lactis [Probiotic] 1 tab PO BID 11/30/16 [History] Rosuvastatin [Crestor] 10 mg PO SUTH 11/30/16 [History] Zinc Oxide 1 applic TOP BID 11/30/16 [History] traMADol [Ultram] 50 mg PO Q6H PRN 11/30/16 [History] metroNIDAZOLE [Flagyl] 500 mg PO Q6H #20 tablet 12/03/16 [Rx] predniSONE 10 mg PO DAILY #30 tablet 12/03/16 [Rx] Patient Handouts: Fall Prevention in the Home, [id number], Small Bowel Obstruction, [id number], Food Choices for Gastroesophageal Reflux Disease, Adult, Gastroesophageal Reflux Disease, Adult, Coronary Artery Disease, Female, Crohn Disease Forms: ED Department Discharge Referrals: Andrea Rubio MD [Primary Care Provider] - (Please schedule post hospital stay follow-up visit with PCP, Dr. Rubio in 2 week. ) - Patient Data Vitals - Most Recent: Last Vital Signs Temp 98.1 F 12/03/16 07:59 Pulse 72 12/03/16 09:17 Resp 16 12/03/16 07:59 BP 150/89 H 12/03/16 09:17 Pulse Ox 100 12/03/16 07:59 Weight - Most Recent: 190 lb 3.2 oz Med Orders - Current: Current Medications Discontinued Medications Acetaminophen (Tylenol) 650 mg PO Q4H PRN PRN Reason: Pain (Mild 1-3)/fever Acetaminophen (Tylenol) 650 mg PO Q6H PRN PRN Reason: Pain (Mild 1-3)/fever Hydrocodone Bitart/Acetaminophen ([place] 325-5 Mg) 1 tab PO Q4H PRN PRN Reason: Pain (moderate 4-6) Last Admin: 12/02/16 16:23 Dose: 1 tab Albuterol/Ipratropium (Duoneb 3.0-0.5 Mg/3 Ml) 3 ml NEB Q4H PRN PRN Reason: Shortness Of Breath/wheezing Bisacodyl (Dulcolax) 5 mg PO DAILY PRN PRN Reason: Constipation Bumetanide (Bumex) 0.5 mg IVPUSH DAILY [facility] Last Admin: 12/01/16 12:18 Dose: Not Given Cyanocobalamin (Vitamin B12) 1,000 mcg SUBCUT ONETIME ONE Stop: 11/27/16 23:01 Last Admin: 11/27/16 23:41 Dose: 1,000 mcg Cyanocobalamin (Vitamin B12) 1,000 mcg SUBCUT DAILY [facility] Stop: 12/03/16 09:00 Last Admin: 12/02/16 12:29 Dose: Not Given Cyanocobalamin (Vitamin B12) 1,000 mcg PO DAILY [facility] Last Admin: 12/03/16 09:15 Dose: 1,000 mcg Dextrose/Water (Dextrose 50% In Water) 50 ml IVPUSH ASDIRECTED PRN PRN Reason: Hypoglycemia Diatrizoate Meglum/Diatrizoate Sod (Gastrografin 37%) 90 ml PO ONETIME ONE Stop: 11/27/16 16:15 Last Admin: 11/27/16 17:14 Dose: 90 ml Enoxaparin Sodium (Lovenox) 30 mg SUBCUT DAILY [facility] Enoxaparin Sodium (Lovenox) 40 mg SUBCUT DAILY [facility] Last Admin: 12/03/16 09:15 Dose: 40 mg Folic Acid (Folic Acid) 2 mg SUBCUT DAILY ONE Stop: 11/28/16 22:16 Last Admin: 11/28/16 21:17 Dose: 2 mg Hydralazine HCl (Apresoline) 20 mg IVPUSH Q4H PRN PRN Reason: Hypertension Last Admin: 12/02/16 06:08 Dose: 20 mg Hydrocortisone Sodium Succinate (Solu-Cortef) 100 mg IVPUSH Q6H [facility] Last Admin: 12/01/16 10:17 Dose: 100 mg Hydromorphone HCl (Dilaudid) 0.5 mg IVPUSH ONETIME ONE Stop: 11/27/16 20:48 Last Admin: 11/27/16 21:23 Dose: 0.5 mg Hydromorphone HCl (Dilaudid) 0.25 mg IVPUSH Q2H PRN PRN Reason: Pain (severe 7-10) Hydromorphone HCl (Dilaudid) 0.25 mg IVPUSH Q2H PRN PRN Reason: Pain (severe 7-10) Hydromorphone HCl (Dilaudid) 0.25 mg IVPUSH Q4H PRN PRN Reason: Pain (severe 7-10) Sodium Chloride (Normal Saline) 500 mls @ 500 mls/hr IV ONETIME ONE Stop: 11/27/16 16:19 Last Admin: 11/27/16 15:58 Dose: 500 mls/hr Sodium Chloride (Normal Saline) 1,000 mls @ 100 mls/hr IV ASDIRECTED [facility] Last Admin: 11/27/16 21:30 Dose: 100 mls/hr Dextrose/Sodium Chloride (Dextrose 5%-1/2 Ns) 1,000 mls @ 125 mls/hr IV ASDIRECTED [facility] Last Admin: 11/30/16 10:08 Dose: 125 mls/hr Magnesium Sulfate 2 gm/ Premix 50 mls @ 25 mls/hr IV ONETIME ONE Stop: 11/28/16 00:17 Last Admin: 11/28/16 00:09 Dose: 25 mls/hr Thiamine HCl 200 mg/ Sodium (Chloride) 102 mls @ 50 mls/hr IV ONETIME ONE Stop: 11/28/16 00:32 Last Admin: 11/28/16 01:19 Dose: 50 mls/hr Metronidazole 500 mg/ Premix 100 mls @ 100 mls/hr IV Q6H [facility] Last Admin: 12/01/16 10:12 Dose: 100 mls/hr Potassium Chloride 10 meq/ (Premix) 100 mls @ 100 mls/hr IV Q1H [facility] Stop: 11/28/16 00:29 Last Admin: 11/28/16 01:21 Dose: 100 mls/hr Multivitamins/Minerals 10 ml/ (Sodium Chloride) 510 mls @ 127 mls/hr IV ONETIME ONE Stop: 11/28/16 15:00 Last Admin: 11/28/16 11:14 Dose: 127 mls/hr Erythromycin Lactobionate 250 (mg/ Sodium Chloride) 100 mls @ 100 mls/hr IV Q6H [facility] Stop: 12/02/16 19:00 Last Admin: 12/02/16 18:22 Dose: 100 mls/hr Potassium Chloride 10 meq/ (Premix) 100 mls @ 100 mls/hr IV Q1H [facility] Stop: 11/29/16 16:59 Last Admin: 11/29/16 18:06 Dose: Not Given Potassium Chloride (Kcl 10 Meq In Water 100 Ml) Confirm Administered Dose 100 mls @ as directed .ROUTE .STK-MED ONE Stop: 11/29/16 12:38 Last Admin: 11/29/16 12:46 Dose: Not Given Potassium Chloride 10 meq/ (Premix) 100 mls @ 100 mls/hr IV Q1H [facility] Stop: 11/29/16 21:59 Last Admin: 11/29/16 18:07 Dose: Not Given Magnesium Sulfate 2 gm/ Premix 50 mls @ 25 mls/hr IV ONETIME ONE Stop: 11/30/16 12:59 Last Admin: 11/30/16 12:28 Dose: 25 mls/hr Magnesium Sulfate 2 gm/ Premix 50 mls @ 25 mls/hr IV ONETIME ONE Stop: 12/01/16 12:38 Last Admin: 12/01/16 16:40 Dose: 25 mls/hr Magnesium Sulfate (Magnesium Sulfate 2 Gm In Water 50 Ml) Confirm Administered Dose 50 mls @ as directed .ROUTE .STK-MED ONE Stop: 12/01/16 16:39 Last Admin: 12/01/16 16:44 Dose: Not Given Magnesium Sulfate 2 gm/ Premix 50 mls @ 25 mls/hr IV ONETIME ONE Stop: 12/03/16 12:22 Last Admin: 12/03/16 10:37 Dose: 25 mls/hr Insulin Aspart (Novolog) 0 unit SUBCUT ASDIRECTED [facility] PRN Reason: Protocol Insulin Aspart (Novolog) 0 unit SUBCUT BID@0700,2100 [facility] PRN Reason: Protocol Last Admin: 12/03/16 07:36 Dose: Not Given Iopamidol (Isovue-300 (61%)) 100 ml IVPUSH ONETIME ONE Stop: 11/27/16 16:15 Last Admin: 11/27/16 17:14 Dose: 100 ml Lorazepam (Ativan) 1 mg IV Q6H PRN PRN Reason: Nausea/Vomiting Lorazepam (Ativan) 1 mg IV Q8H PRN PRN Reason: Nausea/Vomiting Magnesium Sulfate (Pharmacy To Dose - Magnesium Replacement) 1 dose .XX ASDIRECTED [facility] Metoclopramide HCl (Reglan) 10 mg IVPUSH Q6H [facility] Last Admin: 12/03/16 10:37 Dose: 10 mg Metoprolol Tartrate (Lopressor) 5 mg IVPUSH Q4H PRN PRN Reason: Tachycardia Metoprolol Tartrate (Lopressor) 25 mg PO Q12HR [facility] Last Admin: 12/03/16 09:17 Dose: 25 mg Metronidazole (Flagyl) 500 mg PO Q6H [facility] Last Admin: 12/03/16 10:37 Dose: 500 mg Multi-Ingred Cream/Lotion/Oil/Oint (Zinc Oxide) 15 gm TOP TID [facility] Last Admin: 12/03/16 09:18 Dose: Not Given Multi-Ingred Cream/Lotion/Oil/Oint (Zinc Oxide) 0 gm TOP BID [facility] Last Admin: 12/03/16 09:18 Dose: Not Given Multivitamins/Minerals (M.V.I. Adult) 10 ml IV DAILY@1000 [facility] Last Admin: 11/28/16 19:56 Dose: Not Given Nitroglycerin (Nitrostat) 0.4 mg SL ASDIRECTED PRN PRN Reason: Chest Pain Nystatin (Nystatin Crm) 15 gm TOP TID [facility] Last Admin: 12/03/16 09:18 Dose: Not Given Ondansetron HCl (Zofran) 4 mg IVPUSH ONETIME ONE Stop: 11/27/16 15:23 Last Admin: 11/27/16 16:01 Dose: 4 mg Pantoprazole Sodium (Protonix Iv) 40 mg IVPUSH ONETIME ONE Stop: 11/27/16 22:16 Last Admin: 11/27/16 23:20 Dose: 40 mg Pantoprazole Sodium (Protonix Iv) 40 mg IV DAILY [facility] Last Admin: 11/30/16 10:11 Dose: 40 mg Pantoprazole Sodium (Protonix) 40 mg PO DAILY [facility] Last Admin: 12/03/16 09:17 Dose: 40 mg Colestipol 0 each PO DAILY [facility] Last Admin: 12/03/16 09:30 Dose: Not Given Phenol/Menthol (Chloraseptic) 15 ml MUCMEM Q2H PRN PRN Reason: Sore Throat Last Admin: 11/28/16 21:00 Dose: 2 spray Polyethylene Glycol (Miralax) 17 gm PO DAILY PRN PRN Reason: Constipation Potassium Chloride (Pharmacy To Dose - Potassium Replacement) 1 dose .XX ASDIRECTED [facility] Potassium Chloride (Klor-Con M20) 60 meq PO ONETIME ONE Stop: 11/29/16 18:03 Last Admin: 11/29/16 18:36 Dose: 60 meq Potassium Chloride (Potassium Chloride Solution) 60 meq PO Q8H [facility] Stop: 11/30/16 19:01 Last Admin: 11/30/16 18:39 Dose: 60 meq Potassium Chloride (Klor-Con M20) 60 meq PO Q8H [facility] Stop: 12/02/16 02:46 Last Admin: 12/02/16 02:00 Dose: 60 meq Potassium Chloride (Klor-Con M20) 60 meq PO Q6H [facility] Stop: 12/03/16 07:01 Last Admin: 12/03/16 07:36 Dose: 60 meq Prednisone (Prednisone) 40 mg PO DAILY [facility] Stop: 12/04/16 09:01 Last Admin: 12/03/16 09:16 Dose: 40 mg Prednisone (Prednisone) 30 mg PO DAILY [facility] Stop: 12/07/16 09:01 Prednisone (Prednisone) 20 mg PO DAILY [facility] Stop: 12/10/16 09:01 Prednisone (Prednisone) 10 mg PO DAILY [facility] Stop: 12/13/16 09:01 Rosuvastatin Calcium (Crestor) 10 mg PO SuTh@2100 [facility] Saccharomyces Boulardii (Florastor) 500 mg PO BID [facility] Last Admin: 12/03/16 09:14 Dose: 500 mg Senna/Docusate Sodium (Senna Plus) 1 tab PO BID PRN PRN Reason: Constipation Sodium Chloride (Saline Flush) 10 ml FLUSH ONETIME ONE Stop: 11/27/16 16:15 Last Admin: 11/27/16 17:14 Dose: 10 ml Temazepam (Restoril) 30 mg PO BEDTIME PRN PRN Reason: Sleep Temazepam (Restoril) 30 mg PO BEDTIME PRN PRN Reason: Sleep Last Admin: 11/29/16 21:55 Dose: 30 mg Temazepam (Restoril) 15 mg PO BEDTIME PRN PRN Reason: Sleep Temazepam (Restoril) 15 mg PO BEDTIME PRN PRN Reason: Sleep Last Admin: 12/03/16 01:54 Dose: 15 mg Tramadol HCl (Ultram) 50 mg PO Q6H PRN PRN Reason: Pain Original Note: Discharge Summary - Hospital Course Free Text/Narrative:: 76 year old female returned from [place] with abdominal pain. Had SBO with history of Crohn's disease, was seen by general surgery. Received medical management including IV antibiotics; required aggressive electrolyte replacement (K, Mg) pre discharge. Received hydrocortisone IV and was subsequently changed to prednisone with a slow taper before DC. LOS>96 hours with slow improvement Primary Dx SBO Exacerbation of Crohn's Electrolyte abnormalities Condition Good Deposition [place] Medication Prednisone taper Flagyl 500 mg QID Resume home meds Activity PT/OT guidance Follow up/Diagnostic Labs: BMP, Mg. - Discharge Data Discharge Date: 12/03/16 Discharge Disposition: Home, Self-Care 01 Condition: Good - Patient Summary/Data Operative Procedure(s) Performed: Punch biopsy to right forearm rash- results pending at time of discharge Consults: Consultations 11/27/16 22:12 Consult to Case Management [CONS] Routine Consult to Recyclable Materials Sorter [CONS] Routine Consult to Spiritual Care [CONS] Routine OT Evaluation and Treatment [CONS] Routine PT Evaluation and Treatment [CONS] Routine 11/30/16 15:30 Consult to Gi Technician [CONS] Routine - Patient Instructions Diet: Usual Diet as Tolerated Activity: As Tolerated Driving: Do Not Drive Showering/Bathing: May Shower Notify Provider of: Increased Pain, Nausea and/or Vomiting - Discharge Plan Prescriptions/Med Rec: metroNIDAZOLE [Flagyl] 500 mg PO Q6H #20 tablet predniSONE 10 mg PO DAILY #30 tablet Home Medications: Home Meds Levothyroxine Sodium 75 mcg PO ACBRK 04/14/14 [History] Pantoprazole Sodium 40 mg PO DAILY 04/14/14 [History] metFORMIN [Glucophage] 500 mg PO BEDTIME 04/14/14 [History] Loperamide [Imodium AD] 1 tab PO BID PRN 06/18/15 [History] Nitroglycerin [Nitrostat] 0.4 mg SL ASDIRECTED PRN 06/18/15 [History] InFLIXimab [Remicade] 100 mg IV ASDIRECTED 06/30/15 [History] Aspirin 81 mg PO DAILY 09/19/16 [History] Acetaminophen [Tylenol] 650 mg PO Q4H PRN #0 tablet 11/14/16 [Rx] Ferrous Sulfate 325 mg PO WITHBREAKFAST #30 tablet 11/14/16 [Rx] Folic Acid 1 mg PO BEDTIME #30 tablet 11/14/16 [Rx] Furosemide [Lasix] 40 mg PO DAILY #30 tablet 11/14/16 [Rx] Magnesium Oxide 400 mg PO BID #60 tablet 11/14/16 [Rx] Metoprolol Tartrate [Lopressor] 50 mg PO Q12HR #60 tablet 11/14/16 [Rx] Multivitamins,Therapeutic [Thera] 1 each PO BEDTIME tablet 11/14/16 [Rx] Nystatin [Nystatin Crm] 0 gm TOP TID #30 gm 11/14/16 [Rx] Potassium Chloride [Klor-Con 10] 20 meq PO DAILY #30 tab.er 11/14/16 [Rx] Spironolactone [Aldactone] 25 mg PO DAILY #30 tablet 11/14/16 [Rx] Colestipol [Colestipol HCl] 1 g PO DAILY 11/30/16 [History] L.acidoph,Paracasei, B.lactis [Probiotic] 1 tab PO BID 11/30/16 [History] Rosuvastatin [Crestor] 10 mg PO SUTH 11/30/16 [History] Zinc Oxide 1 applic TOP BID 11/30/16 [History] traMADol [Ultram] 50 mg PO Q6H PRN 11/30/16 [History] metroNIDAZOLE [Flagyl] 500 mg PO Q6H #20 tablet 12/03/16 [Rx] predniSONE 10 mg PO DAILY #30 tablet 12/03/16 [Rx] Patient Handouts: Fall Prevention in the Home, [id number], Small Bowel Obstruction, [id number], Food Choices for Gastroesophageal Reflux Disease, Adult, Gastroesophageal Reflux Disease, Adult, Coronary Artery Disease, Female, Crohn Disease Forms: ED Department Discharge Referrals: Andrea Rubio MD [Primary Care Provider] - (Please schedule post hospital stay follow-up visit with PCP, Dr. Rubio in 2 week. ) - Discharge Summary/Plan Comment DC Time >30 min.: No - General Info Date of Service: 11/27/16 Functional Status: Reports: pain controlled, tolerating diet, ambulating, urinating - Review of Systems General: Reports: Weakness, Fatigue HEENT: Reports: no symptoms Pulmonary: Reports: no symptoms Cardiovascular: Reports: No Symptoms Gastrointestinal: Reports: No symptoms Genitourinary: Reports: no symptoms Musculoskeletal: Reports: no symptoms Skin: Reports: no symptoms Neurological: Reports: No Symptoms Psychiatric: Reports: no symptoms - Patient Data Vitals - Most Recent: Last Vital Signs Temp 36.7 C 12/03/16 07:59 Pulse 72 12/03/16 09:17 Resp 16 12/03/16 07:59 BP 150/89 H 12/03/16 09:17 Pulse Ox 100 12/03/16 07:59 Weight - Most Recent: 86.999 kg I&O - Last 24 hours: Intake & Output 12/02/16 12/03/16 12/03/16 22:59 06:59 14:59 Intake Total 1560 300 Output Total 700 Balance 860 300 Lab Results - Last 24 hrs: Laboratory Results - last 24 hr 12/02/16 12/02/16 12/03/16 Range/Units 17:56 20:25 09:41 Sodium 138 (136-145) mEq/L Potassium 3.3 L 3.9 (3.5-5.1) mEq/L Chloride 103 (98-107) mEq/L Carbon Dioxide 28 (21-32) mEq/L Anion Gap 10.9 (5-15) BUN 10 (7-18) mg/dL Creatinine 0.8 (0.55-1.02) mg/dL Est Cr Clr Drug Dosing 56.00 mL/min Estimated GFR (MDRD) > 60 (>60) mL/min BUN/Creatinine Ratio 12.5 L (14-18) Glucose 146 H (83-115) mg/dL POC Glucose 175 H (83-110) mg/dL Calcium 8.4 L (8.5-10.1) mg/dL Magnesium 1.7 L (1.8-2.4) mg/dl MIRI Results - Last 24 hrs: Microbiology 11/29/16 06:45 Stool Culture - Final Stool / Feces - Final - Final Med Orders - Current: Current Medications Acetaminophen (Tylenol) 650 mg PO Q6H PRN PRN Reason: Pain (Mild 1-3)/fever Acetaminophen/Hydrocodone Bitart ([place] 325-5 Mg) 1 tab PO Q4H PRN PRN Reason: Pain (moderate 4-6) Last Admin: 12/02/16 16:23 Dose: 1 tab Albuterol/Ipratropium (Duoneb 3.0-0.5 Mg/3 Ml) 3 ml NEB Q4H PRN PRN Reason: Shortness Of Breath/wheezing Bisacodyl (Dulcolax) 5 mg PO DAILY PRN PRN Reason: Constipation Cyanocobalamin (Vitamin B12) 1,000 mcg PO DAILY LEONARDO Last Admin: 12/03/16 09:15 Dose: 1,000 mcg Dextrose/Water (Dextrose 50% In Water) 50 ml IVPUSH ASDIRECTED PRN PRN Reason: Hypoglycemia Enoxaparin Sodium (Lovenox) 40 mg SUBCUT DAILY LEONARDO Last Admin: 12/03/16 09:15 Dose: 40 mg Hydralazine HCl (Apresoline) 20 mg IVPUSH Q4H PRN PRN Reason: Hypertension Last Admin: 12/02/16 06:08 Dose: 20 mg Hydromorphone HCl (Dilaudid) 0.25 mg IVPUSH Q4H PRN PRN Reason: Pain (severe 7-10) Insulin Aspart (Novolog) 0 unit SUBCUT BID@0700,2100 [facility] PRN Reason: Protocol Last Admin: 12/03/16 07:36 Dose: Not Given Lorazepam (Ativan) 1 mg IV Q8H PRN PRN Reason: Nausea/Vomiting Metoclopramide HCl (Reglan) 10 mg IVPUSH Q6H [facility] Last Admin: 12/03/16 10:37 Dose: 10 mg Metoprolol Tartrate (Lopressor) 5 mg IVPUSH Q4H PRN PRN Reason: Tachycardia Metoprolol Tartrate (Lopressor) 25 mg PO Q12HR [facility] Last Admin: 12/03/16 09:17 Dose: 25 mg Metronidazole (Flagyl) 500 mg PO Q6H [facility] Last Admin: 12/03/16 10:37 Dose: 500 mg Multi-Ingred Cream/Lotion/Oil/Oint (Zinc Oxide) 15 gm TOP TID [facility] Last Admin: 12/03/16 09:18 Dose: Not Given Multi-Ingred Cream/Lotion/Oil/Oint (Zinc Oxide) 0 gm TOP BID [facility] Last Admin: 12/03/16 09:18 Dose: Not Given Nitroglycerin (Nitrostat) 0.4 mg SL ASDIRECTED PRN PRN Reason: Chest Pain Nystatin (Nystatin Crm) 15 gm TOP TID [facility] Last Admin: 12/03/16 09:18 Dose: Not Given Pantoprazole Sodium (Protonix) 40 mg PO DAILY [facility] Last Admin: 12/03/16 09:17 Dose: 40 mg Colestipol 0 each PO DAILY [facility] Last Admin: 12/03/16 09:30 Dose: Not Given Phenol/Menthol (Chloraseptic) 15 ml MUCMEM Q2H PRN PRN Reason: Sore Throat Last Admin: 11/28/16 21:00 Dose: 2 spray Polyethylene Glycol (Miralax) 17 gm PO DAILY PRN PRN Reason: Constipation Prednisone (Prednisone) 40 mg PO DAILY [facility] Stop: 12/04/16 09:01 Last Admin: 12/03/16 09:16 Dose: 40 mg Prednisone (Prednisone) 30 mg PO DAILY [facility] Stop: 12/07/16 09:01 Prednisone (Prednisone) 20 mg PO DAILY [facility] Stop: 12/10/16 09:01 Prednisone (Prednisone) 10 mg PO DAILY [facility] Stop: 12/13/16 09:01 Rosuvastatin Calcium (Crestor) 10 mg PO SuTh@2100 [facility] Saccharomyces Boulardii (Florastor) 500 mg PO BID [facility] Last Admin: 12/03/16 09:14 Dose: 500 mg Senna/Docusate Sodium (Senna Plus) 1 tab PO BID PRN PRN Reason: Constipation Temazepam (Restoril) 15 mg PO BEDTIME PRN PRN Reason: Sleep Last Admin: 12/03/16 01:54 Dose: 15 mg Tramadol HCl (Ultram) 50 mg PO Q6H PRN PRN Reason: Pain Discontinued Medications Acetaminophen (Tylenol) 650 mg PO Q4H PRN PRN Reason: Pain (Mild 1-3)/fever Bumetanide (Bumex) 0.5 mg IVPUSH DAILY [facility] Last Admin: 12/01/16 12:18 Dose: Not Given Cyanocobalamin (Vitamin B12) 1,000 mcg SUBCUT ONETIME ONE Stop: 11/27/16 23:01 Last Admin: 11/27/16 23:41 Dose: 1,000 mcg Cyanocobalamin (Vitamin B12) 1,000 mcg SUBCUT DAILY [facility] Stop: 12/03/16 09:00 Last Admin: 12/02/16 12:29 Dose: Not Given Diatrizoate Meglum/Diatrizoate Sod (Gastrografin 37%) 90 ml PO ONETIME ONE Stop: 11/27/16 16:15 Last Admin: 11/27/16 17:14 Dose: 90 ml Enoxaparin Sodium (Lovenox) 30 mg SUBCUT DAILY [facility] Folic Acid (Folic Acid) 2 mg SUBCUT DAILY ONE Stop: 11/28/16 22:16 Last Admin: 11/28/16 21:17 Dose: 2 mg Hydrocortisone Sodium Succinate (Solu-Cortef) 100 mg IVPUSH Q6H [facility] Last Admin: 12/01/16 10:17 Dose: 100 mg Hydromorphone HCl (Dilaudid) 0.5 mg IVPUSH ONETIME ONE Stop: 11/27/16 20:48 Last Admin: 11/27/16 21:23 Dose: 0.5 mg Hydromorphone HCl (Dilaudid) 0.25 mg IVPUSH Q2H PRN PRN Reason: Pain (severe 7-10) Hydromorphone HCl (Dilaudid) 0.25 mg IVPUSH Q2H PRN PRN Reason: Pain (severe 7-10) Sodium Chloride (Normal Saline) 500 mls @ 500 mls/hr IV ONETIME ONE Stop: 11/27/16 16:19 Last Admin: 11/27/16 15:58 Dose: 500 mls/hr Sodium Chloride (Normal Saline) 1,000 mls @ 100 mls/hr IV ASDIRECTED [facility] Last Admin: 11/27/16 21:30 Dose: 100 mls/hr Dextrose/Sodium Chloride (Dextrose 5%-1/2 Ns) 1,000 mls @ 125 mls/hr IV ASDIRECTED [facility] Last Admin: 11/30/16 10:08 Dose: 125 mls/hr Magnesium Sulfate 2 gm/ Premix 50 mls @ 25 mls/hr IV ONETIME ONE Stop: 11/28/16 00:17 Last Admin: 11/28/16 00:09 Dose: 25 mls/hr Thiamine HCl 200 mg/ Sodium (Chloride) 102 mls @ 50 mls/hr IV ONETIME ONE Stop: 11/28/16 00:32 Last Admin: 11/28/16 01:19 Dose: 50 mls/hr Metronidazole 500 mg/ Premix 100 mls @ 100 mls/hr IV Q6H [facility] Last Admin: 12/01/16 10:12 Dose: 100 mls/hr Potassium Chloride 10 meq/ (Premix) 100 mls @ 100 mls/hr IV Q1H [facility] Stop: 11/28/16 00:29 Last Admin: 11/28/16 01:21 Dose: 100 mls/hr Multivitamins/Minerals 10 ml/ (Sodium Chloride) 510 mls @ 127 mls/hr IV ONETIME ONE Stop: 11/28/16 15:00 Last Admin: 11/28/16 11:14 Dose: 127 mls/hr Erythromycin Lactobionate 250 (mg/ Sodium Chloride) 100 mls @ 100 mls/hr IV Q6H [facility] Stop: 12/02/16 19:00 Last Admin: 12/02/16 18:22 Dose: 100 mls/hr Potassium Chloride 10 meq/ (Premix) 100 mls @ 100 mls/hr IV Q1H [facility] Stop: 11/29/16 16:59 Last Admin: 11/29/16 18:06 Dose: Not Given Potassium Chloride (Kcl 10 Meq In Water 100 Ml) Confirm Administered Dose 100 mls @ as directed .ROUTE .STK-MED ONE Stop: 11/29/16 12:38 Last Admin: 11/29/16 12:46 Dose: Not Given Potassium Chloride 10 meq/ (Premix) 100 mls @ 100 mls/hr IV Q1H [facility] Stop: 11/29/16 21:59 Last Admin: 11/29/16 18:07 Dose: Not Given Magnesium Sulfate 2 gm/ Premix 50 mls @ 25 mls/hr IV ONETIME ONE Stop: 11/30/16 12:59 Last Admin: 11/30/16 12:28 Dose: 25 mls/hr Magnesium Sulfate 2 gm/ Premix 50 mls @ 25 mls/hr IV ONETIME ONE Stop: 12/01/16 12:38 Last Admin: 12/01/16 16:40 Dose: 25 mls/hr Magnesium Sulfate (Magnesium Sulfate 2 Gm In Water 50 Ml) Confirm Administered Dose 50 mls @ as directed .ROUTE .STK-MED ONE Stop: 12/01/16 16:39 Last Admin: 12/01/16 16:44 Dose: Not Given Magnesium Sulfate 2 gm/ Premix 50 mls @ 25 mls/hr IV ONETIME ONE Stop: 12/03/16 12:22 Last Admin: 12/03/16 10:37 Dose: 25 mls/hr Insulin Aspart (Novolog) 0 unit SUBCUT ASDIRECTED [facility] PRN Reason: Protocol Iopamidol (Isovue-300 (61%)) 100 ml IVPUSH ONETIME ONE Stop: 11/27/16 16:15 Last Admin: 11/27/16 17:14 Dose: 100 ml Lorazepam (Ativan) 1 mg IV Q6H PRN PRN Reason: Nausea/Vomiting Magnesium Sulfate (Pharmacy To Dose - Magnesium Replacement) 1 dose .XX ASDIRECTED [facility] Multivitamins/Minerals (M.V.I. Adult) 10 ml IV DAILY@1000 LEONARDO Last Admin: 11/28/16 19:56 Dose: Not Given Ondansetron HCl (Zofran) 4 mg IVPUSH ONETIME ONE Stop: 11/27/16 15:23 Last Admin: 11/27/16 16:01 Dose: 4 mg Pantoprazole Sodium (Protonix Iv) 40 mg IVPUSH ONETIME ONE Stop: 11/27/16 22:16 Last Admin: 11/27/16 23:20 Dose: 40 mg Pantoprazole Sodium (Protonix Iv) 40 mg IV DAILY [facility] Last Admin: 11/30/16 10:11 Dose: 40 mg Potassium Chloride (Pharmacy To Dose - Potassium Replacement) 1 dose .XX ASDIRECTED [facility] Potassium Chloride (Klor-Con M20) 60 meq PO ONETIME ONE Stop: 11/29/16 18:03 Last Admin: 11/29/16 18:36 Dose: 60 meq Potassium Chloride (Potassium Chloride Solution) 60 meq PO Q8H [facility] Stop: 11/30/16 19:01 Last Admin: 11/30/16 18:39 Dose: 60 meq Potassium Chloride (Klor-Con M20) 60 meq PO Q8H [facility] Stop: 12/02/16 02:46 Last Admin: 12/02/16 02:00 Dose: 60 meq Potassium Chloride (Klor-Con M20) 60 meq PO Q6H [facility] Stop: 12/03/16 07:01 Last Admin: 12/03/16 07:36 Dose: 60 meq Sodium Chloride (Saline Flush) 10 ml FLUSH ONETIME ONE Stop: 11/27/16 16:15 Last Admin: 11/27/16 17:14 Dose: 10 ml Temazepam (Restoril) 30 mg PO BEDTIME PRN PRN Reason: Sleep Temazepam (Restoril) 30 mg PO BEDTIME PRN PRN Reason: Sleep Last Admin: 11/29/16 21:55 Dose: 30 mg Temazepam (Restoril) 15 mg PO BEDTIME PRN PRN Reason: Sleep - Exam Quality Assessment: Reports: DVT prophylaxis General: Reports: alert, oriented, cooperative, no acute distress HEENT: Reports: Pupils equal, Pupils reactive, EOMI Neck: Reports: supple, trachea midline, no JVD Lungs: Reports: Normal respiratory effort Cardiovascular: Reports: Regular Rate Abdomen: Reports: bowel sounds present, soft, no tenderness, no distension (Female) Exam: Deferred Rectal (Female) Exam: Deferred Back Exam: Reports: normal inspection Extremities: Reports: normal pulses Skin: Reports: warm, dry Neurological: Reports: no new focal deficit, normal gait, normal speech Psy/Mental Status: Reports: alert, normal affect, normal mood *Q Meaningful Use (DIS) - VTE *Q VTE Criteria *Q: - Stroke *Q Stroke Criteria *Q: - AMI *Q AMI Criteria *Q:
[2016-12-04] MEDS ORDERED: Rosuvastatin 10 MG Tab PO SCH (21:00)
[2016-12-05] MEDS ORDERED: predniSONE 10 MG Tab PO SCH (09:00)
[2016-12-08] MEDS ORDERED: predniSONE 20 MG Tab PO SCH (09:00)
[2016-12-11] MEDS ORDERED: predniSONE 10 MG Tab PO SCH (09:00)
== END 2016-12-03 13:32 | disposition home or self-care (01) | DRG 386 ==
LOC: JD.ED 13:29 → JD.MS 20:48
PROVIDERS: ADMIT Internal Medicine; ATTEND Internal Medicine
PROC: 0D9670Z Drainage of Stomach with Drainage Device, Via Natural or Artificial Opening (ICD-10-PCS; principal; 2016-11-27)
DX: K56.60 Unspecified intestinal obstruction (principal); K50.012 Crohn's disease of small intestine with intestinal obstruction; E87.6 Hypokalemia; E11.9 Type 2 diabetes mellitus without complications; Z79.84 Long term (current) use of oral hypoglycemic drugs; I25.10 Atherosclerotic heart disease of native coronary artery without angina pectoris; I10 Essential (primary) hypertension; K50.90 Crohn's disease, unspecified, without complications; Z95.5 Presence of coronary angioplasty implant and graft; K21.9 Gastro-esophageal reflux disease without esophagitis; R32 Unspecified urinary incontinence; M19.90 Unspecified osteoarthritis, unspecified site; E03.9 Hypothyroidism, unspecified; F32.9 Major depressive disorder, single episode, unspecified; R60.9 Edema, unspecified; Z87.891 Personal history of nicotine dependence; Z79.82 Long term (current) use of aspirin; Z79.899 Other long term (current) drug therapy; H54.7 Unspecified visual loss; W19.XXXA Unspecified fall, initial encounter; Y92.231 Patient bathroom in hospital as the place of occurrence of the external cause
CPT/HCPCS: 36415; 74020; 74177; 80053; 85025; 86140; 96361; 96374; 99285; J2405; J7040; J7050; Q9963; Q9967; 70450; 70450-26; 72125; 72125-26; 74000; 74000-26; 80048; 82962; 83735; 84132; 84133; 85652; 87046; 87328; 87329; 87493; 96375; 97110-GP; 97112-GP; 97116-GP; 97162-GP; 97165-GO; 97530-GO; 97530-GP; 97535-GO; 99222; 99232; 99284; A9270-GY; C9113; J0360; J1170; J1364; J1650; J1720; J1815-GY; J2765; J3411; J3420; J3475; J3480; J7030; J7042

== ENCOUNTER 2016-12-11 16:52 | Emergency (ER) | payer MEDICARE, BC ==
[2016-12-11 17:08] VITALS: BP 136/79
[2016-12-11] MEDS ORDERED: HYDROmorphone 0.5 MG/0.5 ML Syringe IVPUSH ONE ×2 (18:34→22:01)
[2016-12-11] MEDS ORDERED: Ondansetron 4 MG/2 ML SDV IVPUSH ONE (18:34)
--- NOTE | 2016-12-11 18:35 | EDM.PDOC ---
ED HPI GI/ABDOMINAL - General Chief Complaint: Abdominal Pain Stated Complaint: Abdominal pain Time Seen by Provider: 12/11/16 18:20 Source of Information: Reports: Patient, Old records, RN notes reviewed History Limitations: Reports: No limitations - History of Present Illness INITIAL COMMENTS - FREE TEXT/NARRATIVE: 76 year old female presents to the ED today with complaints of generalized abdominal pain. 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 Patient is somewhat confused and a poor historian. She reports nausea but no vomiting. She had a runny BM this morning. Denies blood in stool. She had oatmeal for breakfast but has since lost her appetite. She denies fever, chills, sweats. She is unable to localize her pain. She reports occasional heart burn symptoms. She has a history of Chrons disease with frequent flare ups. She was also recently admitted to the hospital for bowel obstruction. She denies urinary symptoms. She also had a brief episode, last 2-3 minutes, of chest pain which quickly resolved without treatment. She denies shortness of breath, cough, dyspnea. PMH: Chrons with remicade, CAD S/p Stent x3, HTN, GERD, Urinary Incontinence, OA /DJD, Peripheral Edema, DM2, and Hypothyroidism - Related Data Allergies/ADRs: Allergies Allergy/AdvReac Type Severity Reaction Status Date / Time No Known Allergies Allergy Verified 12/11/16 17:18 Home Meds: Home Meds Levothyroxine Sodium 75 mcg PO ACBRK 04/14/14 [History] Pantoprazole Sodium 40 mg PO DAILY 04/14/14 [History] metFORMIN [Glucophage] 500 mg PO BEDTIME 04/14/14 [History] Loperamide [Imodium AD] 1 tab PO BID PRN 06/18/15 [History] Nitroglycerin [Nitrostat] 0.4 mg SL ASDIRECTED PRN 06/18/15 [History] InFLIXimab [Remicade] 100 mg IV ASDIRECTED 06/30/15 [History] Aspirin 81 mg PO DAILY 09/19/16 [History] Acetaminophen [Tylenol] 650 mg PO Q4H PRN #0 tablet 11/14/16 [Rx] Ferrous Sulfate 325 mg PO WITHBREAKFAST #30 tablet 11/14/16 [Rx] Folic Acid 1 mg PO BEDTIME #30 tablet 11/14/16 [Rx] Magnesium Oxide 400 mg PO BID #60 tablet 11/14/16 [Rx] Multivitamins,Therapeutic [Thera] 1 each PO BEDTIME tablet 11/14/16 [Rx] Nystatin [Nystatin Crm] 0 gm TOP TID #30 gm 11/14/16 [Rx] Potassium Chloride [Klor-Con 10] 20 meq PO DAILY #30 tab.er 11/14/16 [Rx] Spironolactone [Aldactone] 25 mg PO DAILY #30 tablet 11/14/16 [Rx] Colestipol [Colestipol HCl] 1 g PO DAILY 11/30/16 [History] L.acidoph,Paracasei, B.lactis [Probiotic] 1 tab PO BID 11/30/16 [History] Rosuvastatin [Crestor] 10 mg PO SUTH 11/30/16 [History] Zinc Oxide 1 applic TOP BID 11/30/16 [History] traMADol [Ultram] 50 mg PO Q6H PRN 11/30/16 [History] Furosemide [Lasix] 20 mg PO DAILY 12/11/16 [History] Metoprolol Tartrate [Lopressor] 50 mg PO BID 12/11/16 [History] Pravastatin [Pravachol] 20 mg PO DAILY 12/11/16 [History] predniSONE 10 mg PO ASDIRECTED 12/11/16 [History] Past Medical History HEENT History: Reports: Impaired vision Other HEENT History: wears glasses Cardiovascular History: Reports: CAD, Hypertension, Stents Other Cardiovascular History: x 3 Gastrointestinal History: Reports: GERD, Inflammatory bowel disease, Other (see below) Other Gastrointestinal History: crohn's Genitourinary History: Reports: Urinary incontinence [employer] History: Reports: Musculoskeletal History: Reports: Osteoarthritis Psychiatric History: Reports: Depression Endocrine/Metabolic History: Reports: Diabetes, type II, Hypothyroidism Other Endocrine/Metabolic History: borderline Dermatologic History: Reports: Other (see below) Other Dermatologic History: currently has cellulitis an rash - Infectious Disease History Infectious Disease History: Reports: Chicken pox, Measles, Mumps, Shingles - Past Surgical History HEENT Surgical History: Reports: Cataract surgery, Tonsillectomy Cardiovascular Surgical History: Reports: Coronary artery stent GI Surgical History: Reports: Cholecystectomy, Colonoscopy Endocrine Surgical History: Reports: None Musculoskeletal Surgical History: Reports: None Social & Family History - Family History Family Medical History: Noncontributory Cardiac: Reports: Heart failure, Hypertension OBGYN: Reports: Endocrine/Metabolic: Reports: Diabetes, type II Oncologic: Reports: Other (see below) Other Oncologic Family History: Does not remember what kind of cancer - Tobacco Use Smoking Status *Q: Former Smoker Years of Tobacco use: 30 Packs/Tins Daily: 1 Used Tobacco, but Quit: Yes Month Tobacco Last Used: 1994 Second Hand Smoke Exposure: No - Caffeine Use Caffeine Use: Reports: Coffee Other Caffeine Use: a cup every day - Alcohol Use Days Per Week of Alcohol Use: 1 Number of Drinks Per Day: 1 Total Drinks Per Week: 1 - Recreational Drug Use Recreational Drug Use: No Drug Use in Last 12 Months: No - Living Situation & Occupation Living situation: Reports: , alone Occupation: retired ED ROS GENERAL - Review of Systems Review Of Systems: See Below Constitutional: Reports: decreased appetite. Denies: fever, diaphoresis Respiratory: Reports: No Symptoms. Denies: Shortness of Breath, Pleuritic Chest Pain, Cough Cardiovascular: Reports: Chest pain. Denies: Dyspnea on exertion, Edema, Lightheadedness GI/Abdominal: Reports: Abdominal pain, Diarrhea, Nausea. Denies: Bloody stool, Constipation, Vomiting : Denies: dysuria, flank pain, frequency ED EXAM, GI/ABD - Physical Exam Exam: See Below Exam Limited By: No limitations General Appearance: alert, no apparent distress, anxious, obese Respiratory/Chest: no respiratory distress, lungs clear, normal breath sounds, no accessory muscle use, chest non-tender Cardiovascular: normal peripheral pulses, regular rate, rhythm, no murmur, other (3+ edema to bilateral lower extremities ) GI/Abdominal: normal bowel sounds, no organomegaly, tenderness (generalized to all 4 quadrants ), distention. No: guarding, rebound Back Exam: normal inspection, full range of motion. No: CVA tenderness (L), CVA tenderness (R) Neurological: alert, oriented, normal cognition Skin Exam: Warm, Dry, Intact EKG INTERPRETATION EKG Date: 12/11/16 Time: 18:18 Rhythm: NSR Rate (beats/min): 76 Maxbass: normal P-wave: present QRS: RBBB ST-T: normal QT: normal Comparison: no change (reviewed previous EKGs. RBBB is not new) Course - Vital Signs Last Recorded V/S: Last Vital Signs Temp 97.7 F 12/11/16 17:04 Pulse 91 12/11/16 17:04 Resp 18 12/11/16 17:04 BP 136/79 12/11/16 17:04 Pulse Ox 96 12/11/16 17:04 - Orders/Labs/Meds Orders: Active Orders 24 hr Category Date Time Status EKG Documentation Completion [RC] STAT Care 12/11/16 18:14 Active Peripheral IV Care [RC] . DIRECTED Care 12/11/16 18:34 Active Abdomen 2V AP Flat Upright [CR] Stat Exams 12/11/16 18:34 Taken Abdomen Pelvis w Cont [CT] Stat Exams 12/11/16 19:23 Taken Sodium Chloride 0.9% [Normal Saline] 1,000 ml Med 12/11/16 22:00 Active IV ONETIME Sodium Chloride 0.9% [Saline Flush] Med 12/11/16 18:34 Active 10 ml FLUSH ASDIRECTED PRN Nasogastric Orogastric Tube Insertion [OM.PC] Routine Oth 12/11/16 22:00 Ordered Peripheral IV Insertion Adult [OM.PC] Stat Oth 12/11/16 18:34 Ordered Medication Orders Sodium Chloride (Normal Saline) 1,000 mls @ 100 mls/hr IV ONETIME ONE Stop: 12/12/16 07:59 Last Admin: 12/11/16 22:06 Dose: 100 mls/hr Sodium Chloride (Saline Flush) 10 ml FLUSH ASDIRECTED PRN PRN Reason: Keep Vein Open Last Admin: 12/11/16 20:42 Dose: 10 ml Admin: 12/11/16 18:56 Dose: 10 ml Labs: Laboratory Tests 12/11/16 12/11/16 Range/Units 17:15 17:15 WBC 11.95 H (3.98-10.04) K/mm3 RBC 5.66 H (3.98-5.22) M/mm3 Hgb 14.3 (11.2-15.7) gm/L Hct 44.0 (34.1-44.9) % MCV 77.7 L (79.4-94.8) fl MCH 25.3 L (25.6-32.2) pg MCHC 32.5 (32.2-35.5) g/dl RDW Std Deviation 55.6 H (36.4-46.3) fL Plt Count 198 (182-369) K/mm3 MPV 10.0 (9.4-12.3) fl Neut % (Auto) 71.7 H (34.0-71.1) % Lymph % (Auto) 20.6 (19.3-51.7) % Harris % (Auto) 6.9 (4.7-12.5) % Eos % (Auto) 0.2 L (0.7-5.8) Baso % (Auto) 0.3 (0.1-1.2) % Neut # (Auto) 8.56 H (1.56-6.13) K/mm3 Lymph # (Auto) 2.46 (1.18-3.74) K/mm3 Harris # (Auto) 0.83 H (0.24-0.36) K/mm3 Eos # (Auto) 0.02 L (0.04-0.36) K/mm3 Baso # (Auto) 0.04 (0.01-0.08) K/mm3 Sodium 138 (136-145) mEq/L Potassium 4.1 (3.5-5.1) mEq/L Chloride 98 (98-107) mEq/L Carbon Dioxide 31 (21-32) mEq/L Anion Gap 13.1 (5-15) BUN 15 (7-18) mg/dL Creatinine 0.9 (0.55-1.02) mg/dL Est Cr Clr Drug Dosing 49.78 mL/min Estimated GFR (MDRD) > 60 (>60) mL/min BUN/Creatinine Ratio 16.7 (14-18) Glucose 137 H (83-115) mg/dL Calcium 9.1 (8.5-10.1) mg/dL Total Bilirubin 0.7 (0.2-1.0) mg/dL AST 29 (15-37) U/L ALT 46 (14-59) U/L Alkaline Phosphatase 59 (46-116) U/L Troponin I 0.024 (0.00-0.056) ng/mL Total Protein 6.5 (6.4-8.2) g/dl Albumin 3.5 (3.4-5.0) g/dl Globulin 3.0 gm/dL Albumin/Globulin Ratio 1.2 (1-2) Lipase 117 (73-393) U/L Meds: Medications Generic Name Dose Route Start Last Admin Trade Name Freq PRN Reason Stop Dose Admin Sodium Chloride 1,000 mls @ 100 mls/hr 12/11/16 22:00 12/11/16 22:06 Normal Saline IV 12/12/16 07:59 100 mls/hr ONETIME ONE Administration Sodium Chloride 10 ml 12/11/16 18:34 12/11/16 20:42 Saline Flush FLUSH 10 ml ASDIRECTED PRN Administration Keep Vein Open Discontinued Medications Generic Name Dose Route Start Last Admin Trade Name Freq PRN Reason Stop Dose Admin Diatrizoate Meglum/Diatrizoate Sod 90 ml 12/11/16 20:22 12/11/16 20:42 Gastrografin 37% PO 12/11/16 20:23 90 ml ONETIME ONE Administration Hydromorphone HCl 0.5 mg 12/11/16 18:34 12/11/16 18:56 Dilaudid IVPUSH 12/11/16 18:35 0.5 mg ONETIME ONE Administration Hydromorphone HCl 0.5 mg 12/11/16 22:01 12/11/16 22:08 Dilaudid IVPUSH 12/11/16 22:02 0.5 mg ONETIME ONE Administration Iopamidol 100 ml 12/11/16 20:25 12/11/16 20:42 Isovue-370 (76%) IVPUSH 12/11/16 20:26 100 ml ONETIME ONE Administration Ondansetron HCl 4 mg 12/11/16 18:34 12/11/16 18:56 Zofran IVPUSH 12/11/16 18:35 4 mg ONETIME ONE Administration - Re-Assessments/Exams Free Text/Narrative Re-Assessment/Exam: CBC reveals mildly elevated WBC of 11.9. CMP is unremarkable. Lipase normal. Troponin normal. Flat and upright abdominal x-ray reveals several air fluid levels. CT abdomen/ pelvis with contrast ordered. 2129 CT of abdomen/pelvis read by [facility], impression: 1. Findings of distal small bowel obstruction, most likely secondary to stricturing form of Chron disease 2. 3.3 cm infrarenal abdominal aortic aneurysm 3. No significant interval change when compared to CT on 11/27/16. NG tube ordered I called and spoke to Hospitalist instrumentation supervisor, Dr. Cortez, who requested consultation with general surgery prior to admission. I then spoke to Dr. Magallon , General Surgeon instrumentation supervisor. She recommended that the patient be transferred to a facility with a colorectal specialist as this is a reoccurring problem. [address] [facility] patient and her GI specialist is Dr. Calero. I spoke to [facility] Hospitalist Dr. Gaitan and GI specialist Dr. Swenson regarding this patient. They did not feel transfer was necessary and recommended admission here for conservative management. Dr. Swenson offered to discuss the case with Dr. Calero in the morning. I discussed these recommendations with Dr. Cortez and Dr. Magallon. Dr. Magallon still recommends colorectal specialist involvement. [facility] does not have a colorectal specialist, so Dr. Magallon recommends transfer to [facility]. 2239 Called [facility] call. I spoke to General Surgeon Dr. Villarreal and Hospitalist Dr. Mora. Dr. Mora accepted care of the patient. Patient will be transferred via ground ambulance with IVF infusing and NG tube to [facility]. She will be a direct admit. Departure - Departure Time of Disposition: 22:56 Disposition: DC/Tfer to Acute Hospital 02 Condition: fair Clinical Impression: Crohn's disease of small intestine with intestinal obstruction, Small bowel obstruction Forms: ED Department Discharge - My Orders Last 24 Hours: My Active Orders 12/11/16 18:14 EKG Documentation Completion [RC] STAT 12/11/16 18:34 Peripheral IV Care [RC] . DIRECTED Abdomen 2V AP Flat Upright [CR] Stat Sodium Chloride 0.9% [Saline Flush] 10 ml FLUSH ASDIRECTED PRN Peripheral IV Insertion Adult [OM.PC] Stat 12/11/16 19:23 Abdomen Pelvis w Cont [CT] Stat 12/11/16 22:00 Sodium Chloride 0.9% [Normal Saline] 1,000 ml IV ONETIME Nasogastric Orogastric Tube Insertion [OM.PC] Routine - Assessment/Plan Last 24 Hours: My Active Orders 12/11/16 18:14 EKG Documentation Completion [RC] STAT 12/11/16 18:34 Peripheral IV Care [RC] . DIRECTED Abdomen 2V AP Flat Upright [CR] Stat Sodium Chloride 0.9% [Saline Flush] 10 ml FLUSH ASDIRECTED PRN Peripheral IV Insertion Adult [OM.PC] Stat 12/11/16 19:23 Abdomen Pelvis w Cont [CT] Stat 12/11/16 22:00 Sodium Chloride 0.9% [Normal Saline] 1,000 ml IV ONETIME Nasogastric Orogastric Tube Insertion [OM.PC] Routine
[2016-12-11] MEDS: Sodium Chloride 0.9% 10 ML Syringe FLUSH PRN ×2 (18:56→20:42)
[2016-12-11] MEDS ORDERED: Diatrizoate Meglumine/Diatrizoate Sodium 37% 120 ML Bottle PO ONE (20:22)
[2016-12-11] MEDS ORDERED: Iopamidol 612 MG/ML 150 ML Bottle IVPUSH ONE (20:22)
[2016-12-11] MEDS ORDERED: Iopamidol 755 Mg/ML 100 ML Bottle IVPUSH ONE (20:25)
[2016-12-11] MEDS ORDERED: Sodium Chloride 0.9% 1,000 ML IV ONE (22:00)
--- NOTE | 2016-12-12 07:14 | CR ---
Abdomen: Supine and upright views of the abdomen were obtained. Comparison: Previous abdominal x-ray of 11/28/16. Several dilated small bowel loops are seen with air-fluid levels. Bony structures are osteopenic. Vascular calcification noted. No free air is seen. Impression: 1. Several loops within the midabdomen mildly dilated with air-fluid levels. Findings suspicious for an element of small bowel obstruction. 2. Other incidental findings. Diagnostic code #3
--- NOTE | 2016-12-12 09:16 | CT ---
CT abdomen and pelvis Technique: Multiple axial sections were obtained from above the dome of the diaphragm inferiorly through the pubic symphysis. Intravenous and oral contrast was utilized. Delayed images were also obtained through the pelvis. Comparison: Previous CT abdomen and pelvis exam of 11/27/16 is available. Findings: Visualized lung bases show nothing acute. Liver shows no focal parenchymal abnormality. Calcified splenic granuloma are seen. Adrenal glands show no nodule. Several cysts are seen within the right kidney. Cysts are similar to previous CT. Largest cyst measures 3.0 cm. Pancreas appears within normal limits. Previous cholecystectomy is seen. Common bile duct measures 1.6 cm which is similar to prior exam and likely residual from previous cholecystectomy. Atherosclerotic change noted within the aorta with slight aneurysmal dilatation of the mid aorta at 3.1 cm. This is stable from prior exam. Atherosclerotic change continues into the iliac vessels. Dilated loops of small bowel are identified which continues down to the ileum. Transitional point is with terminal ileum with small bowel showing wall thickening. Some fecalized stool is noted within dilated ileum. Wall thickening suggests chronic Crohn's disease. Slight amount of increased fat within the right inguinal region is seen believed to be incidental and stable from prior exam. Small amount of fluid is seen within the pelvis believed to be reactive from the colonic process. The amount of fluid is diminished from prior exam. Degenerative change scattered within the spine. Impression: 1. Dilated small bowel loops down to the terminal ileum. Terminal ileum is narrowed and shows wall thickening. Findings are seen on prior CT study of 11/27/16. Findings felt compatible with chronic Crohn's disease. Please correlate. 2. Mild mid abdominal aortic aneurysm at 3.1 cm which is stable. 3. Other incidental findings as noted above. Diagnostic code #3 I agree with preliminary report issued by [facility] (preliminary report dictated on 12/11/2016 at 10:08 PM Central Time)
== END 2016-12-11 23:09 ==
LOC: JD.ED 16:52
DX: K50.012 Crohn's disease of small intestine with intestinal obstruction (principal); I25.10 Atherosclerotic heart disease of native coronary artery without angina pectoris; I10 Essential (primary) hypertension; K21.9 Gastro-esophageal reflux disease without esophagitis; R32 Unspecified urinary incontinence; M19.90 Unspecified osteoarthritis, unspecified site; R60.9 Edema, unspecified; E11.9 Type 2 diabetes mellitus without complications; Z79.84 Long term (current) use of oral hypoglycemic drugs; E03.9 Hypothyroidism, unspecified; Z79.899 Other long term (current) drug therapy; Z79.82 Long term (current) use of aspirin; Z95.5 Presence of coronary angioplasty implant and graft; Z87.891 Personal history of nicotine dependence
CPT/HCPCS: 36415; 74020; 74177; 80053; 83690; 84484; 85025; 93005; 96361; 96374; 96375; 99285; J1170; J2405; J7040; J7050; Q9963; Q9967; 99284